=== PATIENT | female | born 1950 | race Caucasian/White ===

== ENCOUNTER 2024-10-07 08:25 | Inpatient (IN) | payer MEDICARE, SELFPAY ==
[2024-10-03 22:33] VITALS: BMI 35.3
[2024-10-03 22:52] VITALS: BP 146/82
[2024-10-03 23:11] LABS: % Basophils 0.4 % (0-2); % Eosinophils 0.9 % (0-6); % Immature Granulocytes 0.6 % (0-0.5); % Lymphocytes 12.3 % (20.5-51.1); % Monocytes 5.9 % (1.7-9.3); % Neutrophils 79.9 % (42.2-75.2); Absolute Eosinophils 0.1 10^3/uL (0-0.7); Absolute Immature Granulocytes 0.1 10^3/uL (0-0.05); Absolute Lymphocytes 1.4 10^3/uL (1.2-3.4); Absolute Monocytes 0.7 10^3/uL (0.1-0.6); Absolute Neutrophils 8.8 10^3/uL (1.4-6.5); Hematocrit 34.5 % (37.0-47.0); Hemoglobin 11.3 g/dL (12.0-16.0); Mean Corp Hgb Conc. 32.8 g/dL (33.0-37.0); Mean Corpuscular Hgb 28.5 pg (27.0-31.0); Mean Corpuscular Volume 87.1 fL (81.0-99.0); Mean Platelet Volume 8.7 fL (7.4-10.4); Nucleated Red Blood Cells % 0 %; Platelet Count 453 10^3/uL (130-400); Red Blood Cell Count 3.96 10^6/uL (4.20-5.40)
[2024-10-03 23:24] LABS: ALT (SGPT) 46 U/L (0-35); AST (SGOT) 56 U/L (14-36); Albumin 4.6 g/dl (3.5-5.0); Alkaline Phosphatase 32 U/L (38-126); Blood Urea Nitrogen 13 mg/dl (7-17); Calcium 9.5 mg/dl (8.4-10.2); Carbon Dioxide 24 mmol/L (22-30); Chloride 95 mmol/L (98-107); Erythrocyte Sed Rate 22 mm/hour (0-20); Glucose 134 mg/dl (70-99); Potassium 4.4 mmol/L (3.5-5.1); Sodium 128 mmol/L (135-145); Total Bilirubin 0.4 mg/dl (0.2-1.3); Total Protein 7.1 g/dl (6.3-8.2); eGFR > 60.00
[2024-10-04] VITALS (32 sets, daily range): BP systolic 102–165; BP diastolic 63–93
[2024-10-04] MEDS: ZOFRAN 4 MG IV ×3 (05:48→20:36)
--- NOTE | 2024-10-04 06:16 | ED.GENMED ---
History of Present Illness
General
Chief Complaint: Blood Pressure Problem
Source: patient and spouse
Time Seen by Provider: 10/04/24 06:05
History of Present Illness
History of Present Illness:
74-year-old female presents to the emergency room complaining of pain in her low back on the left radiating around to the front. Pain is so severe it makes her vomit. She denies any fever or chills. She has had nausea vomiting and diarrhea.
Movement makes the pain worse. Patient does have a history of back pain for which she had surgery.
Phy Exam
Physical Exam
Physical Exam:
General: Awake, Alert, Oriented X3. No acute distress but appears to have some pain at times
Vitals: unremarkable
Head: Atraumatic
Eyes: Pupils equal, EOMI
Throat: Airway intact, no exudates
Neck: Trachea midline
Lungs: Clear and equal b/l
Heart: Regular rate, no murmurs
Abd: Soft, Nontender, No pulsatile mass
Back: Tenderness to palpation over the left paraspinal musculature and SI joint
Neuro: No focal weakness
Skin: Warm, dry, no rash
Extremities: pulses equal b/l, no edema
Course
Orders/Labs/Results
Orders:
Orders
10/03/24 23:05
CRP [C-Reactive Protein] Urgent
Complete Blood Count/With Diff Urgent
Comprehensive Metabolic Panel Urgent
Erythrocyte Sed Rate Urgent
10/04/24 05:44
Ondansetron Injectable [Zofran] 4 mg .ROUTE .STK-MED ONE
10/04/24 05:47
Ondansetron Injectable [Zofran] 4 mg IV NOW STA
10/04/24 06:14
Diphenhydramine [Benadryl] 50 mg IV NOW STA
Fentanyl Citrate/Pf [Sublimaze] 75 mcg IV NOW STA
Hydrocortisone Sod Succinate [Solu-Cortef] 200 mg IV NOW STA
10/04/24 06:16
0.9% Sodium Chloride 500 ml [Nss] 500 ml IV BOLUS
10/04/24 07:27
CT Abd/pelvis W Iv Cont Urgent
Comment:
Reason For Exam: left lower abd pain/back pain
10/04/24 11:05
Ketorolac [Toradol] 15 mg IV NOW STA
10/04/24 13:28
Admit/Transfer Patient As Directed
Co-Sign Provider:
Level of Care: Observation services
Assign to:: Medical/Surgical
Physician / Group: fanny
Diagnosis: acute lower back pain
10/04/24 13:29
Code Status As Directed
Resuscitation Status: Full Code
PRN Pain Medication Management As Directed
May give lesser potent ordered pain med per pt: Yes
preference::
Protocol:: Medication orders for pain may be administered in a
manner that supports deferring to patient preference
when the pt is:
- Requesting an ordered lesser potent pain medication.
Least to most potent pain medications are defined
as: acetaminophen < NSAID < tramadol < opioids
(morphine, oxycodone, hydromorphone).
- Requesting a lesser dose of the same medication IF
ORDERED.
- Requesting a less intrusive route of administration
if both routes are prescribed by the provider (PO <
IV).
10/04/24 13:45
Lidocaine [Lidocaine 4% Patch] 1 patch TOPICAL DAILY
Apply Lidocaine patch(s) to:: left lower back
10/04/24 14:10
Acetaminophen [Tylenol] 650 mg PO Q4HPRN PRN
Ondansetron Injectable [Zofran] 4 mg IV Q6HPRN PRN
10/04/24 14:27
COVID-19 Antigen Urgent
Source: Nasal Swab
Influenza A+B Rapid Molecular Urgent
JENNA Source: Nasal Swab
Specimen Description:
10/04/24 Dinner
Regular
10/04/24 20:00
Remove Patch [Remove Lidocaine Patch] See Dose Instructions REMOVE DAILY@1999
Abnormal Lab Results
10/03/24
23:05
WBC 11.0 H 10^3/uL
(4.8-10.8)
RBC 3.96 L 10^6/uL
(4.20-5.40)
Hgb 11.3 L g/dL
(12.0-16.0)
Hct 34.5 L %
(37.0-47.0)
MCHC 32.8 L g/dL
(33.0-37.0)
Plt Count 453 H 10^3/uL
(130-400)
Abs Immat Gran (auto) 0.1 H 10^3/uL
(0-0.05)
Absolute Neuts (auto) 8.8 H 10^3/uL
(1.4-6.5)
Absolute Monos (auto) 0.7 H 10^3/uL
(0.1-0.6)
Immature Gran % 0.6 H %
(0-0.5)
Neutrophils % 79.9 H %
(42.2-75.2)
Lymphocytes % 12.3 L %
(20.5-51.1)
ESR 22 H mm/hour
(0-20)
Sodium 128 L mmol/L
(135-145)
Chloride 95 L mmol/L
(98-107)
Creatinine 0.4 L mg/dL
(0.6-1.0)
Glucose 134 H mg/dl
(70-99)
AST 56 H U/L
(14-36)
ALT 46 H U/L
(0-35)
Alkaline Phosphatase 32 L U/L
(38-126)
C-Reactive Protein 11.00 H mg/L
(0.0-10.00)
10/03/24 23:05
10/03/24 23:05
Vital Signs
Initial and Last Documented VS:
Initial Vital Signs
Temp Pulse Resp BP Pulse Ox
98.8 F 88 18 146/82 94
10/03/24 22:52 10/03/24 22:52 10/03/24 22:52 10/03/24 22:52 10/03/24 22:52
Last Documented Vital Signs
Temp Pulse Resp BP Pulse Ox
100.0 F 86 21 145/79 95
10/04/24 14:15 10/04/24 13:45 10/04/24 13:45 10/04/24 13:45 10/04/24 13:45
MDM/Problems Addressed
Differential Diagnosis Includes:
Degenerative joint disease, sacroiliitis, infectious process, fracture
MDM/Problems Addressed:
Patient presents with pain in her left low back and SI region. Also pain radiates to the front. Labs show minimally elevated white blood cell count. She does have mild hyponatremia at 128 and very mildly elevated LFTs. In triage a C-reactive
protein was sent and it is 11 but are upper limit of normal is 10 is not particularly impressive. Sed rate is similarly just a touch above normal at 22 which is likely consistent with her age. I will obtain a CT of the abdomen and pelvis with IV
contrast. We discussed her allergies which are mostly nausea vomiting and 'hives'. We will pretreat for IV contrast with steroids and Benadryl. I would very much doubt the patient has a true allergic reaction to diphenhydramine.
Patient treated with a dose of IV fentanyl as she says this is the only pain medications he is able to take. Fentanyl made her sedated but did not improve her pain very much. She evidently was hyperventilating some and was started on nasal cannula
oxygen by nursing. Patient is arousable however. She continues to cannot complain of severe low back and sacroiliac pain. She states she can even get out of bed. CT does not show any acute abnormalities. Given patient's inability to get out of
bed and need for supplemental oxygen we will hospitalize the patient for further treatment and evaluation.
*Radiology
Radiology exam reviewed: radiology read reviewed
*Pulse Oximetry
Patient hypoxic: yes
*Critical Care Note
Total Time (30-74mins, 75-104mins- exclusive of procedures): Not Applicable
Patient Management
Social determinants of health affecting care: Living situation and Strong social support
ED Attending Note
-
Portions of this chart may have been created with voice recognition software.� Occasional wrong word or��sound alike� substitutions may have occurred due to the inherent limitations of voice recognition software.
Discharge Plan
Departure
Patient Disposition: Admit
Date of Disposition: 10/04/24
Time of Disposition: 13:01
Presentation/result/management discussed w/ accepting MD/DO: Hospitalist
Patient with high blood pressure during this ER visit?: Yes
Condition: Good
Discharge Problem:
Sacro-iliac pain
Interventions
Interventions:
*Risk Screen - Suicide Last Done: 10/04/24 04:37
*General Assessment Last Done: 10/04/24 04:37
*Neglect/Abuse Screening Last Done: 10/04/24 04:37
ED- Fall Risk Assessment Last Done: 10/04/24 12:38
*ED COVID-19 Vaccine History Last Done: 10/04/24 04:37
*Nursing Disposition Last Done: 10/04/24 12:38
ED- Cardiac Assessment Last Done: 10/04/24 04:41
ED- Neurological Assessment Last Done: 10/04/24 04:41
ED- Pulmonary Assessment Last Done: 10/04/24 04:41
[2024-10-04] MEDS: NSS 500 IV (07:06)
[2024-10-04] MEDS: SUBLIMAZE 75 MCG IV (07:07)
[2024-10-04] MEDS: SOLU-CORTEF 200 MG IV (07:07)
[2024-10-04] MEDS: BENADRYL 50 MG IV (07:07)
[2024-10-04] MEDS: TORADOL 15 MG IV (11:30)
--- NOTE | 2024-10-04 12:42 | EDRN ---
this RN entered the pts room to discharge the pt and per the pt and the pts daughter the pt is still in 'severe pain' and per the pts daughter she does not like that the pts Sp02 on RA is 91-94%, the pt has no c/o SOB however the pts daughter
believes that the pt cannot take deep breaths due to the pain that the pt is experiencing, this RN notified Dr. Power
--- NOTE | 2024-10-04 13:31 | EDRN ---
the pt and the pts daughter refused discharge, the pt was discharged from the work list in error, admissions notified and chart is being corrected
--- NOTE | 2024-10-04 13:36 | HPS.HSE ---
Family Physician
-
Family Physician: Marky Barger
Chief Complaint
-
acute lower back pain
History of Present Illness
74-year-old female past medical history of hypertension, diabetes, asthma, fibromyalgia, IBS, M�ni�re's disease, spinal stenosis status post L4-L5 laminectomy 2 years ago presenting for acute onset of left lower back pain radiating to the gluteal
region and front of the abdomen. She denies any injuries or fall or heavy lifting. She has a history of chronic right lower back pain for which she underwent laminectomy 2 years ago but the pain that she is having currently is acute. Pain does
not radiate to the leg. She denies any saddle anesthesia numbness or tingling in the legs. Denies any urinary symptoms.
She has been using Tylenol at home. She tried lidocaine patch but had an episode of vomiting after use.
She is having chills. She has chronic cough but is slightly more productive. Denies sore throat. She denies chest pain. She has been having episodes of vomiting secondary to pain. She denies diarrhea.
She had sinus infection 2 weeks ago.
Patient has IBS and occasionally has loose stools. No diarrhea.
Denies smoking or alcohol use.
Medical History
Past Medical History
Past Medical History: Reports Other (hypertension, diabetes, asthma, fibromyalgia, IBS, M�ni�re's disease, spinal stenosis status post L4-L5 laminectomy 2 years ago)
Past Surgical History: Reports None
Social History
Tobacco: Non-smoker
Alcohol: None
Drug: None
Family History
Family History: Not pertinent
Allergies / Home Medications
Allergies reflects when Allergies were last updated in [facility].
Home Medications with original date entered in [facility]
Allergy/Medication List:
Allergies
Allergy/AdvReac Type Severity Reaction Status Date / Time
betamethasone Allergy Unknown Verified 10/04/24 10:58
clindamycin Allergy Unknown Verified 10/04/24 10:58
codeine Allergy Unknown Verified 10/04/24 10:58
diazepam Allergy Unknown Verified 10/04/24 10:58
diphenhydramine Allergy Unknown Verified 10/04/24 10:58
erythromycin base Allergy Unknown Verified 10/04/24 10:58
Iodinated Contrast Media Allergy Unknown Verified 10/04/24 10:58
Latex, Natural Rubber Allergy Unknown Verified 10/04/24 10:58
methylprednisolone Allergy Unknown Verified 10/04/24 10:58
nickel Allergy Unknown Verified 10/04/24 10:58
Penicillins Allergy Unknown Verified 10/04/24 10:58
prednisolone Allergy Unknown Verified 10/04/24 10:58
prednisone Allergy Unknown Verified 10/04/24 10:58
sulfamethoxazole Allergy Unknown Verified 10/04/24 10:58
[From
Sulfamethoxazole-Trimethoprim]
tetramethylthiuram Allergy Unknown Verified 10/04/24 10:58
monosulfide
triamcinolone Allergy Unknown Verified 10/04/24 10:58
trimethoprim Allergy Unknown Verified 10/04/24 10:58
[From
Sulfamethoxazole-Trimethoprim]
morphine AdvReac Severe Nausea / Verified 10/04/24 10:58
Vomiting
Home Medications
ketorolac 10 mg tablet 10 mg PO Q8H PRN Pain #30 tabs 10/04/24
metaxalone 800 mg tablet 800 mg PO TID PRN muscle pain #20 tabs 10/04/24
Review of Systems
-
History Source: Patient
A 12 point ROS was completed and negative except as noted: Yes
Constitutional: Reports No Symptoms
EENT: Reports No Symptoms
Respiratory: Reports No Symptoms
Cardiac: Reports No Symptoms
Abdomen/GI: Reports No Symptoms
: Reports No Symptoms
Musculoskeletal: Reports No Symptoms
Skin: Reports No Symptoms
Neurological: Reports No Symptoms
Endocrine: Reports No Symptoms
Hematologic/Lymphatic: Reports No Symptoms
Psych: Reports No Symptoms
Physical Exam
Vital Signs
Vital Signs
Temp Pulse Resp BP Pulse Ox
98.5 F 91 22 146/77 95
10/04/24 12:37 10/04/24 12:37 10/04/24 12:37 10/04/24 12:37 10/04/24 12:37
Physical Exam
General: Well Developed, Well Nourished and No Apparent Distress
HEENT: NormoCephalic, Moist mucous membranes and Atraumatic
Respiratory: Clear
Cardiac: S1/S2 and Regular Rhythm; No Murmur or Rub
GI: Soft, Non Tender, Non Distended and Normal Bowel Sounds; No Organomegaly
Rectal: Deferred by Provider
Musculoskeletal: No Clubbing, No Cyanosis and No Edema
Skin: No Rash
Neuro: Nonfocal/grossly intact
Laboratory Results
-
10/03/24 23:05
10/03/24 23:05
Laboratory Results
Total Bilirubin 0.4 mg/dl (0.2-1.3) 10/03/24 23:05
AST 56 U/L (14-36) H 10/03/24 23:05
ALT 46 U/L (0-35) H 10/03/24 23:05
Alkaline Phosphatase 32 U/L (38-126) L 10/03/24 23:05
Data Reviewed
-
Lab Data: Labs Reviewed by me
Old Records: Reviewed
Impression/Plan
-
IMPRESSION:
PLAN:
# Severe acute lower back pain likely secondary to spinal stenosis
# History of spinal stenosis status post L4-L5 laminectomy 2 years ago
-CT abdomen pelvis shows no acute pathology explain back pain
-Patient has multiple allergies and cannot tolerate opiates, steroids
-Continue Tylenol, Toradol
-Attempt lidocaine patch again
-PT/OT
-No neurological symptoms or weakness, can pursue MRI as outpatient
-Continue duloxetine
# Hypoxemia secondary to pneumonia versus shallow breathing secondary to pain
-CT abdomen pelvis shows bilateral lower lobe pneumonia/atelectasis
-Given hypoxemia, leukocytosis inclined to treat as pneumonia
-Check COVID and influenza
-Slightly elevated inflammatory markers could be secondary to infection
-Ceftriaxone/doxycycline
# Vomiting secondary to pain/pneumonia
-As needed Zofran
# Mild hyponatremia secondary to pain
-Continue to monitor
# Mild transaminitis could be secondary to viral infection
-Continue to monitor
Chronic anemia
-Unclear baseline
Type 2 diabetes
-Continue metformin
Essential hypertension
-Continue amlodipine
-Continue guanfacine
-Continue valsartan,
Asthma
-Continue albuterol
Fibromyalgia
IBS
-Continue MiraLAX
M�ni�re's disease
GERD
-Esomeprazole
Hyperlipidemia
-Continue statin
Hypothyroidism
-Continue levothyroxine
Full code
DVT prophylaxis�heparin
Regular diet
[2024-10-04] MEDS: LIDOCAINE 4% PATCH 1 PATCH TOPICAL (13:53)
[2024-10-04] MEDS: TYLENOL 650 MG PO ×2 (14:22→18:22)
[2024-10-04 14:58] LABS: COVID-19 Antigen Negative (Negative)
[2024-10-04 16:46] LABS: Urine Albumin Negative (Neg - Trace); Urine Bilirubin Negative (Negative); Urine Character Clear (Clear); Urine Color Yellow; Urine Glucose Negative (Negative); Urine Ketone 1+ (Negative); Urine Leukocyte Negative (Negative); Urine Nitrite Negative (Negative); Urine Occult Blood Negative (Negative); Urine Urobilinogen Negative (Neg - 1+)
[2024-10-04] MEDS: GLUCOPHAGE 500 MG PO (17:16)
[2024-10-04] MEDS: TORADOL 30 MG IV ×2 (17:17→23:17)
[2024-10-04] MEDS: STERILE WATER FOR INJECTION 10 ML IV (17:18)
[2024-10-04] MEDS: ROCEPHIN 1000 MG IV (17:18)
[2024-10-04] MEDS: VIBRAMYCIN 260 MG IV (17:41)
[2024-10-04] MEDS: MIRALAX PO (20:33)
[2024-10-04] MEDS: HEPARIN 5000 UNITS SC (20:46)
[2024-10-04] MEDS: PROTONIX 40 MG PO (20:50)
[2024-10-04] MEDS: NORVASC 2.5 MG PO (21:35)
--- NOTE | 2024-10-04 23:00 | PTCARENOTE ---
Attempted walking to pt to bathroom on RA, checked o2 88% RA, placed 3 L NC came up to 96-97%.
[2024-10-05] MEDS: TYLENOL 650 MG PO ×4 (00:28→16:19)
[2024-10-05] MEDS: SYNTHROID 50 MCG PO (05:10)
[2024-10-05] MEDS: TORADOL 30 MG IV ×3 (05:53→20:56)
[2024-10-05] MEDS: VIBRAMYCIN 260 MG IV ×2 (06:00→17:43)
[2024-10-05 06:44] LABS: % Basophils 0.2 % (0-2); % Eosinophils 0.4 % (0-6); % Immature Granulocytes 0.8 % (0-0.5); % Lymphocytes 25.9 % (20.5-51.1); % Monocytes 10.7 % (1.7-9.3); Absolute Immature Granulocytes 0.1 10^3/uL (0-0.05); Absolute Lymphocytes 2.4 10^3/uL (1.2-3.4); Absolute Neutrophils 5.7 10^3/uL (1.4-6.5); Hematocrit 34.4 % (37.0-47.0); Hemoglobin 11.1 g/dL (12.0-16.0); Mean Corp Hgb Conc. 32.3 g/dL (33.0-37.0); Mean Corpuscular Hgb 28.1 pg (27.0-31.0); Mean Corpuscular Volume 87.1 fL (81.0-99.0); Mean Platelet Volume 8.5 fL (7.4-10.4); Nucleated Red Blood Cells % 0 %; Platelet Count 482 10^3/uL (130-400); Red Blood Cell Count 3.95 10^6/uL (4.20-5.40); Red Cell Dist. Width 13.1 % (11.5-14.5); White Blood Cell Count 9.2 10^3/uL (4.8-10.8)
[2024-10-05 07:08] LABS: ALT (SGPT) 40 U/L (0-35); AST (SGOT) 43 U/L (14-36); Albumin 4.1 g/dl (3.5-5.0); Alkaline Phosphatase 34 U/L (38-126); Blood Urea Nitrogen 7 mg/dl (7-17); Carbon Dioxide 23 mmol/L (22-30); Chloride 99 mmol/L (98-107); Estimated Creatinine Clearance 72 ml/min; Glucose 115 mg/dl (70-99); Potassium 3.7 mmol/L (3.5-5.1); Sodium 133 mmol/L (135-145); Total Bilirubin 0.3 mg/dl (0.2-1.3); Total Protein 6.4 g/dl (6.3-8.2); eGFR > 60.00
[2024-10-05 08:47] VITALS: BP 149/85
[2024-10-05] MEDS: NORVASC 5 MG PO (09:00)
[2024-10-05] MEDS: OSCAL CAL 500 500 MG PO (09:00)
[2024-10-05] MEDS: VITAMIN D3 (cholecalciferol) 5 MCG PO (09:00)
[2024-10-05] MEDS: GLUCOPHAGE 500 MG PO ×2 (09:00→16:22)
[2024-10-05] MEDS: DIOVAN 320 MG PO (09:00)
[2024-10-05] MEDS: CYMBALTA DELAYED RELEASE 60 MG PO (09:00)
[2024-10-05] MEDS: LIDOCAINE 4% PATCH TOPICAL (09:01)
[2024-10-05] MEDS: HEPARIN 5000 UNITS SC ×2 (09:01→21:13)
[2024-10-05] MEDS: PROTONIX PO (09:01)
--- NOTE | 2024-10-05 09:49 | CM ---
CM following re: discharge planning.
Reviewed pt's chart, met with pt.
Pt is a 74 year old female, admitted with OBS status and primary dx of Severe acute lower back pain likely secondary to spinal stenosis. OBS status explained to the pt, pt expressed her understanding, declined to sign, QUIÑONEZ letter placed on chart,
pt has a copy.
Pt reports she lives with in a condo, no steps, has 2 supportive daughters and 2 stepdaughters. 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 No DME, VN or SNF history.
PCP: Marky Barger
Pharmacy: [facility]
D/C plan: home with anticipated no needs. family to transport at discharge.
CM will follow with discharge plan updates as hospitalization progresses.
--- NOTE | 2024-10-05 10:46 | W.PN.HOSP.TC ---
Today's Communication/Plan
-
see bold
Assessment / Plan
Assessment / Plan
Gen: NAD, AAOx3.
Eyes: EOMI, PERRLA, no scleral icterus.
Neck: supple.
CV: RRR, +S1/S2, no m/r/g.
Resp: CTAB, no rales, wheezes, or rhonchi.
Abd: +BS, soft, NT, ND
Skin: No rashes.
Neuro: CN 2-12 intact, non-focal.
Psych: Normal mood and affect.
CT A/P:
1. No significant acute abnormality identified in the abdomen or pelvis, as described above.
2. Bilateral lower lobe atelectasis and/or pneumonia.
Severe acute lower back pain:
-likely secondary to spinal stenosis
-h/o spinal stenosis status post L4-L5 laminectomy 2 years ago
-CT A/P shows no acute pathology explain back pain
-Patient has multiple allergies and cannot tolerate opiates, steroids
-Continue Tylenol, Toradol
-Attempt lidocaine patch again
-PT/OT
-No neurological symptoms or weakness, can pursue MRI as outpatient
-Continue duloxetine
Acute hypoxemic respiratory insufficiency due to pneumonia versus splinting secondary to pain:
-CT abdomen pelvis shows bilateral lower lobe pneumonia/atelectasis
-Given hypoxemia and leukocytosis on admission treatment for PNA was initiated
-COVID/Flu NEG
-Slightly elevated ESR/CRP are nonspecific
-cont Ceftriaxone/doxycycline for now, check procal
-Vomiting secondary to pain/pneumonia, PRN Zofran
-Mild transaminitis could be secondary to infection
Other problems:
Chronic anemia: Baseline Hb unknown, Hb stable
DM2: cont metformin/SSI/accuchecks
Essential hypertension: cont amlodipine/guanfacine/valsartan
Mild hyponatremia: likely secondary to pain, Na now 133
Asthma: cont albuterol
Fibromyalgia
IBS: Continue MiraLAX
M�ni�re's disease
GERD: Cont PPI
Hyperlipidemia: cont statin
Hypothyroidism: cont levothyroxine
FULL/heparin
Total time spent on today's encounter was 50 minutes which included time spent in counseling the patient/family regarding diagnosis and treatment plan as listed above, goals of care, and symptom management. Case was discussed with nursing staff,
specialists, and care coordinators/case management. All labs and imaging personally reviewed by me. Remainder the time spent in detailed review of previous records, lab data, imaging, and other medical provider documentation.
Anticipated Discharge: Within 24 hours
Subjective/Interval History
-
Date of Service: October 05, 2024
Objective Data
-
Labs:
Laboratory Results
10/05/24
06:02
WBC 9.2
Hgb 11.1 L
Hct 34.4 L
Plt Count 482 H
Sodium 133 L
Potassium 3.7
Chloride 99
Carbon Dioxide 23
BUN 7
Creatinine 0.4 L
Glucose 115 H
Calcium 9.0
Total Bilirubin 0.3
AST 43 H
ALT 40 H
Alkaline Phosphatase 34 L
Vital Signs:
Vital Signs
Temp Pulse Resp BP Pulse Ox
99.6 F 95 20 149/85 95
10/05/24 08:47 10/05/24 08:47 10/05/24 08:47 10/05/24 08:47 10/05/24 08:47
I&O
10/04/24 10/05/24 10/06/24
06:59 06:59 06:59
Intake Total 620 / 620
Balance 620 / 620
[2024-10-05 11:08] VITALS: BP 131/81; PULSE 89; O2SAT 98
[2024-10-05 12:02] LABS: Glucose - Point of Care 179 mg/dl (70-99)
[2024-10-05] MEDS: NOVOLOG FLEXPEN-LOW RESISTANCE 1 UNITS SC (12:02)
[2024-10-05 12:35] LABS: Procalcitonin < 0.05 ng/ml (0.0-0.25)
[2024-10-05] MEDS: ZOFRAN 4 MG IV (15:27)
[2024-10-05 16:21] VITALS: BP 147/88
[2024-10-05] MEDS: NON-FORMULARY ITEM 1 UNIT PO (16:21)
[2024-10-05] MEDS: ROCEPHIN 1000 MG IV (16:23)
[2024-10-05] MEDS: STERILE WATER FOR INJECTION 10 ML IV (16:23)
[2024-10-05 16:33] LABS: Glucose - Point of Care 108 mg/dl (70-99)
[2024-10-05] MEDS: NOVOLOG FLEXPEN-LOW RESISTANCE SC (16:34)
[2024-10-05] MEDS: MIRALAX 17 GRAMS PO (21:09)
[2024-10-05] MEDS: NORVASC 2.5 MG PO (21:10)
[2024-10-05 21:29] LABS: Glucose - Point of Care 106 mg/dl (70-99)
[2024-10-05 23:00] VITALS: BP 163/84
[2024-10-06] MEDS: TYLENOL 650 MG PO ×4 (00:24→20:18)
[2024-10-06 00:25] VITALS: BP 159/85
[2024-10-06] MEDS: TORADOL 30 MG IV ×3 (04:22→23:25)
[2024-10-06] MEDS: SYNTHROID 50 MCG PO (05:24)
[2024-10-06] MEDS: VIBRAMYCIN 260 MG IV ×2 (05:26→17:19)
[2024-10-06] MEDS: ZOFRAN 4 MG IV (07:41)
[2024-10-06 08:01] LABS: Glucose - Point of Care 117 mg/dl (70-99)
[2024-10-06 08:19] VITALS: BP 125/90
[2024-10-06] MEDS: NOVOLOG FLEXPEN-LOW RESISTANCE SC ×3 (08:59→17:14)
[2024-10-06] MEDS: CYMBALTA DELAYED RELEASE 60 MG PO (09:02)
[2024-10-06] MEDS: LIDOCAINE 4% PATCH TOPICAL (09:03)
[2024-10-06] MEDS: DIOVAN 320 MG PO (09:03)
[2024-10-06] MEDS: GLUCOPHAGE 500 MG PO ×2 (09:03→17:01)
[2024-10-06] MEDS: NORVASC 5 MG PO (09:03)
[2024-10-06] MEDS: OSCAL CAL 500 500 MG PO (09:04)
[2024-10-06] MEDS: VITAMIN D3 (cholecalciferol) 5 MCG PO (09:04)
[2024-10-06] MEDS: NON-FORMULARY ITEM 1 UNIT PO ×2 (09:05→17:01)
[2024-10-06] MEDS: HEPARIN 5000 UNITS SC ×2 (09:05→20:18)
--- NOTE | 2024-10-06 09:08 | W.PN.HOSP.TC ---
Today's Communication/Plan
-
Pain control. MRI of the lumbar spine. CTA of the chest. Antibiotics. Oxygen
Assessment / Plan
Assessment / Plan
Gen: NAD, AAOx3.
Eyes: EOMI, PERRLA, no scleral icterus.
Neck: supple.
CV: RRR, +S1/S2, no m/r/g.
Resp: CTAB, no rales, wheezes, or rhonchi.
Abd: +BS, soft, NT, ND
Skin: No rashes.
Musculoskeletal: Localized pain in left lumbar area and sacral lumbar area close to midline. Decreased range of motion in the back.
Neuro: CN 2-12 intact, non-focal.
Psych: Normal mood and affect.
CT A/P:
1. No significant acute abnormality identified in the abdomen or pelvis, as described above.
2. Bilateral lower lobe atelectasis and/or pneumonia.
A/P:
Severe acute lower back pain:
-likely secondary to spinal stenosis
-h/o spinal stenosis status post L4-L5 laminectomy 2 years ago
-CT A/P shows no acute pathology explain back pain
-Patient has multiple allergies and cannot tolerate opiates, steroids
-Continue Tylenol, Toradol--> discussed about using stronger medications such as narcotics that she tells me that she is very sensitive to these medications and does not want to try at this point. Plan for MRI of the lumbar spine today.
-Attempt lidocaine patch again
-PT/OT
-No neurological symptoms or weakness, can pursue MRI as outpatient
-Continue duloxetine
-Discussed with daughter at bedside today on 10/06
Acute hypoxemic respiratory insufficiency due to pneumonia versus splinting secondary to pain:
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 I doubt pneumonia pain afebrile and without leukocytosis.
-Premedicate with IV steroids and Benadryl prior to CTA today.
-Continue antibiotics until CT completed.
-Will also obtain a regular chest x-ray PA and lateral for further evaluation
-CT abdomen pelvis shows bilateral lower lobe pneumonia/atelectasis
-Given hypoxemia and leukocytosis on admission treatment for PNA was initiated
-COVID/Flu NEG
-Slightly elevated ESR/CRP are nonspecific
-cont Ceftriaxone/doxycycline for now, check procal and negative x 2. Plan for CTA of the chest.
-Vomiting secondary to pain/pneumonia, PRN Zofran
-Mild transaminitis could be secondary to infection
Other problems:
Chronic anemia: Baseline Hb unknown, Hb stable
DM2: cont metformin/SSI/accuchecks
Essential hypertension: cont amlodipine/guanfacine/valsartan
Mild hyponatremia: likely secondary to pain, Na now 133
Asthma: cont albuterol
Fibromyalgia
IBS: Continue MiraLAX
M�ni�re's disease
GERD: Cont PPI
Hyperlipidemia: cont statin
Hypothyroidism: cont levothyroxine
FULL/heparin
Total time spent on today's encounter was 50 minutes which included time spent in counseling the patient/family regarding diagnosis and treatment plan as listed above, goals of care, and symptom management. Case was discussed with nursing staff,
specialists, and care coordinators/case management. All labs and imaging personally reviewed by me. Remainder the time spent in detailed review of previous records, lab data, imaging, and other medical provider documentation.
Anticipated Discharge: > 48 hours
Subjective/Interval History
-
Date of Service: October 06, 2024
Patient complains of back pain now radiating to her legs. She also has some shortness of breath and some pleuritic chest discomfort. On supplemental oxygen. Afebrile
Objective Data
-
Vital Signs:
Vital Signs
Temp Pulse Resp BP Pulse Ox
99.4 F 83 20 125/90 96
10/06/24 08:19 10/06/24 08:19 10/06/24 08:19 10/06/24 08:19 10/06/24 08:58
I&O
10/05/24 10/06/24 10/07/24
06:59 06:59 06:59
Intake Total 620 / 620
Balance 620 / 620
[2024-10-06 10:01] LABS: % Basophils 0.5 % (0-2); % Eosinophils 2.5 % (0-6); % Immature Granulocytes 1.7 % (0-0.5); % Lymphocytes 23.4 % (20.5-51.1); % Monocytes 10.4 % (1.7-9.3); % Neutrophils 61.5 % (42.2-75.2); Absolute Basophils 0.1 10^3/uL (0-0.2); Absolute Eosinophils 0.2 10^3/uL (0-0.7); Absolute Immature Granulocytes 0.2 10^3/uL (0-0.05); Absolute Lymphocytes 2.2 10^3/uL (1.2-3.4); Absolute Neutrophils 5.9 10^3/uL (1.4-6.5); Hematocrit 36.8 % (37.0-47.0); Hemoglobin 11.9 g/dL (12.0-16.0); Mean Corp Hgb Conc. 32.3 g/dL (33.0-37.0); Mean Corpuscular Volume 86.6 fL (81.0-99.0); Mean Platelet Volume 8.7 fL (7.4-10.4); Nucleated Red Blood Cells % 0 %; Platelet Count 496 10^3/uL (130-400); Red Blood Cell Count 4.25 10^6/uL (4.20-5.40); Red Cell Dist. Width 12.9 % (11.5-14.5); White Blood Cell Count 9.6 10^3/uL (4.8-10.8)
[2024-10-06 10:23] LABS: Procalcitonin < 0.05 ng/ml (0.0-0.25)
[2024-10-06 10:27] LABS: ALT (SGPT) 39 U/L (0-35); AST (SGOT) 39 U/L (14-36); Albumin 4.5 g/dl (3.5-5.0); Alkaline Phosphatase 39 U/L (38-126); Blood Urea Nitrogen 7 mg/dl (7-17); Calcium 9.2 mg/dl (8.4-10.2); Carbon Dioxide 24 mmol/L (22-30); Chloride 94 mmol/L (98-107); Direct Bilirubin 0.2 mg/dl (0.0-0.4); Estimated Creatinine Clearance 72 ml/min; Glucose 140 mg/dl (70-99); Potassium 3.8 mmol/L (3.5-5.1); Sodium 130 mmol/L (135-145); Total Bilirubin 0.3 mg/dl (0.2-1.3); Total Protein 6.9 g/dl (6.3-8.2); eGFR > 60.00
[2024-10-06 12:08] LABS: Glucose - Point of Care 101 mg/dl (70-99)
[2024-10-06] MEDS: BENADRYL 50 MG IV (12:19)
[2024-10-06] MEDS: SOLU-CORTEF 200 MG IV (12:19)
[2024-10-06 12:29] LABS: Glycohemoglobin (HgbA1c) 5.8 % (4.0-5.6)
[2024-10-06 16:12] VITALS: BP 147/98
--- NOTE | 2024-10-06 16:19 | PTCARENOTE ---
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 VSS. On nc 2 lpm- pulse ox 97%, pt with (+) slight ORTEGA; occ dry cough; pt occ c/o CP/rib pain with coughing. Abd soft, rounded, pamela PO, appetite fair. Voids in BR without
difficulty. Resting in bed at present, no c/o; family members at bedside. Will continue to monitor.
[2024-10-06] MEDS: FLUSH (NSS) 1 FLUSH IV ×2 (17:02→17:19)
[2024-10-06] MEDS: ROCEPHIN 1000 MG IV (17:02)
[2024-10-06] MEDS: STERILE WATER FOR INJECTION 10 ML IV (17:02)
[2024-10-06 17:12] LABS: Glucose - Point of Care 149 mg/dl (70-99)
[2024-10-06] MEDS: MIRALAX 17 GRAMS PO (19:59)
[2024-10-06] MEDS: NORVASC 2.5 MG PO (20:00)
[2024-10-06 20:58] LABS: Glucose - Point of Care 132 mg/dl (70-99)
[2024-10-07 00:38] VITALS: BP 151/86
[2024-10-07] MEDS: TYLENOL 650 MG PO ×2 (04:59→11:12)
[2024-10-07] MEDS: VIBRAMYCIN 260 MG IV ×2 (05:00→18:32)
[2024-10-07] MEDS: SYNTHROID 50 MCG PO (05:01)
[2024-10-07] MEDS: TORADOL 30 MG IV ×2 (06:03→12:37)
[2024-10-07] MEDS: ZOFRAN 4 MG IV (06:29)
[2024-10-07 08:06] LABS: Glucose - Point of Care 119 mg/dl (70-99)
[2024-10-07 08:21] VITALS: BP 149/90
[2024-10-07] MEDS: VITAMIN D3 (cholecalciferol) 5 MCG PO (08:27)
[2024-10-07] MEDS: CYMBALTA DELAYED RELEASE 60 MG PO (08:29)
[2024-10-07] MEDS: DIOVAN 320 MG PO (08:29)
[2024-10-07] MEDS: NORVASC 5 MG PO (08:29)
[2024-10-07] MEDS: OSCAL CAL 500 500 MG PO (08:29)
[2024-10-07] MEDS: HEPARIN 5000 UNITS SC ×2 (08:30→17:00)
[2024-10-07] MEDS: NOVOLOG FLEXPEN-LOW RESISTANCE SC ×3 (08:30→16:55)
[2024-10-07] MEDS: GLUCOPHAGE 500 MG PO ×2 (08:30→16:54)
[2024-10-07] MEDS: NON-FORMULARY ITEM 1 UNIT PO (08:34)
[2024-10-07] MEDS: LIDOCAINE 4% PATCH TOPICAL (08:39)
--- NOTE | 2024-10-07 09:01 | CON.PUL ---
Consultation
Consultation Request
Date/Time Consultation Requested: 10/07/2024803
Date/Time Consultation Performed: 10/07/2024837
Requesting Provider: Dr. Romero
Performing Provider: Dr. Renee
Reason for Consultation: Cough/Pneumonia
Medical History
-
Chief Complaint: Left-sided back pain
History of Present Illness:
74-year-old female with a past medical history of asthma, fibromyalgia, DM type II, hypertension and spinal stenosis s/p L4-5 laminectomy about 2 years ago who presents with left lower back pain rating to the gluteal region in front of her abdomen.
She denies any recent injury or trauma. She has a history of chronic right-sided lower back pain for which she underwent laminectomy 2 years ago but she says that this pain is different. She uses Tylenol at home for pain and has tried lidocaine
patches in the past but had an episode of vomiting after use. She apparently has lots of adverse effects from multiple medications. She has a chronic cough but it is more dry recently. She does follow with rheumatology for fibromyalgia. She says
she was recently on doxycycline at the end of August for 10 days due to a sinus infection with congestion. She also recently stopped her statin as it was thought that this was causing some of her muscle/joint pain. In the ER she was afebrile to
98.8 �F, pulse rate 88, breathing at 18 breaths/minute, BP 146/82 and saturating 94% on room air. Initial labs showed mild leukocytosis to 11, Hb 11.3, platelet count 453, ESR 22, serum sodium 128, CRP 11, urinalysis negative for UTI and COVID-19
antigen negative. CXR showed patchy parenchymal opacities in the lower lungs. Subsequent CTA chest showed moderate bibasilar airspace disease consistent with pneumonia, and no PE was discovered. In the ER she was started on ceftriaxone,
hydrocortisone, given 500 cc bolus of NS 0.9% and doxycycline. She was admitted to med-surg for further care. Pulmonary service now consulted for additional management/recommendations.
When I saw the patient today, patient's daughter, Vidhya, at bedside. All questions were answered. Patient currently has pain on the right side under her breast as well as her lower back. Pain in her right side of her ribs/back is worse when she
takes deep breath. She still has a cough when she takes a deep breath and it is more dry now. She is currently on room air breathing comfortably. She denies shortness of breath. She also denies fevers, chills, AVENDAÑO, nausea, diarrhea.
PMHx: Hypertension, DM type II, asthma, fibromyalgia, IBS, history of M�ni�re's disease, spinal stenosis s/p L4-5 laminectomy
PSHx: Noncontributory
Past Medical History
Past Medical History: Other (Above as per HPI)
Past Surgical History: Other (Above as per HPI)
Social History
Tobacco: Non-smoker
Alcohol: None
Drug: None
Family History
Family History: Reviewed & Not Pertinent
Allergies / Home Medications
Allergies
Allergy/AdvReac Type Severity Reaction Status Date / Time
betamethasone Allergy Unknown Verified 10/04/24 10:58
clindamycin Allergy Unknown Verified 10/04/24 10:58
codeine Allergy Unknown Verified 10/04/24 10:58
diazepam Allergy Unknown Verified 10/04/24 10:58
diphenhydramine Allergy Unknown Verified 10/04/24 10:58
erythromycin base Allergy Unknown Verified 10/04/24 10:58
Iodinated Contrast Media Allergy Unknown Verified 10/04/24 10:58
Latex, Natural Rubber Allergy Unknown Verified 10/04/24 10:58
methylprednisolone Allergy Unknown Verified 10/04/24 10:58
nickel Allergy Unknown Verified 10/04/24 10:58
Penicillins Allergy Unknown Verified 10/04/24 10:58
prednisolone Allergy Unknown Verified 10/04/24 10:58
prednisone Allergy Unknown Verified 10/04/24 10:58
sulfamethoxazole Allergy Unknown Verified 10/04/24 10:58
[From
Sulfamethoxazole-Trimethoprim]
tetramethylthiuram Allergy Unknown Verified 10/04/24 10:58
monosulfide
triamcinolone Allergy Unknown Verified 10/04/24 10:58
trimethoprim Allergy Unknown Verified 10/04/24 10:58
[From
Sulfamethoxazole-Trimethoprim]
morphine AdvReac Severe Nausea / Verified 10/04/24 10:58
Vomiting
Home Medications
�Medication �Instructions �Recorded �Confirmed �Last Taken �Type
acetaminophen 650 mg 1,300 mg PO DAILYPRN PRN mild pain 10/04/24 10/04/24 10/03/24 History
tablet,extended release
acetaminophen 650 mg 650 mg PO Q12H Pain 10/04/24 10/04/24 10/03/24 History
tablet,extended release
albuterol sulfate 90 mcg/actuation 1 inh inhalation R Q6HPRN PRN sob 10/04/24 10/04/24 Unknown History
aerosol inhaler
amlodipine 2.5 mg tablet 2.5 mg PO HS Blood Pressure 10/04/24 10/04/24 10/03/24 History
amlodipine 2.5 mg tablet 5 mg PO DAILY Blood Pressure 10/04/24 10/04/24 10/03/24 History
calcium 250 mg (as 1 tab PO DAILY Supplement 10/04/24 10/04/24 10/03/24 History
citrate)-vitamin D3 5 mcg (200
unit) tablet
duloxetine 60 mg capsule,delayed 60 mg PO DAILY Mental 10/04/24 10/04/24 10/03/24 History
release Health/Anxiety
esomeprazole magnesium 40 mg 40 mg PO BID GERD 10/04/24 10/04/24 10/03/24 History
capsule,delayed release (Nexium)
guanfacine 1 mg tablet 2 mg PO BID Blood Pressure 10/04/24 10/04/24 10/03/24 History
hydrocortisone-pramoxine 2.5 %-1 % 1 applic [place] DAILYPRN PRN 10/04/24 10/04/24 10/03/24 History
rectal cream hemorrhoids
levothyroxine 50 mcg tablet 50 mcg PO MOTUWETHFRSA Thyroid 10/04/24 10/04/24 10/03/24 History
metformin 500 mg tablet 500 mg PO BID Diabetes 10/04/24 10/04/24 10/03/24 History
polyethylene glycol 3350 17 gram 17 g PO HS Gastrointestinal Issue 10/04/24 10/04/24 10/03/24 History
oral powder packet (Miralax)
valsartan 320 mg tablet 320 mg PO DAILY Blood Pressure 10/04/24 10/04/24 10/03/24 History
Review of Systems
-
History Source: Patient
All other systems: Negative unless noted
Vitals / Labs / Diagnostic Testing
Vital Signs
Temp Pulse Resp BP Pulse Ox
99.0 F 88 20 149/90 97
10/07/24 08:21 10/07/24 08:29 10/07/24 08:21 10/07/24 08:29 10/07/24 08:21
Lab Data
10/07/24 08:44
Microbiology
10/04/24 14:27 Nasal Swab Influenza Types A & B (ADELSO) - Final
Negative for Influenza A & B, NAAT
Negative results must be combined with clinical observations
and patient history.
Nucleic Acid Amplification test (NAAT)performed on the
[employer] platform.
Diagnostic Testing:
Physical Exam
-
HEENT: Normocephalic and Anicteric
Cardiovascular: S1/S2 and Peripheral Edema (negative)
Respiratory: Wheeze (negative), Rales (Bibasilar), Rhonchi (negative) and Non-Labored Respirations
GI: Soft, Non Distended, Non Tender and Normal Bowel Sounds
Neurology: AO x 3 and Tremors (negative)
Skin: Warm and Dry
General: Respiratory Distress (negative), Comfortable, Fever (negative) and Chills (negative)
Assessment
-
Assessment: 74-year-old female with a past medical history of asthma, fibromyalgia, DM type II, hypertension and spinal stenosis s/p L4-5 laminectomy about 2 years ago who presents with left lower back pain rating to the gluteal region in front of
her abdomen. She denies any recent injury or trauma. She has a history of chronic right-sided lower back pain for which she underwent laminectomy 2 years ago but she says that this pain is different. She uses Tylenol at home for pain and has
tried lidocaine patches in the past but had an episode of vomiting after use. She apparently has lots of adverse effects from multiple medications. She has a chronic cough but it is more dry recently. She does follow with rheumatology for
fibromyalgia. She says she was recently on doxycycline at the end of August for 10 days due to a sinus infection with congestion. She also recently stopped her statin as it was thought that this was causing some of her muscle/joint pain. In the
ER she was afebrile to 98.8 �F, pulse rate 88, breathing at 18 breaths/minute, BP 146/82 and saturating 94% on room air. Initial labs showed mild leukocytosis to 11, Hb 11.3, platelet count 453, ESR 22, serum sodium 128, CRP 11, urinalysis negative
for UTI and COVID-19 antigen negative. CXR showed patchy parenchymal opacities in the lower lungs. Subsequent CTA chest showed moderate bibasilar airspace disease consistent with pneumonia, and no PE was discovered. In the ER she was started on
ceftriaxone, hydrocortisone, given 500 cc bolus of NS 0.9% and doxycycline. She was admitted to med-surg for further care. Pulmonary service now consulted for additional management/recommendations.
Chronic conditions [employer]: Hypertension, DM type II, asthma, fibromyalgia, IBS, history of M�ni�re's disease, spinal stenosis s/p L4-5 laminectomy
Impression:
#Community-acquired pneumonia involving bases
#Leukocytosis likely due to above
#Mild as moderate right hemidiaphragm elevation
#Anemia (mild)
#History of fibromyalgia
#Arthralgia with joint edema suspicious for polyarthritis (?RA)
#Thrombocytosis � likely reactive due to pneumonia
#Hypochloremic, hyponatremia likely due to reduced PO intake
Plan:
- It appears the patient has a bilateral lower lobe community-acquired pneumonia
- Continue with antibiotics, currently on ceftriaxone/doxycycline to with plan for at least 7-day course of antibiotics assuming she continues to clinically improve and remains afebrile for 48 hours prior to stopping
- Mucolytics
- Check sputum culture if patient can produce a decent; check urine antigens for Legionella + strep pneumonia
- Maintain SpO2 >90-94% with supplemental O2 as needed
- Incentive spirometer encouraged q1hr while awake
- Given her complaint of swollen fingers including MCP/DIP/PIP joints, with redness, and swelling, this is concerning for rheumatoid arthritis with polyarthritis. Check RF, CCP, JASPAL, CRP, CK, ESR
- She says she already follows with rheumatology for fibromyalgia; recommend her to continue following up with rheumatology
- PT/OT
- Trend sNa with goal 135-145
- Pain control
- Replete electrolytes with K>4, Mg>2
- Maintain euglycemia with goal BG >100 and <180
- Trend Hb and transfuse as needed to keep Hb >7
- prn nebulized bronchodilators -not currently bronchospastic
- Recommend repeat testing as an outpatient with CT chest in 4 to 6 weeks to follow-up for pneumonia resolution
- Recommend outpatient PFTs and if there is evidence of restriction and right hemidiaphragm persists then would recommend sniff test at that time
- DVT ppx: HSQ
Pulmonary service will continue to follow along. Outpatient follow-up to be arranged for full PFTs, and repeat imaging to assure her pneumonia resolves.
Data:
CTA chest 10/06/2024:
Moderate bibasilar airspace disease consistent with pneumonia.
No evidence of pulmonary embolus.
CXR 10/06/2024:
Patchy parenchymal opacity within both lower lungs, greatest within the lower lobes.
No evidence for pleural effusion.
Mild to moderate elevation of the right hemidiaphragm, stable from recent CT exam.
Total time spent today was 58 minutes for this encounter. Time includes reviewing laboratory test/imaging results, reviewing pertinent medical records, obtaining and reviewing medical history, performing an appropriate exam, ordering medications,
tests and procedures. Time also includes documentation of this encounter, coordinating patient care and communicating with other healthcare professionals. Total time does not include separately billed tests performed on this date of service.
--- NOTE | 2024-10-07 09:08 | W.PN.HOSP.TC ---
Today's Communication/Plan
-
Antibiotics. Pain control. Bowel regimen
Assessment / Plan
Assessment / Plan
Gen: NAD, AAOx3.
Eyes: EOMI, PERRLA, no scleral icterus.
Neck: supple.
CV: RRR, +S1/S2, no m/r/g.
Resp: CTAB, no rales, wheezes, or rhonchi.
Abd: +BS, soft, mild tenderness, ND
Skin: No rashes.
Musculoskeletal: Localized pain in left lumbar area and sacral lumbar area close to midline. Decreased range of motion in the back.
Neuro: CN 2-12 intact, non-focal.
Psych: Normal mood and affect.
A/P:
Acute on chronic lower back pain due to spinal and neuroforaminal stenosis at L4-L5:
Continue Tylenol, Toradol and anything she can tolerate--> discussed about using stronger medications such as narcotics that she tells me that she is very sensitive to these medications and does not want to try at this point.
On Cymbalta
PT OT eval
Acute hypoxic respiratory insufficiency due to splinting from pain and pneumonia:
Continue IV Rocephin and doxycycline
CTA negative for PE
Pulmonary consult at the request of family-discussed with pulmonary today
Incentive spirometry
Constipation and abdominal discomfort with nausea:
More aggressive bowel regimen today
Hyponatremia:
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
Start fluid restriction
Check urine sodium urine osmolarity and serum osmolarity
Other problems:
Chronic anemia: Baseline Hb unknown, Hb stable at 11.9
DM2: cont metformin/SSI/accuchecks
Essential hypertension: cont amlodipine/guanfacine/valsartan. Family to bring guanfacine and in the meantime we will add IV hydralazine as needed.
Asthma: cont albuterol
Fibromyalgia
IBS: Continue MiraLAX
M�ni�re's disease
GERD: Cont PPI
Hyperlipidemia: cont statin
Hypothyroidism: cont levothyroxine
FULL/heparin
Total time spent on today's encounter was 50 minutes which included time spent in counseling the patient/family regarding diagnosis and treatment plan as listed above, goals of care, and symptom management. Case was discussed with nursing staff,
specialists, and care coordinators/case management. All labs and imaging personally reviewed by me. Remainder the time spent in detailed review of previous records, lab data, imaging, and other medical provider documentation.
Anticipated Discharge: 24 - 48 hours
Subjective/Interval History
-
Date of Service: October 07, 2024
Patient complains of abdominal discomfort. No bowel movement for a few days. Still coughing shortness of breath and on supplemental oxygen. Complains of back pain. Afebrile
Objective Data
-
Labs:
Laboratory Results
10/07/24
08:44
WBC Pending
Hgb Pending
Hct Pending
Plt Count Pending
Sodium Pending
Potassium Pending
Chloride Pending
Carbon Dioxide Pending
BUN Pending
Creatinine Pending
Glucose Pending
Calcium Pending
Vital Signs:
Vital Signs
Temp Pulse Resp BP Pulse Ox
99.0 F 88 20 149/90 97
10/07/24 08:21 10/07/24 08:29 10/07/24 08:21 10/07/24 08:29 10/07/24 08:21
I&O
10/06/24 10/07/24 10/08/24
06:59 06:59 06:59
Intake Total 1700 / 1700
Balance 1700 / 1700
[2024-10-07 09:34] LABS: % Basophils 0.3 % (0-2); % Eosinophils 1.5 % (0-6); % Immature Granulocytes 0.7 % (0-0.5); % Lymphocytes 23.7 % (20.5-51.1); % Monocytes 9.8 % (1.7-9.3); Absolute Eosinophils 0.2 10^3/uL (0-0.7); Absolute Immature Granulocytes 0.1 10^3/uL (0-0.05); Absolute Lymphocytes 2.8 10^3/uL (1.2-3.4); Absolute Monocytes 1.2 10^3/uL (0.1-0.6); Absolute Neutrophils 7.6 10^3/uL (1.4-6.5); Hematocrit 35.9 % (37.0-47.0); Hemoglobin 11.9 g/dL (12.0-16.0); Mean Corp Hgb Conc. 33.1 g/dL (33.0-37.0); Mean Corpuscular Hgb 28.4 pg (27.0-31.0); Mean Corpuscular Volume 85.7 fL (81.0-99.0); Nucleated Red Blood Cells % 0 %; Platelet Count 518 10^3/uL (130-400); Red Blood Cell Count 4.19 10^6/uL (4.20-5.40); Red Cell Dist. Width 12.7 % (11.5-14.5); White Blood Cell Count 11.9 10^3/uL (4.8-10.8)
[2024-10-07 09:42] VITALS: PULSE 84; O2SAT 100
[2024-10-07 10:18] LABS: Blood Urea Nitrogen 9 mg/dl (7-17); Calcium 9.4 mg/dl (8.4-10.2); Carbon Dioxide 24 mmol/L (22-30); Chloride 92 mmol/L (98-107); Estimated Creatinine Clearance 72 ml/min; Glucose 150 mg/dl (70-99); Potassium 3.8 mmol/L (3.5-5.1); Sodium 127 mmol/L (135-145); eGFR > 60.00
--- NOTE | 2024-10-07 11:41 | CM ---
CM spoke with Edda Escalona and her daughters regarding discharge plans. They would [facility]. CM called Mirian Rockwell, [facility], who will review the pt's clinical information
and get back to me about possible transfer.
TT to Dr. Romero to make him aware of pt/family wishes.
CM will continue to follow; await Lorenzo review for transfer determination.
[2024-10-07 11:43] VITALS: BP 163/88; PULSE 74
[2024-10-07 12:12] LABS: Glucose - Point of Care 104 mg/dl (70-99)
[2024-10-07] MEDS: DUPHALAC/CHRONULAC 20 GRAMS PO (12:37)
[2024-10-07] MEDS: SENOKOT PO ×2 (12:46→22:14)
[2024-10-07 15:35] VITALS: BP 134/82
[2024-10-07 16:56] LABS: Glucose - Point of Care 139 mg/dl (70-99)
[2024-10-07] MEDS: NON-FORMULARY ITEM 2 MG PO ×2 (16:56→22:17)
[2024-10-07] MEDS: ROCEPHIN 1000 MG IV (17:02)
[2024-10-07] MEDS: STERILE WATER FOR INJECTION 10 ML IV (17:02)
[2024-10-07] MEDS: NON-FORMULARY ITEM 2 UNIT PO (17:04)
--- NOTE | 2024-10-07 17:12 | CM ---
CM spoke with Mirian Rockwell of [facility] who advised pt will be [facility] , 10/09/20[facility].
CM will continue to follow.
[2024-10-07 17:38] LABS: Osmolality Urine 429 mOsm/kg (300-900)
[2024-10-07 17:50] LABS: Urine Sodium 88 mmol/L (30-90)
[2024-10-07] MEDS: TUMS CHEWABLE TABLET 200 MG PO (18:32)
[2024-10-07 20:56] LABS: Glucose - Point of Care 94 mg/dl (70-99)
[2024-10-07] MEDS: MELATONIN 5 MG PO (22:15)
[2024-10-07] MEDS: MIRALAX 17 GRAMS PO (22:16)
[2024-10-07] MEDS: NORVASC 2.5 MG PO (22:16)
[2024-10-07 23:18] VITALS: BP 143/80
[2024-10-08] MEDS: TORADOL 30 MG IV ×3 (00:31→23:00)
[2024-10-08] MEDS: HEPARIN 5000 UNITS SC ×2 (00:31→10:27)
[2024-10-08] MEDS: TUMS CHEWABLE TABLET 200 MG PO ×2 (00:33→17:27)
[2024-10-08] MEDS: SYNTHROID 50 MCG PO (05:52)
[2024-10-08] MEDS: VIBRAMYCIN 260 MG IV (05:52)
[2024-10-08 07:01] LABS: % Basophils 0.5 % (0-2); % Lymphocytes 25.2 % (20.5-51.1); % Monocytes 7.4 % (1.7-9.3); % Neutrophils 61.9 % (42.2-75.2); Absolute Basophils 0.1 10^3/uL (0-0.2); Absolute Eosinophils 0.5 10^3/uL (0-0.7); Absolute Immature Granulocytes 0.1 10^3/uL (0-0.05); Absolute Lymphocytes 3.2 10^3/uL (1.2-3.4); Absolute Neutrophils 7.9 10^3/uL (1.4-6.5); Hematocrit 34.4 % (37.0-47.0); Hemoglobin 11.4 g/dL (12.0-16.0); Mean Corp Hgb Conc. 33.1 g/dL (33.0-37.0); Mean Corpuscular Hgb 28.4 pg (27.0-31.0); Mean Corpuscular Volume 85.8 fL (81.0-99.0); Mean Platelet Volume 8.7 fL (7.4-10.4); Nucleated Red Blood Cells % 0 %; Platelet Count 498 10^3/uL (130-400); Red Blood Cell Count 4.01 10^6/uL (4.20-5.40); Red Cell Dist. Width 12.8 % (11.5-14.5); White Blood Cell Count 12.8 10^3/uL (4.8-10.8)
[2024-10-08 07:25] LABS: C-Reactive Protein < 5.00 mg/L (0.0-10.00)
[2024-10-08 07:31] LABS: Blood Urea Nitrogen 12 mg/dl (7-17); Calcium 9.5 mg/dl (8.4-10.2); Carbon Dioxide 24 mmol/L (22-30); Chloride 95 mmol/L (98-107); Creatine Phosphokinase 231 U/L (30-135); Estimated Creatinine Clearance 72 ml/min; Glucose 100 mg/dl (70-99); Potassium 3.9 mmol/L (3.5-5.1); Sodium 128 mmol/L (135-145); eGFR > 60.00
[2024-10-08 07:35] VITALS: BP 128/76
[2024-10-08 08:02] LABS: Erythrocyte Sed Rate 12 mm/hour (0-20)
[2024-10-08 09:02] LABS: Glucose - Point of Care 103 mg/dl (70-99)
--- NOTE | 2024-10-08 09:57 | W.PN.HOSP.TC ---
Addendum entered and electronically signed by Pedro Romero MD 10/08/24 14:32:
Discussed with daughter over the phone today
Original Note:
Today's Communication/Plan
-
Antibiotics. Bowel regimen.
Assessment / Plan
Assessment / Plan
Gen: NAD, AAOx3.
Eyes: EOMI, PERRLA, no scleral icterus.
Neck: supple.
CV: RRR, +S1/S2, no m/r/g.
Resp: CTAB, no rales, wheezes, or rhonchi.
Abd: +BS, soft, mild tenderness, ND
Skin: No rashes.
Musculoskeletal: Localized pain in left lumbar area and sacral lumbar area close to midline. Decreased range of motion in the back.
Neuro: CN 2-12 intact, non-focal.
Psych: Normal mood and affect.
A/P:
Acute on chronic lower back pain due to spinal and neuroforaminal stenosis at L4-L5:
Continue Tylenol, Toradol and anything she can tolerate--> discussed about using stronger medications such as narcotics that she tells me that she is very sensitive to these medications and does not want to try at this point.
On Cymbalta
PT OT eval
Acute hypoxic respiratory insufficiency due to splinting from pain and pneumonia:
Continue IV Rocephin and doxycycline
CTA negative for PE
Pulmonary consult at the request of family-discussed with pulmonary today
Incentive spirometry
Leukocytosis:
White count 12.8 today from 11.9 yesterday--> monitor trend
No evidence for concerns
Constipation and abdominal discomfort with nausea:
More aggressive bowel regimen today
Hyponatremia:
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
Start fluid restriction
Check urine sodium urine osmolarity and serum osmolarity
Other problems:
Chronic anemia: Baseline Hb unknown, Hb stable at 11.4
DM2: cont metformin/SSI/accuchecks
Essential hypertension: cont amlodipine/guanfacine/valsartan. Family to bring guanfacine and in the meantime we will add IV hydralazine as needed.
Asthma: cont albuterol
Fibromyalgia
IBS: Continue MiraLAX
M�ni�re's disease
GERD: Cont PPI
Hyperlipidemia: cont statin
Hypothyroidism: cont levothyroxine
FULL/heparin
Total time spent on today's encounter was 50 minutes which included time spent in counseling the patient/family regarding diagnosis and treatment plan as listed above, goals of care, and symptom management. Case was discussed with nursing staff,
specialists, and care coordinators/case management. All labs and imaging personally reviewed by me. Remainder the time spent in detailed review of previous records, lab data, imaging, and other medical provider documentation.
Anticipated Discharge: 24 - 48 hours
Subjective/Interval History
-
Date of Service: October 08, 2024
Patient has not had a bowel movement yet. Afebrile. On room air
Objective Data
-
Labs:
Laboratory Results
10/08/24
06:12
WBC 12.8 H
Hgb 11.4 L
Hct 34.4 L
Plt Count 498 H
Sodium 128 L
Potassium 3.9
Chloride 95 L
Carbon Dioxide 24
BUN 12
Creatinine 0.5 L
Glucose 100 H
Calcium 9.5
Vital Signs:
Vital Signs
Temp Pulse Resp BP Pulse Ox
98.9 F 89 18 143/80 96
10/07/24 23:18 10/07/24 23:18 10/07/24 23:18 10/07/24 23:18 10/07/24 23:18
I&O
10/07/24 10/08/24 10/09/24
06:59 06:59 06:59
Intake Total 1700 / 1700 1580 / 1580
Output Total 350 / 350
Balance 1700 / 1700 1230 / 1230
[2024-10-08] MEDS: NOVOLOG FLEXPEN-LOW RESISTANCE SC ×3 (10:16→16:53)
[2024-10-08] MEDS: DIOVAN 320 MG PO (10:19)
[2024-10-08] MEDS: VITAMIN D3 (cholecalciferol) 5 MCG PO (10:20)
[2024-10-08] MEDS: OSCAL CAL 500 500 MG PO (10:22)
[2024-10-08] MEDS: DUPHALAC/CHRONULAC 20 GRAMS PO (10:22)
[2024-10-08] MEDS: NORVASC 5 MG PO (10:22)
[2024-10-08] MEDS: SENOKOT 8.6 MG PO ×2 (10:24→22:50)
[2024-10-08] MEDS: NON-FORMULARY ITEM 2 UNIT PO ×2 (10:24→17:01)
[2024-10-08] MEDS: NON-FORMULARY ITEM 2 MG PO ×2 (10:25→22:49)
[2024-10-08] MEDS: GLUCOPHAGE 500 MG PO ×2 (10:25→16:53)
[2024-10-08] MEDS: CYMBALTA DELAYED RELEASE 60 MG PO (10:28)
[2024-10-08] MEDS: SODIUM CHLORIDE 1 GRAM PO ×2 (10:28→22:46)
[2024-10-08 10:37] LABS: Osmolality Serum 273 mOsm/kg (275-300)
[2024-10-08] MEDS: LIDOCAINE 4% PATCH 1 PATCH TOPICAL (10:39)
[2024-10-08 12:16] LABS: Glucose - Point of Care 99 mg/dl (70-99)
[2024-10-08] MEDS: MILK OF MAGNESIA 30 ML PO (14:07)
[2024-10-08 15:07] LABS: Glucose - Point of Care 97 mg/dl (70-99)
--- NOTE | 2024-10-08 15:13 | W.PN.PUL3 ---
Today's Communication / Plan
-
Continue antibiotic
Follow-up final cultures
Symptomatic management
Eventual radiographic follow-up
Oxygen supplementation has been weaned off
Will follow briefly
Assessment
-
Assessment: 74-year-old female with a past medical history of asthma, fibromyalgia, DM type II, hypertension and spinal stenosis s/p L4-5 laminectomy about 2 years ago who presents with left lower back pain rating to the gluteal region in front of
her abdomen. She denies any recent injury or trauma. She has a history of chronic right-sided lower back pain for which she underwent laminectomy 2 years ago but she says that this pain is different. She uses Tylenol at home for pain and has
tried lidocaine patches in the past but had an episode of vomiting after use. She apparently has lots of adverse effects from multiple medications. She has a chronic cough but it is more dry recently. She does follow with rheumatology for
fibromyalgia. She says she was recently on doxycycline at the end of August for 10 days due to a sinus infection with congestion. She also recently stopped her statin as it was thought that this was causing some of her muscle/joint pain. In the
ER she was afebrile to 98.8 �F, pulse rate 88, breathing at 18 breaths/minute, BP 146/82 and saturating 94% on room air. Initial labs showed mild leukocytosis to 11, Hb 11.3, platelet count 453, ESR 22, serum sodium 128, CRP 11, urinalysis negative
for UTI and COVID-19 antigen negative. CXR showed patchy parenchymal opacities in the lower lungs. Subsequent CTA chest showed moderate bibasilar airspace disease consistent with pneumonia, and no PE was discovered. In the ER she was started on
ceftriaxone, hydrocortisone, given 500 cc bolus of NS 0.9% and doxycycline. She was admitted to med-surg for further care. Pulmonary service now consulted for additional management/recommendations.
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
Impression:
#Community-acquired pneumonia involving bases
#Leukocytosis likely due to above
#Mild as moderate right hemidiaphragm elevation
#Anemia (mild)
#History of fibromyalgia
#Arthralgia with joint edema suspicious for polyarthritis (?RA)
#Thrombocytosis � likely reactive due to pneumonia
#Hypochloremic, hyponatremia likely due to reduced PO intake
Plan:
- It appears the patient has a bilateral lower lobe community-acquired pneumonia
- Continue with antibiotics, currently on ceftriaxone/doxycycline to with plan for at least 7-day course of antibiotics assuming she continues to clinically improve and remains afebrile for 48 hours prior to stopping
- Mucolytics
- sputum culture pending
Negative-pneumococcal and Legionella antibodies.
-Not requiring supplemental oxygen, does not appear toxic.
- Incentive spirometer encouraged q1hr while awake
- Given her complaint of swollen fingers including MCP/DIP/PIP joints, with redness, and swelling, this is concerning for rheumatoid arthritis with polyarthritis. Check RF, CCP, JASPAL, CRP, CK, pending.
Sed rate is normal/CRP normal
- She says she already follows with rheumatology for fibromyalgia; recommend her to continue following up with rheumatology
- PT/OT
-Follow sodium. Defer management to primary team.
- Pain control
- Replete electrolytes with K>4, Mg>2
- Maintain euglycemia with goal BG >100 and <180
- Trend Hb and transfuse as needed to keep Hb >7
- prn nebulized bronchodilators -not currently bronchospastic
- Recommend repeat testing as an outpatient with CT chest in 4 to 6 weeks to follow-up for pneumonia resolution
- Recommend outpatient PFTs and if there is evidence of restriction and right hemidiaphragm persists then would recommend sniff test at that time
- DVT ppx: HSQ
Pulmonary service will continue to follow along. Outpatient follow-up to be arranged for full PFTs, and repeat imaging to assure her pneumonia resolves.
Data:
CTA chest 10/06/2024:
Moderate bibasilar airspace disease consistent with pneumonia.
No evidence of pulmonary embolus.
CXR 10/06/2024:
Patchy parenchymal opacity within both lower lungs, greatest within the lower lobes.
No evidence for pleural effusion.
Mild to moderate elevation of the right hemidiaphragm, stable from recent CT exam.
Total time spent today was 36 minutes for this encounter. Time includes reviewing laboratory test/imaging results, reviewing pertinent medical records, obtaining and reviewing medical history, performing an appropriate exam, ordering medications,
tests and procedures. Time also includes documentation of this encounter, coordinating patient care and communicating with other healthcare professionals. Total time does not include separately billed tests performed on this date of service.
Subjective Data
-
Date of Service:
Date of Service: October 08, 2024
Chief Complaint: Pulmonary Follow Up (Pneumonia)
Subjective:
No overnight events
Afebrile overnight
Denies hemoptysis
Review of Systems
Cardiopulmonary: Dyspnea (none at rest)
GI: Abdominal Pain (n) and Nausea (n)
Neuro: Headache (n)
Objective Data
Data Reviewed
Vital Signs / I&O / Oxygen:
Vital Signs
Temp Pulse Resp BP Pulse Ox
98.7 F 108 20 128/76 93
10/08/24 07:35 10/08/24 10:22 10/08/24 07:35 10/08/24 10:22 10/08/24 07:35
Intake and Output
10/07/24 10/08/24 10/09/24
06:59 06:59 06:59
Intake Total 1700 / 1700 1580 / 1580
Output Total 350 / 350
Balance 1700 / 1700 1230 / 1230
SaO2 93
Nasal Cannula flow liters per 2
minute
Physical Exam
General: Comfortable
HEENT: Normocephalic
Cardiovascular: S1-S2
Respiratory: Crackles
Neurology: Alert and No Motor Deficits
Skin: Good Color
Labs/Micro/Reports
Lab Data
10/08/24 06:12
10/08/24 06:12
Microbiology
10/07/24 22:35 Urine Legionella Urinary Antigen - Final
Negative for Legionella pneumophila Serogroup 1 antigen.
A negative result does not rule out the possiblity of
Legionella infection due to other serogroups or species of
Legionella. Clinical correlation is recommended.
10/07/24 22:35 Urine Streptococcus pneumoniae Antigen (M - Final
Negative for Streptococcus pneumoniae antigen.
A negative result does not exclude infection with
Streptococcus pneumoniae. Clinical correlation is
recommended.
[2024-10-08 15:42] VITALS: BP 118/72
[2024-10-08] MEDS: LOVENOX 40 MG SC (16:53)
[2024-10-08] MEDS: STERILE WATER FOR INJECTION 10 ML IV (16:53)
[2024-10-08] MEDS: ROCEPHIN 1000 MG IV (16:53)
[2024-10-08 17:06] LABS: Glucose - Point of Care 117 mg/dl (70-99)
[2024-10-08] MEDS: VIBRAMYCIN 100 MG PO (18:12)
[2024-10-08 22:30] LABS: Glucose - Point of Care 95 mg/dl (70-99)
[2024-10-08] MEDS: MIRALAX 17 GRAMS PO (22:59)
[2024-10-08] MEDS: MELATONIN PO (23:09)
[2024-10-09] MEDS: MELATONIN 3 MG PO ×2 (00:19→22:15)
[2024-10-09] MEDS: NORVASC 2.5 MG PO ×2 (00:20→20:38)
[2024-10-09 00:39] VITALS: BP 135/70
[2024-10-09] MEDS: SYNTHROID 50 MCG PO (06:05)
[2024-10-09] MEDS: VIBRAMYCIN 100 MG PO ×2 (06:05→17:54)
[2024-10-09] MEDS: TYLENOL 650 MG PO ×4 (06:08→22:15)
[2024-10-09 07:40] VITALS: BP 100/64
[2024-10-09 07:43] LABS: Glucose - Point of Care 141 mg/dl (70-99)
--- NOTE | 2024-10-09 07:48 | W.PN.HOSP.TC ---
Today's Communication/Plan
-
Continue antibiotics
Assessment / Plan
Assessment / Plan
Gen: NAD, AAOx3.
Eyes: EOMI, PERRLA, no scleral icterus.
Neck: supple.
CV: RRR, +S1/S2, no m/r/g.
Resp: CTAB, no rales, wheezes, or rhonchi.
Abd: +BS, soft, mild tenderness, ND
Skin: No rashes.
Musculoskeletal: Localized pain in left lumbar area and sacral lumbar area close to midline. Decreased range of motion in the back.
Neuro: CN 2-12 intact, non-focal.
Psych: Normal mood and affect.
A/P:
Acute on chronic lower back pain due to spinal and neuroforaminal stenosis at L4-L5:
Continue Tylenol, Toradol and anything she can tolerate--> discussed about using stronger medications such as narcotics that she tells me that she is very sensitive to these medications and does not want to try at this point.
On Cymbalta
PT OT eval
Acute hypoxic respiratory insufficiency due to splinting from pain and pneumonia:
Continue IV Rocephin and doxycycline and hopefully switch to oral tomorrow
CTA negative for PE
Pulmonary consult at the request of family-discussed with pulmonary today again on 10/09
Incentive spirometry
Leukocytosis:
Resolved
White count 8.2 today from 12.8 yesterday
No evidence for concerns
Constipation and abdominal discomfort with nausea:
Continue bowel regimen
Hyponatremia:
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
Continue fluid restriction
Checked urine sodium urine osmolarity and serum osmolarity
Other problems:
Chronic anemia: Baseline Hb unknown, Hb stable at 11.6
DM2: cont metformin/SSI/accuchecks
Essential hypertension: cont amlodipine/guanfacine/valsartan. Family brought guanfacine and cont IV hydralazine as needed.
Asthma: cont albuterol
Fibromyalgia
IBS: Continue MiraLAX
M�ni�re's disease
GERD: Cont PPI
Hyperlipidemia: cont statin
Hypothyroidism: cont levothyroxine
FULL/Lovenox
Anticipated Discharge: Within 24 hours
Subjective/Interval History
-
Date of Service: October 09, 2024
Patient feels better today although not completely back to normal. Afebrile. On room air
Objective Data
-
Labs:
Laboratory Results
10/09/24
06:00
WBC Pending
Hgb Pending
Hct Pending
Plt Count Pending
Sodium Pending
Potassium Pending
Chloride Pending
Carbon Dioxide Pending
BUN Pending
Creatinine Pending
Glucose Pending
Calcium Pending
Vital Signs:
Vital Signs
Temp Pulse Resp BP Pulse Ox
97.9 F 102 16 135/70 93
10/09/24 00:39 10/09/24 00:39 10/09/24 00:39 10/09/24 00:39 10/09/24 00:39
I&O
10/08/24 10/09/24 10/10/24
06:59 06:59 06:59
Intake Total 1580 / 1580 1020 / 1020
Output Total 350 / 350
Balance 1230 / 1230 1020 / 1020
--- NOTE | 2024-10-09 08:48 | W.PN.PUL3 ---
Today's Communication / Plan
-
Continue antibiotic, and diet advised to take PO Doxy with food to avoid nausea/vomiting
Check sputum culture if she can produce a decent sample
Symptomatic management
Eventual radiographic follow-up
Oxygen supplementation has been weaned off and she is breathing comfortably on room air
Outpatient PFTs
Will follow briefly
Assessment
-
Assessment: 74-year-old female with a past medical history of asthma, fibromyalgia, DM type II, hypertension and spinal stenosis s/p L4-5 laminectomy about 2 years ago who presents with left lower back pain rating to the gluteal region in front of
her abdomen. She denies any recent injury or trauma. She has a history of chronic right-sided lower back pain for which she underwent laminectomy 2 years ago but she says that this pain is different. She uses Tylenol at home for pain and has
tried lidocaine patches in the past but had an episode of vomiting after use. She apparently has lots of adverse effects from multiple medications. She has a chronic cough but it is more dry recently. She does follow with rheumatology for
fibromyalgia. She says she was recently on doxycycline at the end of August for 10 days due to a sinus infection with congestion. She also recently stopped her statin as it was thought that this was causing some of her muscle/joint pain. In the
ER she was afebrile to 98.8 �F, pulse rate 88, breathing at 18 breaths/minute, BP 146/82 and saturating 94% on room air. Initial labs showed mild leukocytosis to 11, Hb 11.3, platelet count 453, ESR 22, serum sodium 128, CRP 11, urinalysis negative
for UTI and COVID-19 antigen negative. CXR showed patchy parenchymal opacities in the lower lungs. Subsequent CTA chest showed moderate bibasilar airspace disease consistent with pneumonia, and no PE was discovered. In the ER she was started on
ceftriaxone, hydrocortisone, given 500 cc bolus of NS 0.9% and doxycycline. She was admitted to med-surg for further care. Pulmonary service now consulted for additional management/recommendations.
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
Impression:
#Community-acquired pneumonia involving bases
#Leukocytosis likely due to above - white blood cell count now normalized
#Mild as moderate right hemidiaphragm elevation
#Anemia (mild)
#History of fibromyalgia
#Arthralgia with joint edema suspicious for polyarthritis (?RA)
#Thrombocytosis � likely reactive due to pneumonia
#Hypochloremic, hyponatremia likely due to reduced PO intake in setting of pneumonia with possible SIADH
Plan:
- It appears the patient has a bilateral lower lobe community-acquired pneumonia
- Continue with antibiotics, currently on ceftriaxone/doxycycline to with plan for at least 7-day course of antibiotics assuming she continues to clinically improve and remains afebrile for 48 hours prior to stopping
- Advised to her to take her doxycycline with food otherwise it can cause nausea/vomit
- Mucolytics
- Obtain sputum culture if she can produce a decent
- Negative-pneumococcal and Legionella antibodies.
-Not requiring supplemental oxygen, does not appear toxic.
- Incentive spirometer encouraged q1hr while awake
- Given her complaint of swollen fingers including MCP/DIP/PIP joints, with redness, and swelling, this is concerning for rheumatoid arthritis with polyarthritis. RF negative --> follow up CCP + JASPAL; ESR and CRP both WNL; CK mildly elevated at 231
- She says she already follows with rheumatology for fibromyalgia; recommend her to continue following up with rheumatology
- PT/OT
- Follow sodium (it is now back to admission levels at 128). Defer management to primary team.
- Pain control
- Replete electrolytes with K>4, Mg>2
- Maintain euglycemia with goal BG >100 and <180
- Trend Hb and transfuse as needed to keep Hb >7
- prn nebulized bronchodilators -not currently bronchospastic
- Recommend repeat testing as an outpatient with CT chest in 4 to 6 weeks to follow-up for pneumonia resolution
- Recommend outpatient PFTs and if there is evidence of restriction and right hemidiaphragm persists then would recommend sniff test at that time
- DVT ppx: HSQ
Pulmonary service will continue to follow along. Outpatient follow-up to be arranged for full PFTs, and repeat imaging to assure her pneumonia resolves.
Data:
CTA chest 10/06/2024:
Moderate bibasilar airspace disease consistent with pneumonia.
No evidence of pulmonary embolus.
CXR 10/06/2024:
Patchy parenchymal opacity within both lower lungs, greatest within the lower lobes.
No evidence for pleural effusion.
Mild to moderate elevation of the right hemidiaphragm, stable from recent CT exam.
Total time spent today was 35 minutes for this encounter. Time includes reviewing laboratory test/imaging results, reviewing pertinent medical records, obtaining and reviewing medical history, performing an appropriate exam, ordering medications,
tests and procedures. Time also includes documentation of this encounter, coordinating patient care and communicating with other healthcare professionals. Total time does not include separately billed tests performed on this date of service.
Subjective Data
-
Date of Service:
Date of Service: October 09, 2024
Chief Complaint: Pulmonary Follow Up (Pneumonia)
Subjective:
Patient seen and evaluated today at bedside. Currently on room air and says that her shortness of breath is much better. Also the pain under her right breast and her back pain is also markedly improved. No acute overnight events, although she is
still having poor appetite. Daughter at bedside and all questions were answered. Patient denies AVENDAÑO, abdominal pain, nausea, vomiting, fevers or chills.
Review of Systems
General: Other (Negative unless mentioned above)
Objective Data
Data Reviewed
Vital Signs / I&O / Oxygen:
Vital Signs
Temp Pulse Resp BP Pulse Ox
97.9 F 102 16 135/70 93
10/09/24 00:39 10/09/24 00:39 10/09/24 00:39 10/09/24 00:39 10/09/24 00:39
Intake and Output
10/08/24 10/09/24 10/10/24
06:59 06:59 06:59
Intake Total 1580 / 1580 1020 / 1020
Output Total 350 / 350
Balance 1230 / 1230 1020 / 1020
SaO2 93
Nasal Cannula flow liters per 2
minute
Physical Exam
General: Respiratory Distress (negative), Comfortable and Poor Appetite
HEENT: Normocephalic and Anicteric
Cardiovascular: S1-S2 and Peripheral Edema (negative)
Respiratory: Wheeze (negative), Crackles (Bibasilar), Rhonchi (negative) and Non-Labored Respirations
GI: Soft, Non Distended, Non Tender and Normal Bowel Sounds
Neurology: AO x 3 and Tremors (negative)
Skin: Warm, Dry, Cyanosis (negative) and Jaundice (negative)
Labs/Micro/Reports
Microbiology
10/07/24 22:35 Urine Legionella Urinary Antigen - Final
Negative for Legionella pneumophila Serogroup 1 antigen.
A negative result does not rule out the possiblity of
Legionella infection due to other serogroups or species of
Legionella. Clinical correlation is recommended.
10/07/24 22:35 Urine Streptococcus pneumoniae Antigen (M - Final
Negative for Streptococcus pneumoniae antigen.
A negative result does not exclude infection with
Streptococcus pneumoniae. Clinical correlation is
recommended.
[2024-10-09] MEDS: DIOVAN 320 MG PO (08:50)
[2024-10-09] MEDS: NOVOLOG FLEXPEN-LOW RESISTANCE SC ×3 (08:50→16:36)
[2024-10-09] MEDS: SODIUM CHLORIDE 1 GRAM PO ×2 (08:51→20:38)
[2024-10-09] MEDS: VITAMIN D3 (cholecalciferol) 5 MCG PO (08:51)
[2024-10-09] MEDS: CYMBALTA DELAYED RELEASE 60 MG PO (08:51)
[2024-10-09] MEDS: NORVASC 5 MG PO (08:51)
[2024-10-09] MEDS: SENOKOT 8.6 MG PO (08:52)
[2024-10-09] MEDS: GLUCOPHAGE 500 MG PO ×2 (08:52→16:37)
[2024-10-09] MEDS: NON-FORMULARY ITEM 1 UNIT PO ×2 (08:53→16:36)
[2024-10-09] MEDS: OSCAL CAL 500 500 MG PO (08:53)
[2024-10-09] MEDS: LIDOCAINE 4% PATCH TOPICAL (08:55)
[2024-10-09] MEDS: NON-FORMULARY ITEM 2 MG PO ×2 (08:56→20:39)
[2024-10-09 09:46] LABS: % Basophils 0.6 % (0-2); % Eosinophils 5.5 % (0-6); % Immature Granulocytes 1.1 % (0-0.5); % Lymphocytes 21.2 % (20.5-51.1); % Monocytes 8.5 % (1.7-9.3); % Neutrophils 63.1 % (42.2-75.2); Absolute Basophils 0.1 10^3/uL (0-0.2); Absolute Eosinophils 0.5 10^3/uL (0-0.7); Absolute Immature Granulocytes 0.1 10^3/uL (0-0.05); Absolute Lymphocytes 1.7 10^3/uL (1.2-3.4); Absolute Monocytes 0.7 10^3/uL (0.1-0.6); Absolute Neutrophils 5.2 10^3/uL (1.4-6.5); Hematocrit 35.1 % (37.0-47.0); Hemoglobin 11.6 g/dL (12.0-16.0); Mean Corpuscular Hgb 28.4 pg (27.0-31.0); Mean Platelet Volume 9.5 fL (7.4-10.4); Nucleated Red Blood Cells % 0 %; Platelet Count 414 10^3/uL (130-400); Red Blood Cell Count 4.08 10^6/uL (4.20-5.40); Red Cell Dist. Width 13.1 % (11.5-14.5); White Blood Cell Count 8.2 10^3/uL (4.8-10.8)
[2024-10-09 10:12] LABS: Rheumatoid Agglutinin Less Than 10 IU (<10 IU)
[2024-10-09 10:35] LABS: Blood Urea Nitrogen 23 mg/dl (7-17); Calcium 9.4 mg/dl (8.4-10.2); Carbon Dioxide 21 mmol/L (22-30); Chloride 95 mmol/L (98-107); Estimated Creatinine Clearance 72 ml/min; Glucose 116 mg/dl (70-99); Potassium 4.4 mmol/L (3.5-5.1); Sodium 128 mmol/L (135-145); eGFR > 60.00
[2024-10-09] MEDS: TORADOL 30 MG IV (10:53)
--- NOTE | 2024-10-09 11:30 | VATNOTE ---
Vat rounds: left arm 2X2 palpable cord from old iv site. Warm compress applied with comfort. Will monitor closely.
[2024-10-09 12:07] LABS: Glucose - Point of Care 98 mg/dl (70-99)
--- NOTE | 2024-10-09 13:14 | CM ---
CM reviewed chart, met with patient and family bedside. Patient plan for discharge tomorrow to [facility] location. CM reviewed with liaison, Myles, able to accept patient tomorrow. IMM verbally reviewed with patient, provided with copy,
placed in chart. CM will continue to follow for all discharge planning needs.
Plan; [facility] location, tomorrow 10/10/24.
[2024-10-09 15:15] VITALS: BP 106/63
[2024-10-09 16:36] LABS: Glucose - Point of Care 114 mg/dl (70-99)
[2024-10-09] MEDS: STERILE WATER FOR INJECTION 10 ML IV (17:14)
[2024-10-09] MEDS: ROCEPHIN 1000 MG IV (17:14)
[2024-10-09] MEDS: LOVENOX 40 MG SC (17:14)
[2024-10-09] MEDS: TUMS CHEWABLE TABLET 200 MG PO (17:58)
[2024-10-09] MEDS: MIRALAX PO (20:32)
[2024-10-09] MEDS: SENOKOT PO (20:32)
[2024-10-09] MEDS: ZOFRAN 4 MG IV (20:45)
[2024-10-09 21:53] LABS: Glucose - Point of Care 89 mg/dl (70-99)
[2024-10-09 23:11] VITALS: BP 97/60
[2024-10-10 01:02] LABS: ANA, IgG Reflex to HEp-2 None Detected (None Detected)
[2024-10-10] MEDS: MOTRIN 600 MG PO ×2 (02:23→09:56)
[2024-10-10] MEDS: SYNTHROID 50 MCG PO (05:47)
[2024-10-10] MEDS: VIBRAMYCIN 100 MG PO (05:47)
[2024-10-10 07:31] LABS: Glucose - Point of Care 109 mg/dl (70-99)
[2024-10-10 07:40] VITALS: BP 110/73
[2024-10-10] MEDS: NOVOLOG FLEXPEN-LOW RESISTANCE SC ×2 (07:47→12:13)
[2024-10-10] MEDS: NON-FORMULARY ITEM 1 UNIT PO (07:48)
[2024-10-10] MEDS: NON-FORMULARY ITEM 2 MG PO (07:49)
[2024-10-10] MEDS: DIOVAN 320 MG PO (07:50)
[2024-10-10] MEDS: NORVASC 5 MG PO (07:50)
[2024-10-10] MEDS: CYMBALTA DELAYED RELEASE 60 MG PO (07:50)
[2024-10-10] MEDS: VITAMIN D3 (cholecalciferol) 5 MCG PO (07:50)
[2024-10-10] MEDS: SODIUM CHLORIDE 1 GRAM PO (07:50)
[2024-10-10] MEDS: SENOKOT 8.6 MG PO (07:50)
[2024-10-10] MEDS: OSCAL CAL 500 500 MG PO (07:51)
[2024-10-10] MEDS: GLUCOPHAGE 500 MG PO (07:51)
[2024-10-10] MEDS: LIDOCAINE 4% PATCH TOPICAL (07:51)
[2024-10-10 07:54] LABS: CCP Antibody IgG/IgA 2 Units (0-19)
[2024-10-10] MEDS: TYLENOL 650 MG PO (08:20)
--- NOTE | 2024-10-10 09:01 | W.PN.PUL3 ---
Today's Communication / Plan
-
Continue antibiotic, and diet advised to take PO Doxy with food to avoid nausea/vomiting
Check sputum culture if she can produce a decent sample
Symptomatic management
Eventual radiographic follow-up
Oxygen supplementation has been weaned off and she is breathing comfortably on room air
Outpatient PFTs
Patient being prepared for discharge home today. No additional recommendations at this time. Pulmonary service will now sign off. Please reconsult if there are any additional questions/concerns, or if patient's respiratory status deteriorates.
Outpatient follow-up to be arranged for full PFTs, and repeat imaging to assure her pneumonia resolves.
Assessment
-
Assessment: 74-year-old female with a past medical history of asthma, fibromyalgia, DM type II, hypertension and spinal stenosis s/p L4-5 laminectomy about 2 years ago who presents with left lower back pain rating to the gluteal region in front of
her abdomen. She denies any recent injury or trauma. She has a history of chronic right-sided lower back pain for which she underwent laminectomy 2 years ago but she says that this pain is different. She uses Tylenol at home for pain and has
tried lidocaine patches in the past but had an episode of vomiting after use. She apparently has lots of adverse effects from multiple medications. She has a chronic cough but it is more dry recently. She does follow with rheumatology for
fibromyalgia. She says she was recently on doxycycline at the end of August for 10 days due to a sinus infection with congestion. She also recently stopped her statin as it was thought that this was causing some of her muscle/joint pain. In the
ER she was afebrile to 98.8 �F, pulse rate 88, breathing at 18 breaths/minute, BP 146/82 and saturating 94% on room air. Initial labs showed mild leukocytosis to 11, Hb 11.3, platelet count 453, ESR 22, serum sodium 128, CRP 11, urinalysis negative
for UTI and COVID-19 antigen negative. CXR showed patchy parenchymal opacities in the lower lungs. Subsequent CTA chest showed moderate bibasilar airspace disease consistent with pneumonia, and no PE was discovered. In the ER she was started on
ceftriaxone, hydrocortisone, given 500 cc bolus of NS 0.9% and doxycycline. She was admitted to med-surg for further care. Pulmonary service now consulted for additional management/recommendations.
Chronic conditions [employer]: Hypertension, DM type II, asthma, fibromyalgia, IBS, history of M�ni�re's disease, spinal stenosis s/p L4-5 laminectomy
Impression:
#Community-acquired pneumonia involving bases
#Leukocytosis likely due to above - white blood cell count now normalized since 10/09/2024
#Mild as moderate right hemidiaphragm elevation
#Anemia (mild)
#History of fibromyalgia
#Arthralgia with joint edema suspicious for polyarthritis (?RA)
#Thrombocytosis � likely reactive due to pneumonia
#Hypochloremic, hyponatremia likely due to reduced PO intake in setting of pneumonia with possible SIADH
Plan:
- It appears the patient has a bilateral lower lobe community-acquired pneumonia
- Continue with antibiotics, currently on ceftriaxone/doxycycline --> switch to cefdnir and doxy, and plan for at least 7-day course of antibiotics assuming she continues to clinically improve and remains afebrile for 48 hours prior to stopping
- Advised to her to take her doxycycline with food otherwise it can cause nausea/vomit
- Mucolytics
- Obtain sputum culture if she can produce a decent
- Negative-pneumococcal and Legionella antibodies.
-Not requiring supplemental oxygen, does not appear toxic.
- Incentive spirometer encouraged q1hr while awake
- Given her complaint of swollen fingers including MCP/DIP/PIP joints, with redness, and swelling, this is concerning for rheumatoid arthritis with polyarthritis. RF negative; CCP negative and also JASPAL is also negative. ESR and CRP both WNL; CK
mildly elevated at 231
- She says she already follows with rheumatology for fibromyalgia; recommend her to continue following up with rheumatology
- PT/OT
- Follow sodium (it is now back to admission levels at 128 as of 10/09/2024). Defer management to primary team.
- Pain control
- Replete electrolytes with K>4, Mg>2
- Maintain euglycemia with goal BG >100 and <180
- Trend Hb and transfuse as needed to keep Hb >7
- prn nebulized bronchodilators -not currently bronchospastic
- Recommend repeat testing as an outpatient with CT chest in 4 to 6 weeks to follow-up for pneumonia resolution
- Recommend outpatient PFTs and if there is evidence of restriction and right hemidiaphragm persists then would recommend sniff test at that time
- DVT ppx: HSQ
Patient being prepared for discharge home today. No additional recommendations at this time. Pulmonary service will now sign off. Thank you for allowing us to be involved in the care of this patient. Please reconsult if there are any additional
questions/concerns, or if patient's respiratory status deteriorates. Outpatient follow-up to be arranged for full PFTs, and repeat imaging to assure her pneumonia resolves.
Data:
CTA chest 10/06/2024:
Moderate bibasilar airspace disease consistent with pneumonia.
No evidence of pulmonary embolus.
CXR 10/06/2024:
Patchy parenchymal opacity within both lower lungs, greatest within the lower lobes.
No evidence for pleural effusion.
Mild to moderate elevation of the right hemidiaphragm, stable from recent CT exam.
Total time spent today was 26 minutes for this encounter. Time includes reviewing laboratory test/imaging results, reviewing pertinent medical records, obtaining and reviewing medical history, performing an appropriate exam, ordering medications,
tests and procedures. Time also includes documentation of this encounter, coordinating patient care and communicating with other healthcare professionals. Total time does not include separately billed tests performed on this date of service.
Subjective Data
-
Date of Service:
Date of Service: October 10, 2024
Chief Complaint: Pulmonary Follow Up (Pneumonia)
Subjective:
Patient seen and evaluated today at bedside. No acute events reported from overnight. Denies chest pain, AVENDAÑO, abdominal pain, nausea, vomiting, fevers or chills.
Review of Systems
General: Other (Negative unless mentioned above)
Objective Data
Data Reviewed
Vital Signs / I&O / Oxygen:
Vital Signs
Temp Pulse Resp BP Pulse Ox
98.5 F 89 16 110/73 96
10/10/24 07:40 10/10/24 07:40 10/10/24 07:40 10/10/24 07:40 10/10/24 07:40
Intake and Output
10/09/24 10/10/24 10/11/24
06:59 06:59 06:59
Intake Total 1020 / 1020 1200 / 1200 180 / 180
Balance 1020 / 1020 1200 / 1200 180 / 180
SaO2 96
Nasal Cannula flow liters per 2
minute
Physical Exam
General: Respiratory Distress (negative), Comfortable and Poor Appetite
HEENT: Normocephalic and Anicteric
Cardiovascular: S1-S2 and Peripheral Edema (negative)
Respiratory: Wheeze (negative), Crackles (Bibasilar (faint)), Rhonchi (negative) and Non-Labored Respirations
GI: Soft, Non Distended, Non Tender and Normal Bowel Sounds
Neurology: AO x 3 and Tremors (negative)
Skin: Warm, Dry, Cyanosis (negative) and Jaundice (negative)
Labs/Micro/Reports
Lab Data
10/09/24 07:49
10/09/24 07:50
Microbiology
10/07/24 22:35 Urine Legionella Urinary Antigen - Final
Negative for Legionella pneumophila Serogroup 1 antigen.
A negative result does not rule out the possiblity of
Legionella infection due to other serogroups or species of
Legionella. Clinical correlation is recommended.
10/07/24 22:35 Urine Streptococcus pneumoniae Antigen (M - Final
Negative for Streptococcus pneumoniae antigen.
A negative result does not exclude infection with
Streptococcus pneumoniae. Clinical correlation is
recommended.
--- NOTE | 2024-10-10 10:18 | W.PN.HOSP.TC ---
Today's Communication/Plan
-
discharge planning
Assessment / Plan
Assessment / Plan
Gen: NAD, AAOx3.
Eyes: EOMI, PERRLA, no scleral icterus.
Neck: supple.
CV: RRR, +S1/S2, no m/r/g.
Resp: CTAB, no rales, wheezes, or rhonchi.
Abd: +BS, soft, no tenderness, ND
Skin: No rashes.
Musculoskeletal: Localized pain in left lumbar area and sacral lumbar area close to midline. Decreased range of motion in the back.
Neuro: CN 2-12 intact, non-focal.
Psych: Normal mood and affect.
A/P:
Acute on chronic lower back pain due to spinal and neuroforaminal stenosis at L4-L5:
Continue Tylenol, Toradol and anything she can tolerate--> discussed about using stronger medications such as narcotics that she tells me that she is very sensitive to these medications and does not want to try at this point.
On Cymbalta
PT OT eval
Plan to go to acute rehab today
Acute hypoxic respiratory insufficiency due to splinting from pain and pneumonia:
Continue IV Rocephin and doxycycline--> switch to doxy today (patient does not want Rocephin to be switched to Omnicef but fortunately she completed 5 days of that)
CTA negative for PE
Pulmonary consult at the request of family-discussed with pulmonary
Incentive spirometry
Leukocytosis:
Resolved
White count 8.2 today from 12.8 yesterday
No evidence for concerns
Constipation and abdominal discomfort with nausea:
Continue bowel regimen
Hyponatremia:
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
Continue fluid restriction
Checked urine sodium urine osmolarity and serum osmolarity
Other problems:
Chronic anemia: Baseline Hb unknown, Hb stable at 11.6
DM2: cont metformin/SSI/accuchecks
Essential hypertension: cont amlodipine/guanfacine/valsartan. Family brought guanfacine and cont IV hydralazine as needed.
Asthma: cont albuterol
Fibromyalgia
IBS: Continue MiraLAX
M�ni�re's disease
GERD: Cont PPI
Hyperlipidemia: cont statin
Hypothyroidism: cont levothyroxine
FULL/Lovenox
Anticipated Discharge: Today
Subjective/Interval History
-
Date of Service: October 10, 2024
no new complaints
Objective Data
-
Vital Signs:
Vital Signs
Temp Pulse Resp BP Pulse Ox
98.5 F 89 16 110/73 96
10/10/24 07:40 10/10/24 07:40 10/10/24 07:40 10/10/24 07:40 10/10/24 07:40
I&O
10/09/24 10/10/24 10/11/24
06:59 06:59 06:59
Intake Total 1020 / 1020 1200 / 1200 180 / 180
Balance 1020 / 1020 1200 / 1200 180 / 180
[2024-10-10 11:41] LABS: Glucose - Point of Care 81 mg/dl (70-99)
[2024-10-10 11:44] VITALS: BP 115/75; PULSE 85; O2SAT 93
--- NOTE | 2024-10-10 12:04 | CM ---
Chart reviewed for d/c planning.
Pt to admit to [facility] today. Confirmed w/ Myles/Ata that pt can admit today after 12:30
Hospitalist agreeable to d/c today
OT completed updated eval per Ata request
IMM on chart
[facility] [place]
Report: [phone]

Plan: [facility]
--- NOTE | 2024-10-10 12:30 | VATNOTE ---
Vat rounds: left arm cord resolving. offered warm compress for comfort
--- NOTE | 2024-10-10 12:49 | W.DCSUMMARY ---
Discharge Summary
Discharge Data
Date of Admission: 10/07/24
Date of Discharge: 10/10/24
-
Pending Results: No
Hospital Course
Patient is 74 years old female with history of asthma, fibromyalgia, diabetes, hypertension, spinal stenosis with laminectomy in the past came into the hospital with acute on chronic back pain and also shortness of breath and hypoxia. Patient had
MRI of the lumbar spine that showed degenerative changes of the lumbar spine worse at the level of L4-L5 where disc and facet disease contributes to moderate spinal canal and neural foraminal stenosis at that level. Patient was treated with
multimodal analgesia and physical therapy occupational therapy evaluated the patient and recommended rehab. Patient is very sensitive to medications so he was challenged to treat in terms of medications. She was instructed to acute rehab and will
continue with management of her pain and acute rehabilitation. Patient also was found to have hyponatremia and based on workup it was consistent with SIADH most likely exacerbated by pain. Her sodium stabilized. She was placed on oral fluid
restriction and she will need close follow-up of sodium as outpatient. She also was found to have pneumonia for which pulmonary was consulted by family request. She had a CTA that was negative for PE. She was treated with antibiotics and she
responded well. Pulmonary cleared her for discharge. She has been on room air off oxygen and she has been afebrile. Her back pain although still ongoing but with improvement. She will be discharged in stable condition to continue with her
rehabilitation journey in acute rehab at [place]. No other events were noticed.
Discharge duration: 35 minutes
Discharge Plan
-
Patient Disposition: Acute Rehab Facility
Discharge Diagnosis/Procedures: Pneumonia. Acute on chronic back pain with L4-L5 neuroforaminal stenosis. Acute hypoxic respiratory insufficiency. Hyponatremia. Constipation. Hypertension.
Condition: Good
Diet: Low Cholesterol and Restrict fluids to 64 oz
Activity: As tolerated
Blood Work: Please PCP to order CBC, BMP within 1 week
Referrals:
Navin Renee MD [Active] - in three to four weeks (full PFTs on day of office visit)
Marky Barger DO [Family Provider] - in less than 1 week
Prescriptions:
New
lidocaine 4 % Adhesive Patch,Medicated
1 patch topical DAILY Qty: 5 0RF
melatonin 3 mg Tablet
3 mg PO HS Qty: 10 0RF
sodium chloride 1,000 mg Tablet,Soluble
1,000 mg PO BID Qty: 20 0RF
calcium carbonate [Calcium Antacid] 200 mg calcium (500 mg) Tablet,Chewable
200 mg PO Q6HPRN PRN (Reason: indigestion) Qty: 10 0RF
acetaminophen 325 mg Tablet
650 mg PO Q4HPRN PRN (Reason: mild pain/AVENDAÑO/temp> 100.4F) Qty: 14 0RF
sennosides [Senna Laxative] 8.6 mg Tablet
8.6 mg PO BID Qty: 20 0RF
doxycycline hyclate 100 mg Capsule
100 mg PO Q12H 2 Days Qty: 4 0RF
ibuprofen 600 mg tablet
600 mg PO Q8H PRN (Reason: moderate pain) Qty: 14 0RF
Continued
metformin 500 mg Tablet
500 mg PO BID
hydrocortisone-pramoxine 2.5-1 % cream
1 applic LA DAILYPRN PRN (Reason: hemorrhoids)
polyethylene glycol 3350 [Miralax] 17 gram Powder In Packet
17 g PO HS
amlodipine 2.5 mg Tablet
5 mg PO DAILY
amlodipine 2.5 mg Tablet
2.5 mg PO HS
levothyroxine 50 mcg Tablet
50 mcg PO MOTUWETHFRSA
esomeprazole magnesium [Nexium] 40 mg Capsule,Delayed Release(Dr/Ec)
40 mg PO BID
valsartan 320 mg Tablet
320 mg PO DAILY
guanfacine 1 mg Tablet
2 mg PO BID
albuterol sulfate 90 mcg/actuation Hfa Aerosol Inhaler
1 inh INHALATION R Q6HPRN PRN (Reason: sob)
duloxetine 60 mg Capsule,Delayed Release(Dr/Ec)
60 mg PO DAILY
calcium citrate-vitamin D3 250 mg-5 mcg (200 unit) Tablet
1 tab PO DAILY
Discontinued
acetaminophen 650 mg Tablet Extended Release
650 mg PO Q12H
acetaminophen 650 mg Tablet Extended Release
1,300 mg PO DAILYPRN PRN (Reason: mild pain)
Discharge Orders:
Discharge Patient (As Directed); Ordered 10/10/24
Ordered By: Pedro Romero
Discharge Date and Time
Discharge Date/Time: 10/10/24 15:37
Print Language: [place]
[2024-10-10 13:51] VITALS: BP 102/63
[2024-10-10] MEDS: OMNICEF 300 MG PO (13:57)
== END 2024-10-10 15:37 | DRG 551 ==
LOC: 4 EAST ACU 08:25
PROVIDERS: Internal Medicine; Student in an Organized Health Care Education/Training Program; ADMITTING PHYSICIAN Hospitalist; ATTENDING PHYSICIAN Hospitalist; CONSULT PHYSICIAN Internal Medicine Critical Care Medicine; EMERGENCY PHYSICIAN Emergency Medicine; FAMILY PHYSICIAN Family Medicine
DX: M47.816 Spondylosis without myelopathy or radiculopathy, lumbar region (principal); J18.9 Pneumonia, unspecified organism; E22.2 Syndrome of inappropriate secretion of antidiuretic hormone; J98.11 Atelectasis; R09.02 Hypoxemia; K58.9 Irritable bowel syndrome, unspecified; I10 Essential (primary) hypertension; E11.9 Type 2 diabetes mellitus without complications; J45.909 Unspecified asthma, uncomplicated; M79.7 Fibromyalgia; M48.00 Spinal stenosis, site unspecified; Z88.1 Allergy status to other antibiotic agents; Z88.5 Allergy status to narcotic agent; Z88.8 Allergy status to other drugs, medicaments and biological substances; Z88.0 Allergy status to penicillin; Z88.2 Allergy status to sulfonamides; Z79.84 Long term (current) use of oral hypoglycemic drugs; Z79.899 Other long term (current) drug therapy; Z79.890 Hormone replacement therapy; Z91.128 Patient's intentional underdosing of medication regimen for other reason; T46.6X6A Underdosing of antihyperlipidemic and antiarteriosclerotic drugs, initial encounter; Z11.52 Encounter for screening for COVID-19; D64.9 Anemia, unspecified; K21.9 Gastro-esophageal reflux disease without esophagitis; E78.5 Hyperlipidemia, unspecified; E03.9 Hypothyroidism, unspecified; E87.8 Other disorders of electrolyte and fluid balance, not elsewhere classified; K64.9 Unspecified hemorrhoids
CPT/HCPCS: 71046; 71275; 72148; 74177; 80048; 80053; 80076; 81003; 82550; 82962; 83036; 83930; 83935; 84145; 84300; 85025; 85652; 86038; 86140; 86200; 86430; 87449; 87502; 87811; 87899; 96361; 96374; 96375; 97116; 97163; 97166; 97530; 97535; 99285; Q9967

== ENCOUNTER 2024-10-21 22:19 | Inpatient (IN) | payer MEDICARE, SELFPAY ==
[2024-10-21 16:40] VITALS: BP 135/81
--- NOTE | 2024-10-21 17:02 | ED.GENMED ---
History of Present Illness
<Angela Wilson PA-C - Last Filed: 10/21/24 21:29>
General
Chief Complaint: Breathing Problem
Source: patient
Exam Limitations: none
Time Seen by Provider: 10/21/24 16:54
Nursing documentation reviewed up to this point in time: agreed with
History of Present Illness
History of Present Illness:
This is a 74-year-old female with a past medical history of hypertension, hyperlipidemia, fibromyalgia presents emergency department today with concerns of shortness of breath and coughing since last night. Of note, patient reports that she was
discharged from the hospital and subsequent rehab on October 17 for pneumonia. She received antibiotics in the hospital and then took Levaquin tablets at discharge and just stopped these antibiotics on Sunday. Patient reports that they noticed
that in rehab, her pulse ox would be lower and she was placed on 2 L of oxygen during physical activity at rehab. She reports that last night, she had trouble sleeping because she had a lot of shortness of breath and her coughing fits return. She
denies any hemoptysis. She also notes a return of right lower rib pain. She also felt subjective fevers and chills. She also notes intermittent abdominal pain and chest pressure but denies any nausea or vomiting
Review of Systems
<Angela Wilson PA-C - Last Filed: 10/21/24 21:29>
Review of Systems
All Other Systems: ROS reviewed and negative except as documented in HPI and ROS
Phy Exam
<Angela Wilson PA-C - Last Filed: 10/21/24 21:29>
Physical Exam
Physical Exam:
General: Patient is well appearing and in no acute distress; non-toxic
Skin: Warm and dry, no rashes or lesions
Head: Normocephalic, atraumatic
Eyes: Sclera non-icteric. EOMs intact.
Cardiac: Tachycardia noted but no murmur, JVD noted
Peripheral Vascular: Bilateral lower extremity pedal edema
Pulm: Conversational dyspnea noted, tachypnea, rales noted bilaterally
Abdomen: No abdominal tenderness to palpation
Neuro: CN II-XII intact, no focal neurologic deficits.
Psychiatric: Appropriate mood and affect.
Scores
<Angela Wilson PA-C - Last Filed: 10/21/24 21:29>
Heart Failure Risk
Heart Failure Risk Score: Yes
History of Stroke or TIA: No
History of intubation for respiratory distress: No
Heart rate on ED arrival >/= 110: Yes
SaO2 <90% on arrival on room air: Yes
HR >/=110 during 3min walk test (or too ill to perform test): No
ECG has acute ischemic changes: No
Urea >/=12mmol/L (BUN 33.6mg/dL): No
Serum CO2>/=35mmol/L: No
Troponin I or T elevated to [place] Level (0.4mg/dL): No
NT-proBNP >/=5,000ng/L (5,000pg/ml): No
HF Risk Score: 1
Admission Status: MEDIUM RISK 5.1% Consider observation or discharge to home with homecare & f/u visit to PCP/Chef Assistant, or SNF for treatment
<Frandy Cuba MD - Last Filed: 10/21/24 23:19>
Heart Failure Risk
HF Risk Score: 1
Admission Status: MEDIUM RISK 5.1% Consider observation or discharge to home with homecare & f/u visit to PCP/Chef Assistant, or SNF for treatment
Course
<Angela Wilson PA-C - Last Filed: 10/21/24 21:29>
Orders/Labs/Results
Orders:
Orders
10/21/24 17:24
Electrocardiogram (*1) Urgent
Reason for Study: Shortness of Breath
EKG- Treatment ONCE
10/21/24 17:40
COVID-19 Antigen Urgent
Source: Nasal Swab
Complete Blood Count/With Diff Urgent
Comprehensive Metabolic Panel Urgent
NT-proBNP Urgent
Troponin I Urgent
Influenza A+B Rapid Molecular Urgent
JENNA Source: Nasal Swab
Specimen Description:
10/21/24 17:54
Cefepime HCl [Maxipime] 1,000 mg IV NOW STA
10/21/24 18:18
Vancomycin [Vancocin] 1,500 mg 0.9% Sodium Chloride 500 ml [Nss] 500 ml IV NOW
10/21/24 18:32
Sterile Water [Sterile Water For Injection] 10 ml .ROUTE .[facility]
10/21/24 18:43
CT Chest PE Study Urgent
Comment:
Reason For Exam: shortness of breath, chest pain
10/21/24 18:44
Peripheral Venous Lwr Ext Bilat US [US Periph Venous LOWER Ext Emmanuel] Urgent
Comment:
Reason For Exam: bilateral lower extremity swelling
10/21/24 18:49
Furosemide [Lasix] 20 mg IV ONCE ONE
10/21/24 18:52
Lactate Level [Lactic Acid] Urgent
Blood Culture Q30M
JENNA Source: Blood/Venous
Specimen Description:
Blood Culture Q30M
JENNA Source: Blood/Venous
Specimen Description:
10/21/24 19:04
Diphenhydramine [Benadryl] 50 mg IV NOW STA
Hydrocortisone Sod Succinate [Solu-Cortef] 200 mg IV NOW STA
10/21/24 21:47
Furosemide [Lasix] 20 mg IV NOW STA
10/21/24 21:55
Admit/Transfer Patient As Directed
Co-Sign Provider:
Level of Care: Inpatient admission
Assign to:: Telemetry
Physician / Group: [email or web address]
Diagnosis: acute hypoxic respiratory failure
Reason for Telemetry: Acute Heart Failure
Date to Stop Telemetry: 10/24/24
Time to Stop Telemetry: 11:00
Reason for Hospitalization: CHF
pneumonia
Expected length of stay greater than two midnights?: Yes
ELOS- Estimated Length of Stay in days: 3
I certify the patient meets the requirements for IP care: Yes
10/21/24 21:56
PRN Pain Medication Management As Directed
May give lesser potent ordered pain med per pt: Yes
preference::
Protocol:: Medication orders for pain may be administered in a
manner that supports deferring to patient preference
when the pt is:
- Requesting an ordered lesser potent pain medication.
Least to most potent pain medications are defined
as: acetaminophen < NSAID < tramadol < opioids
(morphine, oxycodone, hydromorphone).
- Requesting a lesser dose of the same medication IF
ORDERED.
- Requesting a less intrusive route of administration
if both routes are prescribed by the provider (PO <
IV).
10/21/24 21:57
Code Status As Directed
Resuscitation Status: Full Code
10/24/24 11:00
DC Protocol for Telemetry ONCE
Abnormal Lab Results
10/21/24
17:40
WBC 12.5 H 10^3/uL
(4.8-10.8)
RBC 3.47 L 10^6/uL
(4.20-5.40)
Hgb 9.8 L g/dL
(12.0-16.0)
Hct 30.0 L %
(37.0-47.0)
MCHC 32.7 L g/dL
(33.0-37.0)
Plt Count 478 H 10^3/uL
(130-400)
Abs Immat Gran (auto) 0.1 H 10^3/uL
(0-0.05)
Absolute Neuts (auto) 9.2 H 10^3/uL
(1.4-6.5)
Absolute Monos (auto) 1.0 H 10^3/uL
(0.1-0.6)
Immature Gran % 1.0 H %
(0-0.5)
Lymphocytes % 14.5 L %
(20.5-51.1)
Sodium 130 L mmol/L
(135-145)
Creatinine 0.4 L mg/dL
(0.6-1.0)
Glucose 117 H mg/dl
(70-99)
AST 48 H U/L
(14-36)
ALT 50 H U/L
(0-35)
Troponin I 0.253 H* ng/ml
10/21/24 17:40
10/21/24 17:40
Vital Signs
Initial and Last Documented VS:
Initial Vital Signs
Temp Pulse Resp BP Pulse Ox
37.2 C 108 22 135/81 80
10/21/24 16:40 10/21/24 16:40 10/21/24 16:40 10/21/24 16:40 10/21/24 16:40
Last Documented Vital Signs
Temp Pulse Resp BP Pulse Ox
37.2 C 75 28 95/71 92
10/21/24 16:40 10/21/24 23:00 10/21/24 23:00 10/21/24 23:00 10/21/24 23:00
<Frandy Cuba MD - Last Filed: 10/21/24 23:19>
Orders/Labs/Results
Orders:
Orders
10/21/24 17:24
Electrocardiogram (*1) Urgent
Reason for Study: Shortness of Breath
EKG- Treatment ONCE
10/21/24 17:40
COVID-19 Antigen Urgent
Source: Nasal Swab
Complete Blood Count/With Diff Urgent
Comprehensive Metabolic Panel Urgent
NT-proBNP Urgent
Troponin I Urgent
Influenza A+B Rapid Molecular Urgent
JENNA Source: Nasal Swab
Specimen Description:
10/21/24 17:54
Cefepime HCl [Maxipime] 1,000 mg IV NOW STA
10/21/24 18:18
Vancomycin [Vancocin] 1,500 mg 0.9% Sodium Chloride 500 ml [Nss] 500 ml IV NOW
10/21/24 18:32
Sterile Water [Sterile Water For Injection] 10 ml .ROUTE .[facility]
10/21/24 18:43
CT Chest PE Study Urgent
Comment:
Reason For Exam: shortness of breath, chest pain
10/21/24 18:44
Peripheral Venous Lwr Ext Bilat US [US Periph Venous LOWER Ext Emmanuel] Urgent
Comment:
Reason For Exam: bilateral lower extremity swelling
10/21/24 18:49
Furosemide [Lasix] 20 mg IV ONCE ONE
10/21/24 18:52
Lactate Level [Lactic Acid] Urgent
Blood Culture Q30M
JENNA Source: Blood/Venous
Specimen Description:
Blood Culture Q30M
JENNA Source: Blood/Venous
Specimen Description:
10/21/24 19:04
Diphenhydramine [Benadryl] 50 mg IV NOW STA
Hydrocortisone Sod Succinate [Solu-Cortef] 200 mg IV NOW STA
10/21/24 21:47
Furosemide [Lasix] 20 mg IV NOW STA
10/21/24 21:55
Admit/Transfer Patient As Directed
Co-Sign Provider:
Level of Care: Inpatient admission
Assign to:: Telemetry
Physician / Group: fanny
Diagnosis: acute hypoxic respiratory failure
Reason for Telemetry: Acute Heart Failure
Date to Stop Telemetry: 10/24/24
Time to Stop Telemetry: 11:00
Reason for Hospitalization: CHF
pneumonia
Expected length of stay greater than two midnights?: Yes
ELOS- Estimated Length of Stay in days: 3
I certify the patient meets the requirements for IP care: Yes
10/21/24 21:56
PRN Pain Medication Management As Directed
May give lesser potent ordered pain med per pt: Yes
preference::
Protocol:: Medication orders for pain may be administered in a
manner that supports deferring to patient preference
when the pt is:
- Requesting an ordered lesser potent pain medication.
Least to most potent pain medications are defined
as: acetaminophen < NSAID < tramadol < opioids
(morphine, oxycodone, hydromorphone).
- Requesting a lesser dose of the same medication IF
ORDERED.
- Requesting a less intrusive route of administration
if both routes are prescribed by the provider (PO <
IV).
10/21/24 21:57
Code Status As Directed
Resuscitation Status: Full Code
10/24/24 11:00
DC Protocol for Telemetry ONCE
Abnormal Lab Results
10/21/24
17:40
WBC 12.5 H 10^3/uL
(4.8-10.8)
RBC 3.47 L 10^6/uL
(4.20-5.40)
Hgb 9.8 L g/dL
(12.0-16.0)
Hct 30.0 L %
(37.0-47.0)
MCHC 32.7 L g/dL
(33.0-37.0)
Plt Count 478 H 10^3/uL
(130-400)
Abs Immat Gran (auto) 0.1 H 10^3/uL
(0-0.05)
Absolute Neuts (auto) 9.2 H 10^3/uL
(1.4-6.5)
Absolute Monos (auto) 1.0 H 10^3/uL
(0.1-0.6)
Immature Gran % 1.0 H %
(0-0.5)
Lymphocytes % 14.5 L %
(20.5-51.1)
Sodium 130 L mmol/L
(135-145)
Creatinine 0.4 L mg/dL
(0.6-1.0)
Glucose 117 H mg/dl
(70-99)
AST 48 H U/L
(14-36)
ALT 50 H U/L
(0-35)
Troponin I 0.253 H* ng/ml
10/21/24 17:40
10/21/24 17:40
Vital Signs
Initial and Last Documented VS:
Initial Vital Signs
Temp Pulse Resp BP Pulse Ox
37.2 C 108 22 135/81 80
10/21/24 16:40 10/21/24 16:40 10/21/24 16:40 10/21/24 16:40 10/21/24 16:40
Last Documented Vital Signs
Temp Pulse Resp BP Pulse Ox
37.2 C 75 28 95/71 92
10/21/24 16:40 10/21/24 23:00 10/21/24 23:00 10/21/24 23:00 10/21/24 23:00
Joylt;Angela Wilson PA-C - Last Filed: 10/21/24 21:29>
MDM/Problems Addressed
Differential Diagnosis Includes:
See below
MDM/Problems Addressed:
NUMBER AND COMPLEXITY OF PROBLEMS ADDRESSED AT THE ENCOUNTER
� Chronic conditions affecting care: Hypertension, hyperlipidemia, asthma, fibromyalgia
� Acute Exacerbation and/or Progression of Chronic Illness:
� Differential Diagnosis includes: Worsening pneumonia, heart failure, ACS, pulmonary embolism
AMOUNT AND/OR COMPLEXITY OF DATA TO BE REVIEWED AND ANALYZED
� I performed an independent evaluation of and my interpretation is:
EKG: Normal sinus rhythm with no ischemic changes, rate 92
CT:
X-rays: Today's x-ray demonstrates bilateral perihilar opacities may represent pneumonia or edema
Laboratory Studies: Troponin noted at 0.253 elevated pro-bnp
Other:
� Review of other/old records: Reviewed discharge summary from 10/17/2022 where patient was discharged from rehab, reviewed discharge summary from 12/30 patient was seen for sacroiliac pain
� Clinical information was obtained by an independent historian: present who helped provide history
� Prescriptions/Medications Considered but not given: none
� Further testing considered but not performed: n/a
RISK OF COMPLICATIONS AND/OR MORBIDITY OR MORTALITY OF PATIENT MANAGEMENT
� Social determinants of health affecting care: none
� Discussion with other providers: ER attending
� Escalation of care including admission/observation vs risk of discharge considered:
74-year-old female with past medical history of hypertension, hyperlipidemia, diabetes presents emergency department today with concerns shortness of breath, coughing, and chest pressure intermittently as high last night. She also notes trouble
sleeping due to her shortness of breath and notes that the shortness of breath is worse with laying down. Her primary care provider examine her today and thought they heard crackles within the lungs. They got a repeat chest x-ray which showed
findings concerning for worsening pneumonia. On physical exam, she does have lower extremity swelling, conversational dyspnea, and crackles and rales heard on exam consistent with potential heart failure. Will give Lasix. Troponin and BNP noted
to be elevated, may be due to demand ischemia related to heart failure however will send for CT to rule out pulmonary embolism. Anticipate admission, will discuss case with hospitalist.
<Angela Wilson PA-C - Last Filed: 10/21/24 21:29>
*Critical Care Note
Total Time (30-74mins, 75-104mins- exclusive of procedures): Not Applicable
ED Attending Note
<Angela Wilson PA-C - Last Filed: 10/21/24 21:29>
-
Portions of this chart may have been created with voice recognition software.� Occasional wrong word or��sound alike� substitutions may have occurred due to the inherent limitations of voice recognition software.
<Frandy Cuba MD - Last Filed: 10/21/24 23:19>
ED Attending Note
Patient seen and examined by attending physician: Yes
ED Attending Note:
I have seen and evaluated the patient with a [id number] encounter. I have spoken to the advance practicer provider and involved in the medical history, the physical exam, medical decision making.
Evaluation and management service: agree unless noted differently below.
Results interpretation: agree unless noted differently below.
Focused HPI: 74-year-old female with history as documented who was just admitted to the hospital for respiratory failure thought to be secondary to pneumonia returns to the emergency room with continued shortness of breath and cough despite
continued antibiotic treatment. Despite continued antibiotic treatment. She was initially treated with IV antibiotics was transitioned to Levaquin and completed a 7-day course yesterday. Despite that she is having worsening shortness of breath
and cough and saw her PCP who sent for repeat x-ray. X-ray was concerning for worsening pneumonia and she was referred to the ER. She has noted some increase swelling in her legs. She denies any chest pain. She denies any GI issues.
Physical exam: Awake and alert. Hypoxic requiring nasal cannula. She is mildly tachypneic. She has rales at the lung bases bilaterally. No cardiac rubs gallops or murmurs appreciated. She does have bilateral edema in the legs. She has some JVD.
Medical Decision Makin-year-old female presents with persistent cough and shortness of breath in the setting of recent pneumonia. Imaging has been concerning for persistent/worsening pneumonia despite outpatient treatment. She arrives to us
tachycardic and tachypneic, hypoxic. She had labs sent off including a CBC which showed a leukocytosis and stable anemia. CMP shows mild hyponatremia. Her troponin and BNP were elevated. We sent for a CTA chest which was negative for PE but
concerning for worsening pneumonia. We sent for a bilateral lower extremity ultrasound which were negative for DVT. This could be worsening pneumonia despite treatment and so we can broaden her antibiotic coverage but this could also be congestive
heart failure rather than acute infection given findings today. Will provide dose of IV Lasix. Will admit for continued management.
Discharge Plan
Departure
Patient Disposition: Admit
Date of Disposition: 10/21/24
Time of Disposition: 21:26
Admit to: Telemetry
Presentation/result/management discussed w/ accepting MD/DO: Hospitalist
Patient with high blood pressure during this ER visit?: Yes
Condition: Fair
Discharge Problem:
Acute respiratory failure
Interventions
Interventions:
*Risk Screen - Suicide Last Done: 10/21/24 16:40
*General Assessment Last Done: 10/21/24 16:40
*Neglect/Abuse Screening Last Done: 10/21/24 16:40
ED- Fall Risk Assessment Last Done: 10/21/24 20:20
*ED COVID-19 Vaccine History Last Done: 10/21/24 17:43
*Nursing Disposition Last Done: 10/21/24 23:08
ED- Cardiac Assessment Last Done: 10/21/24 18:25
ED- Pulmonary Assessment Last Done: 10/21/24 18:25
[2024-10-21 17:43] VITALS: BMI 35.7
[2024-10-21 17:48] LABS: % Basophils 0.2 % (0-2); % Eosinophils 2.6 % (0-6); % Lymphocytes 14.5 % (20.5-51.1); % Monocytes 8.3 % (1.7-9.3); % Neutrophils 73.4 % (42.2-75.2); Absolute Eosinophils 0.3 10^3/uL (0-0.7); Absolute Immature Granulocytes 0.1 10^3/uL (0-0.05); Absolute Lymphocytes 1.8 10^3/uL (1.2-3.4); Absolute Neutrophils 9.2 10^3/uL (1.4-6.5); Hemoglobin 9.8 g/dL (12.0-16.0); Mean Corp Hgb Conc. 32.7 g/dL (33.0-37.0); Mean Corpuscular Hgb 28.2 pg (27.0-31.0); Mean Corpuscular Volume 86.5 fL (81.0-99.0); Mean Platelet Volume 8.4 fL (7.4-10.4); Nucleated Red Blood Cells % 0 %; Platelet Count 478 10^3/uL (130-400); Red Blood Cell Count 3.47 10^6/uL (4.20-5.40); Red Cell Dist. Width 13.5 % (11.5-14.5); White Blood Cell Count 12.5 10^3/uL (4.8-10.8)
[2024-10-21 18:03] LABS: ALT (SGPT) 50 U/L (0-35); AST (SGOT) 48 U/L (14-36); Albumin 3.9 g/dl (3.5-5.0); Alkaline Phosphatase 54 U/L (38-126); Blood Urea Nitrogen 11 mg/dl (7-17); Calcium 9.3 mg/dl (8.4-10.2); Carbon Dioxide 22 mmol/L (22-30); Chloride 99 mmol/L (98-107); Estimated Creatinine Clearance 72 ml/min; Glucose 117 mg/dl (70-99); Potassium 3.7 mmol/L (3.5-5.1); Sodium 130 mmol/L (135-145); Total Bilirubin 0.2 mg/dl (0.2-1.3); Total Protein 6.4 g/dl (6.3-8.2); eGFR > 60.00
[2024-10-21 18:16] LABS: COVID-19 Antigen Negative (Negative)
[2024-10-21 18:32] LABS: NT-proBNP 3870 pg/ml; Troponin I 0.253 ng/ml
[2024-10-21] MEDS: MAXIPIME 1000 MG IV (18:59)
[2024-10-21 19:00] VITALS: BP 134/78
[2024-10-21] MEDS: VANCOCIN 530 MG IV (19:00)
[2024-10-21] MEDS: LASIX 20 MG IV ×2 (19:00→22:25)
[2024-10-21] MEDS: SOLU-CORTEF 200 MG IV (19:16)
[2024-10-21] MEDS: BENADRYL 50 MG IV (19:16)
[2024-10-21 20:00] VITALS: BP 128/85
--- NOTE | 2024-10-21 21:29 | HPS.HSE ---
Family Physician
-
Family Physician: Marky Barger
Chief Complaint
-
Short of breath
Cough
History of Present Illness
74-year-old female with a past medical history of hypertension, hyperlipidemia, fibromyalgia presents emergency department today with concerns of shortness of breath and coughing since last night. Patient stated the cough is dry. Short of breath
which is worse with mild activity. She was discharged home on as needed oxygen. Since yesterday she is requiring oxygen all the time . patient also complained of orthopnea. patient complained fo LE minerva and weight gain. Denied fever chills. She
complained of midsternal chest pain with the cough. Patient also complaining of left-sided lower abdominal to back pain. Denies any headache, dizzy or syncope. Patient denies any abdominal pain, nausea, vomiting or diarrhea. Patient denies
dysuria, hematuria.
of note, patient reports that she was discharged from the hospital and subsequent rehab on October 17 for pneumonia. She received antibiotics in the hospital and then took Levaquin tablets at discharge and just stopped these antibiotics on Sunday.
Patient received IV cefepime and Vanco. Patient received IV Lasix.
Admitted for further management
Medical History
Past Medical History
Past Medical History: Reports Other
Additional Past Medical History:
Hypertension
Hyperlipidemia
Type 2 diabetes
Hypothyroidism
GERD
IBS
GI bleed
Fibromyalgia
Osteoporosis
M�ni�re's disease
Past Surgical History: Reports Other
Additional Past Surgical History:
Back surgery
Social History
Tobacco: Non-smoker
Alcohol: Occasional
Drug: None
Living: With Family
Family History
Family History: Not pertinent
Allergies / Home Medications
Allergies reflects when Allergies were last updated in [employer].
Home Medications with original date entered in [employer]
Allergy/Medication List:
Allergies
Allergy/AdvReac Type Severity Reaction Status Date / Time
betamethasone Allergy Unknown Verified 10/21/24 16:46
clindamycin Allergy Unknown Verified 10/21/24 16:46
codeine Allergy Unknown Verified 10/21/24 16:46
diazepam Allergy Unknown Verified 10/21/24 16:46
diphenhydramine Allergy Unknown Verified 10/21/24 16:46
erythromycin base Allergy Unknown Verified 10/21/24 16:46
Iodinated Contrast Media Allergy Unknown Verified 10/21/24 16:46
Latex, Natural Rubber Allergy Unknown Verified 10/21/24 16:46
methylprednisolone Allergy Unknown Verified 10/21/24 16:46
morphine Allergy Nausea / Verified 10/21/24 16:46
Vomiting/hallucinations
nickel Allergy Unknown Verified 10/21/24 16:46
Penicillins Allergy Unknown Verified 10/21/24 16:46
prednisolone Allergy Unknown Verified 10/21/24 16:46
prednisone Allergy Unknown Verified 10/21/24 16:46
sulfamethoxazole Allergy Unknown Verified 10/21/24 16:46
[From
Sulfamethoxazole-Trimethoprim]
tetramethylthiuram Allergy Unknown Verified 10/21/24 16:46
monosulfide
triamcinolone Allergy Unknown Verified 10/21/24 16:46
trimethoprim Allergy Unknown Verified 10/21/24 16:46
[From
Sulfamethoxazole-Trimethoprim]
Home Medications
duloxetine 60 mg capsule,delayed release 60 mg PO DAILY Mental Health/Anxiety 10/04/24
esomeprazole magnesium 40 mg capsule,delayed release (Nexium) 40 mg PO BID GERD 10/04/24
guanfacine 1 mg tablet 2 mg PO BID Blood Pressure 10/04/24
levothyroxine 50 mcg tablet 50 mcg PO MOTUWETHFRSA Thyroid 10/04/24
polyethylene glycol 3350 17 gram oral powder packet (Miralax) 17 g PO HS Gastrointestinal Issue 10/04/24
valsartan 320 mg tablet 320 mg PO QPM Blood Pressure 10/04/24
cholecalciferol (vitamin D3) 50 mcg (2,000 unit) tablet 50 mcg PO DAILY supplement 30 days #30 tabs 10/16/24
melatonin 3 mg tablet 1.5 mg (1/2 x 3 mg) PO HS insomina 30 days #15 tabs 10/16/24
metformin 500 mg tablet 500 mg PO DAILY Diabetes #0 tabs 10/16/24
albuterol sulfate 90 mcg/actuation aerosol inhaler 2 puff inhalation R Q6HPRN PRN sob 30 days #0 containers 10/17/24
sodium chloride 1,000 mg soluble tablet 1,000 mg PO BID hyponatremia 30 days #0 tabs 10/17/24
acetaminophen 500 mg tablet (Tylenol Extra Strength) 500 mg PO Q6HPRN PRN mild pain/headache 10/21/24
amlodipine 2.5 mg tablet 2.5 mg PO BID Blood Pressure 10/21/24
fexofenadine-pseudoephedrine ER 180 mg-240 mg tablet,ext.release 24 hr (Patricia-D 24 Hour) 1 tab PO DAILY 10/21/24
guaifenesin 100 mg/5 mL oral liquid 100 mg PO Q6HPRN PRN cough 10/21/24
ibuprofen 600 mg tablet 600 mg PO Q8HPRN PRN moderate pain 10/21/24
lidocaine 4 % topical patch 2 patch topical DAILYPRN PRN mild pain 10/21/24
methylcellulose (laxative) 500 mg tablet (Citrucel) 1,000 mg PO DAILY 10/21/24
ondansetron HCl 4 mg tablet 4 mg PO Q8HPRN PRN nausea 10/21/24
sennosides 8.6 mg tablet (Senna Laxative) 8.6 mg PO QPM 10/21/24
Review of Systems
-
Constitutional: Reports Weight Gain, Fatigue and Chills
EENT: Reports No Symptoms
Respiratory: Reports Cough and Trouble Breathing
Cardiac: Reports Chest Pain
Abdomen/GI: Reports Abdominal Pain
: Reports No Symptoms
Musculoskeletal: Reports Other (Back pain)
Skin: Reports No Symptoms
Neurological: Reports Weakness
Endocrine: Reports No Symptoms
Hematologic/Lymphatic: Reports No Symptoms
Psych: Reports No Symptoms
Physical Exam
Vital Signs
Vital Signs
Temp Pulse Resp BP Pulse Ox
99 F 107 26 128/85 94
10/21/24 16:40 10/21/24 21:00 10/21/24 21:00 10/21/24 20:00 10/21/24 21:06
Physical Exam
General: Well Developed, Well Nourished and No Apparent Distress
HEENT: NormoCephalic, Moist mucous membranes and Atraumatic
Respiratory: Crackles
Cardiac: S1/S2 and Regular Rhythm; No Murmur or Rub
GI: Soft, Non Tender, Non Distended and Normal Bowel Sounds; No Organomegaly
Rectal: Deferred by Provider
Musculoskeletal: No Clubbing, No Cyanosis and Other (Bilateral lower extremities with)
Skin: No Rash
Neuro: AO x 3 and Nonfocal/grossly intact
Psych: Calm
Laboratory Results
-
10/21/24 17:40
10/21/24 17:40
Laboratory Results
Lactic Acid 1.0 mmol/L (0.7-2.0) 10/21/24 18:52
Total Bilirubin 0.2 mg/dl (0.2-1.3) 10/21/24 17:40
AST 48 U/L (14-36) H 10/21/24 17:40
ALT 50 U/L (0-35) H 10/21/24 17:40
Alkaline Phosphatase 54 U/L (38-126) 10/21/24 17:40
Troponin I 0.253 ng/ml H* 10/21/24 17:40
Data Reviewed
-
Diagnostic Radiology: Report Reviewed by me
CT Scan: Report Reviewed by me
Lab Data: Labs Reviewed by me
Impression/Plan
-
#sob/orthopnea/acute hypoxic respiratory failure multifactorial
-covid negative
-negative Influenza
-chest CT with the impression of No evidence of central pulmonary embolism.Bibasilar opacification suspicious for pneumonia with slight progression, particularly on the left.
-Patient requiring 5 L of oxygen
-Continue supplemental oxygen to keep sat greater than 95
-Wean as tolerated
-Nebs as needed for short of breath and wheezing
#pneumonia
-iv cefepime and Zosyn continued
-wbc 12.5
-blood culture sent from ER
-Tylenol as needed for fever
-obtain MRSA, sputum culture, urine legionella and strep pneumoniae
# New onset congestive heart failure
-BNP 3870
-IV Lasix continued strict LARON
-Daily weight
Fluid restriction
-Obtain echo
-Cardiology consult
# Anemia of chronic disease
-Hemoglobin stable at 9.8
-No active bleeding
-Continue to monitor
# Chronic hyponatremia
-Sodium 130
-Continue to follow
-Sodium chloride continue
#hepatic congestion
-AST 48,ALT 50
-Continue to trend
#elevated trop likely NSTEMI
-trop 0.253
-denied chest pain
-trend trop
#DM2
-cont SSI/accuchecks
-Hold metformin
#Essential hypertension: cont amlodipine/guanfacine/valsartan.
#Asthma: cont albuterol
#Fibromyalgia
-Duloxetine continued
#IBS: Continue MiraLAX
#M�ni�re's disease
#GERD: Cont PPI
#Hyperlipidemia: cont statin
#Hypothyroidism: cont levothyroxine
FULL/Lovenox
--- NOTE | 2024-10-21 21:58 | W.PN.UPDATE ---
Update Note
Progress Note Update
This is an addendum to the H&P written by Emma Dias on 10/21/2024. Patient seen and examined independently with [employer].
74-year-old female past medical history of asthma, fibromyalgia, diabetes, hypertension, spinal stenosis status post laminectomy, hyponatremia, SIADH, chronic anemia, IBS, M�ni�re's disease, GERD, hyperlipidemia, hypothyroidism, presents with
shortness of breath and coughing since last night. Recently admitted from 10/07 to 10/10 for pneumonia and then discharged to rehab.
While in rehab her pulse ox was low and she was placed on 2 L oxygen. She had return of coughing and has right lower rib pain. She has subjective fevers and chills.
Labs show stable hyponatremia with sodium 130, stable mild transaminitis. Troponin of 0.253. Cardiac BNP of 3800 with significant increase from 165 a week ago.
EKG shows normal sinus rhythm. No ST-T wave changes.
Chest x-ray shows progression of bibasilar opacities suggesting worsening pneumonia. CT chest shows bibasilar opacification suspicious for pneumonia with slight progression particularly in the left. Venous ultrasound shows no evidence of DVT
bilaterally.
COVID and influenza negative.
Patient clinically septic with leukocytosis, tachypnea tachycardia and and hypoxemic requiring 4 L oxygen secondary to worsening pneumonia. There is also evidence of acute CHF exacerbation. There is nonischemic myocardial injury secondary to
hypoxemia/CHF exacerbation.
Check blood cultures. Check sputum culture, strep antigen, Legionella, MRSA. Start vancomycin/Zosyn. Pulmonary consulted. 40 IV Lasix daily. Check echocardiogram. Cardiology consulted.
[2024-10-21 22:00] VITALS: BP 129/71
[2024-10-21 23:00] VITALS: BP 95/71
[2024-10-21 23:36] VITALS: BP 135/81; BMI 33.5
[2024-10-22] VITALS (7 sets, daily range): BP systolic 117–136; BP diastolic 67–86; PULSE 95; O2SAT 95; BMI 32.9
[2024-10-22] MEDS: ZOSYN 100 IV ×4 (00:21→18:25)
[2024-10-22] MEDS: MUCINEX 600 MG PO ×3 (00:21→19:59)
[2024-10-22] MEDS: MELATONIN 1.5 MG PO ×2 (00:22→22:40)
[2024-10-22] MEDS: MIRALAX PO ×2 (00:23→22:34)
[2024-10-22 00:59] LABS: Troponin I 0.191 ng/ml
[2024-10-22] MEDS: TESSALON PERLES 100 MG PO ×4 (06:14→22:36)
[2024-10-22] MEDS: TYLENOL 650 MG PO (06:14)
[2024-10-22] MEDS: SYNTHROID 50 MCG PO (06:14)
[2024-10-22 07:38] LABS: % Basophils 0.3 % (0-2); % Eosinophils 0.3 % (0-6); % Immature Granulocytes 0.7 % (0-0.5); % Monocytes 9.4 % (1.7-9.3); % Neutrophils 74.3 % (42.2-75.2); Absolute Immature Granulocytes 0.1 10^3/uL (0-0.05); Absolute Lymphocytes 1.7 10^3/uL (1.2-3.4); Absolute Neutrophils 8.2 10^3/uL (1.4-6.5); Hematocrit 29.4 % (37.0-47.0); Hemoglobin 9.4 g/dL (12.0-16.0); Mean Corpuscular Hgb 27.6 pg (27.0-31.0); Mean Corpuscular Volume 86.2 fL (81.0-99.0); Mean Platelet Volume 8.7 fL (7.4-10.4); Nucleated Red Blood Cells % 0 %; Platelet Count 498 10^3/uL (130-400); Red Blood Cell Count 3.41 10^6/uL (4.20-5.40); Red Cell Dist. Width 13.6 % (11.5-14.5)
[2024-10-22 07:57] LABS: Troponin I 0.204 ng/ml
[2024-10-22 08:18] LABS: ALT (SGPT) 43 U/L (0-35); AST (SGOT) 38 U/L (14-36); Albumin 3.7 g/dl (3.5-5.0); Alkaline Phosphatase 51 U/L (38-126); Blood Urea Nitrogen 10 mg/dl (7-17); Calcium 8.7 mg/dl (8.4-10.2); Carbon Dioxide 25 mmol/L (22-30); Chloride 98 mmol/L (98-107); Estimated Creatinine Clearance 69 ml/min; Glucose 91 mg/dl (70-99); HDL Cholesterol 42 mg/dl; LDL Cholesterol, Calculated 137 mg/dl; Magnesium 1.7 mg/dl (1.6-2.3); Potassium 3.6 mmol/L (3.5-5.1); Sodium 134 mmol/L (135-145); Total Bilirubin 0.4 mg/dl (0.2-1.3); Total Cholesterol 205 mg/dl (50-199); Triglyceride 133 mg/dl (10-149); Very Low Density Lipoprotein 26 mg/dl (0-30); eGFR > 60.00
[2024-10-22] MEDS: NOVOLOG FLEXPEN-LOW RESISTANCE SC ×3 (08:25→17:54)
[2024-10-22 08:26] LABS: Glucose - Point of Care 81 mg/dl (70-99)
[2024-10-22] MEDS: PROTONIX 40 MG PO (08:26)
[2024-10-22] MEDS: NORVASC 2.5 MG PO ×2 (08:26→20:00)
[2024-10-22] MEDS: SODIUM CHLORIDE 1 GRAM PO (08:26)
[2024-10-22] MEDS: CYMBALTA DELAYED RELEASE 60 MG PO (08:26)
[2024-10-22] MEDS: LASIX 40 MG IV ×2 (08:27→15:14)
[2024-10-22 08:35] LABS: TSH Reflex To Free T4 0.94 uIU/ml (0.47-4.68)
--- NOTE | 2024-10-22 08:58 | PHA.VAN.IN ---
Assessment
- Assessment
Renal Function: Appears similar to baseline
Concomitant Antimicrobials: piperacillin/tazobactam
AUC Dosing Plan
- Dosing Variables
Dosing Weight (kg): 71.35
Dosing CrCl (ml/min): 73
Vd coefficient (L/kg): 0.7
- Empiric Dosing
Initial / Loading Dose: 1500mg- 10/21 19:00
Maintenance Regimen: Vanc 750mg Q12H - first dose now then 1800
Estimated AUC (mcg*h/mL): 479
Estimated Peak (mcg*h/mL): 27.9
Estimated Trough (mcg/ml): 13.6
Estimated Half Life (H): 10.7
- Monitoring
No levels ordered at this time: consider levels in next few days
MRSA Screen: Ordered per protocol
Pharmacokinetics Vancomycin I
- -
Patient Age: 74
Patient Sex: Female
Vancomycin Day #: 1
Indication: Pulmonary/Respiratory
Requesting Provider: Benny Dias
Pertinent Antimicrobial Allergies:
clindamycin - unknown
erythromycin - unknown
penicillins - unknown
smx/tmp - unknown
Height / Weight:
Height 4 ft 10 in
Actual Weight 71.35 kg
Pertinent Past Medical History: BMI ~33, DM 2
- Vital Signs / Lab Results
Temp Pulse Resp BP Pulse Ox
98.9 F 90 18 124/72 94
10/22/24 07:00 10/22/24 08:26 10/22/24 07:00 10/22/24 08:26 10/22/24 07:00
Lab Results - Hematology
10/21/24 10/22/24
17:40 06:54
WBC 12.5 H 11.0 H
Lab Results - Chemistry
10/21/24 10/22/24
17:40 06:54
BUN 11 10
Creatinine 0.4 L 0.4 L
Estimated Creat Clear 72 69
Albumin 3.9 3.7
10/21/24
18:52
Lactic Acid 1.0
Microbiology Results
10/21/24 17:40 Influenza Types A & B (ADELSO) - Final
Nasal Swab Negative for Influenza A & B, NAAT
Negative results must be combined with clinical observations
and patient history.
Nucleic Acid Amplification test (NAAT)performed on the
[employer] platform.
[2024-10-22] MEDS: FIBERCON 1250 MG PO (09:16)
[2024-10-22] MEDS: VANCOCIN 150 IV (09:17)
--- NOTE | 2024-10-22 09:39 | W.PN.HOSP.TC ---
Today's Communication/Plan
-
IV diuresis. IV antibiotics.
Assessment / Plan
Assessment / Plan
Physical exam:
General: Acutely ill
HEENT: Normocephalic, Atraumatic and Moist Mucous Membranes
Respiratory: Bilateral rhonchi and coarse crackles in the bases; Negative Wheezes
Cardiac: Regular Rhythm and S1/S2
GI: Soft, Nontender and Nondistended
Musculoskeletal: No Clubbing, No Cyanosis. Bilateral lower extremity edema 1+ present.
Neuro: Awake, Alert and Oriented, no gross neurological deficits
Psych: Anxious, normal judgment and insight.
A/P:
Acute hypoxic respiratory failure:
Appears to be multifactorial, pneumonia and heart failure main contributors
Continue antibiotics
Continue diuretics
Continue oxygen supplementation
PT OT eval
Discussed with family, daughter and at bedside
Bilateral pneumonia:
Legionella negative
Streptococcus antigen negative
MRSA screen negative
Negative COVID-19 and influenza
Blood cultures no growth but continue to monitor
Sputum culture contaminated
On IV Zosyn and vancomycin
Can discontinue vancomycin
Pulmonary consult pending-discussed with pulmonary over the phone today.
WBC 12.5--> 11
Speech therapy for swallow eval today and plan for VSE
Acute CHF, unknown type:
Continue IV Lasix 40 mg daily increased to twice a day by cardiology
Monitor ins and outs and daily weights
Echocardiogram pending
Cardiology consult appreciated
Elevated troponin:
Suspect nonischemic myocardial injury due to hypoxia and infection
Trend until it peaks
Cardiac monitoring
Echocardiogram
Chronic hyponatremia:
SIADH related recently
Sodium up to 134 today from 130 yesterday
On salt tablets-hold while being diuresed
Continue to monitor
Elevated LFTs:
Probably passive venous congestion versus infection
Monitor trend
Asthma:
Continue bronchodilators
Chronic anemia:
Hemoglobin 9.4 today from 9.8 yesterday
No signs of active bleeding
Continue to monitor
Chronic back pain:
Recent spinal and neuroforaminal stenosis at L4-L5 and acute rehabilitation stay recently.
Prior history of L4-L5 laminectomy in the past.
Continue Lidoderm patch
Add Toradol as needed
Continue PT
Hypertension:
On amlodipine 2.5 mg twice a day, home med with guanfacine 2 mg p.o. twice a day, and valsartan 320 mg nightly.
Would hold amlodipine to allow diuresis and avoid hypotension but will reevaluate.
Monitor blood pressure adjust medications accordingly
Diabetes mellitus type 2:
Continue insulin sliding scale
Holding metformin in the setting of heart failure and infection.
Monitor blood sugar and adjust medications accordingly
Fibromyalgia:
Continue Cymbalta 60 mg p.o. daily
GERD:
Continue Protonix 40 mg p.o. twice a day
Hypothyroidism:
Continue levothyroxine 50 mcg p.o., Mondays to Sunday
Constipation:
Continue current bowel regimen
Insomnia:
Continue melatonin
DVT prophylaxis:
Lovenox SQ
CODE STATUS:
Full code
Total time spent on today's encounter was 52 minutes which included time spent in counseling the patient/family regarding diagnosis and treatment plan as listed above, goals of care, and symptom management. Case was discussed with nursing staff,
specialists, and care coordinators/case management. All labs and imaging personally reviewed by me. Remainder the time spent in detailed review of previous records, lab data, imaging, and other medical provider documentation.
Anticipated Discharge: > 48 hours
Subjective/Interval History
-
Date of Service: October 22, 2024
Patient feels better, still on supplemental oxygen, still having some cough. Afebrile
Objective Data
-
Labs:
Laboratory Results
10/22/24
06:54
WBC 11.0 H
Hgb 9.4 L
Hct 29.4 L
Plt Count 498 H
Sodium 134 L
Potassium 3.6
Chloride 98
Carbon Dioxide 25
BUN 10
Creatinine 0.4 L
Glucose 91
Calcium 8.7
Total Bilirubin 0.4
AST 38 H
ALT 43 H
Alkaline Phosphatase 51
Vital Signs:
Vital Signs
Temp Pulse Resp BP Pulse Ox
98.9 F 90 18 124/72 94
10/22/24 07:00 10/22/24 08:26 10/22/24 07:00 10/22/24 08:26 10/22/24 07:00
I&O
10/21/24 10/22/24 10/23/24
06:59 06:59 06:59
Intake Total 480 / 480
Output Total 700 / 700
Balance -220 / -220
[2024-10-22] MEDS: TORADOL 15 MG IV ×2 (10:29→22:40)
--- NOTE | 2024-10-22 11:01 | CON.PUL ---
Consultation
Consultation Request
Date/Time Consultation Requested: 10/22/2024 - 940
Date/Time Consultation Performed: 10/22/2024 - 0
Requesting Provider: Dr. Romero
Performing Provider: Dr. Renee
Reason for Consultation: Recurrent pneumonia/SOB
Medical History
-
Chief Complaint: SOB/cough
History of Present Illness:
74-year-old female with a past medical history of hypertension, asthma, DM type II, fibromyalgia and spinal stenosis who presents with shortness of breath and cough starting 1 day prior to arrival. She says her cough initially was dry and then her
SOB worsened even with mild activity. She was recently discharged home on 10/17/2024 with as needed oxygen. She is now using her O2 all the time and has shortness of breath even while laying flat. Also has lower extremity edema and weight gain.
Endorses midsternal chest pain with a cough and left lower abdominal to back pain. Initially in the ER she was afebrile to 99 �F, pulse rate 108, breathing at 22 breaths/min, BP 135/81 and saturating 80% on room air, which improved to 96% on 4
L/min. Initial labs showed mild leukocytosis to 12.5, Hb 9.8, platelet count 478, serum sodium 130, troponin slightly elevated at 0.253, proBNP 3870, and COVID-19 antigen negative. Blood cultures were collected, and flu swab was negative for flu
A/B. CXR showed progression of bibasilar opacities suggesting worsening pneumonia. CTA chest from 10/21/2024 showed bilateral consolidative/nodular opacities, mainly in the lower lobes with no evidence of acute PE. She was started on cefepime,
given 20 mg Lasix, hydrocortisone 200 mg, IV vancomycin and Benadryl, and admitted to telemetry for further treatment. Pulmonary service now consulted for additional management/recommendations.
When I saw the pt she was in bed in NAD, daughter Octavia at bedside. All questions were answered. The pt felt well 1 day after recent discharge, but then started to feel increasingly more SOB as the days ensued. She had no aspiration event and
no sick contacts. Coughing at night has been very bothersome to her. She denies worsening SOB when lying flat, although she does sleep in a reclined position. She currently denies chest pain, AVENDAÑO, abd pain, N/V/f/c.
PMHx: Hypertension, DM type II, asthma, fibromyalgia, IBS, history of M�ni�re's disease, spinal stenosis s/p L4-5 laminectomy
PSHx: Noncontributory
Past Medical History
Past Medical History: Other (Above as per HPI)
Past Surgical History: Other (Above as per HPI)
Social History
Tobacco: Non-smoker
Alcohol: None
Drug: None
Family History
Family History: Reviewed & Not Pertinent
Allergies / Home Medications
Allergies
Allergy/AdvReac Type Severity Reaction Status Date / Time
betamethasone Allergy Unknown Verified 10/21/24 16:46
clindamycin Allergy Unknown Verified 10/21/24 16:46
codeine Allergy Unknown Verified 10/21/24 16:46
diazepam Allergy Unknown Verified 10/21/24 16:46
diphenhydramine Allergy Unknown Verified 10/21/24 16:46
erythromycin base Allergy Unknown Verified 10/21/24 16:46
Iodinated Contrast Media Allergy Unknown Verified 10/21/24 16:46
Latex, Natural Rubber Allergy Unknown Verified 10/21/24 16:46
methylprednisolone Allergy Unknown Verified 10/21/24 16:46
morphine Allergy Nausea / Verified 10/21/24 16:46
Vomiting/hallucinations
nickel Allergy Unknown Verified 10/21/24 16:46
Penicillins Allergy Unknown Verified 10/21/24 16:46
prednisolone Allergy Unknown Verified 10/21/24 16:46
prednisone Allergy Unknown Verified 10/21/24 16:46
sulfamethoxazole Allergy Unknown Verified 10/21/24 16:46
[From
Sulfamethoxazole-Trimethoprim]
tetramethylthiuram Allergy Unknown Verified 10/21/24 16:46
monosulfide
triamcinolone Allergy Unknown Verified 10/21/24 16:46
trimethoprim Allergy Unknown Verified 10/21/24 16:46
[From
Sulfamethoxazole-Trimethoprim]
Home Medications
�Medication �Instructions �Recorded �Confirmed �Last Taken �Type
duloxetine 60 mg capsule,delayed 60 mg PO DAILY Mental 10/04/24 10/21/24 10/03/24 History
release Health/Anxiety
esomeprazole magnesium 40 mg 40 mg PO BID GERD 10/04/24 10/21/24 10/03/24 History
capsule,delayed release (Nexium)
guanfacine 1 mg tablet 2 mg PO BID Blood Pressure 10/04/24 10/21/24 10/03/24 History
levothyroxine 50 mcg tablet 50 mcg PO MOTUWETHFRSA Thyroid 10/04/24 10/21/24 10/03/24 History
polyethylene glycol 3350 17 gram 17 g PO HS Gastrointestinal Issue 10/04/24 10/21/24 10/03/24 History
oral powder packet (Miralax)
valsartan 320 mg tablet 320 mg PO QPM Blood Pressure 10/04/24 10/21/24 10/03/24 History
cholecalciferol (vitamin D3) 50 50 mcg PO DAILY supplement 30 days 10/16/24 10/21/24 Unknown Rx
mcg (2,000 unit) tablet #30 tabs
melatonin 3 mg tablet 1.5 mg (1/2 x 3 mg) PO HS insomina 10/16/24 10/21/24 Unknown Rx
30 days #15 tabs
metformin 500 mg tablet 500 mg PO DAILY Diabetes #0 tabs 10/16/24 10/21/24 10/03/24 Rx
albuterol sulfate 90 mcg/actuation 2 puff inhalation R Q6HPRN PRN sob 10/17/24 10/21/24 Unknown Rx
aerosol inhaler 30 days #0 containers
sodium chloride 1,000 mg soluble 1,000 mg PO BID hyponatremia 30 10/17/24 10/21/24 Unknown Rx
tablet days #0 tabs
acetaminophen 500 mg tablet 500 mg PO Q6HPRN PRN mild 10/21/24 10/21/24 Unknown History
(Tylenol Extra Strength) pain/headache
amlodipine 2.5 mg tablet 2.5 mg PO BID Blood Pressure 10/21/24 10/21/24 Unknown History
fexofenadine-pseudoephedrine ER 1 tab PO DAILY 10/21/24 10/21/24 Unknown History
180 mg-240 mg tablet,ext.release
24 hr (Patricia-D 24 Hour)
guaifenesin 100 mg/5 mL oral liquid 100 mg PO Q6HPRN PRN cough 10/21/24 10/21/24 Unknown History
ibuprofen 600 mg tablet 600 mg PO Q8HPRN PRN moderate pain 10/21/24 10/21/24 Unknown History
lidocaine 4 % topical patch 2 patch topical DAILYPRN PRN mild 10/21/24 10/21/24 Unknown History
pain
methylcellulose (laxative) 500 mg 1,000 mg PO DAILY 10/21/24 10/21/24 Unknown History
tablet (Citrucel)
ondansetron HCl 4 mg tablet 4 mg PO Q8HPRN PRN nausea 10/21/24 10/21/24 Unknown History
sennosides 8.6 mg tablet (Senna 8.6 mg PO QPM 10/21/24 10/21/24 Unknown History
Laxative)
Review of Systems
-
History Source: Patient
All other systems: Negative unless noted
Vitals / Labs / Diagnostic Testing
Vital Signs
Temp Pulse Resp BP Pulse Ox
98.9 F 90 18 124/72 94
10/22/24 07:00 10/22/24 08:26 10/22/24 07:00 10/22/24 08:26 10/22/24 07:00
Lab Data
10/22/24 06:54
10/22/24 06:54
Microbiology
10/22/24 01:26 Nose Nasal Screen MRSA (PCR) - Final
MRSA not detected - performed by PCR methodology.
10/21/24 23:59 Urine Streptococcus pneumoniae Antigen (M - Final
Negative for Streptococcus pneumoniae antigen.
A negative result does not exclude infection with
Streptococcus pneumoniae. Clinical correlation is
recommended.
10/22/24 01:26 Urine Legionella Urinary Antigen - Final
Negative for Legionella pneumophila Serogroup 1 antigen.
A negative result does not rule out the possiblity of
Legionella infection due to other serogroups or species of
Legionella. Clinical correlation is recommended.
10/21/24 17:40 Nasal Swab Influenza Types A & B (ADELSO) - Final
Negative for Influenza A & B, NAAT
Negative results must be combined with clinical observations
and patient history.
Nucleic Acid Amplification test (NAAT)performed on the
[employer] platform.
Diagnostic Testing:
Physical Exam
-
HEENT: Normocephalic and Anicteric
Cardiovascular: S1/S2, Rub (negative) and Peripheral Edema (trace lower extremity edema b/l)
Respiratory: Wheeze (negative), Rales (bibasilar), Rhonchi (negative) and Non-Labored Respirations
GI: Soft, Non Distended, Non Tender and Normal Bowel Sounds
Neurology: AO x 3 and Tremors (negative)
Skin: Warm and Dry
General: Respiratory Distress (negative), Comfortable, Fever (negative) and Chills (negative)
Assessment
-
Assessment: 74-year-old female with a past medical history of hypertension, asthma, DM type II, fibromyalgia and spinal stenosis who presents with shortness of breath and cough starting 1 day prior to arrival. She says her cough initially was dry
and then her SOB worsened even with mild activity. She was recently discharged home on 10/17/2024 with as needed oxygen. She is now using her O2 all the time and has shortness of breath even while laying flat. Also has lower extremity edema and
weight gain. Endorses midsternal chest pain with a cough and left lower abdominal to back pain. Initially in the ER she was afebrile to 99 �F, pulse rate 108, breathing at 22 breaths/min, BP 135/81 and saturating 80% on room air, which improved to
96% on 4 L/min. Initial labs showed mild leukocytosis to 12.5, Hb 9.8, platelet count 478, serum sodium 130, troponin slightly elevated at 0.253, proBNP 3870, and COVID-19 antigen negative. Blood cultures were collected, and flu swab was negative
for flu A/B. CXR showed progression of bibasilar opacities suggesting worsening pneumonia. CTA chest from 10/21/2024 showed bilateral consolidative/nodular opacities, mainly in the lower lobes with no evidence of acute PE. She was started on
cefepime, given 20 mg Lasix, hydrocortisone 200 mg, IV vancomycin and Benadryl, and admitted to telemetry for further treatment. Pulmonary service now consulted for additional management/recommendations.
Chronic conditions [employer]: Hypertension, DM type II, asthma, fibromyalgia, IBS, history of M�ni�re's disease, spinal stenosis s/p L4-5 laminectomy
Impression:
#Acute on chronic hypoxic respiratory failure with hypoxia due to pneumonia in the setting of acute decompensated heart failure
#Leukocytosis
#Anemia
#Thrombocytosis likely reactive
#Hyponatremia
#Elevated troponin (0.253 on 10/21/2024)
#Elevated proBNP
#History of fibromyalgia
Plan:
- Patient has worsening multifocal patchy/consolidative opacities predominantly in the lower lobes suspicious for pneumonia. This has worsened compared to recent CT chest on 10/06/2024
- There is also diffuse intra-lobular septal thickening with perivascular ground glass opacities, hence this is also suspicious for acute pulmonary edema
- Continue with broad-spectrum antibiotics � currently on vancomycin/Zosyn
- Follow-up cultures including sputum culture (collected 10/22/2024), and blood cultures (collected 10/21/2024); her urine antigens for Legionella + strep pneumonia are both negative
- Mucolytics with mucinex and acapella
- Given that she was recently diagnosed with community-acquired pneumonia on 10/07/2024, now with worsening radiographic evidence of pneumonia, need to cover her for Pseudomonas and MRSA. If she continues to deteriorate then would need deep lung
sample, possibly with bronchoscopy. This will be an ongoing discussion.
- Check procal
- She also reports edema in her hand joints with redness and swelling with concerns for rheumatoid arthritis with polyarthritis. Prior rheumatological testing with rheumatoid factor, CCP and JASPAL were all negative. Also prior ESR and CRP were also
negative. She does follow with rheumatology. If she continues to be on diuretics and antibiotics but still fails to improve, then would start systemic steroids at that time given the possibility of interstitial pneumonitis
- For now, re-check CRP and ESR and hold off on systemic steroids at this time (although she did get hydrocortisone 200 mg IV while in the ER on 10/21/2024)
- Maintain SpO2 >90-94% with supplemental O2 and wean down as tolerated
- Cardiology consulted and recs appreciated; continue IV lasix and monitor sCr, UOP and strict I/O
- While on diuretics, replete electrolytes with K>4, Mg>2
- Trend BNP
- Trend troponin until begins to downtrend
- Echo done today (10/22/2024) shows hyperdynamic LVEF at 70-75% with normal regional motion, mild-moderate TR and moderately elevated PASP at 57mmHg
- Trend serum Na with goal 135-145
- Trend Hb and transfuse if needed to keep Hb>7g/dL
- Incentive spirometer q1hr while awake
- Maintain euglycemia with goal BG >100 and <180
- prn nebulized bronchodilators - not currently bronchospastic
- DVT ppx: LMWH
Pulmonary service will continue to follow along.
Data:
CTA Chest 10/21/2024: No evidence of central pulmonary embolism; Bibasilar opacification suspicious for pneumonia with slight progression, particularly on the left.
Transthoracic Echocardiogram 10/22/2024:
Normal left ventricular size with hyperdynamic systolic function and normal
regional wall motion. LVEF 70-75%.
Normal right ventricular size and function.
Mild to moderate tricuspid regurgitation. Moderately elevated pulmonary artery
pressure (PASP 57 mmHg).
No prior study available for comparison.
Total time spent today was 56 minutes for this encounter. Time includes reviewing laboratory test/imaging results, reviewing pertinent medical records, obtaining and reviewing medical history, performing an appropriate exam, ordering medications,
tests and procedures. Time also includes documentation of this encounter, coordinating patient care and communicating with other healthcare professionals. Total time does not include separately billed tests performed on this date of service.
--- NOTE | 2024-10-22 11:33 | CON.CAR ---
Addendum entered and electronically signed by Fernando Cantor MD 10/22/24 14:14:
I saw and examined the patient.
The AIR BRAKE TESTER's note was reviewed and I agree with the note.
Comment:
74 y/o female with hypertension, dyslipidemia, fibromyalgia, and diabetes who presents with shortness of breath. She is a patient of Dr. Traylor ([facility]). She was hospitalized for community-acquired pneumonia a few weeks ago. She was discharged to
rehab and got home on 10/17/2024. She felt better after discharge though never got back to her baseline. Since Sunday when she got home, she has noted worsening shortness of breath with some mild lower extremity edema. She presented to the ER
where she was found to have BNP of 3000, troponin 0.253 -> 0.191 -> 0.204. ECG reveals normal sinus rhythm with nonspecific ST�T wave changes. CXR and chest CT are consistent with pneumonia. She has received 2 doses of IV Lasix 40 mg and notes
that her lower extremity edema and breathing have improved. She remains on nasal cannula. Echocardiogram is pending. Physical exam is notable for minimal lower extremity edema and crackles at the bilateral lung bases, heart is regular rate and
rhythm with no murmurs/rubs/gallops. It seems that she is now has a mild HF exacerbation in addition to community-acquired pneumonia. We will obtain an echocardiogram. In the meantime continue diuresis with IV Lasix 40 mg twice daily. Depending
on her IVC and PASP on echocardiogram, we can decide about further diuresis. I suspect her troponin elevation is due to nonischemic myocardial injury in the setting of heart failure exacerbation. She denies chest pain and ECG is nonischemic. For
hypertension she should be continued on home amlodipine and valsartan.
Original Note:
Consultation
Consultation Request
Date/Time Consultation Requested: 10/21/24 0022
Date/Time Consultation Performed: 10/22/24 1130
Requesting Provider: Emma Dias
Performing Provider: Bell ALEMAN for Dr. Cantor
Reason for Consultation: CHF
Medical History
-
Chief Complaint: SOB
History of Present Illness:
74 y/o female with hypertension, dyslipidemia, fibromyalgia, diabetes (type II), spinal stenosis with hx surgery, asthma, hx GIB 2008 (following colonoscopy- was told to avoid NSAIDs), hypothyroidism, hyponatremia who in August had a sinus
infection treated as an OP. However, this progressed to coughing and SOB. She developed back pain and she was hospitalized 10/04/24-10/10/24 for management of this and was also seen to have PNA and was treated with IV ABX. She was discharged to rehab,
then went home 10/17/24. She never felt better, but then had an OP CXR and was told to come back to the ER, as PNA still noted and patient remained SOB. She has pain under her ribs- worse with coughing. No anginal quality pain. We are consulted to
evaluate for acute heart failure. She has b/l rales to assessment. BNP 3870, was 165 a week ago. Weight is not significantly changed. She reports edema and SOB has improved with IV lasix. Troponin is around 0.2. EKG is stable. She is in no distress
at the time of my assessment. She has seen Dr. Traylor at [facility] for cardiac pre-op risk assessment prior to her laminectomy, but denies any known cardiac issues. Her and daughter are at the bedside.
Past Medical History
Past Medical History: HTN, Hypercholesterolemia and NIDDM
Social History
Tobacco: Non-Smoker
Alcohol: Occasional
Personal:
Family History
Family History: Reviewed & Not Pertinent
Allergies / Home Medications
Allergy/AdvReac Type Severity Reaction Status Date / Time
betamethasone Allergy Unknown Verified 10/21/24 16:46
clindamycin Allergy Unknown Verified 10/21/24 16:46
codeine Allergy Unknown Verified 10/21/24 16:46
diazepam Allergy Unknown Verified 10/21/24 16:46
diphenhydramine Allergy Unknown Verified 10/21/24 16:46
erythromycin base Allergy Unknown Verified 10/21/24 16:46
Iodinated Contrast Media Allergy Unknown Verified 10/21/24 16:46
Latex, Natural Rubber Allergy Unknown Verified 10/21/24 16:46
methylprednisolone Allergy Unknown Verified 10/21/24 16:46
morphine Allergy Nausea / Verified 10/21/24 16:46
Vomiting/hallucinations
nickel Allergy Unknown Verified 10/21/24 16:46
Penicillins Allergy Unknown Verified 10/21/24 16:46
prednisolone Allergy Unknown Verified 10/21/24 16:46
prednisone Allergy Unknown Verified 10/21/24 16:46
sulfamethoxazole Allergy Unknown Verified 10/21/24 16:46
[From
Sulfamethoxazole-Trimethoprim]
tetramethylthiuram Allergy Unknown Verified 10/21/24 16:46
monosulfide
triamcinolone Allergy Unknown Verified 10/21/24 16:46
trimethoprim Allergy Unknown Verified 10/21/24 16:46
[From
Sulfamethoxazole-Trimethoprim]
�Medication �Instructions �Recorded �Confirmed �Type
duloxetine 60 mg capsule,delayed 60 mg PO DAILY Mental 10/04/24 10/21/24 History
release Health/Anxiety
esomeprazole magnesium 40 mg 40 mg PO BID GERD 10/04/24 10/21/24 History
capsule,delayed release (Nexium)
guanfacine 1 mg tablet 2 mg PO BID Blood Pressure 10/04/24 10/21/24 History
levothyroxine 50 mcg tablet 50 mcg PO MOTUWETHFRSA Thyroid 10/04/24 10/21/24 History
polyethylene glycol 3350 17 gram 17 g PO HS Gastrointestinal Issue 10/04/24 10/21/24 History
oral powder packet (Miralax)
valsartan 320 mg tablet 320 mg PO QPM Blood Pressure 10/04/24 10/21/24 History
cholecalciferol (vitamin D3) 50 50 mcg PO DAILY supplement 30 days 10/16/24 10/21/24 Rx
mcg (2,000 unit) tablet #30 tabs
melatonin 3 mg tablet 1.5 mg (1/2 x 3 mg) PO HS insomina 10/16/24 10/21/24 Rx
30 days #15 tabs
metformin 500 mg tablet 500 mg PO DAILY Diabetes #0 tabs 10/16/24 10/21/24 Rx
albuterol sulfate 90 mcg/actuation 2 puff inhalation R Q6HPRN PRN sob 10/17/24 10/21/24 Rx
aerosol inhaler 30 days #0 containers
sodium chloride 1,000 mg soluble 1,000 mg PO BID hyponatremia 30 10/17/24 10/21/24 Rx
tablet days #0 tabs
acetaminophen 500 mg tablet 500 mg PO Q6HPRN PRN mild 10/21/24 10/21/24 History
(Tylenol Extra Strength) pain/headache
amlodipine 2.5 mg tablet 2.5 mg PO BID Blood Pressure 10/21/24 10/21/24 History
fexofenadine-pseudoephedrine ER 1 tab PO DAILY 10/21/24 10/21/24 History
180 mg-240 mg tablet,ext.release
24 hr (Patricia-D 24 Hour)
guaifenesin 100 mg/5 mL oral liquid 100 mg PO Q6HPRN PRN cough 10/21/24 10/21/24 History
ibuprofen 600 mg tablet 600 mg PO Q8HPRN PRN moderate pain 10/21/24 10/21/24 History
lidocaine 4 % topical patch 2 patch topical DAILYPRN PRN mild 10/21/24 10/21/24 History
pain
methylcellulose (laxative) 500 mg 1,000 mg PO DAILY 10/21/24 10/21/24 History
tablet (Citrucel)
ondansetron HCl 4 mg tablet 4 mg PO Q8HPRN PRN nausea 10/21/24 10/21/24 History
sennosides 8.6 mg tablet (Senna 8.6 mg PO QPM 10/21/24 10/21/24 History
Laxative)
Review of Systems
-
History Source: Patient
All other systems: Negative unless noted
Respiratory: Cough and Trouble Breathing
Musculoskeletal: Other (pain as noted in detail)
Physical Exam
Vital Signs
Temp Pulse Resp BP Pulse Ox
98.9 F 90 18 124/72 94
10/22/24 07:00 10/22/24 08:26 10/22/24 07:00 10/22/24 08:26 10/22/24 07:00
Lab Results
10/22/24 06:54
10/22/24 06:54
Troponin I 0.204 ng/ml H* 10/22/24 06:54
Lsr-T-Usrmsjxnopo Pept 3870 pg/ml 10/21/24 17:40
Physical Exam
General: Well Developed, Well Nourished and No Apparent Distress
HEENT: Normocephalic and Anicteric
Respiratory: Crackles (b/l bases)
Cardiac: Regular Rhythm
Musculoskeletal: Edema (trace BLE edema)
Skin: Warm and Dry
Neuro: AO x 3
Psych: Calm
Impression / Plan
-
PNA:
-on abx
-management per primary team
CHF: acute, type unknown
-improving with IV lasix, will adjust to BID- this medication requires intensive monitoring
-check echo
Acute non-ischemic myocardial injury:
-no anginal CP and EKG fine
-in setting of acute illness with PNA, CHF
-checking echo
HTN:
-monitor with diuresis
Data Reviewed
-
EKG: Tracing Personally Visualized and interpreted (NSR)
Radiology: Report Reviewed by me (CXR: Progression of bibasilar opacities suggesting worsening pneumonia.)
CT Scan: Report Reviewed by me (ST: No evidence of central pulmonary embolism. Bibasilar opacification suspicious for pneumonia with slight progression, particularly on the left.)
Medical Tests (Nuc Med, Echo etc): Other (ordered and pending)
Labs: Labs Reviewed by me
--- NOTE | 2024-10-22 11:52 | CM ---
Pt seen bedside.
IA completed.
Patient lives with in a condo, no steps.
Has 2 daughters.
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
No DME, VN or SNF history.
Patient recently in [facility] s/p acute hospitalization. D/C 10/17/24 to home and per new[place]go no asissitve devices and indpendent with ambilation. Since d/c patient has been experiencing progressive shortness of breath.
Not on home oxygen, currently on 4 liters.
PT/OT evals pending.
PCP: Dr Barger
Pharmacy: [facility]
D/C plan: TBD, rehab vs home with therapy and possible oxygen needs.
[2024-10-22 12:43] LABS: Glucose - Point of Care 83 mg/dl (70-99)
[2024-10-22 13:08] LABS: Troponin I 0.275 ng/ml
--- NOTE | 2024-10-22 13:25 | PTOTSP ---
SPEECH THERAPY SWALLOW EVALUATION:
Patient exhibits clinical signs of pharyngeal dysphagia, with mild to grossly functional oral phase of swallowing. Suspected pharyngeal dysphagia of unknown etiology, though patient with dysphagia risk factors including GERD and asthma. Currently
with sepsis 2/2 bibasilar pneumonia, suspicious for aspiration related infection. Patient c/o dysphagia symptoms including frequent coughing with solids/liquids, globus sensation with solids. Patient reported possible history of FEES, though
unclear. No prior VSE per patient report. Recommend further assessment of swallow physiology at this time with Videofluoroscopic Swallowing Study. Given intact cognition and ability to implement safe swallow strategies and aspiration precautions,
recommend patient to continue Regular texture diet/thin liquids until VSE. Medications as best tolerated. Aspiration and Reflux precautions: Upright positioning; Small single sips/bites; Slow rate of intake; Use of liquid wash after solids; Chew
thoroughly; Avoid dry/dense textures; Extra sauces/gravies as needed; Extra dry swallows as needed; Limit distractions while eating/drinking; Remain upright 30 minutes after eating/drinking; Monitor for signs of aspiration and d/c if any decline in
mental/respiratory status; Do not eat when SOB. ST to follow with additional recommendations following VSE.
RECOMMEND:
1) Videofluoroscopic Swallowing Study
2) Regular texture diet/thin liquids until VSE
3) Medications as best tolerated
4) Aspiration and Reflux precautions: Upright positioning; Small single sips/bites; Slow rate of intake; Use of liquid wash after solids; Chew thoroughly; Avoid dry/dense textures; Extra sauces/gravies as needed; Extra dry swallows as needed; Limit
distractions while eating/drinking; Remain upright 30 minutes after eating/drinking; Monitor for signs of aspiration and d/c if any decline in mental/respiratory status; Do not eat when SOB
5) Oral care 3x/day
6) ST to follow
[2024-10-22] MEDS: NON-FORMULARY ITEM 2 MG PO ×2 (15:09→19:58)
[2024-10-22] MEDS: SENOKOT PO (17:55)
[2024-10-22 18:02] LABS: Glucose - Point of Care 126 mg/dl (70-99)
[2024-10-22] MEDS: LOVENOX 40 MG SC (18:22)
[2024-10-22] MEDS: DIOVAN 320 MG PO (18:25)
[2024-10-22 19:12] LABS: Troponin I 0.289 ng/ml
[2024-10-22] MEDS: NON-FORMULARY ITEM 2 UNIT PO (19:59)
[2024-10-22 22:02] LABS: Glucose - Point of Care 130 mg/dl (70-99)
[2024-10-23] VITALS (8 sets, daily range): BP systolic 106–131; BP diastolic 64–76; PULSE 88; O2SAT 94; BMI 32.5
[2024-10-23] MEDS: ZOSYN 100 IV ×5 (00:11→23:08)
[2024-10-23] MEDS: SYNTHROID 50 MCG PO (05:59)
[2024-10-23] MEDS: NON-FORMULARY ITEM 2 UNIT PO ×2 (06:00→16:11)
[2024-10-23 06:42] LABS: % Basophils 0.5 % (0-2); % Eosinophils 2.9 % (0-6); % Immature Granulocytes 0.9 % (0-0.5); % Lymphocytes 19.5 % (20.5-51.1); % Monocytes 8.7 % (1.7-9.3); % Neutrophils 67.5 % (42.2-75.2); Absolute Basophils 0.1 10^3/uL (0-0.2); Absolute Eosinophils 0.3 10^3/uL (0-0.7); Absolute Immature Granulocytes 0.1 10^3/uL (0-0.05); Absolute Lymphocytes 2.1 10^3/uL (1.2-3.4); Absolute Neutrophils 7.4 10^3/uL (1.4-6.5); Hematocrit 30.8 % (37.0-47.0); Mean Corp Hgb Conc. 32.5 g/dL (33.0-37.0); Mean Corpuscular Volume 86.3 fL (81.0-99.0); Mean Platelet Volume 8.6 fL (7.4-10.4); Nucleated Red Blood Cells % 0 %; Platelet Count 505 10^3/uL (130-400); Red Blood Cell Count 3.57 10^6/uL (4.20-5.40); Red Cell Dist. Width 13.5 % (11.5-14.5)
[2024-10-23 07:10] LABS: NT-proBNP 1300 pg/ml; Troponin I 0.285 ng/ml
[2024-10-23 07:26] LABS: Procalcitonin < 0.05 ng/ml (0.0-0.25)
[2024-10-23 07:52] LABS: ALT (SGPT) 42 U/L (0-35); AST (SGOT) 36 U/L (14-36); Albumin 3.7 g/dl (3.5-5.0); Alkaline Phosphatase 53 U/L (38-126); Blood Urea Nitrogen 13 mg/dl (7-17); Calcium 8.9 mg/dl (8.4-10.2); Carbon Dioxide 27 mmol/L (22-30); Chloride 95 mmol/L (98-107); Direct Bilirubin 0.3 mg/dl (0.0-0.4); Estimated Creatinine Clearance 69 ml/min; Glucose 110 mg/dl (70-99); Potassium 3.4 mmol/L (3.5-5.1); Sodium 133 mmol/L (135-145); Total Bilirubin 0.4 mg/dl (0.2-1.3); Total Protein 6.2 g/dl (6.3-8.2); eGFR > 60.00
[2024-10-23 08:24] LABS: Erythrocyte Sed Rate 39 mm/hour (0-20)
[2024-10-23] MEDS: FIBERCON 1250 MG PO (08:38)
[2024-10-23] MEDS: NORVASC 2.5 MG PO ×2 (08:38→20:12)
[2024-10-23] MEDS: LASIX 40 MG IV ×2 (08:39→16:10)
[2024-10-23] MEDS: NON-FORMULARY ITEM 2 MG PO ×2 (08:39→20:11)
[2024-10-23] MEDS: MUCINEX 600 MG PO ×2 (08:39→20:11)
[2024-10-23] MEDS: CYMBALTA DELAYED RELEASE 60 MG PO (08:39)
--- NOTE | 2024-10-23 08:41 | W.PN.HOSP.TC ---
Today's Communication/Plan
-
IV Lasix. IV antibiotics. PT OT
Assessment / Plan
Assessment / Plan
Physical exam:
General: Acutely ill
HEENT: Normocephalic, Atraumatic and Moist Mucous Membranes
Respiratory: Bilateral rhonchi and coarse crackles in the bases; Negative Wheezes
Cardiac: Regular Rhythm and S1/S2
GI: Soft, Nontender and Nondistended
Musculoskeletal: No Clubbing, No Cyanosis. Bilateral lower extremity edema 1+ present.
Neuro: Awake, Alert and Oriented, no gross neurological deficits
Psych: Anxious, normal judgment and insight.
Echo:
Normal left ventricular size with hyperdynamic systolic function and normal
regional wall motion. LVEF 70-75%.
Normal right ventricular size and function.
Mild to moderate tricuspid regurgitation. Moderately elevated pulmonary artery
pressure (PASP 57 mmHg).
A/P:
Acute hypoxic respiratory failure:
Appears to be multifactorial, pneumonia and heart failure main contributors
Continue antibiotics
Continue diuretics
Continue oxygen supplementation
Discussed yesterday with family, daughter and at bedside
PT OT eval
Bilateral pneumonia:
Legionella negative
Streptococcus antigen negative
MRSA screen negative
Negative COVID-19 and influenza
Blood cultures no growth but continue to monitor
Sputum culture contaminated
On IV Zosyn and vancomycin
Can discontinue vancomycin
Pulmonary consult pending-discussed with pulmonary over the phone today.
WBC 12.5--> 11
Speech therapy for swallow eval and status post VSE--> okay for regular diet.
Acute diastolic CHF:
Continue IV Lasix 40 mg twice a day
Monitor ins and outs and daily weights
Echocardiogram results reviewed
Cardiology consult appreciated
Elevated troponin:
Suspect nonischemic myocardial injury due to hypoxia and infection
Cardiac monitoring
Chronic hyponatremia:
SIADH related recently
Sodium 133 today
On salt tablets-hold while being diuresed
Continue fluid restriction
Continue to monitor
Hypokalemia:
Replete and trend
Elevated LFTs:
Probably passive venous congestion versus infection
Improving
Asthma:
Continue bronchodilators
Chronic anemia:
Hemoglobin 10 today from 9.4 yesterday
No signs of active bleeding
Continue to monitor
Chronic back pain:
Recent spinal and neuroforaminal stenosis at L4-L5 and acute rehabilitation stay recently.
Prior history of L4-L5 laminectomy in the past.
Continue Lidoderm patch
Add Toradol as needed
Continue PT
Hypertension:
On amlodipine 2.5 mg twice a day, home med with guanfacine 2 mg p.o. twice a day, and valsartan 320 mg nightly.
Since tolerating okay we will continue amlodipine
Monitor blood pressure adjust medications accordingly
Diabetes mellitus type 2:
Continue insulin sliding scale
Holding metformin in the setting of heart failure and infection.
Monitor blood sugar and adjust medications accordingly
Fibromyalgia:
Continue Cymbalta 60 mg p.o. daily
GERD:
Continue Protonix 40 mg p.o. twice a day
Hypothyroidism:
Continue levothyroxine 50 mcg p.o., Mondays to Sunday
Constipation:
Continue current bowel regimen
Insomnia:
Continue melatonin
DVT prophylaxis:
Lovenox SQ
CODE STATUS:
Full code
Total time spent on today's encounter was 52 minutes which included time spent in counseling the patient/family regarding diagnosis and treatment plan as listed above, goals of care, and symptom management. Case was discussed with nursing staff,
specialists, and care coordinators/case management. All labs and imaging personally reviewed by me. Remainder the time spent in detailed review of previous records, lab data, imaging, and other medical provider documentation.
Anticipated Discharge: > 48 hours
Subjective/Interval History
-
Date of Service: October 23, 2024
Patient feels better today. Still requires oxygen. Does drop her pulse ox on exertion but recovers back up after rest. Afebrile
Objective Data
-
Labs:
Laboratory Results
10/23/24
06:19
WBC 11.0 H
Hgb 10.0 L
Hct 30.8 L
Plt Count 505 H
Sodium 133 L
Potassium 3.4 L
Chloride 95 L
Carbon Dioxide 27
BUN 13
Creatinine 0.5 L
Glucose 110 H
Calcium 8.9
Total Bilirubin 0.4
AST 36
ALT 42 H
Alkaline Phosphatase 53
Vital Signs:
Vital Signs
Temp Pulse Resp BP Pulse Ox
98.0 F 79 14 117/76 93
10/23/24 07:42 10/23/24 07:42 10/23/24 07:42 10/23/24 07:42 10/23/24 07:42
I&O
10/22/24 10/23/24 10/24/24
06:59 06:59 06:59
Intake Total 920 / 920 960 / 960
Output Total 700 / 700
Balance 220 / 220 960 / 960
[2024-10-23] MEDS: NOVOLOG FLEXPEN-LOW RESISTANCE SC ×3 (08:44→17:57)
[2024-10-23] MEDS: TORADOL 15 MG IV ×2 (08:45→23:14)
[2024-10-23 08:48] LABS: Glucose - Point of Care 103 mg/dl (70-99)
--- NOTE | 2024-10-23 09:03 | W.PN.PUL3 ---
Today's Communication / Plan
-
Diuresis
Empiric antibiotics although have less concern for bacterial pneumonia and more concern for pulmonary edema +/- inflammatory pneumonitis
If she continues to deteriorate despite diuresis and antibiotics, then would start systemic steroids, possibly after bronchoscopy
At this point there is no need for bronchoscopy
Mucolytics
Up OOB as tolerated
Replete K >4, Mg >2
PT/OT - daughter is interested in patient going to [place] re[facility] after discharge
Check walking pulse oximetry prior to discharge
Assessment
-
Assessment: 74-year-old female with a past medical history of hypertension, asthma, DM type II, fibromyalgia and spinal stenosis who presents with shortness of breath and cough starting 1 day prior to arrival. She says her cough initially was dry
and then her SOB worsened even with mild activity. She was recently discharged home on 10/17/2024 with as needed oxygen. She is now using her O2 all the time and has shortness of breath even while laying flat. Also has lower extremity edema and
weight gain. Endorses midsternal chest pain with a cough and left lower abdominal to back pain. Initially in the ER she was afebrile to 99 �F, pulse rate 108, breathing at 22 breaths/min, BP 135/81 and saturating 80% on room air, which improved to
96% on 4 L/min. Initial labs showed mild leukocytosis to 12.5, Hb 9.8, platelet count 478, serum sodium 130, troponin slightly elevated at 0.253, proBNP 3870, and COVID-19 antigen negative. Blood cultures were collected, and flu swab was negative
for flu A/B. CXR showed progression of bibasilar opacities suggesting worsening pneumonia. CTA chest from 10/21/2024 showed bilateral consolidative/nodular opacities, mainly in the lower lobes with no evidence of acute PE. She was started on
cefepime, given 20 mg Lasix, hydrocortisone 200 mg, IV vancomycin and Benadryl, and admitted to telemetry for further treatment. Pulmonary service now consulted for additional management/recommendations.
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
Impression:
#Acute on chronic hypoxic respiratory failure with hypoxia due to acute decompensated heart failure with possible pneumonia vs inflammatory pneumonitis (has Sx concerning for RA with polyarthritis)
#Leukocytosis
#Anemia
#Thrombocytosis likely reactive
#Hyponatremia
#Elevated troponin (0.253 on 10/21/2024)
#Elevated proBNP
#History of fibromyalgia
Plan:
- Patient has worsening multifocal patchy/consolidative opacities predominantly in the lower lobes suspicious that radiology is reading as pneumonia - these changes have worsened compared to recent CT chest on 10/06/2024
- There is also diffuse intra-lobular septal thickening with perivascular ground glass opacities, hence this is more suspicious for acute pulmonary edema
- Continue with empiric broad-spectrum antibiotics � currently on Zosyn s/p vanco (MRSA swab negative)
- Follow-up cultures including sputum culture (collected 10/22/2024), and blood cultures (collected 10/21/2024); her urine antigens for Legionella + strep pneumonia are both negative
- Mucolytics with mucinex and acapella
- Given that she was recently diagnosed with community-acquired pneumonia on 10/07/2024, now with worsening radiographic evidence of pneumonia, need to cover her for Pseudomonas. If she continues to deteriorate then would need deep lung sample,
possibly with bronchoscopy. This will be an ongoing discussion.
- Procal is negative, further supporting that this is pulmonary edema +/- inflammatory pneumonitis
- She also reports edema in her hand joints with redness and swelling with concerns for rheumatoid arthritis with polyarthritis. Prior rheumatological testing with rheumatoid factor, CCP and JASPAL were all negative. Also prior ESR and CRP were also
negative. She does follow with rheumatology. If she continues to be on diuretics and antibiotics but still fails to improve, then would start systemic steroids at that time given the possibility of interstitial pneumonitis - may want to bronch her
first
- CRP checked 10/23/2024 is elevated at 56.2, and ESR also checked 10/23/2024 is 39; hold off on systemic steroids at this time (although she did get hydrocortisone 200 mg IV while in the ER on 10/21/2024)
- Maintain SpO2 >90-94% with supplemental O2 and wean down as tolerated
- Cardiology consulted and recs appreciated; continue IV lasix 40mg BID and monitor sCr, UOP and strict I/O
- While on diuretics, replete electrolytes with K>4, Mg>2
- Trend BNP
- Troponin has begun to downtrend and peaked at 0.289 on 10/22/2024 � no longer need to continue trending at this time
- Echo done on 10/22/2024 shows hyperdynamic LVEF at 70-75% with normal regional motion, mild-moderate TR and moderately elevated PASP at 57mmHg
- Trend serum Na with goal 135-145
- Trend Hb and transfuse if needed to keep Hb>7g/dL
- Incentive spirometer q1hr while awake
- Maintain euglycemia with goal BG >100 and <180
- prn nebulized bronchodilators - not currently bronchospastic
- DVT ppx: LMWH
Pulmonary service will continue to follow along.
Data:
CTA Chest 10/21/2024: No evidence of central pulmonary embolism; Bibasilar opacification suspicious for pneumonia with slight progression, particularly on the left.
Transthoracic Echocardiogram 10/22/2024:
Normal left ventricular size with hyperdynamic systolic function and normal
regional wall motion. LVEF 70-75%.
Normal right ventricular size and function.
Mild to moderate tricuspid regurgitation. Moderately elevated pulmonary artery
pressure (PASP 57 mmHg).
No prior study available for comparison.
Total time spent today was 38 minutes for this encounter. Time includes reviewing laboratory test/imaging results, reviewing pertinent medical records, obtaining and reviewing medical history, performing an appropriate exam, ordering medications,
tests and procedures. Time also includes documentation of this encounter, coordinating patient care and communicating with other healthcare professionals. Total time does not include separately billed tests performed on this date of service.
Subjective Data
-
Date of Service:
Date of Service: October 23, 2024
Chief Complaint: Pulmonary Follow Up
Subjective:
Patient seen and evaluated today at bedside. Still having coughing fits with shortness of breath but overall she is improving. Currently on 3 L/min. Also now having watery diarrhea. Her proBNP has improved today on labs. She denies chest pain,
AVENDAÑO, nausea, vomiting, fevers or chills.
Review of Systems
General: Other (Negative unless mentioned above)
Objective Data
Data Reviewed
Vital Signs / I&O / Oxygen:
Vital Signs
Temp Pulse Resp BP Pulse Ox
98.0 F 79 14 117/76 93
10/23/24 07:42 10/23/24 07:42 10/23/24 07:42 10/23/24 08:38 10/23/24 07:42
Intake and Output
10/22/24 10/23/24 10/24/24
06:59 06:59 06:59
Intake Total 920 / 920 960 / 960
Output Total 700 / 700
Balance 220 / 220 960 / 960
SaO2 93
Nasal Cannula flow liters per 4
minute
Physical Exam
General: Respiratory Distress (negative), Comfortable, Chills (negative) and Sweats (negative)
HEENT: Normocephalic and Anicteric
Cardiovascular: S1-S2, Rub (negative) and Peripheral Edema (Trace lower extremity edema bilaterally)
Respiratory: Wheeze (negative), Crackles (Bilaterally predominantly in the bases), Rhonchi (negative) and Non-Labored Respirations
GI: Soft, Non Distended, Non Tender and Normal Bowel Sounds
Neurology: AO x 3 and Tremors (negative)
Skin: Warm, Dry, Cyanosis (negative) and Jaundice (negative)
Labs/Micro/Reports
Lab Data
10/23/24 06:19
10/23/24 06:19
Microbiology
10/21/24 18:52 Blood/Venous Blood Culture - Preliminary
No Growth in 24 hours- Final report to follow
10/21/24 18:52 Blood/Venous Blood Culture - Preliminary
No Growth in 24 hours- Final report to follow
10/22/24 03:39 Sputum Gram Stain - Preliminary
10/22/24 01:26 Nose Nasal Screen MRSA (PCR) - Final
MRSA not detected - performed by PCR methodology.
10/21/24 23:59 Urine Streptococcus pneumoniae Antigen (M - Final
Negative for Streptococcus pneumoniae antigen.
A negative result does not exclude infection with
Streptococcus pneumoniae. Clinical correlation is
recommended.
10/22/24 01:26 Urine Legionella Urinary Antigen - Final
Negative for Legionella pneumophila Serogroup 1 antigen.
A negative result does not rule out the possiblity of
Legionella infection due to other serogroups or species of
Legionella. Clinical correlation is recommended.
10/21/24 17:40 Nasal Swab Influenza Types A & B (ADELSO) - Final
Negative for Influenza A & B, NAAT
Negative results must be combined with clinical observations
and patient history.
Nucleic Acid Amplification test (NAAT)performed on the
[employer] platform.
--- NOTE | 2024-10-23 10:12 | PTOTSP ---
Video Swallow Examination
Oral/pharyngeal swallow judged within functional limits without evidence of laryngeal penetration, aspiration or pharyngeal stasis. Lateral view of esophagus revealed retained contrast suggesting contents slow to empty. Liquid wash improved
clearance.
Recommend
1. Continue regular solids and thin liquids.
2. Avoid overly dry/dense solids
3. Upright during and for at least 30 minutes after meals.
4. Alternate liquids throughout meal to assist with esophageal clearance as able given fluid restriction.
5. Rest breaks during meals as needed.
No further skilled ST indicated at this time.
[2024-10-23] MEDS: KCL 40 MEQ PO (11:29)
[2024-10-23 12:55] LABS: Glucose - Point of Care 137 mg/dl (70-99)
--- NOTE | 2024-10-23 15:33 | CM ---
Patient seen bedside with spouse and daughter.
Discussed d/c plan and PT recommendations.
Family would prefer return to [facility] once medically stable.
Will request PMR consultation.
Plan: TBD, possible rehab when medically stable
[2024-10-23] MEDS: TESSALON PERLES 100 MG PO (17:26)
[2024-10-23] MEDS: LOVENOX 40 MG SC (17:26)
[2024-10-23] MEDS: DIOVAN PO (17:50)
[2024-10-23] MEDS: SENOKOT PO (17:50)
[2024-10-23 17:56] LABS: Glucose - Point of Care 105 mg/dl (70-99)
--- NOTE | 2024-10-23 18:44 | W.PN.CD ---
Today's Communication / Plan
-
continue IV lasix
Impression / Plan
-
PNA:
-on abx
-management per primary team
Acute HFPEF
-echo 10/22: EF 70-75%, mild/mod TR, PASP 57
-continue IV lasix with close monitoring of labs, tele, weight
Acute non-ischemic myocardial injury:
-no anginal CP and EKG without concerning changes
-in setting of acute illness with PNA, CHF
HTN:
-monitor with diuresis
Physical Exam
Vital Signs/Labs
Vital Signs
Temp Pulse Resp BP Pulse Ox
98.4 F 92 18 109/72 95
10/23/24 15:30 10/23/24 15:30 10/23/24 15:30 10/23/24 17:50 10/23/24 15:30
10/22/24 10/23/24 10/24/24
06:59 06:59 06:59
Actual Weight 71.35 kg 70.534 kg
10/23/24 06:19
10/23/24 06:19
Magnesium 1.7 mg/dl (1.6-2.3) 10/22/24 06:54
Triglycerides 133 mg/dl (10-149) 10/22/24 06:54
LDL Cholesterol, Calc 137 mg/dl 10/22/24 06:54
VLDL Cholesterol, Calc 26 mg/dl (0-30) 10/22/24 06:54
HDL Cholesterol 42 mg/dl 10/22/24 06:54
10/21/24 10/23/24
17:40 06:19
Fus-P-Lxvzktebsam Pept 3870 1300
LAB Results
10/21/24 10/22/24 10/22/24
17:40 00:17 06:54
Troponin I 0.253 H* 0.191 H* 0.204 H*
10/22/24 10/22/24 10/23/24
12:37 18:36 06:19
Troponin I 0.275 H* D 0.289 H* 0.285 H*
Physical Exam
Constitutional: No acute distress
EENT: Moist mucous membranes
Cardiovascular: Rhythm & rate is regular, Pedal edema is absent, JVD present and Systolic murmur present
Respiratory: Labored respirations and Rhonchi Present
Neuro/Psych: AO x 3
Data Reviewed
-
Date of Service: October 23, 2024
EKG: Other (Tele: SR, brief SVT)
Labs: Labs Reviewed by me
[2024-10-23] MEDS: DUONEB 3 ML INH (21:39)
[2024-10-23 21:44] LABS: Glucose - Point of Care 109 mg/dl (70-99)
[2024-10-23] MEDS: MIRALAX PO (23:06)
[2024-10-23] MEDS: MELATONIN 1.5 MG PO (23:07)
[2024-10-24] VITALS (7 sets, daily range): BP systolic 107–125; BP diastolic 58–73; PULSE 100–106; O2SAT 94; BMI 32.1
[2024-10-24] MEDS: SYNTHROID 50 MCG PO (06:07)
[2024-10-24] MEDS: NON-FORMULARY ITEM 2 UNIT PO ×2 (06:07→15:42)
[2024-10-24] MEDS: ZOSYN 100 IV ×4 (06:08→23:28)
[2024-10-24 06:16] LABS: Glucose - Point of Care 104 mg/dl (70-99)
[2024-10-24 08:08] LABS: % Basophils 0.5 % (0-2); % Eosinophils 4.3 % (0-6); % Immature Granulocytes 1.1 % (0-0.5); % Lymphocytes 16.9 % (20.5-51.1); % Monocytes 11.4 % (1.7-9.3); % Neutrophils 65.8 % (42.2-75.2); Absolute Eosinophils 0.4 10^3/uL (0-0.7); Absolute Immature Granulocytes 0.1 10^3/uL (0-0.05); Absolute Lymphocytes 1.5 10^3/uL (1.2-3.4); Absolute Neutrophils 5.6 10^3/uL (1.4-6.5); Hematocrit 28.5 % (37.0-47.0); Hemoglobin 9.2 g/dL (12.0-16.0); Mean Corp Hgb Conc. 32.3 g/dL (33.0-37.0); Mean Corpuscular Hgb 27.6 pg (27.0-31.0); Mean Corpuscular Volume 85.6 fL (81.0-99.0); Mean Platelet Volume 8.8 fL (7.4-10.4); Nucleated Red Blood Cells % 0 %; Platelet Count 493 10^3/uL (130-400); Red Blood Cell Count 3.33 10^6/uL (4.20-5.40); Red Cell Dist. Width 13.5 % (11.5-14.5); White Blood Cell Count 8.6 10^3/uL (4.8-10.8)
[2024-10-24 08:32] LABS: Procalcitonin < 0.05 ng/ml (0.0-0.25)
[2024-10-24 08:38] LABS: Blood Urea Nitrogen 15 mg/dl (7-17); Calcium 8.5 mg/dl (8.4-10.2); Carbon Dioxide 28 mmol/L (22-30); Chloride 94 mmol/L (98-107); Estimated Creatinine Clearance 68 ml/min; Glucose 108 mg/dl (70-99); Potassium 3.2 mmol/L (3.5-5.1); Sodium 133 mmol/L (135-145); eGFR > 60.00
[2024-10-24 08:43] LABS: Glucose - Point of Care 126 mg/dl (70-99)
[2024-10-24] MEDS: NOVOLOG FLEXPEN-LOW RESISTANCE SC ×3 (08:50→17:57)
--- NOTE | 2024-10-24 08:50 | W.PN.CD ---
Addendum entered and electronically signed by Ozzy Campbell MD 10/24/24 10:51:
I saw and examined the patient.
The [employer] STENOGRAPHER's note was reviewed and I agree with the note.
Comment: GDMT for HFPEF will be added as able
start [id number] today and check chan with cm
eventual MRA if able
Original Note:
Today's Communication / Plan
-
Continue diuresis.
Consider additional etiologies to her shortness of breath and cough
Impression / Plan
-
Hypoxic respiratory failure:
-being treated for pna and CHF
-Volume status improved, proBNP and half, blood pressure softening, yet lung findings persist as well as oxygen requirement.
-Suspect this is more pulmonary interstitial process than heart failure.
-Pulmonary also finding, I did reach out to them to discuss.
Acute HFPEF
-Improving, yet oxygen and lung findings persist
-echo 10/22: EF 70-75%, mild/mod TR, PASP 57
-continue IV lasix with close monitoring of labs, tele, weight
-We will continue until creatinine bumps or blood pressure drops.
-If would be helpful to the pulmonary team could consider right heart catheterization.
Acute non-ischemic myocardial injury:
-no anginal CP and EKG without concerning changes
-in setting of acute illness with PNA, CHF
HTN:
-monitor with diuresis
Subjective:
She still having coughing fits when these occur she must sit up.
Data;
CT Chest 10/21/24:
FINDINGS: The central pulmonary arteries are well-opacified and demonstrate no filling defects to suggest pulmonary embolism. The thoracic aorta is normal in caliber with calcific atherosclerotic changes.
The trachea and central airways are patent. There is bilateral lower lobe opacification, right slightly greater than left suggesting slight progression of pneumonia, particularly on the left. There is no pneumothorax, pleural effusion or pericardial
effusion. There are 2 subcentimeter right hilar lymph nodes. There is no significant mediastinal or axillary lymphadenopathy. There is no pneumothorax or mediastinal shift. There is mild elevation of the right hemidiaphragm.
There are degenerative changes within the thoracic spine.
No significant gross focal abnormality is seen within the included small portion of the upper abdomen.
IMPRESSION:
No evidence of central pulmonary embolism.
Bibasilar opacification suspicious for pneumonia with slight progression, particularly on the left.
TTE 10/22/24:(71.35 kg)
Normal left ventricular size with hyperdynamic systolic function and normal
regional wall motion. LVEF 70-75%.
Normal right ventricular size and function.
Mild to moderate tricuspid regurgitation. Moderately elevated pulmonary artery
pressure (PASP 57 mmHg).
IVC normal
No prior study available for comparison.
Physical Exam
Vital Signs/Labs
Vital Signs
Temp Pulse Resp BP Pulse Ox
98.1 F 76 14 110/61 98
10/24/24 07:33 10/24/24 07:33 10/24/24 07:33 10/24/24 07:33 10/24/24 07:33
10/23/24 10/24/24 10/25/24
06:59 06:59 06:59
Actual Weight 70.534 kg 69.57 kg
10/24/24 07:34
10/24/24 07:34
Magnesium 1.7 mg/dl (1.6-2.3) 10/22/24 06:54
Triglycerides 133 mg/dl (10-149) 10/22/24 06:54
LDL Cholesterol, Calc 137 mg/dl 10/22/24 06:54
VLDL Cholesterol, Calc 26 mg/dl (0-30) 10/22/24 06:54
HDL Cholesterol 42 mg/dl 10/22/24 06:54
10/21/24 10/23/24
17:40 06:19
Dhp-J-Pngfavqgiuv Pept 3870 1300
LAB Results
10/21/24 10/22/24 10/22/24
17:40 00:17 06:54
Troponin I 0.253 H* 0.191 H* 0.204 H*
10/22/24 10/22/24 10/23/24
12:37 18:36 06:19
Troponin I 0.275 H* D 0.289 H* 0.285 H*
Physical Exam
Constitutional: No acute distress
Cardiovascular: Rhythm & rate is regular, Pedal edema is absent, JVD pressure is normal, Systolic murmur absent and Diastolic murmur absent
Respiratory: Respiratory effort normal and Crackles Present (fine rales diffusely )
Neuro/Psych: AO x 3
Data Reviewed
-
Date of Service: October 24, 2024
Medical Decision Making: Review of Case with other Provider (Dr Renee and Dr Romero: volume status improved cough and rales persist)
EKG: Other (sinus)
[2024-10-24] MEDS: FIBERCON 1250 MG PO (08:52)
[2024-10-24] MEDS: CYMBALTA DELAYED RELEASE 60 MG PO (08:52)
[2024-10-24] MEDS: MUCINEX 600 MG PO ×2 (08:52→19:55)
[2024-10-24] MEDS: NORVASC PO ×2 (08:53→19:58)
[2024-10-24] MEDS: LASIX 40 MG IV ×2 (08:53→15:42)
[2024-10-24] MEDS: NON-FORMULARY ITEM PO ×2 (08:55→19:58)
--- NOTE | 2024-10-24 09:01 | W.PN.HOSP.TC ---
Today's Communication/Plan
-
IV antibiotics. IV diuretics. PT OT
Assessment / Plan
Assessment / Plan
Physical exam:
General: Acutely ill
HEENT: Normocephalic, Atraumatic and Moist Mucous Membranes
Respiratory: Bilateral rhonchi and coarse crackles in the bases; Negative Wheezes
Cardiac: Regular Rhythm and S1/S2
GI: Soft, Nontender and Nondistended
Musculoskeletal: No Clubbing, No Cyanosis. Bilateral lower extremity edema 1+ present.
Neuro: Awake, Alert and Oriented, no gross neurological deficits
Psych: Anxious, normal judgment and insight.
Echo:
Normal left ventricular size with hyperdynamic systolic function and normal
regional wall motion. LVEF 70-75%.
Normal right ventricular size and function.
Mild to moderate tricuspid regurgitation. Moderately elevated pulmonary artery
pressure (PASP 57 mmHg).
A/P:
Acute hypoxic respiratory failure:
Appears to be multifactorial, pneumonia and heart failure main contributors
Continue antibiotics
Continue diuretics
Continue oxygen supplementation, currently on 3 L of oxygen
Discussed prior with family, daughter and at bedside. Will discuss with family after discussion with pulmonary and cardiology.
PT OT eval
Bilateral pneumonia, likely interstitial pneumonitis:
Legionella negative
Streptococcus antigen negative
MRSA screen negative
Negative COVID-19 and influenza
Blood cultures no growth but continue to monitor
Sputum culture contaminated
On IV Zosyn and vancomycin
Can discontinue vancomycin
Pulmonary consult pending-discussed with pulmonary over the phone today.
WBC 12.5--> 8.6
Speech therapy for swallow eval and status post VSE--> okay for regular diet.
Acute diastolic CHF:
Continue IV Lasix 40 mg twice a day
Monitor ins and outs and daily weights
Echocardiogram results reviewed
Cardiology consult appreciated
Elevated troponin:
Suspect nonischemic myocardial injury due to hypoxia and infection
Cardiac monitoring
Chronic hyponatremia:
SIADH related recently
Sodium 133 today
On salt tablets-will restart
Continue fluid restriction
Continue to monitor
Hypokalemia:
Replete and trend
Elevated LFTs:
Probably passive venous congestion versus infection
Improving
Asthma:
Continue bronchodilators
Chronic anemia:
Hemoglobin 9.2 today
No signs of active bleeding
Continue to monitor
Chronic back pain:
Recent spinal and neuroforaminal stenosis at L4-L5 and acute rehabilitation stay recently.
Prior history of L4-L5 laminectomy in the past.
Continue Lidoderm patch
Add Toradol as needed
Continue PT
Hypertension:
On amlodipine 2.5 mg twice a day, home med with guanfacine 2 mg p.o. twice a day, and valsartan 320 mg nightly.
Since tolerating okay we will continue amlodipine
Monitor blood pressure adjust medications accordingly
Diabetes mellitus type 2:
Continue insulin sliding scale
Holding metformin in the setting of heart failure and infection.
Monitor blood sugar and adjust medications accordingly
Fibromyalgia:
Continue Cymbalta 60 mg p.o. daily
GERD:
Continue Protonix 40 mg p.o. twice a day
Hypothyroidism:
Continue levothyroxine 50 mcg p.o., Mondays to Sunday
Constipation:
Continue current bowel regimen
Insomnia:
Continue melatonin
DVT prophylaxis:
Lovenox SQ
CODE STATUS:
Full code
Total time spent on today's encounter was 52 minutes which included time spent in counseling the patient/family regarding diagnosis and treatment plan as listed above, goals of care, and symptom management. Case was discussed with nursing staff,
specialists, and care coordinators/case management. All labs and imaging personally reviewed by me. Remainder the time spent in detailed review of previous records, lab data, imaging, and other medical provider documentation.
Anticipated Discharge: > 48 hours
Subjective/Interval History
-
Date of Service: October 24, 2024
Patient feels better overall. She is upset about what she heard from cardiology and from pulmonary a bit different and she wants to discuss further.
Objective Data
-
Labs:
Laboratory Results
10/24/24
07:34
WBC 8.6
Hgb 9.2 L
Hct 28.5 L
Plt Count 493 H
Sodium 133 L
Potassium 3.2 L
Chloride 94 L
Carbon Dioxide 28
BUN 15
Creatinine 0.4 L
Glucose 108 H
Calcium 8.5
Vital Signs:
Vital Signs
Temp Pulse Resp BP Pulse Ox
98.1 F 77 14 106/68 98
10/24/24 07:33 10/24/24 08:53 10/24/24 07:33 10/24/24 08:53 10/24/24 07:33
I&O
10/23/24 10/24/24 10/25/24
06:59 06:59 06:59
Intake Total 960 / 960 960 / 960
Balance 960 / 960 960 / 960
[2024-10-24] MEDS: TESSALON PERLES 100 MG PO (09:03)
[2024-10-24] MEDS: KCL 40 MEQ PO (09:03)
--- NOTE | 2024-10-24 09:32 | W.PN.PUL3 ---
Today's Communication / Plan
-
Diuresis
Empiric antibiotics although have less concern for bacterial pneumonia and more concern for pulmonary edema +/- inflammatory pneumonitis
Start systemic steroids with Solu-Medrol given concern for inflammatory pneumonitis
Start xopenex and atrovent
No need for bronchoscopy
If patient still has no improvement despite antibiotics, diuretics and steroids then would favor her getting right and left heart cath
Mucolytics + antitussants
Up OOB as tolerated
Replete K >4, Mg >2
PT/OT - daughter is interested in patient going to [facility] after discharge
Check walking pulse oximetry prior to discharge
Assessment
-
Assessment: 74-year-old female with a past medical history of hypertension, asthma, DM type II, fibromyalgia and spinal stenosis who presents with shortness of breath and cough starting 1 day prior to arrival. She says her cough initially was dry
and then her SOB worsened even with mild activity. She was recently discharged home on 10/17/2024 with as needed oxygen. She is now using her O2 all the time and has shortness of breath even while laying flat. Also has lower extremity edema and
weight gain. Endorses midsternal chest pain with a cough and left lower abdominal to back pain. Initially in the ER she was afebrile to 99 �F, pulse rate 108, breathing at 22 breaths/min, BP 135/81 and saturating 80% on room air, which improved to
96% on 4 L/min. Initial labs showed mild leukocytosis to 12.5, Hb 9.8, platelet count 478, serum sodium 130, troponin slightly elevated at 0.253, proBNP 3870, and COVID-19 antigen negative. Blood cultures were collected, and flu swab was negative
for flu A/B. CXR showed progression of bibasilar opacities suggesting worsening pneumonia. CTA chest from 10/21/2024 showed bilateral consolidative/nodular opacities, mainly in the lower lobes with no evidence of acute PE. She was started on
cefepime, given 20 mg Lasix, hydrocortisone 200 mg, IV vancomycin and Benadryl, and admitted to telemetry for further treatment. Pulmonary service now consulted for additional management/recommendations.
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
Impression:
#Acute on chronic hypoxic respiratory failure with hypoxia due to acute decompensated heart failure with possible pneumonia vs inflammatory pneumonitis (has Sx concerning for RA with polyarthritis)
#Leukocytosis � now resolved
#Anemia
#Thrombocytosis likely reactive
#Hyponatremia
#Elevated troponin (0.253 on 10/21/2024)
#Elevated proBNP
#History of fibromyalgia
Plan:
- Patient has worsening multifocal patchy/consolidative opacities predominantly in the lower lobes that radiology is reading as pneumonia - these changes have worsened compared to recent CT chest on 10/06/2024
- There is also diffuse intra-lobular septal thickening with perivascular ground glass opacities, hence this is more suspicious for at least component of acute pulmonary edema
- Continue with empiric broad-spectrum antibiotics � currently on Zosyn s/p vanco (MRSA swab negative)
- Follow-up cultures including sputum culture (collected 10/22/2024), and blood cultures (collected 10/21/2024); her urine antigens for Legionella + strep pneumonia are both negative
- Mucolytics with mucinex and acapella
- Given that she was recently diagnosed with community-acquired pneumonia on 10/07/2024, now with worsening radiographic evidence of pneumonia, need to cover her for Pseudomonas. If she continues to deteriorate then would need deep lung sample,
possibly with bronchoscopy. This will be an ongoing discussion.
- Procal is negative, further supporting that this is pulmonary edema +/- inflammatory pneumonitis
- Given that she continues to have SOB despite being on antibiotics and being diuresed with IV Lasix - I will start her on systemic steroids with Solu-Medrol 40 mg IV q8hr; also starting Xopenex + Atrovent TID
- If patient's SOB does not improve despite being on antibiotics, being diuresed and now on systemic steroids, I feel that it would be important to check a left + right heart cath at that time
- She also reports edema in her hand joints with redness and swelling with concerns for rheumatoid arthritis with polyarthritis. Prior rheumatological testing with rheumatoid factor, CCP and JASPAL were all negative. Also prior ESR and CRP were also
negative. She does follow with rheumatology. Given that she continues to be on diuretics and antibiotics but still failing to improve, I will start systemic steroids (see above) given the possibility of interstitial pneumonitis - hold off on
bronch for now
- CRP checked 10/23/2024 is elevated at 56.2, and ESR also checked 10/23/2024 is 39 ( of note, she she did get hydrocortisone 200 mg IV while in the ER on 10/21/2024)
- Maintain SpO2 >90-94% with supplemental O2 and wean down as tolerated
- Cardiology consulted and recs appreciated; continue IV lasix 40mg BID and monitor sCr, UOP and strict I/O
- While on diuretics, replete electrolytes with K>4, Mg>2
- Trend BNP
- Troponin has begun to downtrend and peaked at 0.289 on 10/22/2024 � no longer need to continue trending at this time
- Echo done on 10/22/2024 shows hyperdynamic LVEF at 70-75% with normal regional motion, mild-moderate TR and moderately elevated PASP at 57mmHg
- Trend serum Na with goal 135-145
- Trend Hb and transfuse if needed to keep Hb>7g/dL
- Incentive spirometer q1hr while awake
- Maintain euglycemia with goal BG >100 and <180
- prn nebulized bronchodilators - not currently bronchospastic
- DVT ppx: LMWH
Pulmonary service will continue to follow along.
Data:
CTA Chest 10/21/2024: No evidence of central pulmonary embolism; Bibasilar opacification suspicious for pneumonia with slight progression, particularly on the left.
Transthoracic Echocardiogram 10/22/2024:
Normal left ventricular size with hyperdynamic systolic function and normal
regional wall motion. LVEF 70-75%.
Normal right ventricular size and function.
Mild to moderate tricuspid regurgitation. Moderately elevated pulmonary artery
pressure (PASP 57 mmHg).
No prior study available for comparison.
Total time spent today was 39 minutes for this encounter. Time includes reviewing laboratory test/imaging results, reviewing pertinent medical records, obtaining and reviewing medical history, performing an appropriate exam, ordering medications,
tests and procedures. Time also includes documentation of this encounter, coordinating patient care and communicating with other healthcare professionals. Total time does not include separately billed tests performed on this date of service.
Subjective Data
-
Date of Service:
Date of Service: October 24, 2024
Chief Complaint: Pulmonary Follow Up
Subjective:
Patient seen and evaluated today at bedside. This morning she felt well with her breathing but then as the morning progressed she became more short of breath mainly with activity. She is currently on 1 L/min nasal cannula. Multiple family was at
bedside and all questions were answered. She is having occasional coughing fits as well. She felt better with the DuoNebs but she had some shakiness. Currently denies chest pain, AVENDAÑO, nausea, fevers or chills.
Review of Systems
General: Other (Negative unless mentioned above)
Objective Data
Data Reviewed
Vital Signs / I&O / Oxygen:
Vital Signs
Temp Pulse Resp BP Pulse Ox
98.1 F 77 14 106/68 98
10/24/24 07:33 10/24/24 08:53 10/24/24 07:33 10/24/24 08:53 10/24/24 07:33
Intake and Output
10/23/24 10/24/24 10/25/24
06:59 06:59 06:59
Intake Total 960 / 960 960 / 960
Balance 960 / 960 960 / 960
SaO2 98
Nasal Cannula flow liters per 3
minute
Physical Exam
General: Respiratory Distress (negative), Comfortable, Chills (negative) and Sweats (negative)
HEENT: Normocephalic and Anicteric
Cardiovascular: S1-S2, Rub (negative) and Peripheral Edema (Trace lower extremity edema bilaterally)
Respiratory: Wheeze (negative), Crackles (Bilaterally predominantly in the bases), Rhonchi (negative) and Non-Labored Respirations
GI: Soft, Non Distended, Non Tender and Normal Bowel Sounds
Neurology: AO x 3 and Tremors (negative)
Skin: Warm, Dry, Cyanosis (negative) and Jaundice (negative)
Labs/Micro/Reports
Lab Data
10/24/24 07:34
10/24/24 07:34
Microbiology
10/22/24 03:39 Sputum Respiratory Culture - Final
Usual Respiratory Tahira
10/22/24 03:39 Sputum Gram Stain - Final
10/21/24 18:52 Blood/Venous Blood Culture - Preliminary
No Growth in 48 hours- Final report to follow
10/21/24 18:52 Blood/Venous Blood Culture - Preliminary
No Growth in 48 hours- Final report to follow
10/22/24 01:26 Nose Nasal Screen MRSA (PCR) - Final
MRSA not detected - performed by PCR methodology.
10/21/24 23:59 Urine Streptococcus pneumoniae Antigen (M - Final
Negative for Streptococcus pneumoniae antigen.
A negative result does not exclude infection with
Streptococcus pneumoniae. Clinical correlation is
recommended.
10/22/24 01:26 Urine Legionella Urinary Antigen - Final
Negative for Legionella pneumophila Serogroup 1 antigen.
A negative result does not rule out the possiblity of
Legionella infection due to other serogroups or species of
Legionella. Clinical correlation is recommended.
10/21/24 17:40 Nasal Swab Influenza Types A & B (ADELSO) - Final
Negative for Influenza A & B, NAAT
Negative results must be combined with clinical observations
and patient history.
Nucleic Acid Amplification test (NAAT)performed on the
[employer] platform.
--- NOTE | 2024-10-24 10:02 | CM ---
Addendum entered by Yadi Michel RN 10/24/24 11:13:
CM was consulted regarding pricing for Farxiga and Jardiance. Either medication, is $47. CM updated cardiology with cost.
Original Note:
CM reviewed medical records. CM requested PM and R consult.
[2024-10-24] MEDS: FARXIGA 10 MG PO (11:53)
[2024-10-24] MEDS: FLORASTOR 250 MG PO ×2 (12:38→19:55)
[2024-10-24 12:50] LABS: Glucose - Point of Care 94 mg/dl (70-99)
[2024-10-24] MEDS: DUONEB 3 ML INH (13:21)
[2024-10-24] MEDS: SOLU-MEDROL PF 40 MG IV (16:51)
[2024-10-24] MEDS: TYLENOL 650 MG PO (17:08)
[2024-10-24] MEDS: LOVENOX 40 MG SC (17:10)
[2024-10-24] MEDS: SENOKOT PO (17:10)
[2024-10-24] MEDS: DIOVAN PO (17:12)
[2024-10-24 17:43] LABS: Glucose - Point of Care 111 mg/dl (70-99)
[2024-10-24] MEDS: MIRALAX PO (19:59)
[2024-10-24 21:28] LABS: Glucose - Point of Care 171 mg/dl (70-99)
[2024-10-24] MEDS: MELATONIN 1.5 MG PO (21:42)
[2024-10-24] MEDS: TESSALON PERLES 200 MG PO (21:42)
[2024-10-24] MEDS: TORADOL 15 MG IV (21:44)
[2024-10-24] MEDS: XOPENEX 1.25 MG INHALANT SOLUTION INH (21:52)
[2024-10-24] MEDS: ATROVENT NEBULES 0.5 MG INH (21:52)
[2024-10-25] VITALS (8 sets, daily range): BP systolic 113–147; BP diastolic 65–83; BMI 31.8
[2024-10-25] MEDS: SOLU-MEDROL PF 40 MG IV ×3 (00:02→17:07)
[2024-10-25] MEDS: SYNTHROID 50 MCG PO (05:45)
[2024-10-25] MEDS: ZOSYN 100 IV ×3 (05:45→17:17)
[2024-10-25] MEDS: NON-FORMULARY ITEM 2 UNIT PO (05:46)
[2024-10-25] MEDS: ATROVENT NEBULES 0.5 MG INH ×2 (08:04→19:59)
[2024-10-25] MEDS: XOPENEX 1.25 MG INHALANT SOLUTION INH ×3 (08:04→19:59)
[2024-10-25 08:32] LABS: Glucose - Point of Care 135 mg/dl (70-99)
[2024-10-25] MEDS: NOVOLOG FLEXPEN-LOW RESISTANCE SC ×2 (08:48→16:32)
--- NOTE | 2024-10-25 09:07 | W.PN.HOSP.TC ---
Today's Communication/Plan
-
IV antibiotics. IV Lasix. IV steroids.
Assessment / Plan
Assessment / Plan
Physical exam:
General: Acutely ill
HEENT: Normocephalic, Atraumatic and Moist Mucous Membranes
Respiratory: Bilateral rhonchi and coarse crackles in the bases; Negative Wheezes
Cardiac: Regular Rhythm and S1/S2
GI: Soft, Nontender and Nondistended
Musculoskeletal: No Clubbing, No Cyanosis. Bilateral lower extremity edema 1+ present.
Neuro: Awake, Alert and Oriented, no gross neurological deficits
Psych: Anxious, normal judgment and insight.
Echo:
Normal left ventricular size with hyperdynamic systolic function and normal
regional wall motion. LVEF 70-75%.
Normal right ventricular size and function.
Mild to moderate tricuspid regurgitation. Moderately elevated pulmonary artery
pressure (PASP 57 mmHg).
A/P:
Acute hypoxic respiratory failure:
Appears to be multifactorial, pneumonia and heart failure main contributors
Continue antibiotics
Continue diuretics
Continue steroids
Continue oxygen supplementation, currently on 1-2 L of oxygen
Discussed with family at bedside and over the phone today on 10/25
Might need right heart cath +/- left and +/- bronchoscopy as discussed with cardiology and pulmonary yesterday on 10/24.
PT OT eval
Bilateral pneumonia, likely interstitial pneumonitis:
Legionella negative
Streptococcus antigen negative
MRSA screen negative
Negative COVID-19 and influenza
Blood cultures no growth but continue to monitor
Sputum culture contaminated
On IV Zosyn
Discontinued vancomycin
Started on IV steroids since 10/24
Pulmonary consult appreciated
WBC 12.5--> 8.6-->9.4
Pro-Hong normal
Speech therapy for swallow eval and status post VSE--> okay for regular diet.
Acute diastolic CHF:
Continue IV Lasix 40 mg twice a day
Monitor ins and outs and daily weights
Echocardiogram results reviewed
Cardiology consult appreciated
Diarrhea:
C. difficile negative
Elevated troponin:
Suspect nonischemic myocardial injury due to hypoxia and infection
Cardiac monitoring
Chronic hyponatremia:
SIADH related recently
Sodium 136 today
On salt tablets-will restart
Continue fluid restriction
Continue to monitor
Hypokalemia:
Replete and trend
Elevated LFTs:
Probably passive venous congestion versus infection
Improving
Asthma:
Continue bronchodilators
Chronic anemia:
Hemoglobin 10.2 today
No signs of active bleeding
Continue to monitor
Chronic back pain:
Recent spinal and neuroforaminal stenosis at L4-L5 and acute rehabilitation stay recently.
Prior history of L4-L5 laminectomy in the past.
Continue Lidoderm patch
Add Toradol as needed
Continue PT
Hypertension:
On amlodipine 2.5 mg twice a day, home med with guanfacine 2 mg p.o. twice a day, and valsartan 320 mg nightly.
Since tolerating okay we will continue amlodipine
Monitor blood pressure adjust medications accordingly
Diabetes mellitus type 2:
Continue insulin sliding scale
Holding metformin in the setting of heart failure and infection.
Monitor blood sugar and adjust medications accordingly
Fibromyalgia:
Continue Cymbalta 60 mg p.o. daily
GERD:
Continue Protonix 40 mg p.o. twice a day
Hypothyroidism:
Continue levothyroxine 50 mcg p.o., Mondays to Sunday
Constipation:
Continue current bowel regimen
Insomnia:
Continue melatonin
DVT prophylaxis:
Lovenox SQ
CODE STATUS:
Full code
Total time spent on today's encounter was 52 minutes which included time spent in counseling the patient/family regarding diagnosis and treatment plan as listed above, goals of care, and symptom management. Case was discussed with nursing staff,
specialists, and care coordinators/case management. All labs and imaging personally reviewed by me. Remainder the time spent in detailed review of previous records, lab data, imaging, and other medical provider documentation.
Anticipated Discharge: > 48 hours
Subjective/Interval History
-
Date of Service: October 25, 2024
Patient still having some coughing spells. On 2 L of oxygen. Afebrile
Objective Data
-
Labs:
Laboratory Results
10/25/24
06:00
WBC Pending
Hgb Pending
Hct Pending
Plt Count Pending
Sodium Pending
Potassium Pending
Chloride Pending
Carbon Dioxide Pending
BUN Pending
Creatinine Pending
Glucose Pending
Calcium Pending
Vital Signs:
Vital Signs
Temp Pulse Resp BP Pulse Ox
98.1 F 88 18 128/78 91
10/25/24 07:34 10/25/24 08:05 10/25/24 08:05 10/25/24 07:34 10/25/24 07:34
I&O
10/24/24 10/25/24 10/26/24
06:59 06:59 06:59
Intake Total 960 / 960 1100 / 1100
Balance 960 / 960 1100 / 1100
[2024-10-25] MEDS: CYMBALTA DELAYED RELEASE 60 MG PO (09:36)
[2024-10-25] MEDS: SODIUM CHLORIDE 1 GRAM PO ×2 (09:37→22:00)
[2024-10-25] MEDS: TESSALON PERLES 200 MG PO ×3 (09:37→22:03)
[2024-10-25] MEDS: FLORASTOR 250 MG PO ×2 (09:37→22:00)
[2024-10-25] MEDS: NORVASC 2.5 MG PO ×2 (09:37→22:03)
[2024-10-25] MEDS: FIBERCON 1250 MG PO (09:37)
[2024-10-25] MEDS: FARXIGA 10 MG PO (09:37)
[2024-10-25] MEDS: NON-FORMULARY ITEM 2 MG PO ×2 (09:38→22:09)
[2024-10-25] MEDS: LASIX 40 MG IV ×2 (09:38→17:08)
[2024-10-25] MEDS: MUCINEX 600 MG PO ×2 (09:38→22:03)
--- NOTE | 2024-10-25 09:45 | W.PN.PUL3 ---
Today's Communication / Plan
-
Diuresis
Empiric antibiotics although have less concern for bacterial pneumonia and more concern for pulmonary edema +/- inflammatory pneumonitis
Continue systemic steroids with Solu-Medrol given concern for inflammatory pneumonitis
Continue xopenex and atrovent
No need for bronchoscopy
If patient still has no improvement despite antibiotics, diuretics and steroids then would favor her getting right and left heart cath
Mucolytics + antitussants
Up OOB as tolerated
Replete K >4, Mg >2
PT/OT - daughter is interested in patient going to [facility] after discharge
Check walking pulse oximetry prior to discharge
Assessment
-
Assessment: 74-year-old female with a past medical history of hypertension, asthma, DM type II, fibromyalgia and spinal stenosis who presents with shortness of breath and cough starting 1 day prior to arrival. She says her cough initially was dry
and then her SOB worsened even with mild activity. She was recently discharged home on 10/17/2024 with as needed oxygen. She is now using her O2 all the time and has shortness of breath even while laying flat. Also has lower extremity edema and
weight gain. Endorses midsternal chest pain with a cough and left lower abdominal to back pain. Initially in the ER she was afebrile to 99 �F, pulse rate 108, breathing at 22 breaths/min, BP 135/81 and saturating 80% on room air, which improved to
96% on 4 L/min. Initial labs showed mild leukocytosis to 12.5, Hb 9.8, platelet count 478, serum sodium 130, troponin slightly elevated at 0.253, proBNP 3870, and COVID-19 antigen negative. Blood cultures were collected, and flu swab was negative
for flu A/B. CXR showed progression of bibasilar opacities suggesting worsening pneumonia. CTA chest from 10/21/2024 showed bilateral consolidative/nodular opacities, mainly in the lower lobes with no evidence of acute PE. She was started on
cefepime, given 20 mg Lasix, hydrocortisone 200 mg, IV vancomycin and Benadryl, and admitted to telemetry for further treatment. Pulmonary service now consulted for additional management/recommendations.
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
Impression:
#Acute on chronic hypoxic respiratory failure with hypoxia due to acute decompensated heart failure with possible pneumonia vs inflammatory pneumonitis (has Sx concerning for RA with polyarthritis)
#Leukocytosis � now resolved
#Anemia
#Thrombocytosis likely reactive
#Hyponatremia � now resolved
#Elevated troponin (0.253 on 10/21/2024)
#Elevated proBNP
#History of fibromyalgia
Plan:
- Patient has worsening multifocal patchy/consolidative opacities predominantly in the lower lobes that radiology is reading as pneumonia - these changes have worsened compared to recent CT chest on 10/06/2024
- There is also diffuse intra-lobular septal thickening with perivascular ground glass opacities, hence this is more suspicious for at least component of acute pulmonary edema
- Continue with empiric broad-spectrum antibiotics � currently on Zosyn s/p vanco (MRSA swab negative)
- Follow-up cultures including sputum culture (collected 10/22/2024), and blood cultures (collected 10/21/2024); her urine antigens for Legionella + strep pneumonia are both negative
- Mucolytics with mucinex and acapella
- Given that she was recently diagnosed with community-acquired pneumonia on 10/07/2024, now with worsening radiographic evidence of pneumonia, need to cover her for Pseudomonas. If she continues to deteriorate then would need deep lung sample,
possibly with bronchoscopy. This will be an ongoing discussion.
- Procal is negative, further supporting that this is pulmonary edema +/- inflammatory pneumonitis
- Given that she continued to have SOB despite being on antibiotics and being diuresed with IV Lasix - I started her on systemic steroids with Solu-Medrol 40 mg IV q8hr on 10/24/2024; also started Xopenex + Atrovent TID
- If patient's SOB does not improve despite being on antibiotics, being diuresed and now on systemic steroids, I feel that it would be important to check a left + right heart cath at that time
- She also reports edema in her hand joints with redness and swelling with concerns for rheumatoid arthritis with polyarthritis. Prior rheumatological testing with rheumatoid factor, CCP and JASPAL were all negative. Also prior ESR and CRP were also
negative. She does follow with rheumatology. Given that she continues to be on diuretics and antibiotics but still failing to improve, systemic steroids started (see above) given the possibility of interstitial pneumonitis - hold off on bronch for
now
- CRP checked 10/23/2024 is elevated at 56.2, and ESR also checked 10/23/2024 is 39 (of note, she she did get hydrocortisone 200 mg IV while in the ER on 10/21/2024)
- Maintain SpO2 >90-94% with supplemental O2 and wean down as tolerated
- Cardiology consulted and recs appreciated; continue IV lasix 40mg BID and monitor sCr, UOP and strict I/O
- While on diuretics, replete electrolytes with K>4, Mg>2
- Trend BNP
- Troponin has begun to downtrend and peaked at 0.289 on 10/22/2024 � no longer need to continue trending at this time
- Echo done on 10/22/2024 shows hyperdynamic LVEF at 70-75% with normal regional motion, mild-moderate TR and moderately elevated PASP at 57mmHg
- Trend serum Na with goal 135-145
- Trend Hb and transfuse if needed to keep Hb>7g/dL
- Incentive spirometer q1hr while awake
- Maintain euglycemia with goal BG >100 and <180
- prn nebulized bronchodilators - not currently bronchospastic
- DVT ppx: LMWH
Pulmonary service will continue to follow along.
Data:
CTA Chest 10/21/2024: No evidence of central pulmonary embolism; Bibasilar opacification suspicious for pneumonia with slight progression, particularly on the left.
Transthoracic Echocardiogram 10/22/2024:
Normal left ventricular size with hyperdynamic systolic function and normal
regional wall motion. LVEF 70-75%.
Normal right ventricular size and function.
Mild to moderate tricuspid regurgitation. Moderately elevated pulmonary artery
pressure (PASP 57 mmHg).
No prior study available for comparison.
Total time spent today was 36 minutes for this encounter. Time includes reviewing laboratory test/imaging results, reviewing pertinent medical records, obtaining and reviewing medical history, performing an appropriate exam, ordering medications,
tests and procedures. Time also includes documentation of this encounter, coordinating patient care and communicating with other healthcare professionals. Total time does not include separately billed tests performed on this date of service.
Subjective Data
-
Date of Service:
Date of Service: October 25, 2024
Chief Complaint: Pulmonary Follow Up
Subjective:
Patient seen earlier in the day; late note entry.
Patient seen and evaluated this morning. Currently on 2.5 L/min. She says that she does actually feel better, with improved shortness of breath during activity in particular. Still having coughing spells. Denies abdominal pain, nausea, diarrhea,
fevers or chills.
Review of Systems
General: Other (Negative unless mentioned above)
Objective Data
Data Reviewed
Vital Signs / I&O / Oxygen:
Vital Signs
Temp Pulse Resp BP Pulse Ox
98.1 F 88 18 128/78 91
10/25/24 07:34 10/25/24 09:38 10/25/24 08:05 10/25/24 09:38 10/25/24 07:34
Intake and Output
10/24/24 10/25/24 10/26/24
06:59 06:59 06:59
Intake Total 960 / 960 1100 / 1100
Balance 960 / 960 1100 / 1100
SaO2 91
Nasal Cannula flow liters per 2
minute
Physical Exam
General: Respiratory Distress (negative), Comfortable, Chills (negative) and Sweats (negative)
HEENT: Normocephalic and Anicteric
Cardiovascular: S1-S2, Rub (negative) and Peripheral Edema (Trace lower extremity edema bilaterally)
Respiratory: Wheeze (negative), Crackles (Bilaterally predominantly in the bases), Rhonchi (negative) and Non-Labored Respirations
GI: Soft, Non Distended, Non Tender and Normal Bowel Sounds
Neurology: AO x 3 and Tremors (negative)
Skin: Warm, Dry, Cyanosis (negative) and Jaundice (negative)
Labs/Micro/Reports
Microbiology
10/21/24 18:52 Blood/Venous Blood Culture - Preliminary
No Growth in 72 hours- Final report to follow
10/21/24 18:52 Blood/Venous Blood Culture - Preliminary
No Growth in 72 hours- Final report to follow
10/24/24 12:22 Feces/Stool C. difficile GDH Antigen & Toxins - Final
Negative for toxigenic C.difficile
10/22/24 03:39 Sputum Respiratory Culture - Final
Usual Respiratory Tahira
10/22/24 03:39 Sputum Gram Stain - Final
10/22/24 01:26 Nose Nasal Screen MRSA (PCR) - Final
MRSA not detected - performed by PCR methodology.
10/21/24 23:59 Urine Streptococcus pneumoniae Antigen (M - Final
Negative for Streptococcus pneumoniae antigen.
A negative result does not exclude infection with
Streptococcus pneumoniae. Clinical correlation is
recommended.
10/22/24 01:26 Urine Legionella Urinary Antigen - Final
Negative for Legionella pneumophila Serogroup 1 antigen.
A negative result does not rule out the possiblity of
Legionella infection due to other serogroups or species of
Legionella. Clinical correlation is recommended.
[2024-10-25] MEDS: TYLENOL 650 MG PO (10:04)
[2024-10-25 10:15] LABS: % Basophils 0.1 % (0-2); % Immature Granulocytes 1.1 % (0-0.5); % Lymphocytes 14.4 % (20.5-51.1); % Monocytes 6.5 % (1.7-9.3); % Neutrophils 77.9 % (42.2-75.2); Absolute Immature Granulocytes 0.1 10^3/uL (0-0.05); Absolute Lymphocytes 1.4 10^3/uL (1.2-3.4); Absolute Monocytes 0.6 10^3/uL (0.1-0.6); Absolute Neutrophils 7.4 10^3/uL (1.4-6.5); Hemoglobin 10.2 g/dL (12.0-16.0); Mean Corp Hgb Conc. 31.9 g/dL (33.0-37.0); Mean Corpuscular Hgb 27.5 pg (27.0-31.0); Mean Corpuscular Volume 86.3 fL (81.0-99.0); Mean Platelet Volume 8.5 fL (7.4-10.4); Nucleated Red Blood Cells % 0 %; Platelet Count 614 10^3/uL (130-400); Red Blood Cell Count 3.71 10^6/uL (4.20-5.40); Red Cell Dist. Width 13.5 % (11.5-14.5); White Blood Cell Count 9.4 10^3/uL (4.8-10.8)
[2024-10-25 10:26] LABS: Blood Urea Nitrogen 18 mg/dl (7-17); Calcium 9.5 mg/dl (8.4-10.2); Carbon Dioxide 29 mmol/L (22-30); Chloride 94 mmol/L (98-107); Estimated Creatinine Clearance 68 ml/min; Glucose 118 mg/dl (70-99); Potassium 3.7 mmol/L (3.5-5.1); Sodium 136 mmol/L (135-145); eGFR > 60.00
[2024-10-25 12:33] LABS: Glucose - Point of Care 164 mg/dl (70-99)
[2024-10-25] MEDS: NOVOLOG FLEXPEN-LOW RESISTANCE 1 UNITS SC (13:29)
--- NOTE | 2024-10-25 14:24 | W.PN.CD ---
Today's Communication / Plan
-
Continue current dosing of diuretics. Monitor weights and renal function.
Additional treatment of possible inflammatory pneumonitis and pneumonia including nebs, steroids and antibiotics as directed by pulmonary and hospitalist.
Impression / Plan
-
Hypoxic respiratory failure:
-being treated for pna and CHF pulmonary following asossibility of inflammatory pneumonitis
-Continue diuretics. Weights trending down. Monitor BP and renal function.
-Suspected this is more pulmonary interstitial process than heart failure.
-Pulmonary consult is also following.
Acute HFPEF
-Improving, yet oxygen and lung findings persist
-echo 10/22: EF 70-75%, mild/mod TR, PASP 57
-Continue current therapy as outlined above.
-If patient has limited improvement and there is a question regarding volume status and right heart cath could be considered.
Acute non-ischemic myocardial injury:
-no anginal CP and EKG without concerning changes
-in setting of acute illness with PNA, CHF
HTN:
-monitor with diuresis
Subjective:
She still having coughing spells during which she says she has desaturation. But currently comfortable on 2 L.
Data;
CT Chest 10/21/24:
FINDINGS: The central pulmonary arteries are well-opacified and demonstrate no filling defects to suggest pulmonary embolism. The thoracic aorta is normal in caliber with calcific atherosclerotic changes.
The trachea and central airways are patent. There is bilateral lower lobe opacification, right slightly greater than left suggesting slight progression of pneumonia, particularly on the left. There is no pneumothorax, pleural effusion or pericardial
effusion. There are 2 subcentimeter right hilar lymph nodes. There is no significant mediastinal or axillary lymphadenopathy. There is no pneumothorax or mediastinal shift. There is mild elevation of the right hemidiaphragm.
There are degenerative changes within the thoracic spine.
No significant gross focal abnormality is seen within the included small portion of the upper abdomen.
IMPRESSION:
No evidence of central pulmonary embolism.
Bibasilar opacification suspicious for pneumonia with slight progression, particularly on the left.
TTE 10/22/24:(71.35 kg)
Normal left ventricular size with hyperdynamic systolic function and normal
regional wall motion. LVEF 70-75%.
Normal right ventricular size and function.
Mild to moderate tricuspid regurgitation. Moderately elevated pulmonary artery
pressure (PASP 57 mmHg).
IVC normal
No prior study available for comparison.
Physical Exam
Vital Signs/Labs
Vital Signs
Temp Pulse Resp BP Pulse Ox
98.8 F 95 22 147/83 99
10/25/24 11:38 10/25/24 11:38 10/25/24 11:38 10/25/24 11:38 10/25/24 12:30
10/24/24 10/25/24 10/26/24
06:59 06:59 06:59
Actual Weight 69.57 kg 69.003 kg
10/25/24 09:14
10/25/24 09:14
Magnesium 1.7 mg/dl (1.6-2.3) 10/22/24 06:54
Triglycerides 133 mg/dl (10-149) 10/22/24 06:54
LDL Cholesterol, Calc 137 mg/dl 10/22/24 06:54
VLDL Cholesterol, Calc 26 mg/dl (0-30) 10/22/24 06:54
HDL Cholesterol 42 mg/dl 10/22/24 06:54
10/21/24 10/23/24
17:40 06:19
Nxu-R-Uucuixscboi Pept 3870 1300
LAB Results
10/22/24 10/23/24
18:36 06:19
Troponin I 0.289 H* 0.285 H*
Physical Exam
Constitutional: No acute distress
Cardiovascular: Rhythm & rate is regular
Respiratory: Other (Few fine crackles at bases bilaterally no wheezes. Patient appears to have cough with deep inspiration)
GI: Soft
Neuro/Psych: Alert
Data Reviewed
-
Date of Service: October 25, 2024
Medical Decision Making: Reviewed Test Results
Medical Tests (PFT, Pathology etc): Report Reviewed by me
Labs: Labs Reviewed by me
[2024-10-25] MEDS: ATROVENT NEBULES INH (15:21)
[2024-10-25 16:38] LABS: Glucose - Point of Care 125 mg/dl (70-99)
[2024-10-25] MEDS: DIOVAN 320 MG PO (17:07)
[2024-10-25] MEDS: NON-FORMULARY ITEM 40 UNIT PO (17:07)
[2024-10-25] MEDS: LOVENOX 40 MG SC (17:08)
[2024-10-25] MEDS: SENOKOT PO (17:10)
--- NOTE | 2024-10-25 21:25 | RESPNOTE ---
ABG attempted as per MD order. Unable to obtain. Explained to pt that we can have another therapist try. Pt declined second therapist trying due to pain w/ ABG attempt. Hospitalist notified.
[2024-10-25] MEDS: MIRALAX 17 GRAMS PO (21:59)
[2024-10-25] MEDS: MELATONIN 1.5 MG PO (22:03)
[2024-10-25 22:09] LABS: Glucose - Point of Care 230 mg/dl (70-99)
[2024-10-25] MEDS: TORADOL 15 MG IV (22:17)
[2024-10-26] MEDS: SOLU-MEDROL PF 40 MG IV ×3 (01:07→17:55)
[2024-10-26] MEDS: ZOSYN 100 IV ×4 (01:07→18:14)
[2024-10-26 03:23] VITALS: BP 129/79
[2024-10-26 04:52] VITALS: BMI 30.9
[2024-10-26 07:30] LABS: % Basophils 0.2 % (0-2); % Immature Granulocytes 1.2 % (0-0.5); % Lymphocytes 9.4 % (20.5-51.1); % Monocytes 5.2 % (1.7-9.3); Absolute Immature Granulocytes 0.2 10^3/uL (0-0.05); Absolute Lymphocytes 1.2 10^3/uL (1.2-3.4); Absolute Monocytes 0.7 10^3/uL (0.1-0.6); Absolute Neutrophils 10.9 10^3/uL (1.4-6.5); Hematocrit 31.2 % (37.0-47.0); Mean Corp Hgb Conc. 32.1 g/dL (33.0-37.0); Mean Corpuscular Hgb 27.4 pg (27.0-31.0); Mean Corpuscular Volume 85.5 fL (81.0-99.0); Mean Platelet Volume 8.4 fL (7.4-10.4); Nucleated Red Blood Cells % 0 %; Platelet Count 588 10^3/uL (130-400); Red Blood Cell Count 3.65 10^6/uL (4.20-5.40); Red Cell Dist. Width 13.4 % (11.5-14.5); White Blood Cell Count 12.9 10^3/uL (4.8-10.8)
[2024-10-26 07:51] LABS: NT-proBNP 482 pg/ml
[2024-10-26] MEDS: XOPENEX 1.25 MG INHALANT SOLUTION INH ×3 (07:51→18:16)
[2024-10-26] MEDS: ATROVENT NEBULES 0.5 MG INH ×3 (07:51→18:16)
[2024-10-26 07:55] VITALS: BP 124/76
[2024-10-26 08:00] LABS: Blood Urea Nitrogen 29 mg/dl (7-17); Calcium 9.5 mg/dl (8.4-10.2); Carbon Dioxide 29 mmol/L (22-30); Chloride 93 mmol/L (98-107); Estimated Creatinine Clearance 67 ml/min; Glucose 144 mg/dl (70-99); Potassium 3.4 mmol/L (3.5-5.1); Sodium 135 mmol/L (135-145); eGFR > 60.00
--- NOTE | 2024-10-26 08:31 | W.PN.HOSP.TC ---
Today's Communication/Plan
-
IV Lasix. IV steroids. IV antibiotics.
Assessment / Plan
Assessment / Plan
Physical exam:
General: Acutely ill
HEENT: Normocephalic, Atraumatic and Moist Mucous Membranes
Respiratory: Bilateral rhonchi and coarse crackles in the bases; Negative Wheezes
Cardiac: Regular Rhythm and S1/S2
GI: Soft, Nontender and Nondistended
Musculoskeletal: No Clubbing, No Cyanosis. Bilateral lower extremity edema +trace present.
Neuro: Awake, Alert and Oriented, no gross neurological deficits
Psych: Anxious, normal judgment and insight.
Echo:
Normal left ventricular size with hyperdynamic systolic function and normal
regional wall motion. LVEF 70-75%.
Normal right ventricular size and function.
Mild to moderate tricuspid regurgitation. Moderately elevated pulmonary artery
pressure (PASP 57 mmHg).
A/P:
Acute hypoxic respiratory failure:
Appears to be multifactorial, pneumonia and heart failure main contributors
Continue antibiotics
Continue diuretics
Continue steroids
Continue oxygen supplementation, currently on 1-2 L of oxygen
Discussed with family at bedside and over the phone today on 10/25
Might need right +/- left heart cath on Sunday; and ?+/- bronchoscopy as discussed with cardiology and pulmonary on 10/24.
PT OT eval
Discussed with and daughter at bedside today on 10/26
Would likely need acute rehab eval from [facility] once closer to discharge
Repeat chest x-ray in a.m.
Bilateral pneumonia, likely interstitial pneumonitis:
Legionella negative
Streptococcus antigen negative
MRSA screen negative
Negative COVID-19 and influenza
Blood cultures no growth but continue to monitor
Sputum culture contaminated
On IV Zosyn
Discontinued vancomycin
Started on IV steroids since 10/24
Pulmonary consult appreciated
WBC 12.5--> 8.6-->9.4-->12.9 (on steroids)
Pro-Hong normal
Speech therapy for swallow eval and status post VSE--> okay for regular diet.
Acute diastolic CHF:
Continue IV Lasix 40 mg twice a day
Monitor ins and outs and daily weights
Weight down to 66.9 kg today
BNP down to 482 today
Echocardiogram results reviewed
Cardiology consult appreciated
Episode of transient peripheral cyanosis:
Ordered ABG at the time but could not be done
Will wait for heart cath
Pulmonary aware
Diarrhea:
C. difficile negative
Elevated troponin:
Suspect nonischemic myocardial injury due to hypoxia and infection
Cardiac monitoring
Chronic hyponatremia:
SIADH related recently
Sodium 135 today
On salt tablets
Will discontinue fluid restriction today at patient request and sodium remains 135 today.
Continue to monitor
Hypokalemia:
Replete and trend
Elevated LFTs:
Probably passive venous congestion versus infection
Improving
Asthma:
Continue bronchodilators
Chronic anemia:
Hemoglobin 10 today
No signs of active bleeding
Continue to monitor
Chronic back pain:
Recent spinal and neuroforaminal stenosis at L4-L5 and acute rehabilitation stay recently.
Prior history of L4-L5 laminectomy in the past.
Continue Lidoderm patch
Added Toradol as needed
Continue PT
Hypertension:
On amlodipine 2.5 mg twice a day, home med with guanfacine 2 mg p.o. twice a day, and valsartan 320 mg nightly.
Since tolerating okay we will continue amlodipine
Monitor blood pressure adjust medications accordingly
Diabetes mellitus type 2:
Continue insulin sliding scale
Holding metformin in the setting of heart failure and infection.
Monitor blood sugar and adjust medications accordingly
Fibromyalgia:
Continue Cymbalta 60 mg p.o. daily
GERD:
Continue Protonix 40 mg p.o. twice a day
Hypothyroidism:
Continue levothyroxine 50 mcg p.o., Mondays to Sunday
Constipation:
Continue current bowel regimen
Insomnia:
Continue melatonin but increase dose
DVT prophylaxis:
Lovenox SQ
CODE STATUS:
Full code
Total time spent on today's encounter was 52 minutes which included time spent in counseling the patient/family regarding diagnosis and treatment plan as listed above, goals of care, and symptom management. Case was discussed with nursing staff,
specialists, and care coordinators/case management. All labs and imaging personally reviewed by me. Remainder the time spent in detailed review of previous records, lab data, imaging, and other medical provider documentation.
Anticipated Discharge: > 48 hours
Subjective/Interval History
-
Date of Service: October 26, 2024
Patient still having coughing spells. Although overall better she is still having some shortness of breath and remains on supplemental oxygen. Had an episode of transient cyanosis lasted for a few minutes last evening and resolved. Afebrile
Objective Data
-
Labs:
Laboratory Results
10/25/24 10/26/24
18:56 06:56
WBC 12.9 H
Hgb 10.0 L
Hct 31.2 L
Plt Count 588 H
HCO3 Cancelled
Sodium 135
Potassium 3.4 L
Chloride 93 L
Carbon Dioxide 29
BUN 29 H
Creatinine 0.5 L
Glucose 144 H
Calcium 9.5
Vital Signs:
Vital Signs
Temp Pulse Resp BP Pulse Ox
98.1 F 76 16 124/76 96
10/26/24 07:55 10/26/24 07:56 10/26/24 07:56 10/26/24 07:55 10/26/24 07:56
I&O
10/25/24 10/26/24 10/27/24
06:59 06:59 06:59
Intake Total 1100 / 1100 920 / 920
Balance 1100 / 1100 920 / 920
[2024-10-26 09:08] LABS: Glucose - Point of Care 132 mg/dl (70-99)
--- NOTE | 2024-10-26 09:16 | W.PN.PUL3 ---
Today's Communication / Plan
-
Diuresis -proBNP is 482 today, however her SOB is continuing
Empiric antibiotics although have less concern for bacterial pneumonia and more concern for pulmonary edema +/- inflammatory pneumonitis
Continue systemic steroids with Solu-Medrol given concern for inflammatory pneumonitis
Continue xopenex and atrovent
No need for bronchoscopy at this time
If patient still has no improvement despite antibiotics, diuretics and steroids then would favor her getting right and left heart cath --> scheduled for tomorrow pending [employer] availability
Mucolytics + antitussants
Up OOB as tolerated
Replete K >4, Mg >2
PT/OT - daughter is interested in patient going to [facility] after discharge
Check walking pulse oximetry prior to discharge
Assessment
-
Assessment: 74-year-old female with a past medical history of hypertension, asthma, DM type II, fibromyalgia and spinal stenosis who presents with shortness of breath and cough starting 1 day prior to arrival. She says her cough initially was dry
and then her SOB worsened even with mild activity. She was recently discharged home on 10/17/2024 with as needed oxygen. She is now using her O2 all the time and has shortness of breath even while laying flat. Also has lower extremity edema and
weight gain. Endorses midsternal chest pain with a cough and left lower abdominal to back pain. Initially in the ER she was afebrile to 99 �F, pulse rate 108, breathing at 22 breaths/min, BP 135/81 and saturating 80% on room air, which improved to
96% on 4 L/min. Initial labs showed mild leukocytosis to 12.5, Hb 9.8, platelet count 478, serum sodium 130, troponin slightly elevated at 0.253, proBNP 3870, and COVID-19 antigen negative. Blood cultures were collected, and flu swab was negative
for flu A/B. CXR showed progression of bibasilar opacities suggesting worsening pneumonia. CTA chest from 10/21/2024 showed bilateral consolidative/nodular opacities, mainly in the lower lobes with no evidence of acute PE. She was started on
cefepime, given 20 mg Lasix, hydrocortisone 200 mg, IV vancomycin and Benadryl, and admitted to telemetry for further treatment. Pulmonary service now consulted for additional management/recommendations.
Chronic conditions [employer]ENO[employer]: Hypertension, DM type II, asthma, fibromyalgia, IBS, history of M�ni�re's disease, spinal stenosis s/p L4-5 laminectomy
Impression:
#Acute on chronic hypoxic respiratory failure with hypoxia due to acute decompensated heart failure with possible pneumonia vs inflammatory pneumonitis (has Sx concerning for RA with polyarthritis)
#Leukocytosis
#Anemia
#Thrombocytosis likely reactive
#Hyponatremia � now resolved
#Elevated troponin (0.253 on 10/21/2024)
#Elevated proBNP
#History of fibromyalgia
Plan:
- Patient has worsening multifocal patchy/consolidative opacities predominantly in the lower lobes that radiology is reading as pneumonia - these changes have worsened compared to recent CT chest on 10/06/2024
- There is also diffuse intra-lobular septal thickening with perivascular ground glass opacities, hence this is more suspicious for at least component of acute pulmonary edema
- Continue with empiric broad-spectrum antibiotics � currently on Zosyn s/p vanco (MRSA swab negative)
- Follow-up cultures including sputum culture (collected 10/22/2024), and blood cultures (collected 10/21/2024); her urine antigens for Legionella + strep pneumonia are both negative
- Mucolytics with mucinex and acapella
- Given that she was recently diagnosed with community-acquired pneumonia on 10/07/2024, now with worsening radiographic evidence of pneumonia, need to cover her for Pseudomonas. If she continues to deteriorate then would need deep lung sample,
possibly with bronchoscopy. This will be an ongoing discussion.
- Procal is negative, further supporting that this is pulmonary edema +/- inflammatory pneumonitis
- Given that she continued to have SOB despite being on antibiotics and being diuresed with IV Lasix - I started her on systemic steroids with Solu-Medrol 40 mg IV q8hr on 10/24/2024; also started Xopenex + Atrovent TID
- If patient's SOB does not improve despite being on antibiotics, being diuresed and now on systemic steroids, I feel that it would be important to check a left + right heart cath at that time --> this is pending for tomorrow or next day depending
on [employer] availability
- She also reports edema in her hand joints with redness and swelling with concerns for rheumatoid arthritis with polyarthritis. Prior rheumatological testing with rheumatoid factor, CCP and JASPAL were all negative. Also prior ESR and CRP were also
negative. She does follow with rheumatology. Given that she continues to be on diuretics and antibiotics but still failing to improve, systemic steroids started (see above) given the possibility of interstitial pneumonitis - hold off on bronch for
now
- CRP checked 10/23/2024 is elevated at 56.2, and ESR also checked 10/23/2024 is 39 (of note, she she did get hydrocortisone 200 mg IV while in the ER on 10/21/2024)
- Maintain SpO2 >90-94% with supplemental O2 and wean down as tolerated
- Cardiology consulted and recs appreciated; continue IV lasix 40mg BID and monitor sCr, UOP and strict I/O
- While on diuretics, replete electrolytes with K>4, Mg>2
- Trend BNP
- Troponin has begun to downtrend and peaked at 0.289 on 10/22/2024 � no longer need to continue trending at this time
- Echo done on 10/22/2024 shows hyperdynamic LVEF at 70-75% with normal regional motion, mild-moderate TR and moderately elevated PASP at 57mmHg
- Trend serum Na with goal 135-145
- Trend Hb and transfuse if needed to keep Hb>7g/dL
- Incentive spirometer q1hr while awake
- Maintain euglycemia with goal BG >100 and <180
- prn nebulized bronchodilators - not currently bronchospastic
- DVT ppx: LMWH
Pulmonary service will continue to follow along.
Data:
CTA Chest 10/21/2024: No evidence of central pulmonary embolism; Bibasilar opacification suspicious for pneumonia with slight progression, particularly on the left.
Transthoracic Echocardiogram 10/22/2024:
Normal left ventricular size with hyperdynamic systolic function and normal
regional wall motion. LVEF 70-75%.
Normal right ventricular size and function.
Mild to moderate tricuspid regurgitation. Moderately elevated pulmonary artery
pressure (PASP 57 mmHg).
No prior study available for comparison.
Total time spent today was 39 minutes for this encounter. Time includes reviewing laboratory test/imaging results, reviewing pertinent medical records, obtaining and reviewing medical history, performing an appropriate exam, ordering medications,
tests and procedures. Time also includes documentation of this encounter, coordinating patient care and communicating with other healthcare professionals. Total time does not include separately billed tests performed on this date of service.
Subjective Data
-
Date of Service:
Date of Service: October 26, 2024
Chief Complaint: Pulmonary Follow Up
Subjective:
Patient seen and evaluated today at bedside. Still having shortness of breath, worse with activity. Currently on 2 L/min nasal cannula. Denies chest pain, AVENDAÑO, nausea, vomiting, fevers or chills.
Review of Systems
General: Other (Negative unless mentioned above)
Objective Data
Data Reviewed
Vital Signs / I&O / Oxygen:
Vital Signs
Temp Pulse Resp BP Pulse Ox
98.1 F 76 16 124/76 96
10/26/24 07:55 10/26/24 07:56 10/26/24 07:56 10/26/24 07:55 10/26/24 07:56
Intake and Output
10/25/24 10/26/24 10/27/24
06:59 06:59 06:59
Intake Total 1100 / 1100 920 / 920
Balance 1100 / 1100 920 / 920
SaO2 96
Nasal Cannula flow liters per 2
minute
Physical Exam
General: Respiratory Distress (negative), Comfortable, Chills (negative) and Sweats (negative)
HEENT: Normocephalic and Anicteric
Cardiovascular: S1-S2, Rub (negative) and Peripheral Edema (Trace lower extremity edema bilaterally)
Respiratory: Wheeze (negative), Crackles (Bilaterally predominantly in the bases), Rhonchi (negative) and Non-Labored Respirations
GI: Soft, Non Distended, Non Tender and Normal Bowel Sounds
Neurology: AO x 3 and Tremors (negative)
Skin: Warm, Dry, Cyanosis (negative) and Jaundice (negative)
Labs/Micro/Reports
Lab Data
10/26/24 06:56
10/26/24 06:56
Laboratory Results
10/25/24
18:56
pH Cancelled
pCO2 Cancelled
pO2 Cancelled
HCO3 Cancelled
O2 Delivery Level Cancelled
Microbiology
10/21/24 18:52 Blood/Venous Blood Culture - Preliminary
No Growth in 4 days- Final report to follow
10/21/24 18:52 Blood/Venous Blood Culture - Preliminary
No Growth in 4 days- Final report to follow
10/24/24 12:22 Feces/Stool C. difficile GDH Antigen & Toxins - Final
Negative for toxigenic C.difficile
10/22/24 03:39 Sputum Respiratory Culture - Final
Usual Respiratory Tahira
10/22/24 03:39 Sputum Gram Stain - Final
[2024-10-26] MEDS: FIBERCON 1250 MG PO (09:48)
[2024-10-26] MEDS: NOVOLOG FLEXPEN-LOW RESISTANCE SC ×3 (09:49→17:55)
[2024-10-26] MEDS: TESSALON PERLES 200 MG PO ×3 (09:49→22:16)
[2024-10-26] MEDS: FARXIGA 10 MG PO (09:49)
[2024-10-26] MEDS: CYMBALTA DELAYED RELEASE 60 MG PO (09:49)
[2024-10-26] MEDS: FLORASTOR 250 MG PO ×2 (09:49→20:33)
[2024-10-26] MEDS: NON-FORMULARY ITEM 40 UNIT PO ×2 (09:49→17:54)
[2024-10-26] MEDS: SODIUM CHLORIDE 1 GRAM PO ×2 (09:49→20:33)
[2024-10-26] MEDS: MUCINEX 600 MG PO ×2 (09:49→20:33)
[2024-10-26] MEDS: NON-FORMULARY ITEM 2 MG PO ×2 (09:50→20:34)
[2024-10-26] MEDS: LASIX 40 MG IV ×2 (09:50→17:54)
[2024-10-26] MEDS: NORVASC 2.5 MG PO ×2 (09:50→20:33)
[2024-10-26] MEDS: KCL 40 MEQ PO (09:52)
[2024-10-26 11:15] VITALS: BP 122/68
[2024-10-26 12:46] LABS: Glucose - Point of Care 133 mg/dl (70-99)
--- NOTE | 2024-10-26 14:26 | W.PN.CD ---
Today's Communication / Plan
-
Patient comfortable at rest on O2 but has exertional shortness of breath walking to the bathroom while wearing O2. Continues to have the symptoms despite diuresis. Suspected this is more pulmonary interstitial process than heart failure since
symptoms persist despite significant diuresis. proBNP is down to 480 from 1300 and patient's weights are down a significant amount. To clarify volume status and how much is related to heart failure right heart catheterization is being considered.
Patient also has had smoldering troponins with normal left ventricular function so may consider both right and left heart catheterization.
Continue current therapy. Monitor renal function with diuretic and will reassess in a.m.
Impression / Plan
-
Hypoxic respiratory failure:
-being treated for pna and CHF pulmonary following asossibility of inflammatory pneumonitis
-Continue diuretics. Weights trending down. Monitor BP and renal function.
suspected this is more pulmonary interstitial process than heart failure of exertional shortness of breath walking from the bathroom while wearing O2 despite significant diuresis. proBNP is down to 480 from 1300 and patient's weights are down a
significant amount. To clarify volume status and how much is related to heart failure right heart catheterization is being considered. Patient also has had smoldering troponins with normal left ventricular function so may consider both right and
left heart catheterization.
Acute HFPEF
-Improving, yet oxygen and lung findings persist
-echo 10/22: EF 70-75%, mild/mod TR, PASP 57
-Continue current therapy as outlined above.
-If patient has limited improvement and there is a question regarding volume status and right heart cath could be considered.
Acute non-ischemic myocardial injury:
-no anginal CP and EKG without concerning changes
-in setting of acute illness with PNA, CHF
HTN:
-monitor with diuresis
Subjective:
She still having coughing spells during which she says she has desaturation. But currently comfortable on 2 L.
Data;
CT Chest 10/21/24:
FINDINGS: The central pulmonary arteries are well-opacified and demonstrate no filling defects to suggest pulmonary embolism. The thoracic aorta is normal in caliber with calcific atherosclerotic changes.
The trachea and central airways are patent. There is bilateral lower lobe opacification, right slightly greater than left suggesting slight progression of pneumonia, particularly on the left. There is no pneumothorax, pleural effusion or pericardial
effusion. There are 2 subcentimeter right hilar lymph nodes. There is no significant mediastinal or axillary lymphadenopathy. There is no pneumothorax or mediastinal shift. There is mild elevation of the right hemidiaphragm.
There are degenerative changes within the thoracic spine.
No significant gross focal abnormality is seen within the included small portion of the upper abdomen.
IMPRESSION:
No evidence of central pulmonary embolism.
Bibasilar opacification suspicious for pneumonia with slight progression, particularly on the left.
TTE 10/22/24:(71.35 kg)
Normal left ventricular size with hyperdynamic systolic function and normal
regional wall motion. LVEF 70-75%.
Normal right ventricular size and function.
Mild to moderate tricuspid regurgitation. Moderately elevated pulmonary artery
pressure (PASP 57 mmHg).
IVC normal
No prior study available for comparison.
Physical Exam
Vital Signs/Labs
Vital Signs
Temp Pulse Resp BP Pulse Ox
98.4 F 104 20 122/68 93
10/26/24 11:15 10/26/24 14:03 10/26/24 14:03 10/26/24 11:15 10/26/24 14:03
10/25/24 10/26/24 10/27/24
06:59 06:59 06:59
Actual Weight 69.003 kg 66.996 kg
10/26/24 06:56
10/26/24 06:56
Magnesium 1.7 mg/dl (1.6-2.3) 10/22/24 06:54
Triglycerides 133 mg/dl (10-149) 10/22/24 06:54
LDL Cholesterol, Calc 137 mg/dl 10/22/24 06:54
VLDL Cholesterol, Calc 26 mg/dl (0-30) 10/22/24 06:54
HDL Cholesterol 42 mg/dl 10/22/24 06:54
10/21/24 10/23/24 10/26/24
17:40 06:19 06:56
Ewz-[id number]-Sxskpwqatzd Pept 3870 1300 482
Physical Exam
Constitutional: No acute distress
Cardiovascular: Rhythm & rate is regular
Respiratory: Wheeze Absent, Rhonchi Absent and Other (Cough induced with deep inspiration)
GI: Soft and Non tender
Neuro/Psych: Alert and Oriented
Data Reviewed
-
Date of Service: October 26, 2024
Echo: Report Reviewed by me
Medical Tests (PFT, Pathology etc): Report Reviewed by me
Labs: Labs Reviewed by me
[2024-10-26 15:31] VITALS: BP 117/65
[2024-10-26 16:59] LABS: Glucose - Point of Care 138 mg/dl (70-99)
[2024-10-26] MEDS: SENOKOT 8.6 MG PO (17:54)
[2024-10-26] MEDS: DIOVAN 320 MG PO (17:55)
[2024-10-26] MEDS: LOVENOX 40 MG SC (17:55)
[2024-10-26 19:45] VITALS: BP 110/76
[2024-10-26 22:03] LABS: Glucose - Point of Care 172 mg/dl (70-99)
[2024-10-26] MEDS: MELATONIN 3 MG PO (22:15)
[2024-10-26] MEDS: MIRALAX 17 GRAMS PO (22:17)
[2024-10-26 23:06] VITALS: BP 118/67
[2024-10-27] VITALS (16 sets, daily range): BP systolic 107–137; BP diastolic 59–77; PULSE 81; O2SAT 100; BMI 31.3
[2024-10-27] MEDS: ZOSYN 100 IV ×2 (00:05→05:51)
[2024-10-27] MEDS: SOLU-MEDROL PF 40 MG IV ×3 (00:06→17:52)
[2024-10-27] MEDS: SYNTHROID 50 MCG PO (05:50)
[2024-10-27] MEDS: NON-FORMULARY ITEM 2 UNIT PO ×2 (05:51→16:45)
[2024-10-27] MEDS: ATROVENT NEBULES 0.5 MG INH ×2 (07:13→20:03)
[2024-10-27] MEDS: XOPENEX 1.25 MG INHALANT SOLUTION INH ×3 (07:13→20:03)
--- NOTE | 2024-10-27 08:19 | W.PN.CD ---
Today's Communication / Plan
-
Continue diuresis
RHC/LHC today
Impression / Plan
-
74 y/o female with hypertension, dyslipidemia, fibromyalgia, and diabetes who presents with shortness of breath found to have community-acquired pneumonia, acute on chronic HFpEF with moderately elevated PASP, and concern for inflammatory
pneumonitis.
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 Traylor ([facility])
Hypoxic respiratory failure:
-being treated for pna, acute on chronic HFpEF, and inflammatory pneumonitis with antibiotics, steroids, and diuretics
-PASP 57 on echo this admission which may be from volume overload and pneumonia, however pulmonary hypertension is possible given her lack of improvement with above treatments, chronic lung disease (asthma) and Raynaud's
-RHC/LHC today for ongoing symptoms and hypoxia
Acute HFPEF
-Improving, yet oxygen and lung findings persist
-echo 10/22: EF 70-75%, mild/mod TR, PASP 57
-Continue Lasix 40 mg IV twice daily
-RHC/LHC as above
Acute non-ischemic myocardial injury:
-no anginal CP and EKG without concerning changes
-in setting of acute illness with PNA, CHF
-Given smoldering troponins and persistent symptoms, we will proceed with RHC/LHC.
HTN:
-monitor with diuresis
Subjective:
She still having coughing spells during which she says she has desaturation. But currently comfortable on 2 L.
Data;
CT Chest 10/21/24:
FINDINGS: The central pulmonary arteries are well-opacified and demonstrate no filling defects to suggest pulmonary embolism. The thoracic aorta is normal in caliber with calcific atherosclerotic changes.
The trachea and central airways are patent. There is bilateral lower lobe opacification, right slightly greater than left suggesting slight progression of pneumonia, particularly on the left. There is no pneumothorax, pleural effusion or pericardial
effusion. There are 2 subcentimeter right hilar lymph nodes. There is no significant mediastinal or axillary lymphadenopathy. There is no pneumothorax or mediastinal shift. There is mild elevation of the right hemidiaphragm.
There are degenerative changes within the thoracic spine.
No significant gross focal abnormality is seen within the included small portion of the upper abdomen.
IMPRESSION:
No evidence of central pulmonary embolism.
Bibasilar opacification suspicious for pneumonia with slight progression, particularly on the left.
TTE 10/22/24:(71.35 kg)
Normal left ventricular size with hyperdynamic systolic function and normal
regional wall motion. LVEF 70-75%.
Normal right ventricular size and function.
Mild to moderate tricuspid regurgitation. Moderately elevated pulmonary artery
pressure (PASP 57 mmHg).
IVC normal
No prior study available for comparison.
Subjective: Breathing feels a little bit better today. She thinks steroids are helping. She is on 2 L nasal cannula at the time of my assessment.
Physical Exam
Vital Signs/Labs
Vital Signs
Temp Pulse Resp BP Pulse Ox
98.0 F 78 18 137/75 96
10/27/24 03:27 10/27/24 07:17 10/27/24 07:17 10/27/24 03:27 10/27/24 07:17
10/26/24 10/27/24 10/28/24
06:59 06:59 06:59
Actual Weight 66.996 kg 67.948 kg
Magnesium 1.7 mg/dl (1.6-2.3) 10/22/24 06:54
Triglycerides 133 mg/dl (10-149) 10/22/24 06:54
LDL Cholesterol, Calc 137 mg/dl 10/22/24 06:54
VLDL Cholesterol, Calc 26 mg/dl (0-30) 10/22/24 06:54
HDL Cholesterol 42 mg/dl 10/22/24 06:54
10/21/24 10/23/24 10/26/24
17:40 06:19 06:56
[facility] Pept 3870 1300 482
LAB Results
10/26/24
14:58
Troponin I 0.170 H*
Physical Exam
Constitutional: No acute distress and Comfortable
Cardiovascular: Rhythm & rate is regular, Pedal edema is absent, S1S2 is normal and Murmur/rub/gallop absent
Respiratory: Respiratory effort normal and Crackles Present
Data Reviewed
-
Date of Service: October 27, 2024
Medical Decision Making: Reviewed Test Results, Independent Historian Assessment, Test Interpretation and Review of Case with other Provider
EKG: Tracing Personally Visualized and interpreted
Echo: Tracing Personally Visualized and interpreted
X-Ray/CT/US/MRI/NUC/PET: Image Personally Visualized and interpreted, Discussed with Physician and Discussed with Patient
Labs: Labs Reviewed by me
[2024-10-27] MEDS: SODIUM CHLORIDE 1 GRAM PO ×2 (08:28→19:49)
[2024-10-27] MEDS: LOW STRENGTH ASPIRIN 324 MG PO (08:28)
[2024-10-27] MEDS: FARXIGA 10 MG PO (08:28)
[2024-10-27] MEDS: FIBERCON 1250 MG PO (08:28)
[2024-10-27] MEDS: FLORASTOR 250 MG PO ×2 (08:29→19:49)
[2024-10-27] MEDS: CYMBALTA DELAYED RELEASE 60 MG PO (08:29)
[2024-10-27] MEDS: LASIX 40 MG IV ×2 (08:29→16:44)
[2024-10-27] MEDS: NORVASC 2.5 MG PO ×2 (08:29→19:49)
[2024-10-27] MEDS: MUCINEX 600 MG PO ×2 (08:29→19:48)
[2024-10-27] MEDS: TESSALON PERLES 200 MG PO ×3 (08:29→21:37)
[2024-10-27] MEDS: NON-FORMULARY ITEM 2 MG PO ×2 (08:30→19:50)
[2024-10-27 08:43] LABS: Glucose - Point of Care 111 mg/dl (70-99)
[2024-10-27] MEDS: NOVOLOG FLEXPEN-LOW RESISTANCE SC (08:44)
[2024-10-27 09:02] LABS: % Basophils 0.1 % (0-2); % Immature Granulocytes 0.8 % (0-0.5); % Lymphocytes 9.8 % (20.5-51.1); % Monocytes 10.3 % (1.7-9.3); Absolute Immature Granulocytes 0.1 10^3/uL (0-0.05); Absolute Lymphocytes 1.5 10^3/uL (1.2-3.4); Absolute Monocytes 1.6 10^3/uL (0.1-0.6); Absolute Neutrophils 11.9 10^3/uL (1.4-6.5); Hematocrit 31.9 % (37.0-47.0); Hemoglobin 10.2 g/dL (12.0-16.0); Mean Corpuscular Hgb 27.4 pg (27.0-31.0); Mean Corpuscular Volume 85.8 fL (81.0-99.0); Mean Platelet Volume 8.3 fL (7.4-10.4); Nucleated Red Blood Cells % 0 %; Platelet Count 623 10^3/uL (130-400); Red Blood Cell Count 3.72 10^6/uL (4.20-5.40); Red Cell Dist. Width 13.2 % (11.5-14.5); White Blood Cell Count 15.1 10^3/uL (4.8-10.8)
[2024-10-27 09:32] LABS: Blood Urea Nitrogen 28 mg/dl (7-17); Calcium 9.1 mg/dl (8.4-10.2); Carbon Dioxide 29 mmol/L (22-30); Chloride 92 mmol/L (98-107); Estimated Creatinine Clearance 67 ml/min; Glucose 128 mg/dl (70-99); Potassium 3.6 mmol/L (3.5-5.1); Sodium 132 mmol/L (135-145); eGFR > 60.00
--- NOTE | 2024-10-27 09:37 | W.PN.HOSP.TC ---
Today's Communication/Plan
-
Stop antibiotics
Acapella
Incentive spirometer
Right and left heart catheterization
Assessment / Plan
Assessment / Plan
Gen-AAOx3, NAD
HEENT-NC, AT, anicteric, clear oral mm
Neck-supple
CV-reg, no M, +S1/S2
Lungs-Rales at bases bilaterally
Abd-soft, NT, ND
Ext-no edema
Musculoskeletal-no cyanosis, clubbing
Skin-warm and dry
Neuro-grossly non-focal
Psych-calm, cooperative
Acute hypoxic respiratory failure -currently on 3 L nasal cannula oxygen, wean down as able. Pneumonia seems unlikely clinically given lack of improvement with multiple courses of antibiotics. COVID, influenza, blood cultures negative. Urinary
antigens negative. Afebrile. Steroid-induced leukocytosis noted. Discontinue further antibiotics.
Suspect cardiogenic pulmonary edema and/or pneumonitis as cause of respiratory failure. Awaiting right and left heart catheterization today.
Possible inflammatory pneumonitis -on systemic steroids per pulmonary.
Acute diastolic CHF: Await right and left heart catheterization today.
Continue IV Lasix 40 mg twice a day
Monitor ins and outs and daily weights
Weight down to 66.9 kg today
BNP down to 482 today
Echocardiogram results reviewed
Cardiology consult appreciated
Episode of transient peripheral cyanosis:
Ordered ABG at the time but could not be done
Will wait for heart cath
Pulmonary aware
Diarrhea:
C. difficile negative
Elevated troponin:
Suspect nonischemic myocardial injury due to hypoxia and infection
Cardiac monitoring
Chronic hyponatremia:
SIADH related recently
Sodium 132 today
On salt tablets
Taken off of fluid restriction 10/26 per patient request. Would resume fluid restriction once able to eat again.
Hypokalemia -improving.
Elevated LFTs:
Probably passive venous congestion versus infection
Improving
Asthma:
Continue bronchodilators
Chronic anemia: Hemoglobin stable.
No signs of active bleeding
Continue to monitor
Chronic back pain:
Recent spinal and neuroforaminal stenosis at L4-L5 and acute rehabilitation stay recently.
Prior history of L4-L5 laminectomy in the past.
Continue Lidoderm patch
Added Toradol as needed
Continue PT
Essential hypertension:
On amlodipine 2.5 mg twice a day, home med with guanfacine 2 mg p.o. twice a day, and valsartan 320 mg nightly.
Since tolerating okay we will continue amlodipine
Monitor blood pressure adjust medications accordingly
Diabetes mellitus type 2:
Continue insulin sliding scale
Holding metformin in the setting of heart failure and infection.
Monitor blood sugar and adjust medications accordingly
Fibromyalgia:
Continue Cymbalta 60 mg p.o. daily
GERD:
Continue Protonix 40 mg p.o. twice a day
Hypothyroidism:
Continue levothyroxine 50 mcg p.o., Mondays to Sunday
Constipation:
Continue current bowel regimen
Insomnia:
Continue melatonin but increase dose
DVT prophylaxis:
Lovenox SQ
CODE STATUS:
Full code
Anticipated Discharge: > 48 hours
Subjective/Interval History
-
Date of Service: October 27, 2024
Patient seen and examined. Complaining of cough.
Objective Data
-
Labs:
Laboratory Results
10/27/24
08:34
WBC 15.1 H
Hgb 10.2 L
Hct 31.9 L
Plt Count 623 H
Sodium 132 L
Potassium 3.6
Chloride 92 L
Carbon Dioxide 29
BUN 28 H
Creatinine 0.5 L
Glucose 128 H
Calcium 9.1
Vital Signs:
Vital Signs
Temp Pulse Resp BP Pulse Ox
97.8 F 82 20 131/66 98
10/27/24 07:40 10/27/24 08:29 10/27/24 07:40 10/27/24 08:29 10/27/24 07:40
I&O
10/26/24 10/27/24 10/28/24
06:59 06:59 06:59
Intake Total 920 / 920 1280 / 1280
Balance 920 / 920 1280 / 1280
Review of Systems
-
History Source: Patient
All other systems: Reviewed and negative
[2024-10-27] MEDS: SOLU-CORTEF 200 MG IV ×2 (09:39→13:00)
--- NOTE | 2024-10-27 10:00 | CM ---
CM reviewed chart- ADC >48 hours
Vn vs SNF recs by therapy
Per chart review, family wnats [facility] and referral was sent and pending
Outreach to [facility] via [facility] to inquire if PMR is required as pt with primary
Awaiting response
Discharge Disposition- TBD
[2024-10-27 12:26] LABS: Glucose - Point of Care 150 mg/dl (70-99)
--- NOTE | 2024-10-27 12:56 | W.PN.PUL3 ---
Today's Communication / Plan
-
remains on 3L NC, s/p cath with negative wedge
check ABG
she is placed on IV steroids
can stop abx if cultures are negative
encouraged IS, OOB, PT evals ongoing
wean O2 as tolerated
Assessment
-
74-year-old female with a past medical history of hypertension, asthma, DM type II, fibromyalgia and spinal stenosis who presents with shortness of breath and cough starting 1 day prior to arrival. She says her cough initially was dry and then her
SOB worsened even with mild activity. She was recently discharged home on 10/17/2024 with as needed oxygen. She is now using her O2 all the time and has shortness of breath even while laying flat. Also has lower extremity edema and weight gain.
Endorses midsternal chest pain with a cough and left lower abdominal to back pain. Initially in the ER she was afebrile to 99 �F, pulse rate 108, breathing at 22 breaths/min, BP 135/81 and saturating 80% on room air, which improved to 96% on 4
L/min. Initial labs showed mild leukocytosis to 12.5, Hb 9.8, platelet count 478, serum sodium 130, troponin slightly elevated at 0.253, proBNP 3870, and COVID-19 antigen negative. Blood cultures were collected, and flu swab was negative for flu
A/B. CXR showed progression of bibasilar opacities suggesting worsening pneumonia. CTA chest from 10/21/2024 showed bilateral consolidative/nodular opacities, mainly in the lower lobes with no evidence of acute PE. She was started on cefepime,
given 20 mg Lasix, hydrocortisone 200 mg, IV vancomycin and Benadryl, and admitted to telemetry for further treatment. Pulmonary service now consulted for additional management/recommendations.
Chronic conditions [employer]: Hypertension, DM type II, asthma, fibromyalgia, IBS, history of M�ni�re's disease, spinal stenosis s/p L4-5 laminectomy
Impression:
#Acute on chronic hypoxic respiratory failure with hypoxia due to acute decompensated heart failure with possible pneumonia vs inflammatory pneumonitis (has Sx concerning for RA with polyarthritis)
#Leukocytosis
#Anemia
#Thrombocytosis likely reactive
#Hyponatremia � now resolved
#Elevated troponin (0.253 on 10/21/2024)
#Elevated proBNP
#History of fibromyalgia
Plan:
Remains on 3L NC
CT showing diffuse intra-lobular septal thickening with perivascular ground glass opacities, suspicious for acute pulmonary edema
s/p LHC/RHC with normal wedge, not supportive of HF diagnosis
Placed on empiric broad-spectrum antibiotics � currently on Zosyn s/p vanco (MRSA swab negative)
Follow-up cultures including sputum culture (collected 10/22/2024), and blood cultures (collected 10/21/2024); her urine antigens for Legionella + strep pneumonia are both negative
Mucolytics with mucinex and acapella
Culture thus far has been negative, would stop abx and observe off
Procal is negative, further supporting that this is pulmonary edema +/- inflammatory pneumonitis
Placed on IV systemic steroids with Solu-Medrol 40 mg IV q8hr on 10/24/2024; also started Xopenex + Atrovent TID
Bibasilar atelectasis could be an issue given her lack of OOB/PT/IS
Check ABG
She also reports edema in her hand joints with redness and swelling with concerns for rheumatoid arthritis with polyarthritis. Prior rheumatological testing with rheumatoid factor, CCP and JASPAL were all negative. Also prior ESR and CRP were also
negative. She does follow with rheumatology. Given that she continues to be on diuretics and antibiotics but still failing to improve, systemic steroids started (see above) given the possibility of interstitial pneumonitis - hold off on bronch for
now
CRP checked 10/23/2024 is elevated at 56.2, and ESR also checked 10/23/2024 is 39 (of note, she she did get hydrocortisone 200 mg IV while in the ER on 10/21/2024)
Maintain SpO2 >90-94% with supplemental O2 and wean down as tolerated
Cardiology consulted and recs appreciated; continue IV lasix 40mg BID and monitor sCr, UOP and strict I/O
While on diuretics, replete electrolytes with K>4, Mg>2
Trend BNP
Troponin has begun to downtrend and peaked at 0.289 on 10/22/2024 � no longer need to continue trending at this time
Echo done on 10/22/2024 shows hyperdynamic LVEF at 70-75% with normal regional motion, mild-moderate TR and moderately elevated PASP at 57mmHg
Trend serum Na with goal 135-145
- Trend Hb and transfuse if needed to keep Hb>7g/dL
- Incentive spirometer q1hr while awake
- Maintain euglycemia with goal BG >100 and <180
- prn nebulized bronchodilators - not currently bronchospastic
- DVT ppx: LMWH
Pulmonary service will continue to follow along.
Data:
CTA Chest 10/21/2024: No evidence of central pulmonary embolism; Bibasilar opacification suspicious for pneumonia with slight progression, particularly on the left.
Transthoracic Echocardiogram 10/22/2024: Normal left ventricular size with hyperdynamic systolic function and normal regional wall motion. LVEF 70-75%. Normal right ventricular size and function.
Mild to moderate tricuspid regurgitation. Moderately elevated pulmonary artery pressure (PASP 57 mmHg). No prior study available for comparison.
LHC/RHC 10/27/24- CONCLUSIONS:
1. Right dominant circulation with a 50% lesion in the mid LAD, but no occlusive coronary artery disease.
2. Normal filling pressures (LVEDP = 15 mmHg, PCWP = 15 mmHg at 67.6 kg).
3. Mild, precapillary pulmonary hypertension (mean PA = 27 mmHg, PCWP = 15 mmHg, cardiac output = 3.85 L/min, PVR = 3.12 Fenton units).
4. No cardiac cause for persistent hypoxia.
5. Several radial/brachial artery loops making cardiac catheterization from the right radial artery difficult.
-----
Total time spent today was 51 minutes for this encounter. Time includes reviewing laboratory test/imaging results, reviewing pertinent medical records, obtaining and reviewing medical history, performing an appropriate exam, ordering medications,
tests and procedures. Time also includes documentation of this encounter, coordinating patient care and communicating with other healthcare professionals. Total time does not include separately billed tests performed on this date of service.
Subjective Data
-
Date of Service:
Date of Service: October 27, 2024
Chief Complaint: Pulmonary Follow Up
Subjective:
Remains on 3L NC, laying supine
C/o fatigue, b/l hand pain
Objective Data
Data Reviewed
Vital Signs / I&O / Oxygen:
Vital Signs
Temp Pulse Resp BP Pulse Ox
98.7 F 81 18 120/68 100
10/27/24 11:37 10/27/24 11:37 10/27/24 11:37 10/27/24 11:37 10/27/24 11:37
Intake and Output
10/26/24 10/27/24 10/28/24
06:59 06:59 06:59
Intake Total 920 / 920 1280 / 1280
Balance 920 / 920 1280 / 1280
SaO2 100
Nasal Cannula flow liters per 3
minute
Physical Exam
General: Respiratory Distress (negative), Comfortable, Chills (negative) and Sweats (negative)
HEENT: Normocephalic and Anicteric
Cardiovascular: S1-S2, Rub (negative) and Peripheral Edema (Trace lower extremity edema bilaterally)
Respiratory: Wheeze (negative), Crackles (Bilaterally predominantly in the bases), Rhonchi (negative) and Non-Labored Respirations
GI: Soft, Non Distended, Non Tender and Normal Bowel Sounds
Neurology: AO x 3 and Tremors (negative)
Skin: Warm, Dry, Cyanosis (negative) and Jaundice (negative)
Labs/Micro/Reports
Lab Data
10/27/24 08:34
10/27/24 08:34
Microbiology
10/21/24 18:52 Blood/Venous Blood Culture - Final
No Growth - Final Report
10/21/24 18:52 Blood/Venous Blood Culture - Final
No Growth - Final Report
10/24/24 12:22 Feces/Stool C. difficile GDH Antigen & Toxins - Final
Negative for toxigenic C.difficile
10/22/24 03:39 Sputum Respiratory Culture - Final
Usual Respiratory Tahira
10/22/24 03:39 Sputum Gram Stain - Final
[2024-10-27] MEDS: NSS (PRESERVATIVE FREE) 8 ML IV (13:01)
[2024-10-27] MEDS: PEPCID 20 MG IV (13:02)
[2024-10-27] MEDS: NOVOLOG FLEXPEN-LOW RESISTANCE 1 UNITS SC ×2 (13:04→18:10)
[2024-10-27] MEDS: ATROVENT NEBULES INH (13:27)
--- NOTE | 2024-10-27 15:15 | ITS.CL.CATH ---
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
Cardiac Catheterization
Procedure Report:
CARDIAC CATHETERIZATION REPORT
Date of Procedure: 10/27/2024
Referring: Mikhail Lopez M.D.
Indication: Shortness of breath, unexplained hypoxia.
PROCEDURE:
1. Right heart catheterization.
2. Coronary angiography.
3. Left heart catheterization.
A total of 47 minutes of procedural/moderate sedation was utilized. An independent emergency medical technician was present to assist with and help manage the patient's level of consciousness and physiologic status.
ACCESS:
1. 6 Austrian right radial artery using a modified Seldinger technique under ultrasound guidance. Ultrasound image obtained.
2. 5 Austrian right antecubital vein using a modified Seldinger technique under ultrasound guidance. Ultrasound image obtained.
CATHETERS:
1. 5 Austrian balloon wedge.
2. 5 Austrian JR4.
3. 5 Austrian JL 3.5.
HEMODYNAMIC DATA
Weight (kg): 67.6
AO (s/d/x mmHg): 139/74/101
LV (s/x mmHg): 141/15
PCWP (a/v/x mmHg): 16/16/15
PA (s/d/x mmHg): 41/28/27
RV (s/x mmHg): 41/10
RA (a/v/x mmHg): 14/11/9
SVC SvO2 (%): 66.6
IVC SvO2 (%): Not obtained.
RA SvO2 (%): Not obtained.
RV SvO2 (%): Not obtained.
PA SvO2 (%): 66.9
SaO2 (%): 95.9 (2 L nasal cannula)
Hbg (g/dL): 10.2
SARA
CO (L/min): 3.85
CI (L/min/m2): 2.40
Thermodilution
CO (L/min): Not obtained.
CI (L/min/m2): Not obtained.
TPG (mmHg): 12
PVR (Fenton Units): 3.12
SVR (dynes*seconds*cm^-5): 1912
AVO2 Diff (Volume %): 4.02
AV gradient (x, mmHg): None.
AV area (cm2): Normal
MV gradient (x, mmHg): Not obtained.
MV area (cm2): Not obtained.
LEFT VENTRICULOGRAPHY: Not performed.
AORTOGRAPHY: Not performed.
CORONARY ANGIOGRAPHY
Dominance: Right.
Left Main: Short, bifurcating vessel. There is no coronary artery disease.
LAD: Normal size vessel giving rise to 2 significant diagonals. There is a 50% lesion in the mid LAD, immediately after the origin of the second diagonal.
Ramus: Congenitally absent. Giving rise to 2
Circumflex: Large size, nondominant vessel 2 obtuse marginals. OM1 is a relatively small, vestigial vessel. OM 2 is a large vessel supplying the majority of the inferolateral wall. There is no coronary artery disease. There is at least
moderate tortuosity of the terminal OM 2.
RCA: Normal size, dominant vessel. There is no coronary artery disease.
INTERVENTIONS
None.
Closure Device: Vascular band for the right radial artery, manual pressure for the right antecubital vein.
Radiation dose (mGy): 190.14
DAP (cm2.Gy): 12.3086
Fluoroscopy time (minutes): 4.4
CONCLUSIONS:
1. Right dominant circulation with a 50% lesion in the mid LAD, but no occlusive coronary artery disease.
2. Normal filling pressures (LVEDP = 15 mmHg, PCWP = 15 mmHg at 67.6 kg).
3. Mild, precapillary pulmonary hypertension (mean PA = 27 mmHg, PCWP = 15 mmHg, cardiac output = 3.85 L/min, PVR = 3.12 Fenton units).
4. No cardiac cause for persistent hypoxia.
5. Several radial/brachial artery loops making cardiac catheterization from the right radial artery difficult.
RECOMMENDATIONS:
1. Expectant management after cardiac catheterization via right radial/antecubital approach.
2. Limited weight bearing on the right wrist for one week.
3. Continue pulmonary evaluation for persistent hypoxia.
4. Aggressive primary prevention with high-dose, high potency statin. Goal LDL <55.
Copy to: Mikhail Lopez M.D., Fernando Cantor M.D., Marky Barger, D.O.
Mario Del Cid DO, FACC, FACP
[2024-10-27] MEDS: DIOVAN 320 MG PO (17:53)
[2024-10-27] MEDS: SENOKOT PO (17:53)
[2024-10-27 18:09] LABS: B.E. 3.4 mmol/L; HCO3 26.5 mmol/L (21-28); O2 Saturation % 90.3 % (94-98); PCO2 34 mmHg (32-35)
[2024-10-27 18:13] LABS: PO2 56 mmHg (83-108)
[2024-10-27 18:16] LABS: Glucose - Point of Care 167 mg/dl (70-99)
[2024-10-27] MEDS: LOVENOX 40 MG SC (19:52)
[2024-10-27] MEDS: MIRALAX PO (21:37)
[2024-10-27] MEDS: MELATONIN 3 MG PO (21:37)
[2024-10-27 21:38] LABS: Glucose - Point of Care 159 mg/dl (70-99)
[2024-10-28] MEDS: SOLU-MEDROL PF 40 MG IV ×2 (00:50→10:03)
[2024-10-28 03:00] VITALS: BP 113/65
[2024-10-28] MEDS: SYNTHROID 50 MCG PO (05:39)
[2024-10-28] MEDS: NON-FORMULARY ITEM 20 UNIT PO (05:40)
[2024-10-28 05:48] VITALS: BMI 31.1
[2024-10-28 07:41] VITALS: BP 141/74
[2024-10-28 07:51] LABS: Blood Urea Nitrogen 30 mg/dl (7-17); Calcium 8.9 mg/dl (8.4-10.2); Carbon Dioxide 27 mmol/L (22-30); Chloride 94 mmol/L (98-107); Estimated Creatinine Clearance 67 ml/min; Glucose 129 mg/dl (70-99); Hematocrit 33.2 % (37.0-47.0); Hemoglobin 10.8 g/dL (12.0-16.0); Mean Corp Hgb Conc. 32.5 g/dL (33.0-37.0); Mean Corpuscular Hgb 27.4 pg (27.0-31.0); Mean Corpuscular Volume 84.3 fL (81.0-99.0); Mean Platelet Volume 8.7 fL (7.4-10.4); Platelet Count 695 10^3/uL (130-400); Potassium 3.2 mmol/L (3.5-5.1); Red Blood Cell Count 3.94 10^6/uL (4.20-5.40); Red Cell Dist. Width 13.3 % (11.5-14.5); Sodium 133 mmol/L (135-145); eGFR > 60.00
[2024-10-28] MEDS: XOPENEX 1.25 MG INHALANT SOLUTION INH ×3 (08:12→19:40)
[2024-10-28] MEDS: ATROVENT NEBULES 0.5 MG INH ×2 (08:12→14:19)
[2024-10-28 08:51] LABS: Glucose - Point of Care 89 mg/dl (70-99)
[2024-10-28] MEDS: NOVOLOG FLEXPEN-LOW RESISTANCE SC ×3 (09:07→17:46)
--- NOTE | 2024-10-28 09:16 | W.PN.CD ---
Today's Communication / Plan
-
RHC/C yesterday with no cause of hypoxic respiratory failure identified
Switch Lasix to p.o. 40 mg starting tomorrow
Start rosuvastatin for nonobstructive CAD
Cardiology will sign off. Please call with any additional questions or concerns.
Impression / Plan
-
74 y/o female with hypertension, dyslipidemia, fibromyalgia, and diabetes who presents with shortness of breath found to have community-acquired pneumonia, acute on chronic HFpEF, and concern for inflammatory pneumonitis.
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
Hypoxic respiratory failure:
-being treated for pna, acute on chronic HFpEF, and inflammatory pneumonitis with antibiotics, steroids, and diuretics
-[facility] 10/27/24: RA 9 PA 41/28 PCWP 15 CI 2.4 at 67.9 kg
-[facility] 10/27/2024: 50% mid LAD, no occlusive CAD
-Suspect her respiratory failure is secondary to lung etiology given extensive negative cardiac workup
-Pulmonary following
Acute HFPEF
-Improving, yet oxygen and lung findings persist
-echo 10/22: EF 70-75%, mild/mod TR, PASP 57
-[facility] 10/27/24: RA 9 PA 41/28 PCWP 15 CI 2.4 at 67.9 kg
-Switch Lasix to p.o. 40 mg daily given that she was euvolemic on [facility] yesterday at 67.9 kg
Acute non-ischemic myocardial injury:
-no anginal CP and EKG without concerning changes
-in setting of acute illness with PNA, CHF
-[facility] 10/27/2024: 50% mid LAD, no occlusive CAD
Nonobstructive coronary artery disease
-Was previously tolerating statin but was taken off due to myalgias
-Start rosuvastatin 5 mg daily and uptitrate as outpatient
-No role for ASA given age and nonobstructive disease
HTN:
-monitor with diuresis
Subjective:
She still having coughing spells during which she says she has desaturation. But currently comfortable on 2 L.
Data;
CT Chest 10/21/24:
FINDINGS: The central pulmonary arteries are well-opacified and demonstrate no filling defects to suggest pulmonary embolism. The thoracic aorta is normal in caliber with calcific atherosclerotic changes.
The trachea and central airways are patent. There is bilateral lower lobe opacification, right slightly greater than left suggesting slight progression of pneumonia, particularly on the left. There is no pneumothorax, pleural effusion or pericardial
effusion. There are 2 subcentimeter right hilar lymph nodes. There is no significant mediastinal or axillary lymphadenopathy. There is no pneumothorax or mediastinal shift. There is mild elevation of the right hemidiaphragm.
There are degenerative changes within the thoracic spine.
No significant gross focal abnormality is seen within the included small portion of the upper abdomen.
IMPRESSION:
No evidence of central pulmonary embolism.
Bibasilar opacification suspicious for pneumonia with slight progression, particularly on the left.
TTE 10/22/24:(71.35 kg)
Normal left ventricular size with hyperdynamic systolic function and normal
regional wall motion. LVEF 70-75%.
Normal right ventricular size and function.
Mild to moderate tricuspid regurgitation. Moderately elevated pulmonary artery
pressure (PASP 57 mmHg).
IVC normal
No prior study available for comparison.
Subjective: She was able to sleep without oxygen last night. Cath sites are a little sore but improving. She denies chest pain.
Physical Exam
Vital Signs/Labs
Vital Signs
Temp Pulse Resp BP Pulse Ox
98.2 F 86 18 141/74 92
10/28/24 07:41 10/28/24 08:16 10/28/24 08:16 10/28/24 07:41 10/28/24 08:16
10/27/24 10/28/24 10/29/24
06:59 06:59 06:59
Actual Weight 67.948 kg 67.387 kg
10/28/24 06:57
10/28/24 06:57
Magnesium 1.7 mg/dl (1.6-2.3) 10/22/24 06:54
Triglycerides 133 mg/dl (10-149) 10/22/24 06:54
LDL Cholesterol, Calc 137 mg/dl 10/22/24 06:54
VLDL Cholesterol, Calc 26 mg/dl (0-30) 10/22/24 06:54
HDL Cholesterol 42 mg/dl 10/22/24 06:54
10/21/24 10/23/24 10/26/24
17:40 06: 06:56
[facility] Pept 3870 1300 482
LAB Results
10/26/24
14:58
Troponin I 0.170 H*
Physical Exam
Constitutional: No acute distress and Comfortable
Cardiovascular: Rhythm & rate is regular, Pedal edema is absent, S1S2 is normal and Murmur/rub/gallop absent
Respiratory: Respiratory effort normal
Other: Cath Site (Clean, dry)
Data Reviewed
-
Date of Service: October 28, 2024
Medical Decision Making: Reviewed Test Results, Independent Historian Assessment, Test Interpretation and Review of Case with other Provider
EKG: Tracing Personally Visualized and interpreted
Echo: Report Reviewed by me
Medical Tests (PFT, Pathology etc): Report Reviewed by me, Discussed with Physician, Discussed with Patient and Discussed with Family
Labs: Labs Reviewed by me
--- NOTE | 2024-10-28 09:40 | W.PN.HOSP.TC ---
Today's Communication/Plan
-
Ambulatory pulse ox on room air
Discharge planning
Assessment / Plan
Assessment / Plan
Gen-AAOx3, NAD
HEENT-NC, AT, anicteric, clear oral mm
Neck-supple
CV-reg, no M, +S1/S2
Lungs-Rales at bases bilaterally
Abd-soft, NT, ND
Ext-no edema
Musculoskeletal-no cyanosis, clubbing
Skin-warm and dry
Neuro-grossly non-focal
Psych-calm, cooperative
Acute hypoxic respiratory failure -oxygenation improved, now on room air. Pneumonia seems unlikely clinically given lack of improvement with multiple courses of antibiotics. COVID, influenza, blood cultures negative. Urinary antigens negative.
Afebrile. Steroid-induced leukocytosis noted. Antibiotics discontinued.
Right heart catheterization completed. Findings not consistent with pulmonary edema. No significant CAD. Inflammatory pneumonitis versus atelectasis remains on the differential. Discussed with pulmonary (Dr Gagnon), no plans for bronchoscopy this
hospitalization. Plan for repeat CT chest as an outpatient with pulmonary follow-up.
Check ambulatory pulse ox on room air, use earlobe for pulse oximetry if possible. Apparently finger readings are not accurate according to family.
Possible inflammatory pneumonitis -on systemic steroids per pulmonary.
Acute diastolic CHF -resolved. Now on furosemide 40 mg p.o. daily as per cardiology. Right heart catheterization results noted.
Monitor ins and outs and daily weights
Weight down to 66.9 kg today
BNP down to 482 today
Echocardiogram results reviewed
Cardiology consult appreciated
Episode of transient peripheral cyanosis:
ABGs results noted, pO2 56, pCO2 34. pH 7.5.
Diarrhea:
C. difficile negative
Acute nonischemic myocardial injury
Chronic hyponatremia:
SIADH related recently
Sodium 133 today
On salt tablets
Taken off of fluid restriction 10/26 per patient request. Would resume fluid restriction once able to eat again.
Hypokalemia -3.2. Check magnesium. Replete.
Elevated LFTs:
Probably passive venous congestion versus infection
Improving
Asthma:
Continue bronchodilators
Chronic anemia: Hemoglobin stable.
No signs of active bleeding
Continue to monitor
Chronic back pain:
Recent spinal and neuroforaminal stenosis at L4-L5 and acute rehabilitation stay recently.
Prior history of L4-L5 laminectomy in the past.
Continue Lidoderm patch
Added Toradol as needed
Continue PT
Essential hypertension:
On amlodipine 2.5 mg twice a day, home med with guanfacine 2 mg p.o. twice a day, and valsartan 320 mg nightly.
Since tolerating okay we will continue amlodipine
Monitor blood pressure adjust medications accordingly
Diabetes mellitus type 2:
Continue insulin sliding scale
Holding metformin in the setting of heart failure and infection.
Monitor blood sugar and adjust medications accordingly
Fibromyalgia:
Continue Cymbalta 60 mg p.o. daily
GERD:
Continue Protonix 40 mg p.o. twice a day
Hypothyroidism:
Continue levothyroxine 50 mcg p.o., Mondays to Sunday
Constipation:
Continue current bowel regimen
Insomnia:
Continue melatonin but increase dose
DVT prophylaxis:
Lovenox SQ
CODE STATUS:
Full code
Dispo -PT recommending acute rehab. Physiatry consulted.
Anticipated Discharge: Within 24 hours
Subjective/Interval History
-
Date of Service: October 28, 2024
Patient seen and examined. Overall feeling better. No complaints.
Objective Data
-
Labs:
Laboratory Results
10/28/24
06:57
WBC 17.0 H
Hgb 10.8 L
Hct 33.2 L
Plt Count 695 H
Sodium 133 L
Potassium 3.2 L
Chloride 94 L
Carbon Dioxide 27
BUN 30 H
Creatinine 0.4 L
Glucose 129 H
Calcium 8.9
Vital Signs:
Vital Signs
Temp Pulse Resp BP Pulse Ox
98.2 F 86 18 141/74 92
10/28/24 07:41 10/28/24 08:16 10/28/24 08:16 10/28/24 07:41 10/28/24 08:16
I&O
10/27/24 10/28/24 10/29/24
06:59 06:59 06:59
Intake Total 1280 / 1280 480 / 480
Output Total 300 / 300
Balance 1280 / 1280 180 / 180
Review of Systems
-
History Source: Patient
All other systems: Reviewed and negative
[2024-10-28] MEDS: FIBERCON 1250 MG PO (09:59)
[2024-10-28] MEDS: NORVASC 2.5 MG PO ×2 (09:59→19:52)
[2024-10-28] MEDS: TESSALON PERLES 200 MG PO ×3 (09:59→22:17)
[2024-10-28] MEDS: KCL 40 MEQ PO (09:59)
[2024-10-28] MEDS: CYMBALTA DELAYED RELEASE 60 MG PO (10:00)
[2024-10-28] MEDS: MUCINEX 600 MG PO ×2 (10:00→19:52)
[2024-10-28] MEDS: FARXIGA 10 MG PO (10:00)
[2024-10-28] MEDS: SODIUM CHLORIDE 1 GRAM PO ×2 (10:00→19:52)
[2024-10-28] MEDS: FLORASTOR 250 MG PO ×2 (10:02→19:58)
[2024-10-28] MEDS: NON-FORMULARY ITEM 2 MG PO ×2 (10:02→19:51)
[2024-10-28 10:05] LABS: Magnesium 2.4 mg/dl (1.6-2.3)
[2024-10-28] MEDS: LASIX 40 MG IV (10:20)
--- NOTE | 2024-10-28 10:45 | CM ---
Addendum entered by Jennifer Madden 10/28/24 15:39:
IMM completed.
Addendum entered by Jennifer Madden 10/28/24 14:50:
Per [facility] Lia[facility], bed available tomorrow.
Original Note:
Spoke with [facility], no bed today.
[facility] will review case, possibly may need to consider alternate facility.
PMR consultations (P).
PT/OT recommending acute rehab.
[2024-10-28 11:54] VITALS: BP 95/64
[2024-10-28 12:46] LABS: Glucose - Point of Care 147 mg/dl (70-99)
--- NOTE | 2024-10-28 13:18 | W.PN.PUL3 ---
Today's Communication / Plan
-
Transition IV steroid to PO decadron to taper (she has prior reaction to prednisone in past)
Can taper by 2mg every 3-4 days to off
We discussed completing rehab and repeating her imaging as OP to follow abnormalities noted
Can stop lasix if not indicated per cards team
Encouraged continued OOB/PT--d/c planning pending rehab placement
Discussed with family at bedside, they are in agreement with this plan
Ok for discharge planning per team
Assessment
-
74-year-old female with a past medical history of hypertension, asthma, DM type II, fibromyalgia and spinal stenosis who presents with shortness of breath and cough starting 1 day prior to arrival. She says her cough initially was dry and then her
SOB worsened even with mild activity. She was recently discharged home on 10/17/2024 with as needed oxygen. She is now using her O2 all the time and has shortness of breath even while laying flat. Also has lower extremity edema and weight gain.
Endorses midsternal chest pain with a cough and left lower abdominal to back pain. Initially in the ER she was afebrile to 99 �F, pulse rate 108, breathing at 22 breaths/min, BP 135/81 and saturating 80% on room air, which improved to 96% on 4
L/min. Initial labs showed mild leukocytosis to 12.5, Hb 9.8, platelet count 478, serum sodium 130, troponin slightly elevated at 0.253, proBNP 3870, and COVID-19 antigen negative. Blood cultures were collected, and flu swab was negative for flu
A/B. CXR showed progression of bibasilar opacities suggesting worsening pneumonia. CTA chest from 10/21/2024 showed bilateral consolidative/nodular opacities, mainly in the lower lobes with no evidence of acute PE. She was started on cefepime,
given 20 mg Lasix, hydrocortisone 200 mg, IV vancomycin and Benadryl, and admitted to telemetry for further treatment. Pulmonary service now consulted for additional management/recommendations.
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
Impression:
#Acute on chronic hypoxic respiratory failure with hypoxia due to acute decompensated heart failure with possible pneumonia vs inflammatory pneumonitis (has Sx concerning for RA with polyarthritis)
#Leukocytosis
#Anemia
#Thrombocytosis likely reactive
#Hyponatremia � now resolved
#Elevated troponin (0.253 on 10/21/2024)
#Elevated proBNP
#History of fibromyalgia
Plan:
Weaned rapidly to RA
CT showing diffuse intra-lobular septal thickening with perivascular ground glass opacities, suspicious for acute pulmonary edema
s/p LHC/RHC with normal wedge, not supportive of HF diagnosis
Would stop lasix if not indicated, defer to cards
Placed on empiric broad-spectrum antibiotics � currently on Zosyn s/p vanco (MRSA swab negative)
Follow-up cultures including sputum culture (collected 10/22/2024), and blood cultures (collected 10/21/2024); her urine antigens for Legionella + strep pneumonia are both negative
Mucolytics with mucinex and acapella
Culture thus far has been negative, would stop abx and observe off
Procal is negative, further supporting that this is pulmonary edema +/- inflammatory pneumonitis
Placed on IV systemic steroids with Solu-Medrol 40 mg IV q8hr on 10/24/2024---will transition to PO decadron
She had reaction to PO prednisone
Can continue Xopenex + Atrovent TID
Bibasilar atelectasis could be an issue given her lack of OOB/PT/IS
Check ABG--paO2 56 (could be VBG)
She also reports edema in her hand joints with redness and swelling with concerns for rheumatoid arthritis with polyarthritis. Prior rheumatological testing with rheumatoid factor, CCP and JASPAL were all negative. Also prior ESR and CRP were also
negative. She does follow with rheumatology. Given that she continues to be on diuretics and antibiotics but still failing to improve, systemic steroids started (see above) given the possibility of interstitial pneumonitis - hold off on bronch for
now
CRP checked 10/23/2024 is elevated at 56.2, and ESR also checked 10/23/2024 is 39 (of note, she she did get hydrocortisone 200 mg IV while in the ER on 10/21/2024)
Maintain SpO2 >90-94% with supplemental O2 and wean down as tolerated
Cardiology consulted and recs appreciated; continue IV lasix 40mg BID and monitor sCr, UOP and strict I/O
While on diuretics, replete electrolytes with K>4, Mg>2
Trend BNP
Troponin has begun to downtrend and peaked at 0.289 on 10/22/2024 � no longer need to continue trending at this time
Echo done on 10/22/2024 shows hyperdynamic LVEF at 70-75% with normal regional motion, mild-moderate TR and moderately elevated PASP at 57mmHg
Outpatient pulm FU to be arranged in 3-4 weeks post rehab
Repeat imaging to be done as OP following rehab -- reviewed plan of care with family at bedside, they were in agreement.
Data:
CTA Chest 10/21/2024: No evidence of central pulmonary embolism; Bibasilar opacification suspicious for pneumonia with slight progression, particularly on the left.
Transthoracic Echocardiogram 10/22/2024: Normal left ventricular size with hyperdynamic systolic function and normal regional wall motion. LVEF 70-75%. Normal right ventricular size and function.
Mild to moderate tricuspid regurgitation. Moderately elevated pulmonary artery pressure (PASP 57 mmHg). No prior study available for comparison.
LHC/RHC 10/27/24- CONCLUSIONS:
1. Right dominant circulation with a 50% lesion in the mid LAD, but no occlusive coronary artery disease.
2. Normal filling pressures (LVEDP = 15 mmHg, PCWP = 15 mmHg at 67.6 kg).
3. Mild, precapillary pulmonary hypertension (mean PA = 27 mmHg, PCWP = 15 mmHg, cardiac output = 3.85 L/min, PVR = 3.12 Fenton units).
4. No cardiac cause for persistent hypoxia.
5. Several radial/brachial artery loops making cardiac catheterization from the right radial artery difficult.
-----
Total time spent today was 51 minutes for this encounter. Time includes reviewing laboratory test/imaging results, reviewing pertinent medical records, obtaining and reviewing medical history, performing an appropriate exam, ordering medications,
tests and procedures. Time also includes documentation of this encounter, coordinating patient care and communicating with other healthcare professionals. Total time does not include separately billed tests performed on this date of service.
Subjective Data
-
Date of Service:
Date of Service: October 28, 2024
Chief Complaint: Pulmonary Follow Up
Subjective:
Better today, off oxygen
Sitting in chair, significantly improved today
Objective Data
Data Reviewed
Vital Signs / I&O / Oxygen:
Vital Signs
Temp Pulse Resp BP Pulse Ox
97.7 F 86 18 95/64 93
10/28/24 11:54 10/28/24 11:54 10/28/24 11:54 10/28/24 11:54 10/28/24 11:54
Intake and Output
10/27/24 10/28/24 10/29/24
06:59 06:59 06:59
Intake Total 1280 / 1280 480 / 480
Output Total 300 / 300
Balance 1280 / 1280 180 / 180
SaO2 93
Nasal Cannula flow liters per 3
minute
Physical Exam
General: Respiratory Distress (negative), Comfortable, Chills (negative) and Sweats (negative)
HEENT: Normocephalic and Anicteric
Cardiovascular: S1-S2, Rub (negative) and Peripheral Edema (Trace lower extremity edema bilaterally)
Respiratory: Clear, Wheeze (negative), Rhonchi (negative) and Non-Labored Respirations
GI: Soft, Non Distended, Non Tender and Normal Bowel Sounds
Neurology: AO x 3 and Tremors (negative)
Skin: Warm, Dry, Cyanosis (negative) and Jaundice (negative)
Labs/Micro/Reports
Lab Data
10/28/24 06:57
10/28/24 06:57
Laboratory Results
10/27/24
18:01
pH 7.50 H
pCO2 34
pO2 56 L*
HCO3 26.5
O2 Delivery Level Not Reportable
Microbiology
10/21/24 18:52 Blood/Venous Blood Culture - Final
No Growth - Final Report
10/21/24 18:52 Blood/Venous Blood Culture - Final
No Growth - Final Report
[2024-10-28 15:15] VITALS: BP 125/70
[2024-10-28] MEDS: NON-FORMULARY ITEM 2 UNIT PO (16:26)
[2024-10-28 17:31] LABS: Glucose - Point of Care 87 mg/dl (70-99)
[2024-10-28] MEDS: CRESTOR 5 MG PO (18:35)
[2024-10-28] MEDS: LOVENOX 40 MG SC (18:35)
[2024-10-28] MEDS: DIOVAN 320 MG PO (18:35)
[2024-10-28] MEDS: SENOKOT PO (18:36)
--- NOTE | 2024-10-28 19:14 | PTCARENOTE ---
[facility]. pt is alert, oriented and verbally responsive. pt's daughter was with her. pt was cooperative and pleasant. can make her needs known. no complains of discomfort or pain. pt is aware that she is not able
to lift heavy objects or push off with her right upper extremity. patient received all her due medications as prescribed
[2024-10-28 19:36] VITALS: BP 136/78
[2024-10-28] MEDS: ATROVENT NEBULES INH (19:39)
[2024-10-28] MEDS: KCL 20 MEQ PO (19:52)
[2024-10-28 21:28] LABS: Glucose - Point of Care 166 mg/dl (70-99)
[2024-10-28] MEDS: MELATONIN 3 MG PO (22:17)
[2024-10-28] MEDS: MIRALAX PO (22:38)
[2024-10-28 23:26] VITALS: BP 110/64
--- NOTE | 2024-10-29 02:27 | DOWNTIME ---
There was a [facility] Client Family Worker Downtime on 10/29/2024 from 0100 to 10/29/2023 at 0205 . Downtime documentation of patient's care, including medication administrations, has been reconciled in the electronic record per guidelines. Refer to the
patient's paper chart under the miscellaneous tab to see printed paper medication records and downtime forms.
[2024-10-29 03:48] VITALS: BP 115/65
[2024-10-29 05:11] VITALS: BMI 31.7
[2024-10-29] MEDS: NON-FORMULARY ITEM 2 UNIT PO (06:03)
[2024-10-29] MEDS: SYNTHROID 50 MCG PO (06:03)
[2024-10-29 07:23] VITALS: BP 111/61
[2024-10-29] MEDS: TYLENOL 650 MG PO (08:00)
[2024-10-29] MEDS: FLORASTOR 250 MG PO (08:01)
[2024-10-29] MEDS: TESSALON PERLES 200 MG PO (08:01)
[2024-10-29] MEDS: SODIUM CHLORIDE 1 GRAM PO (08:02)
[2024-10-29] MEDS: FARXIGA 10 MG PO (08:02)
[2024-10-29] MEDS: LASIX 40 MG PO (08:02)
[2024-10-29] MEDS: KCL 20 MEQ PO ×2 (08:04→08:59)
[2024-10-29] MEDS: NORVASC 2.5 MG PO (08:04)
[2024-10-29] MEDS: MUCINEX 600 MG PO (08:04)
[2024-10-29] MEDS: FIBERCON 1250 MG PO (08:04)
[2024-10-29] MEDS: CYMBALTA DELAYED RELEASE 60 MG PO (08:04)
[2024-10-29] MEDS: NON-FORMULARY ITEM 2 MG PO (08:05)
[2024-10-29] MEDS: XOPENEX 1.25 MG INHALANT SOLUTION INH ×2 (08:11→12:06)
[2024-10-29] MEDS: ATROVENT NEBULES INH ×2 (08:11→12:06)
[2024-10-29 08:20] LABS: Blood Urea Nitrogen 27 mg/dl (7-17); Carbon Dioxide 28 mmol/L (22-30); Chloride 94 mmol/L (98-107); Estimated Creatinine Clearance 68 ml/min; Glucose 88 mg/dl (70-99); Potassium 3.3 mmol/L (3.5-5.1); Sodium 132 mmol/L (135-145); eGFR > 60.00
[2024-10-29 08:24] LABS: Glucose - Point of Care 74 mg/dl (70-99)
[2024-10-29] MEDS: DECADRON 8 MG PO (08:29)
[2024-10-29] MEDS: NOVOLOG FLEXPEN-LOW RESISTANCE SC ×2 (08:29→13:40)
--- NOTE | 2024-10-29 08:34 | W.PN.HOSP.TC ---
Today's Communication/Plan
-
Increase KCl dose
Discharge
Assessment / Plan
Assessment / Plan
Gen-AAOx3, NAD
HEENT-NC, AT, anicteric, clear oral mm
Neck-supple
CV-reg, no M, +S1/S2
Lungs-Rales at bases bilaterally
Abd-soft, NT, ND
Ext-no edema
Musculoskeletal-no cyanosis, clubbing
Skin-warm and dry
Neuro-grossly non-focal
Psych-calm, cooperative
Acute hypoxic respiratory failure -oxygenation improved, now on room air. Pneumonia seems unlikely clinically given lack of improvement with multiple courses of antibiotics. COVID, influenza, blood cultures negative. Urinary antigens negative.
Afebrile. Steroid-induced leukocytosis noted. Antibiotics discontinued.
Right heart catheterization completed. Findings not consistent with pulmonary edema. No significant CAD. Inflammatory pneumonitis versus atelectasis remains on the differential. Discussed with pulmonary (Dr Gagnon), no plans for bronchoscopy this
hospitalization. Plan for repeat CT chest as an outpatient with pulmonary follow-up.
Possible inflammatory pneumonitis -on systemic steroids per pulmonary. Oral Decadron and taper slowly.
Acute diastolic CHF -resolved. Now on furosemide 40 mg p.o. daily as per cardiology. Right heart catheterization results noted.
Monitor ins and outs and daily weights
Weight down to 66.9 kg today
BNP down to 482.
Echocardiogram results reviewed
Cardiology consult appreciated
Episode of transient peripheral cyanosis:
ABGs results noted, pO2 56, pCO2 34. pH 7.5.
Diarrhea:
C. difficile negative
Acute nonischemic myocardial injury
Chronic hyponatremia:
SIADH related recently
Sodium 133 today
On salt tablets
Taken off of fluid restriction 10/26 per patient request. Would resume fluid restriction once able to eat again.
Hypokalemia - magnesium was 2.4. Potassium 3.3 this morning, will increase dose of KCl to 40 mill equivalents twice daily. Monitor BMP while in rehab.
Elevated LFTs:
Probably passive venous congestion versus infection
Improving
Asthma:
Continue bronchodilators
Chronic anemia: Hemoglobin stable.
No signs of active bleeding
Continue to monitor
Chronic back pain:
Recent spinal and neuroforaminal stenosis at L4-L5 and acute rehabilitation stay recently.
Prior history of L4-L5 laminectomy in the past.
Continue Lidoderm patch
Added Toradol as needed
Continue PT
Essential hypertension:
On amlodipine 2.5 mg twice a day, home med with guanfacine 2 mg p.o. twice a day, and valsartan 320 mg nightly.
Since tolerating okay we will continue amlodipine
Monitor blood pressure adjust medications accordingly
Diabetes mellitus type 2:
Continue insulin sliding scale
Holding metformin in the setting of heart failure and infection.
Monitor blood sugar and adjust medications accordingly
Fibromyalgia:
Continue Cymbalta 60 mg p.o. daily
GERD:
Continue Protonix 40 mg p.o. twice a day
Hypothyroidism:
Continue levothyroxine 50 mcg p.o., Mondays to Sunday
Constipation:
Continue current bowel regimen
Insomnia:
Continue melatonin but increase dose
DVT prophylaxis:
Lovenox SQ
CODE STATUS:
Full code
Dispo -stable for discharge to [facility] today.
35 minutes spent in discharge process.
Anticipated Discharge: Today
Subjective/Interval History
-
Date of Service: October 29, 2024
Patient seen and examined. Complaining of feeling cold.
Objective Data
-
Labs:
Laboratory Results
10/29/24
06:51
Sodium 132 L
Potassium 3.3 L
Chloride 94 L
Carbon Dioxide 28
BUN 27 H
Creatinine 0.5 L
Glucose 88
Calcium 9.0
Vital Signs:
Vital Signs
Temp Pulse Resp BP Pulse Ox
98.7 F 71 20 111/61 96
10/29/24 07:23 10/29/24 08:04 10/29/24 07:23 10/29/24 08:04 10/29/24 07:23
I&O
10/28/24 10/29/24 10/30/24
06:59 06:59 06:59
Intake Total 480 / 480 960 / 960
Output Total 300 / 300
Balance 180 / 180 960 / 960
Review of Systems
-
History Source: Patient
All other systems: Reviewed and negative
--- NOTE | 2024-10-29 08:44 | W.DS.TRANS ---
DC Summary - Memory Care Program Director
-
Discharge Instructions:
Discharge Diagnosis/Procedures Inflammatory pneumonitis, cardiac
catheterization, hypokalemia
Diet Low Cholesterol,Low Fat
Activity As tolerated
Driving Restrictions As prior to admission
Bathing Restrictions None
Blood Work BMP in 48 hours
Instructions:
Stand-Alone Forms: DC Instructions- Cath/EP Lab
Changes to Home Medications: No
Discharge Medications:
DC Medications w/original date entered in [employer]
duloxetine 60 mg capsule,delayed release 60 mg PO DAILY Mental Health/Anxiety 10/04/24
esomeprazole magnesium 40 mg capsule,delayed release (Nexium) 40 mg PO BID GERD 10/04/24
guanfacine 1 mg tablet 2 mg PO BID Blood Pressure 10/04/24
levothyroxine 50 mcg tablet 50 mcg PO MOTUWETHFRSA Thyroid 10/04/24
polyethylene glycol 3350 17 gram oral powder packet (Miralax) 17 g PO HS Gastrointestinal Issue 10/04/24
valsartan 320 mg tablet 320 mg PO QPM Blood Pressure 10/04/24
cholecalciferol (vitamin D3) 50 mcg (2,000 unit) tablet 50 mcg PO DAILY supplement 30 days #30 tabs 10/16/24
melatonin 3 mg tablet 1.5 mg (1/2 x 3 mg) PO HS insomina 30 days #15 tabs 10/16/24
metformin 500 mg tablet 500 mg PO DAILY Diabetes #0 tabs 10/16/24
albuterol sulfate 90 mcg/actuation aerosol inhaler 2 puff inhalation R Q6HPRN PRN sob 30 days #0 containers 10/17/24
sodium chloride 1,000 mg soluble tablet 1,000 mg PO BID hyponatremia 30 days #0 tabs 10/17/24
amlodipine 2.5 mg tablet 2.5 mg PO BID Blood Pressure 10/21/24
fexofenadine-pseudoephedrine ER 180 mg-240 mg tablet,ext.release 24 hr (Patricia-D 24 Hour) 1 tab PO DAILY 10/21/24
lidocaine 4 % topical patch 2 patch topical DAILYPRN PRN mild pain 10/21/24
methylcellulose (laxative) 500 mg tablet (Citrucel) 1,000 mg PO DAILY 10/21/24
ondansetron HCl 4 mg tablet 4 mg PO Q8HPRN PRN nausea 10/21/24
sennosides 8.6 mg tablet (Senna Laxative) 8.6 mg PO QPM 10/21/24
Saccharomyces boulardii 250 mg capsule 250 mg PO BID #0 caps 10/29/24
benzonatate 100 mg capsule 200 mg (2 x 100 mg) PO TID #0 caps 10/29/24
dapagliflozin propanediol 10 mg tablet 10 mg PO DAILY #0 tabs 10/29/24
dexamethasone 4 mg tablet 8 mg (2 x 4 mg) PO DAILY #0 tabs 10/29/24
furosemide 40 mg tablet 40 mg PO DAILY #0 tabs 10/29/24
guaifenesin 600 mg tablet, extended release 12 hr 600 mg PO Q12 #0 tabs 10/29/24
ipratropium 0.5 mg-albuterol 3 mg (2.5 mg base)/3 mL nebulization soln 3 ml inhalation R Q4HPRN PRN sob/wheeze #0 mL 10/29/24
ipratropium bromide 0.02 % solution for inhalation 0.5 mg (2.5 mL) inhalation R TID #0 mL 10/29/24
levalbuterol HCl 1.25 mg/3 mL solution for nebulization 1.25 mg (3 mL) inhalation R TID #0 mL 10/29/24
potassium chloride 20 mEq tablet,extended release(part/cryst) 40 meq (2 x 20 mEq) PO BID #0 tabs 10/29/24
rosuvastatin 5 mg tablet 5 mg PO QPM #0 tabs 10/29/24
Home Medication Changes
Pending Results: No
--- NOTE | 2024-10-29 09:32 | CM ---
Chart reviewed and patient has a bed at [facility] today per admissions at [facility], they need updated PT/OT notes, correctional case manager reached out to PT/OT and they will see patient today, no Auth required.
Plan; Patient to transfer to [facility] today after updated PT/OT.
[facility]
Report [phone]
[2024-10-29 09:44] VITALS: BP 115/56; PULSE 82; O2SAT 97
[2024-10-29 11:34] VITALS: BP 115/70
[2024-10-29 12:37] LABS: Glucose - Point of Care 135 mg/dl (70-99)
[2024-10-29 14:59] VITALS: BP 106/58
== END 2024-10-29 16:48 | DRG 286 ==
LOC: 4 WEST ACU 22:19
PROVIDERS: Hospitalist; Internal Medicine; Internal Medicine Cardiovascular Disease; Nurse Practitioner; Physician Assistant; Registered Nurse; ADMITTING PHYSICIAN Hospitalist; ATTENDING PHYSICIAN Hospitalist; CONSULT PHYSICIAN Internal Medicine Critical Care Medicine; EMERGENCY PHYSICIAN Emergency Medicine; FAMILY PHYSICIAN Family Medicine; OTHER PHYSICIAN Student in an Organized Health Care Education/Training Program
PROC: B2161ZZ Fluoroscopy of Right and Left Heart using Low Osmolar Contrast (ICD-10-PCS; 2024-10-27)
PROC: B2111ZZ Fluoroscopy of Multiple Coronary Arteries using Low Osmolar Contrast (ICD-10-PCS; 2024-10-27)
PROC: 4A023N8 Measurement of Cardiac Sampling and Pressure, Bilateral, Percutaneous Approach (ICD-10-PCS; 2024-10-27)
DX: I11.0 Hypertensive heart disease with heart failure (principal); I50.31 Acute diastolic (congestive) heart failure; J18.9 Pneumonia, unspecified organism; J96.21 Acute and chronic respiratory failure with hypoxia; E87.1 Hypo-osmolality and hyponatremia; Z11.52 Encounter for screening for COVID-19; I5A Non-ischemic myocardial injury (non-traumatic); D63.8 Anemia in other chronic diseases classified elsewhere; E11.9 Type 2 diabetes mellitus without complications; J45.909 Unspecified asthma, uncomplicated; M79.7 Fibromyalgia; K58.9 Irritable bowel syndrome, unspecified; K21.9 Gastro-esophageal reflux disease without esophagitis; E03.9 Hypothyroidism, unspecified; J98.4 Other disorders of lung; E87.6 Hypokalemia; D75.839 Thrombocytosis, unspecified; I25.10 Atherosclerotic heart disease of native coronary artery without angina pectoris; I27.20 Pulmonary hypertension, unspecified; K76.1 Chronic passive congestion of liver
CPT/HCPCS: 36600; 71046; 71275; 74230; 76937; 80048; 80053; 80061; 82248; 82805; 82962; 83605; 83735; 83880; 84145; 84443; 84484; 85025; 85027; 85652; 86140; 87040; 87070; 87205; 87324; 87449; 87502; 87641; 87811; 87899; 92610; 92611; 93005; 93306; 93460; 93970; 94640; 97110; 97116; 97163; 97166; 97530; 97535; 99152; 99153; 99285; C1769; C1894; Q9967

== ENCOUNTER 2024-11-04 15:29 | Inpatient (IN) | payer MEDICARE, SELFPAY ==
[2024-11-04] VITALS (8 sets, daily range): BP systolic 108–150; BP diastolic 70–90; BMI 32.7; BMI 30.4
--- NOTE | 2024-11-04 09:43 | ED.GENMED ---
History of Present Illness
General
Chief Complaint: Breathing Problem
Source: patient
Exam Limitations: none
Time Seen by Provider: 11/04/24 09:29
History of Present Illness
History of Present Illness:
74-year-old female presents from [facility] with increased shortness of breath. Recent discharge here for hypoxic respiratory failure and heart failure with preserved ejection fraction. She had been weaned off oxygen during her stay and has been
without oxygen during her stay at [facility] however this morning she woke up short of breath while getting ready for physical therapy. They put her back on oxygen. She notes a nonproductive cough. She notes fatigue. She notes chills. She also
states that her white blood cell count has been elevating. No vomiting or nausea. She was initially thought during her original hospitalization that she may have had pneumonia but this was not the case.
Phy Exam
Physical Exam
Physical Exam:
General: Well-developed female increased work of breathing
HEENT: Normocephalic atraumatic
Heart: Regular rate and rhythm
Lungs: No obvious wheeze or rales
Abdomen is soft nontender nondistended
Extremities: No cyanosis, mild pitting edema bilateral lower extremities
Skin is warm
Scores
Heart Failure Risk
Heart Failure Risk Score: Not Applicable
Course
Orders/Labs/Results
Orders:
Orders
11/04/24 09:39
CT Chest PE Study Urgent
Comment:
Reason For Exam: sob, cough
11/04/24 09:46
Electrocardiogram (*1) Urgent
Reason for Study: Shortness of Breath
EKG- Treatment ONCE
11/04/24 10:23
COVID-19 Antigen Urgent
Source: Nasal Swab
NT-proBNP Urgent
Troponin I Urgent
Influenza A+B Rapid Molecular Urgent
JENNA Source: Nasal Swab
Specimen Description:
11/04/24 10:27
Diphenhydramine [Benadryl] 50 mg IV NOW STA
Hydrocortisone Sod Succinate [Solu-Cortef] 200 mg IV NOW STA
11/04/24 11:38
Comprehensive Metabolic Panel Urgent
Abnormal Lab Results
11/04/24
10:23
Troponin I 0.470 H* ng/ml
Vital Signs
Initial and Last Documented VS:
Initial Vital Signs
Pulse Ox
94
11/04/24 09:43
Last Documented Vital Signs
Temp Pulse Resp BP Pulse Ox
98.2 F 105 18 133/76 97
11/04/24 12:06 11/04/24 12:06 11/04/24 12:06 11/04/24 12:06 11/04/24 12:06
MDM/Problems Addressed
Differential Diagnosis Includes:
Patient with recurrent shortness of breath and cough. Recent chest x-ray performed yesterday showed by basilar atelectasis and pneumonia cannot be excluded in the left lower lobe. White blood cell count today is 33,000 from prior labs. Will
recheck BNP and troponin. Secondary to ongoing shortness of breath and recent x-ray will order PE study of chest. Patient currently on 2 L nasal oxygen.
*Critical Care Note
Total Time (30-74mins, 75-104mins- exclusive of procedures): Not Applicable
Update Note
Update Note:
Patient continues to require nasal oxygen. CT PE study negative for PE and resolving bilateral and lower lobe pneumonia. However, white blood cell count is elevated. These labs were drawn as an outpatient earlier today. Long discussion with
patient and family. Will readmit to hospital for hypoxia and oxygen demand.
ED Attending Note
-
Portions of this chart may have been created with voice recognition software.� Occasional wrong word or��sound alike� substitutions may have occurred due to the inherent limitations of voice recognition software.
Discharge Plan
Departure
Patient Disposition: Admit
Date of Disposition: 11/04/24
Time of Disposition: 14:21
Presentation/result/management discussed w/ accepting MD/DO: Hospitalist
Discharge Problem:
Acute respiratory failure
Prescriptions:
No Action
polyethylene glycol 3350 [Miralax] 17 gram Powder In Packet
17 g PO HS
levothyroxine 50 mcg Tablet
50 mcg PO MOTUWETHFRSA
esomeprazole magnesium [Nexium] 40 mg Capsule,Delayed Release(Dr/Ec)
40 mg PO BID
valsartan 320 mg Tablet
320 mg PO QPM
guanfacine 1 mg Tablet
2 mg PO BID
duloxetine 60 mg Capsule,Delayed Release(Dr/Ec)
60 mg PO DAILY
ondansetron HCl 4 mg Tablet
4 mg PO Q8HPRN PRN (Reason: nausea)
Citrucel 500 mg Tablet
1,000 mg PO DAILY
fexofenadine-pseudoephedrine [Patricia-D 24 Hour] 180-240 mg Tablet Extended Release 24 Hr
1 tab PO DAILY
sennosides [Senna Laxative] 8.6 mg tablet
8.6 mg PO QPM
lidocaine 4 % adhesive patch,medicated
2 patch topical DAILYPRN PRN (Reason: mild pain)
amlodipine 2.5 mg tablet
2.5 mg PO BID
dexamethasone 4 mg Tablet
8 mg PO DAILY Qty: 0 0RF
Rx Instructions:
Taper by 2 mg every 4 days until done.
ipratropium bromide 0.02 % Solution
0.5 mg inhalation R TID Qty: 0 0RF
rosuvastatin 5 mg Tablet
5 mg PO QPM Qty: 0 0RF
furosemide 40 mg Tablet
40 mg PO DAILY Qty: 0 0RF
ipratropium-albuterol 0.5 mg-3 mg(2.5 mg base)/3 mL Solution For Nebulization
3 ml inhalation R Q4HPRN PRN (Reason: sob/wheeze) Qty: 0 0RF
potassium chloride 20 mEq Tablet,Er Particles/Crystals
40 meq PO BID Qty: 0 0RF
benzonatate 100 mg Capsule
200 mg PO TID Qty: 0 0RF
levalbuterol HCl 1.25 mg/3 mL Solution For Nebulization
1.25 mg inhalation R TID Qty: 0 0RF
Saccharomyces boulardii 250 mg Capsule
250 mg PO BID Qty: 0 0RF
guaifenesin 600 mg Tablet Extended Release 12hr
600 mg PO Q12 Qty: 0 0RF
dapagliflozin propanediol 10 mg Tablet
10 mg PO DAILY Qty: 0 0RF
melatonin 3 mg Tablet
1.5 mg PO HS 30 Days Qty: 15 0RF
cholecalciferol (vitamin D3) 50 mcg (2,000 unit) Tablet
50 mcg PO DAILY 30 Days Qty: 30 0RF
metformin 500 mg Tablet
500 mg PO DAILY Qty: 0 0RF
albuterol sulfate 90 mcg/actuation Hfa Aerosol Inhaler
2 puff inhalation R Q6HPRN PRN (Reason: sob) 30 Days Qty: 0 0RF
sodium chloride 1,000 mg Tablet,Soluble
1,000 mg PO BID 30 Days Qty: 0 0RF
Referrals:
Marky Barger DO [Family Provider] -
Interventions
Interventions:
*Risk Screen - Suicide Last Done: 11/04/24 09:43
*General Assessment Last Done: 11/04/24 09:43
*Neglect/Abuse Screening Last Done: 11/04/24 09:43
ED- Fall Risk Assessment Last Done: 11/04/24 09:43
*ED COVID-19 Vaccine History Last Done: 11/04/24 09:43
ED- Cardiac Assessment Last Done: 11/04/24 09:43
ED- Pulmonary Assessment Last Done: 11/04/24 09:43
Discharge Date and Time
Print Language: NEPALI
[2024-11-04] MEDS: SOLU-CORTEF 200 MG IV (10:36)
[2024-11-04] MEDS: BENADRYL 50 MG IV (10:37)
[2024-11-04 10:57] LABS: COVID-19 Antigen Negative (Negative)
[2024-11-04 11:16] LABS: NT-proBNP 795 pg/ml
--- NOTE | 2024-11-04 15:03 | HPS.HSE ---
Family Physician
-
Family Physician: Marky Barger
Chief Complaint
-
shortness of breath
History of Present Illness
74-year-old female past medical history of hypertension, asthma, diabetes, fibromyalgia, spinal stenosis, hyperlipidemia, IBS, GERD, GI bleeding, anxiety disorder, hyponatremia, osteoporosis, vitamin D deficiency, M�ni�re's disease, chronic lower
back pain, hearing loss, obesity, fibromyalgia, chronic anemia, presenting with increased shortness of breath, dry cough since recent discharge. Denies fevers but has chills. Denies sore throat or runny nose. Denies lower extremity edema. Denies
weight gain. Does have some bilateral chest pain under her ribs associate with cough. Denies nausea vomiting or diarrhea.
Patient was recently admitted from 10/21 to 10/29 for acute hypoxemic respiratory failure thought to be secondary to inflammatory pneumonitis and CHF exacerbation. Patient was treated with antibiotics initially which was stopped. She was diuresed
and treated with steroids with improvement in symptoms. She was weaned off oxygen and discharged to [place] [facility].
This is her third admission for similar symptoms and patient is frustrated about lack of definitive diagnosis or treatment.
She denies smoking or alcohol use.
Medical History
Past Medical History
Past Medical History: Reports Other (hypertension, asthma, diabetes, fibromyalgia, spinal stenosis, hyperlipidemia, IBS, GERD, GI bleeding, anxiety disorder, hyponatremia, osteoporosis, vitamin D deficiency, M�ni�re's disease, chronic lower back
pain, hearing loss, obesity, fibromyalgia, chronic anemia,)
Past Surgical History: Reports Other ( Right/left heart cath (10/27/24) Partial Hysterectomy with preservation of one ovary/ Appendectomy/ Breast cyst surgery/ right ear surgery due to M�ni�re's disease/ Left knee surgery/ L-spine surgery )
Social History
Tobacco: Non-smoker
Alcohol: None
Drug: None
Family History
Family History: Not pertinent
Allergies / Home Medications
Allergies reflects when Allergies were last updated in [employer].
Home Medications with original date entered in [employer]
Allergy/Medication List:
Allergies
Allergy/AdvReac Type Severity Reaction Status Date / Time
betamethasone Allergy Unknown Verified 11/04/24 10:34
clindamycin Allergy Unknown Verified 11/04/24 10:34
codeine Allergy Unknown Verified 11/04/24 10:34
diazepam Allergy Unknown Verified 11/04/24 10:34
diphenhydramine Allergy Unknown Verified 11/04/24 10:34
erythromycin base Allergy Unknown Verified 11/04/24 10:34
Iodinated Contrast Media Allergy Unknown Verified 11/04/24 10:34
Latex, Natural Rubber Allergy Unknown Verified 11/04/24 10:34
methylprednisolone Allergy Unknown Verified 11/04/24 10:34
morphine Allergy Nausea / Verified 11/04/24 10:34
Vomiting/hallucinations
nickel Allergy Unknown Verified 11/04/24 10:34
Penicillins Allergy Unknown Verified 11/04/24 10:34
prednisolone Allergy Unknown Verified 11/04/24 10:34
prednisone Allergy Unknown Verified 11/04/24 10:34
sulfamethoxazole Allergy Unknown Verified 11/04/24 10:34
[From
Sulfamethoxazole-Trimethoprim]
tetramethylthiuram Allergy Unknown Verified 11/04/24 10:34
monosulfide
triamcinolone Allergy Unknown Verified 11/04/24 10:34
trimethoprim Allergy Unknown Verified 11/04/24 10:34
[From
Sulfamethoxazole-Trimethoprim]
Home Medications
duloxetine 60 mg capsule,delayed release 60 mg PO DAILY Mental Health/Anxiety 10/04/24
esomeprazole magnesium 40 mg capsule,delayed release (Nexium) 40 mg PO BID GERD 10/04/24
guanfacine 1 mg tablet 2 mg PO BID Blood Pressure 10/04/24
levothyroxine 50 mcg tablet 50 mcg PO MOTUWETHFRSA Thyroid 10/04/24
polyethylene glycol 3350 17 gram oral powder packet (Miralax) 17 g PO HS Gastrointestinal Issue 10/04/24
valsartan 320 mg tablet 320 mg PO QPM Blood Pressure 10/04/24
cholecalciferol (vitamin D3) 50 mcg (2,000 unit) tablet 50 mcg PO DAILY supplement 30 days #30 tabs 10/16/24
melatonin 3 mg tablet 1.5 mg (1/2 x 3 mg) PO HS insomina 30 days #15 tabs 10/16/24
metformin 500 mg tablet 500 mg PO DAILY Diabetes #0 tabs 10/16/24
albuterol sulfate 90 mcg/actuation aerosol inhaler 2 puff inhalation R Q6HPRN PRN sob 30 days #0 containers 10/17/24
sodium chloride 1,000 mg soluble tablet 1,000 mg PO BID hyponatremia 30 days #0 tabs 10/17/24
amlodipine 2.5 mg tablet 2.5 mg PO BID Blood Pressure 10/21/24
fexofenadine-pseudoephedrine ER 180 mg-240 mg tablet,ext.release 24 hr (Patricia-D 24 Hour) 1 tab PO DAILY 10/21/24
lidocaine 4 % topical patch 2 patch topical DAILYPRN PRN mild pain 10/21/24
methylcellulose (laxative) 500 mg tablet (Citrucel) 1,000 mg PO DAILY 10/21/24
ondansetron HCl 4 mg tablet 4 mg PO Q8HPRN PRN nausea 10/21/24
sennosides 8.6 mg tablet (Senna Laxative) 8.6 mg PO QPM 10/21/24
Saccharomyces boulardii 250 mg capsule 250 mg PO BID #0 caps 10/29/24
benzonatate 100 mg capsule 200 mg (2 x 100 mg) PO TID #0 caps 10/29/24
dapagliflozin propanediol 10 mg tablet 10 mg PO DAILY #0 tabs 10/29/24
dexamethasone 4 mg tablet 8 mg (2 x 4 mg) PO DAILY #0 tabs 10/29/24
furosemide 40 mg tablet 40 mg PO DAILY #0 tabs 10/29/24
guaifenesin 600 mg tablet, extended release 12 hr 600 mg PO Q12 #0 tabs 10/29/24
ipratropium 0.5 mg-albuterol 3 mg (2.5 mg base)/3 mL nebulization soln 3 ml inhalation R Q4HPRN PRN sob/wheeze #0 mL 10/29/24
ipratropium bromide 0.02 % solution for inhalation 0.5 mg (2.5 mL) inhalation R TID #0 mL 10/29/24
levalbuterol HCl 1.25 mg/3 mL solution for nebulization 1.25 mg (3 mL) inhalation R TID #0 mL 10/29/24
potassium chloride 20 mEq tablet,extended release(part/cryst) 40 meq (2 x 20 mEq) PO BID #0 tabs 10/29/24
rosuvastatin 5 mg tablet 5 mg PO QPM #0 tabs 10/29/24
Review of Systems
-
History Source: Patient
A 12 point ROS was completed and negative except as noted: Yes
Constitutional: Reports No Symptoms
EENT: Reports No Symptoms
Respiratory: Reports See HPI
Cardiac: Reports See HPI
Abdomen/GI: Reports No Symptoms
: Reports No Symptoms
Musculoskeletal: Reports No Symptoms
Skin: Reports No Symptoms
Neurological: Reports No Symptoms
Endocrine: Reports No Symptoms
Hematologic/Lymphatic: Reports No Symptoms
Psych: Reports No Symptoms
Physical Exam
Vital Signs
Vital Signs
Temp Pulse Resp BP Pulse Ox
98.2 F 105 18 133/76 97
11/04/24 12:06 11/04/24 12:06 11/04/24 12:06 11/04/24 12:06 11/04/24 12:06
Physical Exam
General: Well Developed, Well Nourished and No Apparent Distress
HEENT: NormoCephalic, Moist mucous membranes and Atraumatic
Respiratory: Rales
Cardiac: S1/S2 and Regular Rhythm; No Murmur or Rub
GI: Soft, Non Tender, Non Distended and Normal Bowel Sounds; No Organomegaly
Rectal: Deferred by Provider
Musculoskeletal: No Clubbing, No Cyanosis and No Edema
Skin: No Rash
Neuro: Nonfocal/grossly intact
Laboratory Results
-
Laboratory Results
Troponin I 0.470 ng/ml H* 11/04/24 10:23
Data Reviewed
-
Lab Data: Labs Reviewed by me
Old Records: Reviewed
Impression/Plan
-
IMPRESSION:
PLAN:
# Hypoxemia unclear etiology
# Recent hypoxemia secondary to pneumonitis status post steroids/CHF exacerbation
-Leukocytosis of 33 secondary to recent steroids, but higher than it was previously while on steroids possibly due to occult process
-Required up to 4 L today
-CT PE shows no evidence of pulmonary embolism, improving bilateral lower lobe pneumonia and right atelectasis, right greater than left
-Cardiac BNP of 800, 3000 previously
-Not in CHF exacerbation
-Pulmonary consulted
# Anion gap metabolic acidosis secondary to ongoing hypoxemia
-Bicarb push
Nonischemic myocardial injury secondary to hypoxemia
-EKG shows sinus tachycardia, no ischemic change
-Troponin 0.47, continue to trend but has been elevated previously
Chronic HFpEF
-Appears euvolemic
Essential hypertension
-Continue amlodipine, guanfacine, valsartan
Asthma
-Continue nebulizers
Type 2 diabetes
-Continue dapagliflozin
-Hold metformin
-Sliding scale
Hypothyroidism
-Continue levothyroxine
Fibromyalgia
-Continue duloxetine
Spinal stenosis/chronic back pain
Hyperlipidemia
-Continue statin
IBS
GERD
-Continue esomeprazole
History of GI bleeding
Anxiety disorder
Chronic hyponatremia secondary to SIADH
-Continue sodium tablet
Osteoporosis
Vitamin D deficiency
M�ni�re's disease status post ear surgery
Constipation
Insomnia
Full code
DVT prophylaxis�heparin
Diabetic diet/cardiac diet
[2024-11-04 15:06] LABS: ALT (SGPT) 74 U/L (0-35); AST (SGOT) 50 U/L (14-36); Albumin 4.4 g/dl (3.5-5.0); Alkaline Phosphatase 42 U/L (38-126); Blood Urea Nitrogen 18 mg/dl (7-17); Calcium 9.5 mg/dl (8.4-10.2); Carbon Dioxide 22 mmol/L (22-30); Chloride 95 mmol/L (98-107); Estimated Creatinine Clearance 69 ml/min; Glucose 171 mg/dl (70-99); Potassium 5.1 mmol/L (3.5-5.1); Sodium 129 mmol/L (135-145); Total Bilirubin 0.4 mg/dl (0.2-1.3); Total Protein 6.7 g/dl (6.3-8.2); eGFR > 60.00
[2024-11-04 18:32] LABS: Troponin I 0.333 ng/ml
[2024-11-04] MEDS: FLORASTOR 250 MG PO (21:03)
[2024-11-04] MEDS: SODIUM CHLORIDE 1 GRAM PO (21:03)
[2024-11-04] MEDS: HEPARIN 5000 UNITS SC (21:03)
[2024-11-04] MEDS: MIRALAX PO ×2 (21:05→21:12)
[2024-11-04] MEDS: XOPENEX 1.25 MG INHALANT SOLUTION INH (21:11)
[2024-11-04 21:42] LABS: Glucose - Point of Care 120 mg/dl (70-99)
[2024-11-04] MEDS: NON-FORMULARY ITEM PO (21:51)
[2024-11-04] MEDS: MELATONIN 3 MG PO (21:51)
--- NOTE | 2024-11-05 00:22 | PTCARENOTE ---
Pt's troponin elevated to 0.470 from previous 0.333. [facility] [employer] made aware.
[2024-11-05 03:56] VITALS: BP 119/63
[2024-11-05] MEDS: NON-FORMULARY ITEM 40 MG PO ×2 (05:37→16:25)
[2024-11-05] MEDS: SYNTHROID 50 MCG PO (05:37)
[2024-11-05 05:38] VITALS: BMI 30.4
[2024-11-05 07:16] LABS: Glucose - Point of Care 71 mg/dl (70-99)
[2024-11-05 07:33] VITALS: BP 113/86
[2024-11-05 07:44] LABS: Hematocrit 39.5 % (37.0-47.0); Hemoglobin 12.3 g/dL (12.0-16.0); Mean Corp Hgb Conc. 31.1 g/dL (33.0-37.0); Mean Corpuscular Hgb 26.6 pg (27.0-31.0); Mean Corpuscular Volume 85.5 fL (81.0-99.0); Mean Platelet Volume 8.3 fL (7.4-10.4); Platelet Count 782 10^3/uL (130-400); Red Blood Cell Count 4.62 10^6/uL (4.20-5.40); Red Cell Dist. Width 15.1 % (11.5-14.5); White Blood Cell Count 30.8 10^3/uL (4.8-10.8)
[2024-11-05 07:46] LABS: Troponin I 0.607 ng/ml
[2024-11-05] MEDS: ATROVENT NEBULES 0.5 MG INH ×3 (07:59→19:33)
[2024-11-05] MEDS: XOPENEX 1.25 MG INHALANT SOLUTION INH ×3 (07:59→19:33)
[2024-11-05 08:00] LABS: ALT (SGPT) 71 U/L (0-35); AST (SGOT) 49 U/L (14-36); Albumin 4.3 g/dl (3.5-5.0); Alkaline Phosphatase 40 U/L (38-126); Blood Urea Nitrogen 28 mg/dl (7-17); Calcium 10.2 mg/dl (8.4-10.2); Carbon Dioxide 24 mmol/L (22-30); Chloride 96 mmol/L (98-107); Estimated Creatinine Clearance 66 ml/min; Glucose 119 mg/dl (70-99); Sodium 130 mmol/L (135-145); Total Bilirubin 0.3 mg/dl (0.2-1.3); Total Protein 6.9 g/dl (6.3-8.2); eGFR > 60.00
[2024-11-05 08:05] LABS: Potassium 4.5 mmol/L (3.5-5.1)
[2024-11-05 08:11] LABS: % Basophils 0.2 % (0-2); % Eosinophils 1.1 % (0-6); % Immature Granulocytes 7.4 % (0-0.5); % Lymphocytes 17.2 % (20.5-51.1); % Monocytes 8.1 % (1.7-9.3); Absolute Basophils 0.1 10^3/uL (0-0.2); Absolute Eosinophils 0.3 10^3/uL (0-0.7); Absolute Immature Granulocytes 2.3 10^3/uL (0-0.05); Absolute Lymphocytes 5.3 10^3/uL (1.2-3.4); Absolute Monocytes 2.5 10^3/uL (0.1-0.6); Absolute Neutrophils 20.3 10^3/uL (1.4-6.5); Nucleated Red Blood Cells % 0 %
[2024-11-05] MEDS: NOVOLOG FLEXPEN-LOW RESISTANCE SC ×2 (08:32→16:21)
[2024-11-05] MEDS: HEPARIN 5000 UNITS SC (08:50)
[2024-11-05] MEDS: DECADRON 4 MG PO (08:51)
[2024-11-05] MEDS: FIBERCON 1250 MG PO (08:52)
[2024-11-05] MEDS: FARXIGA 10 MG PO (08:52)
[2024-11-05] MEDS: KCL 40 MEQ PO (08:52)
[2024-11-05] MEDS: LASIX 40 MG PO (08:53)
[2024-11-05] MEDS: SODIUM CHLORIDE 1 GRAM PO ×2 (08:53→19:23)
[2024-11-05] MEDS: VITAMIN D3 (cholecalciferol) 50 MCG PO (08:53)
[2024-11-05] MEDS: CYMBALTA DELAYED RELEASE 60 MG PO (08:54)
[2024-11-05] MEDS: FLORASTOR 250 MG PO ×2 (08:54→19:23)
[2024-11-05] MEDS: NON-FORMULARY ITEM 1 TABLET PO (08:55)
--- NOTE | 2024-11-05 09:16 | W.PN.HOSP.TC ---
Today's Communication/Plan
-
Steroids-increase doses.
Assessment / Plan
Assessment / Plan
Physical Exam
General: Well Developed, Well Nourished and No Apparent Distress
HEENT: NormoCephalic, Moist mucous membranes and Atraumatic
Respiratory: Rales
Cardiac: S1/S2 and Regular Rhythm; No Murmur or Rub
GI: Soft, Non Tender, Non Distended and Normal Bowel Sounds; No Organomegaly
Rectal: Deferred by Provider
Musculoskeletal: No Clubbing, No Cyanosis and No Edema
Skin: No Rash
Neuro: Nonfocal/grossly intact
A/P:
Acute hypoxic respiratory insufficiency:
Multifactorial etiology but mainly interstitial pneumonitis remains main culprit with worsening symptoms associated with rapid taper of steroids and deconditioning, decreased muscle mass, post-nasal drip and GERD.
Had some possible reaction to steroids (she is know to be sensitive to multiple meds)
Discussed with pulm at length today 11/05
Plan to increase steroids orally and prolong course along with multiple other measures.
CTA chest no PE and pulm parenchymal changes persisting while improving
Repeat inflammatory markers in am along with cpk
No need for antibiotics
Pulm does not believe bronchoscopy necessary at this juncture
Discussed with family at length at bedside today on 11/05
Leukocytosis:
Likely reactive and explained to family but they insist would like to see injection machine operator-consult placed and they will see in am.
Elevated trop:
Recent cardiac cath reviewed
Cardiology consult appreciated-discussed with cardio today on 11/05
Plan for cardiac MRI in am
Consider asa (non obstructive cad) but but Hx GI bleed+GERD
Cardiac monitoring
Chronic HFpEF:
Euvolemic
Diuresed last hospitalization
On Lasix 40 mg po daily
On K replacement
On SGLT-inh
Elevated BNP but decreased from prior
Chronic hyponatremia:
SIADH related recently
On salt tablets
Not on fluid restriction--> will consider depending on course
Continue to monitor
Asthma:
Continue bronchodilators
Chronic anemia:
No signs of active bleeding
Continue to monitor
Elevated LFT:
Trend LFT
If worsens needs to hold Tylenol and statins
Chronic back pain:
Recent spinal and neuroforaminal stenosis at L4-L5 and acute rehabilitation stay recently.
Prior history of L4-L5 laminectomy in the past.
On Tylenol prn
Consider Lidoderm patch + Toradol if needed
Hypertension:
On amlodipine 2.5 mg twice a day, home med with guanfacine 2 mg p.o. twice a day on hold, and valsartan 320 mg nightly consider hold if cough persists).
Monitor blood pressure adjust medications accordingly
Diabetes mellitus type 2:
Continue insulin sliding scale
Continue dapagliflozin
Hold metformin
Monitor blood sugar and adjust medications accordingly
Fibromyalgia:
Continue Cymbalta 60 mg p.o. daily
GERD:
Continue PPI p.o. twice a day
Hypothyroidism:
Continue levothyroxine 50 mcg p.o., Mondays to Sunday
Constipation:
Continue current bowel regimen
Insomnia:
Continue melatonin
DVT prophylaxis:
Heparin SQ change to Lovenox SQ
CODE STATUS:
Full code
Total time spent on today's encounter was 52 minutes which included time spent in counseling the patient/family regarding diagnosis and treatment plan as listed above, goals of care, and symptom management. Case was discussed with nursing staff,
specialists, and care coordinators/case management. All labs and imaging personally reviewed by me. Remainder the time spent in detailed review of previous records, lab data, imaging, and other medical provider documentation.
Anticipated Discharge: > 48 hours
Subjective/Interval History
-
Date of Service: November 05, 2024
Patient main concern is cough, sob, and tired. Has GERD and post nasal drip. She was on 2 Lt oxygen but she was able to come off oxygen on room air. Afebrile.
Objective Data
-
Labs:
Laboratory Results
11/05/24
07:10
WBC 30.8 H
Hgb 12.3
Hct 39.5
Plt Count 782 H
Sodium 130 L
Potassium 4.5
Chloride 96 L
Carbon Dioxide 24
BUN 28 H
Creatinine 0.5 L
Glucose 119 H
Calcium 10.2
Total Bilirubin 0.3
AST 49 H
ALT 71 H
Alkaline Phosphatase 40
Vital Signs:
Vital Signs
Temp Pulse Resp BP Pulse Ox
98.4 F 98 16 113/86 91
11/05/24 07:33 11/05/24 07:59 11/05/24 07:59 11/05/24 07:33 11/05/24 07:33
--- NOTE | 2024-11-05 10:39 | CON.CAR ---
Consultation
Consultation Request
Date/Time Consultation Requested: 11/05/2024 at 9: 48
Date/Time Consultation Performed: 11/05/24 at 10: 17
Requesting Provider: Pedro Romero MD
Performing Provider: Fernando Cantor MD
Reason for Consultation: SOB, troponin elevation
Medical History
-
Chief Complaint: SOB
History of Present Illness:
74 y/o female with hypertension, dyslipidemia, fibromyalgia, and diabetes who presents from [facility] for shortness of breath following recent hospitalization.
She was recently hospitalized at from 10/21 to 10/29 for shortness of breath. During that admission she was seen by cardiology and pulmonary and was treated for community-acquired pneumonia, acute on chronic HFpEF, and inflammatory pneumonitis.
She underwent RHC/LHC on 10/27/2024 which showed normal filling pressures, mildly elevated pulmonary artery pressures, and normal cardiac index (full report below). LHC revealed a 50% mid LAD lesion with no occlusive coronary artery disease. CT
chest on admission (10/21/2024) showed bibasilar opacification suspicious for pneumonia. Ultimately, it was felt to be more likely inflammatory pneumonitis given negative Pro-Hong and negative cultures. She was discharged on steroids for
inflammatory pneumonitis and p.o. Lasix 40 mg daily.
She was doing well at [facility] for a few days, but then continued to develop shortness of breath. She is short of breath at rest, especially with long sentences and it worsens with exertion. She also has a nonproductive cough. No lower
extremity edema. Chest CT in the ER on 11/04 showed no evidence of PE and improving bilateral lower lobe pneumonia and/or atelectasis. Her troponin continues to be elevated. During her last admission it hovered around 0.2-0.3 and down trended to
0.17 on 10/26 at which point we stopped trending it. This admission troponin is 0.47 -> 0.33 -> 0.47 -> 0.61 in the setting of normal renal function. ECG reveals normal sinus rhythm with no ischemic changes. Her weight is 65.9 kg which is down
from her discharge weight of 67.3 kg. She and her daughter are understandably frustrated by her lack of improvement and lack of a diagnosis.
Past Medical History
Past Medical History: CHF (HFpEF), HTN, Hypercholesterolemia and NIDDM
Social History
Tobacco: Non-Smoker
Alcohol: Occasional
Personal:
Family History
Family History: Reviewed & Not Pertinent
Allergies / Home Medications
Allergy/AdvReac Type Severity Reaction Status Date / Time
betamethasone Allergy Unknown Verified 11/04/24 10:34
clindamycin Allergy Unknown Verified 11/04/24 10:34
codeine Allergy Unknown Verified 11/04/24 10:34
diazepam Allergy Unknown Verified 11/04/24 10:34
diphenhydramine Allergy Unknown Verified 11/04/24 10:34
erythromycin base Allergy Unknown Verified 11/04/24 10:34
Iodinated Contrast Media Allergy Unknown Verified 11/04/24 10:34
Latex, Natural Rubber Allergy Unknown Verified 11/04/24 10:34
methylprednisolone Allergy Unknown Verified 11/04/24 10:34
morphine Allergy Nausea / Verified 11/04/24 10:34
Vomiting/hallucinations
nickel Allergy Unknown Verified 11/04/24 10:34
Penicillins Allergy Unknown Verified 11/04/24 10:34
prednisolone Allergy Unknown Verified 11/04/24 10:34
prednisone Allergy Unknown Verified 11/04/24 10:34
sulfamethoxazole Allergy Unknown Verified 11/04/24 10:34
[From
Sulfamethoxazole-Trimethoprim]
tetramethylthiuram Allergy Unknown Verified 11/04/24 10:34
monosulfide
triamcinolone Allergy Unknown Verified 11/04/24 10:34
trimethoprim Allergy Unknown Verified 11/04/24 10:34
[From
Sulfamethoxazole-Trimethoprim]
�Medication �Instructions �Recorded �Confirmed �Type
duloxetine 60 mg capsule,delayed 60 mg PO DAILY Mental 10/04/24 11/04/24 History
release Health/Anxiety
esomeprazole magnesium 40 mg 40 mg PO BID GERD 10/04/24 11/04/24 History
capsule,delayed release (Nexium)
guanfacine 1 mg tablet 2 mg PO BID Blood Pressure 10/04/24 11/04/24 History
levothyroxine 50 mcg tablet 50 mcg PO MOTUWETHFRSA Thyroid 10/04/24 11/04/24 History
polyethylene glycol 3350 17 gram 17 g PO HS Gastrointestinal Issue 10/04/24 11/04/24 History
oral powder packet (Miralax)
valsartan 320 mg tablet 320 mg PO QPM Blood Pressure 10/04/24 11/04/24 History
cholecalciferol (vitamin D3) 50 50 mcg PO DAILY supplement 30 days 10/16/24 11/04/24 Rx
mcg (2,000 unit) tablet #30 tabs
melatonin 3 mg tablet 1.5 mg (1/2 x 3 mg) PO HS insomina 10/16/24 11/04/24 Rx
30 days #15 tabs
metformin 500 mg tablet 500 mg PO DAILY Diabetes #0 tabs 10/16/24 11/04/24 Rx
sodium chloride 1,000 mg soluble 1,000 mg PO BID hyponatremia 30 10/17/24 11/04/24 Rx
tablet days #0 tabs
amlodipine 2.5 mg tablet 2.5 mg PO QPM Blood Pressure 10/21/24 11/04/24 History
fexofenadine-pseudoephedrine ER 1 tab PO DAILY Allergies 10/21/24 11/04/24 History
180 mg-240 mg tablet,ext.release
24 hr (Patricia-D 24 Hour)
lidocaine 4 % topical patch 2 patch topical DAILYPRN PRN mild 10/21/24 11/04/24 History
pain
ondansetron HCl 4 mg tablet 4 mg PO Q8HPRN PRN nausea 10/21/24 11/04/24 History
sennosides 8.6 mg tablet (Senna 8.6 mg PO QPM Constipation 10/21/24 11/04/24 History
Laxative)
Saccharomyces boulardii 250 mg 250 mg PO BID Gastrointestinal 11/04/24 11/04/24 History
capsule Issue
acetaminophen 325 mg tablet 650 mg PO Q4HPRN PRN mild pain 11/04/24 11/04/24 History
(Tylenol)
calcium carbonate (Tums) 200 mg PO Q6HPRN PRN gerd 11/04/24 11/04/24 History
calcium polycarbophil 625 mg 1,250 mg PO DAILY Gastrointestinal 11/04/24 11/04/24 History
tablet (FiberCon) Issue
dapagliflozin propanediol 10 mg 10 mg PO DAILY Diabetes 11/04/24 11/04/24 History
tablet
dexamethasone 4 mg tablet 4 mg PO DAILY Lung/Breathing Issues 11/04/24 11/04/24 History
enoxaparin 40 mg/0.4 mL 40 mg SC QPM Blood Clot 11/04/24 11/04/24 History
subcutaneous syringe (Lovenox) Prevention/Tx
furosemide 40 mg tablet 40 mg PO DAILY Fluid 11/04/24 11/04/24 History
Retention/Swelling
guaifenesin 100 mg/5 mL oral liquid 100 mg PO Q6HPRN PRN cough 11/04/24 11/04/24 History
hydroxyzine HCl 25 mg tablet 12.5 mg PO QIDPRN PRN itching 11/04/24 11/04/24 History
ipratropium bromide 0.02 % 0.5 mg inhalation R QIDPRN PRN sob 11/04/24 11/04/24 History
solution for inhalation
levalbuterol HCl 1.25 mg/3 mL 1.25 mg inhalation R TID 11/04/24 11/04/24 History
solution for nebulization Lung/Breathing Issues
potassium chloride 20 mEq 40 meq PO DAILY Electrolyte 11/04/24 11/04/24 History
tablet,extended release(part/cryst) Repletion
rosuvastatin 5 mg tablet 5 mg PO QPM High Cholesterol 11/04/24 11/04/24 History
Review of Systems
-
All other systems: Negative unless noted
Physical Exam
Vital Signs
Temp Pulse Resp BP Pulse Ox
98.4 F 98 16 113/86 91
11/05/24 07:33 11/05/24 07:59 11/05/24 07:59 11/05/24 07:33 11/05/24 07:33
Lab Results
11/05/24 07:10
11/05/24 07:10
Troponin I 0.607 ng/ml H* D 11/05/24 07:10
Uiz-A-Jfjfkqmtsvp Pept 795 pg/ml 11/04/24 10:23
Physical Exam
General: Well Developed and Well Nourished
Respiratory: Crackles and Non Labored Respirations
Cardiac: S1/S2 and Regular Rhythm; Negative Murmur, Rub or Peripheral Edema
Neuro: AO x 3
Impression / Plan
-
74 y/o female with hypertension, dyslipidemia, fibromyalgia, and diabetes who presents from [facility] for shortness of breath following recent hospitalization for HFpEF and inflammatory pneumonitis, found to have persistently elevated troponins.
Shortness of breath
-She has had extensive cardiac workup including RHC/LHC on 10/27/24 (RA 9 PA 41/28 PCWP 15 CI 2.4 at 67.9 kg; 50% mid LAD, no occlusive CAD) and echocardiogram (10/22/2024) with normal biventricular function and mild/mod TR, PASP 57 mmHg
-Workup thus far is notable for mild pulmonary hypertension (mPAP 32) likely due to HFpEF versus undiagnosed lung disease. I am not convinced that this is fully responsible for her dyspnea given it is fairly mild.
-She also has persistently elevated troponins with no obstructive epicardial coronary disease. Differential diagnosis includes myocarditis versus microvascular coronary dysfunction. I am not sure that either diagnosis would explain her dyspnea at
rest without chest pain, but we will plan for a cardiac MRI to rule out myocarditis.
-Pulmonary is also following, and I will speak to them about this confusing case
Troponin elevation due to nonischemic myocardial injury
-It is not clear why her troponins are persistently elevated. LHC on 10/27/2024 showed no obstructive coronary artery disease.
-Differential diagnosis includes myocarditis versus microvascular coronary dysfunction
-We will plan to get a cardiac MRI for further evaluation
Mild pulmonary hypertension
-Mean pulmonary artery pressure of 32 mmHg by RHC on 10/27/2024
-She may need further testing to figure out what is causing this PH if we do not find another cause of her shortness of breath
Leukocytosis
-Possibly due to steroid use. She and her family are worried about a hematologic malignancy.
-Check differential and smear.
Chronic HFpEF: Euvolemic, continue Lasix p.o. 40 mg daily and dapagliflozin 10 mg daily
Hypertension: BPs acceptable, continue amlodipine and valsartan
Nonobstructive coronary artery disease: rosuvastatin 5 mg daily
Data Reviewed
-
EKG: Tracing Personally Visualized and interpreted, Discussed with Patient and Discussed with Family
Radiology: Image Personally Visualized and interpreted, Report Reviewed by me, Discussed with Patient and Discussed with Family
CT Scan: Report Reviewed by me
Medical Tests (Nuc Med, Echo etc): Image Personally Visualized and interpreted, Discussed with Patient and Discussed with Family
Labs: Labs Reviewed by me, Discussed with Physician, Discussed with Patient and Discussed with Family
[2024-11-05 10:57] VITALS: BP 135/85
--- NOTE | 2024-11-05 11:18 | CM ---
Pt seen bedside w/ daughter. Initial assessment completed. Admitted for shortness of breath.
Pt had a recent admission (10/21-10/29). Pt d/c to [place] [facility], admitted from [place] yesterday.
Pt lives w/ spouse in a condo- no steps. Pt is independent w/ ambulating, no DME identified for daily functioning. Pt does not use O2 at home but is requiring 2L O2 at this time.
Address, points of contacts and insurance verified
PCP: Dr. Barger
Pharmacy: [facility]
Plan: CM will cont to follow hospital course
[2024-11-05 12:29] LABS: Glucose - Point of Care 152 mg/dl (70-99)
[2024-11-05] MEDS: NOVOLOG FLEXPEN-LOW RESISTANCE 1 UNITS SC (12:40)
--- NOTE | 2024-11-05 14:58 | CON.PUL ---
Consultation
Consultation Request
Date/Time Consultation Requested: 11/05/2024
Date/Time Consultation Performed: 11/05/2024
Requesting Provider: Dr. Romero
Performing Provider: Dr. Jm Meyers
Reason for Consultation: Hypoxemic respiratory failure-abnormal x-ray
Medical History
-
Chief Complaint: SOB/cough
History of Present Illness:
74-year-old female with a past medical history of hypertension, asthma, DM type II, fibromyalgia and spinal stenosis who presents with shortness of breath and worsening hypoxemia from [facility].
Patient was discharged to rehabilitation on 10/30/2024. And previous to that was discharged from 10/17/2024.
At some point treated with heart failure with increased proBNP of 3870.
Prior microbiology, cultures and viral testing negative.
CT chest 10/21/2024: Showed lower lobe predominant consolidative changes with no pulmonary embolism.
She was last seen by our team on 10/28/2024: At that time,CT showing diffuse intra-lobular septal thickening with perivascular ground glass opacities, suspicious for acute pulmonary edema
s/p LHC/RHC with normal wedge, not supportive of HF diagnosis. Patient completed a course of broad-spectrum antibiotics Zosyn and short course of vancomycin
Again, microbiology was all negative.
Started on high doses of steroids on 10/24/2024 and then transition to Decadron. Apparently has reaction to prednisone.
Prior rheumatological testing with rheumatoid factor, CCP and JASPAL were all negative. Also prior ESR and CRP were also negative.
CRP checked 10/23/2024 is elevated at 56.2, and ESR also checked 10/23/2024 is 39 (of note, she she did get hydrocortisone 200 mg IV while in the ER on 10/21/2024)
Echo done on 10/22/2024 shows hyperdynamic LVEF at 70-75% with normal regional motion, mild-moderate TR and moderately elevated PASP at 57mmHg
-
Since there was response to steroids with improvement [facility]. Concerns for possible rheumatoid arthritis.
-She was weaned down to 4 mg of Decadron recently.
Unfortunately patient continues to have some mild rash with dexamethasone. Her prednisone was decreased rapidly to 2 mg daily.
She denies any swallowing close
-
Continues to report coughing paroxysms.
No significant phlegm production
Reports ongoing postnasal drip
Reports intermittent acid reflux despite PPI.
PMHx: Hypertension, DM type II, asthma, fibromyalgia, IBS, history of M�ni�re's disease, spinal stenosis s/p L4-5 laminectomy
PSHx: Noncontributory
Past Medical History
Past Medical History: Other (Above as per HPI)
Past Surgical History: Other (Above as per HPI)
Social History
Tobacco: Non-smoker
Alcohol: None
Drug: None
Family History
Family History: Reviewed & Not Pertinent
Allergies / Home Medications
Allergies
Allergy/AdvReac Type Severity Reaction Status Date / Time
betamethasone Allergy Unknown Verified 11/04/24 10:34
clindamycin Allergy Unknown Verified 11/04/24 10:34
codeine Allergy Unknown Verified 11/04/24 10:34
diazepam Allergy Unknown Verified 11/04/24 10:34
diphenhydramine Allergy Unknown Verified 11/04/24 10:34
erythromycin base Allergy Unknown Verified 11/04/24 10:34
Iodinated Contrast Media Allergy Unknown Verified 11/04/24 10:34
Latex, Natural Rubber Allergy Unknown Verified 11/04/24 10:34
methylprednisolone Allergy Unknown Verified 11/04/24 10:34
morphine Allergy Nausea / Verified 11/04/24 10:34
Vomiting/hallucinations
nickel Allergy Unknown Verified 11/04/24 10:34
Penicillins Allergy Unknown Verified 11/04/24 10:34
prednisolone Allergy Unknown Verified 11/04/24 10:34
prednisone Allergy Unknown Verified 11/04/24 10:34
sulfamethoxazole Allergy Unknown Verified 11/04/24 10:34
[From
Sulfamethoxazole-Trimethoprim]
tetramethylthiuram Allergy Unknown Verified 11/04/24 10:34
monosulfide
triamcinolone Allergy Unknown Verified 11/04/24 10:34
trimethoprim Allergy Unknown Verified 11/04/24 10:34
[From
Sulfamethoxazole-Trimethoprim]
Home Medications
�Medication �Instructions �Recorded �Confirmed �Last Taken �Type
duloxetine 60 mg capsule,delayed 60 mg PO DAILY Mental 10/04/24 11/04/24 11/04/24 History
release Health/Anxiety
esomeprazole magnesium 40 mg 40 mg PO BID GERD 10/04/24 11/04/24 11/04/24 History
capsule,delayed release (Nexium)
guanfacine 1 mg tablet 2 mg PO BID Blood Pressure 10/04/24 11/04/24 10/03/24 History
levothyroxine 50 mcg tablet 50 mcg PO MOTUWETHFRSA Thyroid 10/04/24 11/04/24 11/04/24 History
polyethylene glycol 3350 17 gram 17 g PO HS Gastrointestinal Issue 10/04/24 11/04/24 11/03/24 History
oral powder packet (Miralax)
valsartan 320 mg tablet 320 mg PO QPM Blood Pressure 10/04/24 11/04/24 11/03/24 History
cholecalciferol (vitamin D3) 50 50 mcg PO DAILY supplement 30 days 10/16/24 11/04/24 11/04/24 Rx
mcg (2,000 unit) tablet #30 tabs
melatonin 3 mg tablet 1.5 mg (1/2 x 3 mg) PO HS insomina 10/16/24 11/04/24 11/03/24 Rx
30 days #15 tabs
metformin 500 mg tablet 500 mg PO DAILY Diabetes #0 tabs 10/16/24 11/04/24 11/04/24 Rx
sodium chloride 1,000 mg soluble 1,000 mg PO BID hyponatremia 30 10/17/24 11/04/24 11/04/24 Rx
tablet days #0 tabs
amlodipine 2.5 mg tablet 2.5 mg PO QPM Blood Pressure 10/21/24 11/04/24 11/03/24 History
fexofenadine-pseudoephedrine ER 1 tab PO DAILY Allergies 10/21/24 11/04/24 11/04/24 History
180 mg-240 mg tablet,ext.release
24 hr (Patricia-D 24 Hour)
lidocaine 4 % topical patch 2 patch topical DAILYPRN PRN mild 10/21/24 11/04/24 Unknown History
pain
ondansetron HCl 4 mg tablet 4 mg PO Q8HPRN PRN nausea 10/21/24 11/04/24 Unknown History
sennosides 8.6 mg tablet (Senna 8.6 mg PO QPM Constipation 10/21/24 11/04/24 Unknown History
Laxative)
Saccharomyces boulardii 250 mg 250 mg PO BID Gastrointestinal 11/04/24 11/04/24 11/04/24 History
capsule Issue
acetaminophen 325 mg tablet 650 mg PO Q4HPRN PRN mild pain 11/04/24 11/04/24 11/04/24 History
(Tylenol)
calcium carbonate (Tums) 200 mg PO Q6HPRN PRN gerd 11/04/24 11/04/24 11/03/24 History
calcium polycarbophil 625 mg 1,250 mg PO DAILY Gastrointestinal 11/04/24 11/04/24 11/04/24 History
tablet (FiberCon) Issue
dapagliflozin propanediol 10 mg 10 mg PO DAILY Diabetes 11/04/24 11/04/24 11/04/24 History
tablet
dexamethasone 4 mg tablet 4 mg PO DAILY Lung/Breathing Issues 11/04/24 11/04/24 11/04/24 History
enoxaparin 40 mg/0.4 mL 40 mg SC QPM Blood Clot 11/04/24 11/04/24 11/03/24 History
subcutaneous syringe (Lovenox) Prevention/Tx
furosemide 40 mg tablet 40 mg PO DAILY Fluid 11/04/24 11/04/24 11/04/24 History
Retention/Swelling
guaifenesin 100 mg/5 mL oral liquid 100 mg PO Q6HPRN PRN cough 11/04/24 11/04/24 Unknown History
hydroxyzine HCl 25 mg tablet 12.5 mg PO QIDPRN PRN itching 11/04/24 11/04/24 Unknown History
ipratropium bromide 0.02 % 0.5 mg inhalation R QIDPRN PRN sob 11/04/24 11/04/24 11/03/24 History
solution for inhalation
levalbuterol HCl 1.25 mg/3 mL 1.25 mg inhalation R TID 11/04/24 11/04/24 11/03/24 History
solution for nebulization Lung/Breathing Issues
potassium chloride 20 mEq 40 meq PO DAILY Electrolyte 11/04/24 11/04/24 11/04/24 History
tablet,extended release(part/cryst) Repletion
rosuvastatin 5 mg tablet 5 mg PO QPM High Cholesterol 11/04/24 11/04/24 11/03/24 History
Review of Systems
-
History Source: Patient
All other systems: Negative unless noted
Vitals / Labs / Diagnostic Testing
Vital Signs
Temp Pulse Resp BP Pulse Ox
98.6 F 94 16 135/85 92
11/05/24 10:57 11/05/24 14:10 11/05/24 14:10 11/05/24 10:57 11/05/24 10:57
Lab Data
11/05/24 07:10
11/05/24 07:10
Microbiology
11/04/24 10:23 Nasal Swab Influenza Types A & B (ADELSO) - Final
Negative for Influenza A & B, NAAT
Negative results must be combined with clinical observations
and patient history.
Nucleic Acid Amplification test (NAAT)performed on the
[employer] platform.
Diagnostic Testing:
Physical Exam
-
HEENT: Normocephalic
Cardiovascular: S1/S2
Respiratory: Rales
GI: Soft and Non Distended
Neurology: Awake, Alert and Oriented
Skin: Warm
General: Respiratory Distress (none at rest)
Assessment
-
74-year-old woman with past medical history noted, readmitted with shortness of breath and hypoxemia. Recently discharged to rehabilitation with a tentative diagnosis of inflammatory pneumonitis. Seem to have responded to steroids. Steroids were
being weaned down. Patient developed coughing and worsening shortness of breath, Transferred back to the acute care for reevaluation, consulted late on 11/04/2024.
Exertional dyspnea/coughing.
CT chest 11/04/2024: Reviewed, no evidence for pulmonary embolism. Improved bilateral lower lobe pneumonia and/atelectasis right greater than left.
Anti-CCP normal/JASPAL not detected/ANCA antibodies 0/rheumatoid factor less than 10
No peripheral eosinophilia
Elevated CRP and sedimentation rate
Urinalysis without proteinuria
Negative COVID
EK11/04/2024-sinus tachycardia. Otherwise normal, no evidence for RV dysfunction.
Leukocytosis likely from steroids/reactive thrombocytosis- new since early Oct
Mild to moderate pulmonary hypertension with normal RV on echocardiogram: Suspect either postcapillary or from hypoxemia/current underlying lung issues.
Doubt pulmonary arterial hypertension
Blood gas 10/27/2024: 7.03/06/1956
Hyponatremia
Increased troponin/proBNP 795.(Previously to 3000)
Unclear etiology-prior cardiac catheterization without significant obstructive coronary artery disease.
mild Increased LFTs
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

Assessment and plan:
Extensive review of prior workup and records.
Complaining of worsening shortness of breath and coughing.
Evaluating CT scan of the chest from 11/04/2024: Patient does have persistent lower lobe predominant increased interstitial markings. No evidence for pulmonary embolism. Overall improved from CT chest 10/21/2024.
As previously mentioned: Possible inflammatory pneumonitis either idiopathic or secondary to connective tissue disease. So far immunology workup negative. Moderately elevated inflammation markers in the past. This will need to be readdressed in
the outpatient setting.
Last C-reactive protein 11/03/2024 less than 5 but patient on steroids.
-
This is contributing to shortness of breath and will take some time to clear.
She has been weaned down to room air.
Cough should be treated symptomatically. May consider inhaler such as Symbicort for symptomatic relief.
I see no evidence for acute pulmonary issues at this point.
Given improvement on CAT scan no indication for further pulmonary evaluation such as bronchoscopy.
-
Suspect her shortness of breath is multifactorial.
Will continue with prednisone equivalent for 40 mg of prednisone or 6 mg of dexamethasone for the next 2 to 3 weeks or until seen in our office. This is to treat potential inflammatory pneumonitis, she seems to be responding to this.
-
Increased troponins of unclear etiology-recent cardiac catheterization noted without significant obstructive coronary artery disease. Myocarditis is within the differential diagnosis per cardiology
To get an cardiac MRI. Evaluate for myocarditis.
Cardiac catheterization during last hospital stay without evidence for decompensated heart failure
Currently appears euvolemic
Does have mild to moderate pulmonary hypertension with normal RV. For now no further evaluation onto pulmonary issues or improved.
-
Obstructive sleep apnea evaluation may be necessary, in the outpatient setting.
-
Other component for shortness of breath with deconditioning, she also has right hemidiaphragm elevation which is chronic. Also contributing to subsegmental atelectasis and hypoxemia at rest as well as shortness of breath.
Increase activity as able
Incentive spirometry encouraged.
Repeat total CK.
-
No evidence for infection at this point, leukocytosis present since early October. Patient had normal leukocytes in mid October.
There is no splenomegaly or hepatomegaly
Persistent leukocytosis possibly from marginalization from steroids. Trending lower at 30,000.
Follow-up fevers-currently no signs for infection.
Hold antibiotics, from the pulmonary perspective infiltrates appear improved. No evidence for pulmonary infection.
Recently completed full course of antibiotics.
Defer to primary team whether hematology should be consulted. Discussed with Dr. Romero.
-
Positive shortness of breath likely due to significant muscle mass loss, has been slow for a while. Discussed with family
-
Also complaining of coughing note: Suspect due to underlying parenchymal lung process which is improved, postnasal drip and acid reflux
Start antitussive-Tessalon Perles
Saline nasal spray
Unable to take intranasal steroids due to bleeding
Will add Pulmicort nebulized twice a day-patient states that she is sensitive to inhaled medications.
Continue Patricia
Hydroxyzine has been added as needed for itching due to reaction to steroids.
Valsartan induced cough also a possibility.
Continue PPI.
If MRI of the brain is normal I will contemplate starting low-dose azithromycin for anti-inflammatory properties as well.
-
DVT prophylaxis
-
Will follow.
Family updated in detail at the bedside 11/05/[address] Meyers.

Data reviewed:
CTA Chest 10/21/2024: No evidence of central pulmonary embolism; Bibasilar opacification suspicious for pneumonia with slight progression, particularly on the left.
Transthoracic Echocardiogram 10/22/2024: Normal left ventricular size with hyperdynamic systolic function and normal regional wall motion. LVEF 70-75%. Normal right ventricular size and function.
Mild to moderate tricuspid regurgitation. Moderately elevated pulmonary artery pressure (PASP 57 mmHg). No prior study available for comparison.
LHC/RHC 10/27/24- CONCLUSIONS:
1. Right dominant circulation with a 50% lesion in the mid LAD, but no occlusive coronary artery disease.
2. Normal filling pressures (LVEDP = 15 mmHg, PCWP = 15 mmHg at 67.6 kg).
3. Mild, precapillary pulmonary hypertension (mean PA = 27 mmHg, PCWP = 15 mmHg, cardiac output = 3.85 L/min, PVR = 3.12 Fenton units).
4. No cardiac cause for persistent hypoxia.
5. Several radial/brachial artery loops making cardiac catheterization from the right radial artery difficult.
[2024-11-05 15:07] VITALS: BP 134/70
[2024-11-05 16:17] LABS: Glucose - Point of Care 135 mg/dl (70-99)
[2024-11-05] MEDS: TESSALON PERLES 100 MG PO ×2 (16:55→21:21)
[2024-11-05] MEDS: NORVASC 2.5 MG PO (17:44)
[2024-11-05] MEDS: CRESTOR 5 MG PO (17:44)
[2024-11-05] MEDS: SENOKOT 8.6 MG PO (17:45)
[2024-11-05] MEDS: DIOVAN 320 MG PO (17:45)
[2024-11-05] MEDS: LOVENOX 40 MG SC (17:45)
[2024-11-05 19:00] VITALS: BP 111/74
[2024-11-05] MEDS: PULMICORT 0.5 MG INH (19:33)
[2024-11-05] MEDS: MELATONIN 3 MG PO (21:21)
[2024-11-05] MEDS: MIRALAX PO (21:22)
[2024-11-05 22:09] LABS: Glucose - Point of Care 119 mg/dl (70-99)
[2024-11-05 23:30] VITALS: BP 109/58
[2024-11-06] VITALS (7 sets, daily range): BP systolic 122–136; BP diastolic 65–81; PULSE 106; BMI 30.6
[2024-11-06] MEDS: NON-FORMULARY ITEM 40 MG PO ×2 (05:24→16:38)
[2024-11-06] MEDS: SYNTHROID 50 MCG PO (05:24)
[2024-11-06] MEDS: XOPENEX 1.25 MG INHALANT SOLUTION INH ×3 (07:37→19:12)
[2024-11-06] MEDS: PULMICORT 0.5 MG INH ×2 (07:37→19:12)
[2024-11-06] MEDS: ATROVENT NEBULES 0.5 MG INH ×3 (07:40→19:12)
--- NOTE | 2024-11-06 07:59 | W.PN.CD ---
Today's Communication / Plan
-
cardiac MRI
Impression / Plan
-
74 y/o female with hypertension, dyslipidemia, fibromyalgia, and diabetes who presents from [facility] [facility] for shortness of breath following recent hospitalization for HFpEF and inflammatory pneumonitis, found to have persistently elevated troponins.
Shortness of breath
-She has had extensive cardiac workup including RHC/LHC on 10/27/24 (RA 9 PA 41/28 PCWP 15 CI 2.4 at 67.9 kg; 50% mid LAD, no occlusive CAD) and echocardiogram (10/22/2024) with normal biventricular function and mild/mod TR, PASP 57 mmHg
-Workup thus far is notable for mild pulmonary hypertension (mPAP 32) likely due to HFpEF versus undiagnosed lung disease. I am not convinced that this is fully responsible for her dyspnea given it is fairly mild.
-She also has persistently elevated troponins with no obstructive epicardial coronary disease. Differential diagnosis includes myocarditis versus microvascular coronary dysfunction. I am not sure that either diagnosis would explain her dyspnea at
rest without chest pain, but we will plan for a cardiac MRI to rule out myocarditis.
Troponin elevation due to nonischemic myocardial injury
-It is not clear why her troponins are persistently elevated. LHC on 10/27/2024 showed no obstructive coronary artery disease.
-Differential diagnosis includes myocarditis versus microvascular coronary dysfunction
-We will plan to get a cardiac MRI for further evaluation
Mild pulmonary hypertension
-Mean pulmonary artery pressure of 32 mmHg by RHC on 10/27/2024
-She may need further testing to figure out what is causing this PH if we do not find another cause of her shortness of breath
Leukocytosis
-Possibly due to steroid use. She and her family are worried about a hematologic malignancy.
-Check differential and smear.
Chronic HFpEF: Euvolemic, continue Lasix p.o. 40 mg daily and dapagliflozin 10 mg daily
Hypertension: BPs acceptable, continue amlodipine and valsartan
Nonobstructive coronary artery disease: rosuvastatin 5 mg daily
Physical Exam
Vital Signs/Labs
Vital Signs
Temp Pulse Resp BP Pulse Ox
98.3 F 89 18 124/65 95
11/06/24 07:47 11/06/24 07:47 11/06/24 07:47 11/06/24 07:47 11/06/24 07:47
11/05/24 11/06/24 11/07/24
06:59 06:59 06:59
Actual Weight 65.998 kg 66.497 kg
11/04/24
10:23
Ews-G-Mxlvmwwfeee Pept 795
LAB Results
11/04/24 11/04/24 11/04/24
10:23 17:53 23:31
Troponin I 0.470 H* 0.333 H* D 0.470 H* D
11/05/24
07:10
Troponin I 0.607 H* D
Physical Exam
Constitutional: No acute distress
EENT: Moist mucous membranes
Cardiovascular: Rhythm & rate is regular, Pedal edema is absent, JVD pressure is normal and Systolic murmur absent
Respiratory: Labored respirations
Neuro/Psych: AO x 3
Data Reviewed
-
Date of Service: November 06, 2024
EKG: Other (Tele: SR/ST)
Labs: Labs Reviewed by me
[2024-11-06] MEDS: NOVOLOG FLEXPEN-LOW RESISTANCE SC ×2 (08:02→12:31)
[2024-11-06 08:09] LABS: Glucose - Point of Care 61 mg/dl (70-99)
[2024-11-06] MEDS: DECADRON 4 MG PO (08:13)
[2024-11-06] MEDS: LASIX 40 MG PO (08:14)
[2024-11-06] MEDS: FARXIGA 10 MG PO (08:14)
[2024-11-06] MEDS: VITAMIN D3 (cholecalciferol) 50 MCG PO (08:14)
[2024-11-06] MEDS: DECADRON 2 MG PO (08:14)
[2024-11-06] MEDS: KCL PO (08:15)
[2024-11-06] MEDS: FIBERCON 1250 MG PO (08:15)
[2024-11-06] MEDS: CYMBALTA DELAYED RELEASE 60 MG PO (08:15)
[2024-11-06] MEDS: FLORASTOR 250 MG PO ×2 (08:15→19:51)
[2024-11-06] MEDS: TESSALON PERLES 100 MG PO ×3 (08:15→21:41)
[2024-11-06] MEDS: SODIUM CHLORIDE 1 GRAM PO ×2 (08:15→19:51)
[2024-11-06] MEDS: NON-FORMULARY ITEM 1 TABLET PO ×2 (08:16→16:36)
[2024-11-06 08:31] LABS: Erythrocyte Sed Rate 15 mm/hour (0-20)
[2024-11-06 08:34] LABS: ALT (SGPT) 68 U/L (0-35); AST (SGOT) 49 U/L (14-36); Albumin 3.8 g/dl (3.5-5.0); Alkaline Phosphatase 45 U/L (38-126); Blood Urea Nitrogen 20 mg/dl (7-17); Calcium 9.1 mg/dl (8.4-10.2); Carbon Dioxide 22 mmol/L (22-30); Chloride 95 mmol/L (98-107); Creatine Phosphokinase 694 U/L (30-135); Direct Bilirubin 0.4 mg/dl (0.0-0.4); Estimated Creatinine Clearance 66 ml/min; Glucose 85 mg/dl (70-99); Magnesium 2.1 mg/dl (1.6-2.3); Phosphorus 3.9 mg/dl (2.5-4.5); Potassium 3.8 mmol/L (3.5-5.1); Sodium 128 mmol/L (135-145); Total Bilirubin 0.5 mg/dl (0.2-1.3); eGFR > 60.00
[2024-11-06 08:41] LABS: Hematocrit 34.6 % (37.0-47.0); Hemoglobin 11.2 g/dL (12.0-16.0); Mean Corp Hgb Conc. 32.4 g/dL (33.0-37.0); Mean Corpuscular Hgb 27.5 pg (27.0-31.0); Red Blood Cell Count 4.07 10^6/uL (4.20-5.40); Red Cell Dist. Width 14.7 % (11.5-14.5); White Blood Cell Count 26.9 10^3/uL (4.8-10.8)
[2024-11-06 09:02] LABS: Troponin I 0.644 ng/ml
--- NOTE | 2024-11-06 09:04 | W.PN.HOSP.TC ---
Today's Communication/Plan
-
Steroids. Cardiac MRI
Assessment / Plan
Assessment / Plan
Physical Exam
General: Well Developed, Well Nourished and No Apparent Distress
HEENT: NormoCephalic, Moist mucous membranes and Atraumatic
Respiratory: Rales
Cardiac: S1/S2 and Regular Rhythm; No Murmur or Rub
GI: Soft, Non Tender, Non Distended and Normal Bowel Sounds; No Organomegaly
Rectal: Deferred by Provider
Musculoskeletal: No Clubbing, No Cyanosis and No Edema
Skin: No Rash
Neuro: Nonfocal/grossly intact
A/P:
Acute hypoxic respiratory insufficiency:
Multifactorial etiology but mainly interstitial pneumonitis remains main culprit with worsening symptoms associated with rapid taper of steroids and deconditioning, decreased muscle mass, post-nasal drip and GERD.
Had some possible reaction to steroids (she is know to be sensitive to multiple meds)
Discussed with pulm at length today 11/05
Plan to increase steroids orally and prolong course along with multiple other measures.
CTA chest no PE and pulm parenchymal changes persisting while improving
Repeat inflammatory markers in am along with cpk
No need for antibiotics
Pulm does not believe bronchoscopy necessary at this juncture
Discussed with family at length at bedside on 11/05 and over the phone today on 11/06
Leukocytosis:
Likely reactive and explained to family but they insist would like to see clinical leader-consult placed and they will see her today
Elevated trop:
Recent cardiac cath reviewed
Cardiology consult appreciated-discussed with cardio on 11/05
Plan for cardiac MRI--> discussed with MRI staff and due to scheduling issues cannot be performed up until tomorrow
Consider asa (non obstructive cad) but but Hx GI bleed+GERD
Cardiac monitoring
Chronic HFpEF:
Euvolemic
Diuresed last hospitalization
On Lasix 40 mg po daily
On K replacement
On SGLT-inh
Elevated BNP but decreased from prior
Chronic hyponatremia:
SIADH related recently
On salt tablets
Not on fluid restriction--> will restart today
Continue to monitor
Asthma:
Continue bronchodilators
Chronic anemia:
No signs of active bleeding
Continue to monitor
Elevated LFT:
Trend LFT
If worsens needs to hold Tylenol and statins
Chronic back pain:
Recent spinal and neuroforaminal stenosis at L4-L5 and acute rehabilitation stay recently.
Prior history of L4-L5 laminectomy in the past.
On Tylenol prn
Consider Lidoderm patch + Toradol if needed
Hypertension:
On amlodipine 2.5 mg twice a day, home med with guanfacine 2 mg p.o. twice a day on hold, and valsartan 320 mg nightly consider hold if cough persists).
Monitor blood pressure adjust medications accordingly
Diabetes mellitus type 2:
Continue insulin sliding scale
Continue dapagliflozin
Hold metformin
Monitor blood sugar and adjust medications accordingly
Fibromyalgia:
Continue Cymbalta 60 mg p.o. daily
GERD:
Continue PPI p.o. twice a day
Hypothyroidism:
Continue levothyroxine 50 mcg p.o., Mondays to Sunday
Constipation:
Continue current bowel regimen
Insomnia:
Continue melatonin
DVT prophylaxis:
Heparin SQ change to Lovenox SQ
CODE STATUS:
Full code
Total time spent on today's encounter was 52 minutes which included time spent in counseling the patient/family regarding diagnosis and treatment plan as listed above, goals of care, and symptom management. Case was discussed with nursing staff,
specialists, and care coordinators/case management. All labs and imaging personally reviewed by me. Remainder the time spent in detailed review of previous records, lab data, imaging, and other medical provider documentation.
Anticipated Discharge: > 48 hours
Subjective/Interval History
-
Date of Service: November 06, 2024
Patient still having some cough. Overall tired. On supplemental oxygen. Afebrile
Objective Data
-
Labs:
Laboratory Results
11/06/24
06:48
WBC 26.9 H
Hgb 11.2 L
Hct 34.6 L
Plt Count Pending
Sodium 128 L
Potassium 3.8
Chloride 95 L
Carbon Dioxide 22
BUN 20 H
Creatinine 0.5 L
Glucose 85
Calcium 9.1
Total Bilirubin 0.5
AST 49 H
ALT 68 H
Alkaline Phosphatase 45
Vital Signs:
Vital Signs
Temp Pulse Resp BP Pulse Ox
98.3 F 89 18 124/65 95
11/06/24 07:47 11/06/24 07:47 11/06/24 07:47 11/06/24 08:14 11/06/24 07:47
I&O
11/05/24 11/06/24 11/07/24
06:59 06:59 06:59
Intake Total 840 / 840
Balance 840 / 840
--- NOTE | 2024-11-06 09:32 | CON.ONC ---
Documented by User: ASH Vicente 11/06/24 10:47
Impression
Impression
interstitial pneumonitis on steroids -pulmonary following
leukocytosis likely reactive to steroids
elevated troponin -cardiology planning cardiac MRI
Chronic CHF
chronic anemia
Thrombocytosis likely reactive
Plan
Plan
Leukocytosis noted 10/26 with WBC 12.9 and had trended up to 34.8 on 11/03. Her WBC has trended down to 26.9 today. Her differential reveals ANC 20.3, ALC 5.3, and AMC 2.5. She also has thrombocytosis with platelet count trending from <500,00 prior
to 10/25/2024 and now trending up to ~780,000. Leukocytosis, primarily neutrophils and thrombocytosis are likely reactive. I will check iron studies to see if RAMSES contributing factor to thrombocytosis. Out of an abundance of caution we will check
Jak2 and peripheral flow, however, underlying primary hematologic issue is less likely.
Patient History
History of Present Illness
74yo F presented with increased shortness of breath, dry cough since recent discharge. She was hospitalized 10/07-10/10 then was in [facility] 10/10-10/17 then readmitted 10/21-10/30 and again discharged to [facility] 10/29-11/04. She has been readmitted for
management of acute hypoxic respiratory failure. CTA chest showed no PE, however, did reveal improving pulmonary parenchymal changes.
Clinically, she denies any fever, chills, chest pain, palpitations, n/v/d/c, ab pain, h/a or dizziness. She has cough with occasional whitish expectoration and progressive fatigue and SOB with minimal activity.
Past-Medical/Surgical History
Past Medical History:hypertension, asthma, diabetes, fibromyalgia, spinal stenosis, hyperlipidemia, IBS, GERD, GI bleeding, anxiety disorder, hyponatremia, osteoporosis, vitamin D deficiency, M�ni�re's disease, chronic lower back pain, hearing loss,
obesity, fibromyalgia, chronic anemia, CHF
Past Surgical History: Right/left heart cath (10/27/24) Partial Hysterectomy with preservation of one ovary/ Appendectomy/ Breast cyst surgery/ right ear surgery due to M�ni�re's disease/ Left knee surgery/ L-spine surgery
Social History
Tobacco: Non-smoker
Alcohol: None
Drug: None
Family History
Family History: Not pertinent
Patient Medication
�Medication �Instructions �Recorded �Confirmed �Last Taken �Type
duloxetine 60 mg capsule,delayed 60 mg PO DAILY Mental 10/04/24 11/04/24 11/04/24 History
release Health/Anxiety
esomeprazole magnesium 40 mg 40 mg PO BID GERD 10/04/24 11/04/24 11/04/24 History
capsule,delayed release (Nexium)
guanfacine 1 mg tablet 2 mg PO BID Blood Pressure 10/04/24 11/04/24 10/03/24 History
levothyroxine 50 mcg tablet 50 mcg PO MOTUWETHFRSA Thyroid 10/04/24 11/04/24 11/04/24 History
polyethylene glycol 3350 17 gram 17 g PO HS Gastrointestinal Issue 10/04/24 11/04/24 11/03/24 History
oral powder packet (Miralax)
valsartan 320 mg tablet 320 mg PO QPM Blood Pressure 10/04/24 11/04/24 11/03/24 History
cholecalciferol (vitamin D3) 50 50 mcg PO DAILY supplement 30 days 10/16/24 11/04/24 11/04/24 Rx
mcg (2,000 unit) tablet #30 tabs
melatonin 3 mg tablet 1.5 mg (1/2 x 3 mg) PO HS insomina 10/16/24 11/04/24 11/03/24 Rx
30 days #15 tabs
metformin 500 mg tablet 500 mg PO DAILY Diabetes #0 tabs 10/16/24 11/04/24 11/04/24 Rx
sodium chloride 1,000 mg soluble 1,000 mg PO BID hyponatremia 30 10/17/24 11/04/24 11/04/24 Rx
tablet days #0 tabs
amlodipine 2.5 mg tablet 2.5 mg PO QPM Blood Pressure 10/21/24 11/04/24 11/03/24 History
fexofenadine-pseudoephedrine ER 1 tab PO DAILY Allergies 10/21/24 11/04/24 11/04/24 History
180 mg-240 mg tablet,ext.release
24 hr (Patricia-D 24 Hour)
lidocaine 4 % topical patch 2 patch topical DAILYPRN PRN mild 10/21/24 11/04/24 Unknown History
pain
ondansetron HCl 4 mg tablet 4 mg PO Q8HPRN PRN nausea 10/21/24 11/04/24 Unknown History
sennosides 8.6 mg tablet (Senna 8.6 mg PO QPM Constipation 10/21/24 11/04/24 Unknown History
Laxative)
Saccharomyces boulardii 250 mg 250 mg PO BID Gastrointestinal 11/04/24 11/04/24 11/04/24 History
capsule Issue
acetaminophen 325 mg tablet 650 mg PO Q4HPRN PRN mild pain 11/04/24 11/04/24 11/04/24 History
(Tylenol)
calcium carbonate (Tums) 200 mg PO Q6HPRN PRN gerd 11/04/24 11/04/24 11/03/24 History
calcium polycarbophil 625 mg 1,250 mg PO DAILY Gastrointestinal 11/04/24 11/04/24 11/04/24 History
tablet (FiberCon) Issue
dapagliflozin propanediol 10 mg 10 mg PO DAILY Diabetes 11/04/24 11/04/24 11/04/24 History
tablet
dexamethasone 4 mg tablet 4 mg PO DAILY Lung/Breathing Issues 11/04/24 11/04/24 11/04/24 History
enoxaparin 40 mg/0.4 mL 40 mg SC QPM Blood Clot 11/04/24 11/04/24 11/03/24 History
subcutaneous syringe (Lovenox) Prevention/Tx
furosemide 40 mg tablet 40 mg PO DAILY Fluid 11/04/24 11/04/24 11/04/24 History
Retention/Swelling
guaifenesin 100 mg/5 mL oral liquid 100 mg PO Q6HPRN PRN cough 11/04/24 11/04/24 Unknown History
hydroxyzine HCl 25 mg tablet 12.5 mg PO QIDPRN PRN itching 11/04/24 11/04/24 Unknown History
ipratropium bromide 0.02 % 0.5 mg inhalation R QIDPRN PRN sob 11/04/24 11/04/24 11/03/24 History
solution for inhalation
levalbuterol HCl 1.25 mg/3 mL 1.25 mg inhalation R TID 11/04/24 11/04/24 11/03/24 History
solution for nebulization Lung/Breathing Issues
potassium chloride 20 mEq 40 meq PO DAILY Electrolyte 11/04/24 11/04/24 11/04/24 History
tablet,extended release(part/cryst) Repletion
rosuvastatin 5 mg tablet 5 mg PO QPM High Cholesterol 11/04/24 11/04/24 11/03/24 History
Active Medications
Generic Name Dose Route Start Last Admin
Trade Name Freq PRN Reason Stop Dose Admin
Acetaminophen 650 mg 11/04/24 18:26
Acetaminophen 325 Mg Tablet PO 12/02/24 18:25
Q4HPRN PRN
mild pain
Amlodipine Besylate 2.5 mg 11/05/24 18:00 11/05/24 17:44
Amlodipine 2.5 Mg Tablet PO 12/03/24 17:59 2.5 mg
QPM NAYA Administration
Benzonatate 100 mg 11/05/24 17:00 11/06/24 08:15
Benzonatate 100 Mg Capsule PO 12/03/24 16:59 100 mg
TID NAYA Administration
Budesonide 0.5 mg 11/05/24 20:00 11/06/24 07:37
Budesonide (Pulmicort Respules) 0.5 Mg/2 Ml INH 0.5 mg
R BID NAYA Administration
Protocol
Calcium Carbonate 200 mg 11/04/24 18:26
Calcium Antacid 200 Mg (Calcium Carbonate 500 Mg) Chew Tablet PO 12/02/24 18:25
Q6HPRN PRN
gerd
Calcium Polycarbophil 1,250 mg 11/05/24 08:00 11/06/24 08:15
Calcium Polycarbophil 625 Mg Tablet PO 12/03/24 07:59 1,250 mg
DAILY NAYA Administration
Cholecalciferol 50 mcg 11/05/24 08:00 11/06/24 08:14
Cholecalciferol (Vitamin D3) 50 Mcg Tablet (2,000 Units) PO 12/03/24 07:59 50 mcg
DAILY NAYA Administration
Dapagliflozin 10 mg 11/05/24 08:00 11/06/24 08:14
Dapagliflozin (Farxiga) 10 Mg Tablet PO 12/03/24 07:59 10 mg
DAILY NAYA Administration
Dexamethasone 4 mg 11/06/24 08:00 11/06/24 08:13
Dexamethasone 4 Mg Tablet PO 12/04/24 07:59 4 mg
DAILY NAYA Administration
Dexamethasone 2 mg 11/06/24 08:00 11/06/24 08:14
Dexamethasone 2 Mg Tablet PO 12/04/24 07:59 2 mg
DAILY NAYA Administration
Dextrose 12.5 grams 11/04/24 18:29
Dextrose 50% (0.5 Grams/Ml) 50 Ml Syringe IV 12/02/24 18:28
[id number] PRN
hypoglycemia
Protocol
Duloxetine HCl 60 mg 11/05/24 08:00 11/06/24 08:15
Duloxetine Delayed Release 60 Mg Capsule PO 12/03/24 07:59 60 mg
DAILY NAYA Administration
Enoxaparin Sodium 40 mg 11/05/24 18:00 11/05/24 17:45
Enoxaparin Sodium 40 Mg/0.4 Ml Syringe SC 12/03/24 17:59 40 mg
QPM NAYA Administration
Furosemide 40 mg 11/05/24 08:00 11/06/24 08:14
Furosemide 40 Mg Tablet PO 12/03/24 07:59 40 mg
DAILY NAYA Administration
Glucagon 1 mg 11/04/24 18:29
Glucagon 1 Mg Vial IM 12/02/24 18:28
PRN PRN
hypoglycemia
Protocol
Guaifenesin 100 mg 11/04/24 18:26
Guaifenesin Oral Solution (200 Mg/10 Ml) Cup PO 12/02/24 18:25
Q6HPRN PRN
cough
Hydroxyzine HCl 12.5 mg 11/04/24 18:26
Hydroxyzine 25 Mg Tablet PO 12/02/24 18:25
QIDPRN PRN
itching
Insulin Aspart 0 units 11/05/24 07:30 11/06/24 08:02
Insulin Aspart Low Resistance 300 Units/3 Ml Pen.Injctr SC 12/03/24 07:29 Not Given
AC NAYA
Protocol
Ipratropium [place] 0.5 mg 11/04/24 18:26 11/06/24 07:40
Ipratropium Nebs 0.5 Mg/2.5 Ml Ampul INH 0.5 mg
R QIDPRN PRN Administration
sob
Protocol
Levalbuterol HCl 1.25 mg 11/04/24 20:00 11/06/24 07:37
Levalbuterol 1.25 Mg/3 Ml Ampul INH 1.25 mg
R TID NAYA Administration
Protocol
Levothyroxine Sodium 50 mcg 11/05/24 06:00 11/06/24 05:24
Levothyroxine 50 Mcg Tablet PO 12/03/24 05:59 50 mcg
MoTuWeThFrSa@0600 NAYA Administration
Melatonin 3 mg 11/04/24 22:00 11/05/24 21:21
Melatonin 3 Mg Tablet PO 12/02/24 21:59 3 mg
HS NAYA Administration
Esomeprazole 40 mg 11/04/24 20:00 11/06/24 05:24
Magnesium [Nexium] PO 12/02/24 19:59 40 mg
40 Mg [2 X 20mg] Po BID@0700,1630 NAYA Administration
Bid
Patricia 160mg Po 0 tablet 11/05/24 08:00 11/06/24 08:16
Daily PO 12/03/24 07:59 1 tablet
DAILY NAYA Administration
Guanfacine 2mg [2 X 0 mg 11/04/24 20:00
1mg] Po Bid PO 12/02/24 19:59
BID NAYA
Ondansetron HCl 4 mg 11/04/24 18:26
Ondansetron 4 Mg Tablet PO 12/02/24 18:25
Q8HPRN PRN
nausea
Polyethylene Glycol 17 grams 11/04/24 22:00 11/05/24 21:22
Polyethylene Glycol Powder 17 Grams Packet PO 12/02/24 21:59 Not Given
HS NAYA
Potassium Chloride 40 meq 11/05/24 08:00 11/06/24 08:15
Potassium Chloride 20 Meq Extended Release Tablet PO 12/03/24 07:59 Not Given
DAILY NAYA
Rosuvastatin Calcium 5 mg 11/05/24 18:00 11/05/24 17:44
Rosuvastatin (Crestor) 5 Mg Tablet PO 12/03/24 17:59 5 mg
QPM NAYA Administration
Saccharomyces Boulardii 250 mg 11/04/24 20:00 11/06/24 08:15
Saccharomyces Boulardi (Florastor) 250 Mg Capsule PO 12/02/24 19:59 250 mg
BID NAYA Administration
Sennosides 8.6 mg 11/05/24 18:00 11/05/24 17:45
Sennosides (Senokot) 8.6 Mg Tablet PO 12/03/24 17:59 8.6 mg
QPM NAYA Administration
Sodium Chloride 0 flush 11/04/24 19:00
Sodium Chloride 0.9% (Flush) Syringe IV 12/02/24 18:59
PER PROTOCOL NAYA
Sodium Chloride 1 gram 11/04/24 20:00 11/06/24 08:15
Sodium Chloride 1 Gram Tablet PO 12/02/24 19:59 1 gram
BID NAYA Administration
Sodium Chloride 2 sprays 11/05/24 16:10
Sodium Chloride 0.65% Nasal [place] 45 Ml Bottle NASAL 12/03/24 16:09
QIDPRN PRN
nasal congestion
Valsartan 320 mg 11/05/24 18:00 11/05/24 17:45
Valsartan 160 Mg Tablet PO 12/03/24 17:59 320 mg
QPM NAYA Administration
Review of Systems
-
ROS notable for HPI, otherwise negative
Physical Exam
-
General: Well Developed, Well Nourished and No Apparent Distress
HEENT: NormoCephalic, Moist mucous membranes and Atraumatic
Respiratory: Rales
Cardiac: S1/S2 and Regular Rhythm; No Murmur or Rub
GI: Soft, Non Tender, Non Distended; No Organomegaly
Musculoskeletal: No Edema
Skin: No Rash
Neuro: A&O3, speech clear
Labs
Lab Results
WBC 26.9 10^3/uL (4.8-10.8) H 11/06/24 06:48
RBC 4.07 10^6/uL (4.20-5.40) L 11/06/24 06:48
Hgb 11.2 g/dL (12.0-16.0) L 11/06/24 06:48
Hct 34.6 % (37.0-47.0) L 11/06/24 06:48
MCV 85.0 fL (81.0-99.0) 11/06/24 06:48
MCH 27.5 pg (27.0-31.0) 11/06/24 06:48
MCHC 32.4 g/dL (33.0-37.0) L 11/06/24 06:48
RDW 14.7 % (11.5-14.5) H 11/06/24 06:48
Plt Count 782 10^3/uL (130-400) H 11/05/24 07:10
MPV 8.3 fL (7.4-10.4) 11/05/24 07:10
Abs Immat Gran (auto) 2.3 10^3/uL (0-0.05) H 11/05/24 07:10
Absolute Neuts (auto) 20.3 10^3/uL (1.4-6.5) H 11/05/24 07:10
Absolute Lymphs (auto) 5.3 10^3/uL (1.2-3.4) H 11/05/24 07:10
Absolute Monos (auto) 2.5 10^3/uL (0.1-0.6) H 11/05/24 07:10
Absolute Eos (auto) 0.3 10^3/uL (0-0.7) 11/05/24 07:10
Absolute Basos (auto) 0.1 10^3/uL (0-0.2) 11/05/24 07:10
Immature Gran % 7.4 % (0-0.5) H 11/05/24 07:10
Neutrophils % 66.0 % (42.2-75.2) 11/05/24 07:10
Lymphocytes % 17.2 % (20.5-51.1) L 11/05/24 07:10
Monocytes % 8.1 % (1.7-9.3) 11/05/24 07:10
Eosinophils % 1.1 % (0-6) 11/05/24 07:10
Basophils % 0.2 % (0-2) 11/05/24 07:10
Creatinine 0.5 mg/dL (0.6-1.0) L 11/06/24 06:48
Vital Signs
Vital Signs
Temp Pulse Resp BP Pulse Ox
98.3 F 89 18 124/65 95
11/06/24 07:47 11/06/24 07:47 11/06/24 07:47 11/06/24 08:14 11/06/24 07:47

Documented by User: Amol Richard DO 11/06/24 11:19
Plan
Plan
Leukocytosis noted 10/26 with WBC 12.9 and had trended up to 34.8 on 11/03. Her WBC has trended down to 26.9 today. Her differential reveals ANC 20.3, ALC 5.3, and AMC 2.5.
Thrombocytosis with platelet count trending from <500,00 prior to 10/25/2024 and now trending up to ~780,000. Leukocytosis, primarily neutrophils and thrombocytosis are likely reactive.
Check iron studies to see if RAMSES contributing factor to thrombocytosis.
Out of an abundance of caution we will check BCR/ABL, Jak2 and peripheral flow, however, underlying primary hematologic issue is less likely.
[2024-11-06 11:36] LABS: % Basophils 0.5 % (0-2); % Eosinophils 2.4 % (0-6); % Immature Granulocytes 5.9 % (0-0.5); % Lymphocytes 21.8 % (20.5-51.1); % Monocytes 7.9 % (1.7-9.3); % Neutrophils 61.5 % (42.2-75.2); Absolute Basophils 0.1 10^3/uL (0-0.2); Absolute Eosinophils 0.6 10^3/uL (0-0.7); Absolute Immature Granulocytes 1.6 10^3/uL (0-0.05); Absolute Lymphocytes 5.9 10^3/uL (1.2-3.4); Absolute Monocytes 2.1 10^3/uL (0.1-0.6); Absolute Neutrophils 16.6 10^3/uL (1.4-6.5); Nucleated Red Blood Cells % 0 %
[2024-11-06 11:37] LABS: Mean Platelet Volume 9.3 fL (7.4-10.4); Platelet Count 574 10^3/uL (130-400)
--- NOTE | 2024-11-06 12:15 | CM ---
Chart reviewed and physical therapy are still recommending acute rehab, plan is for patient to return to [facility] when stable, daughter concerned regarding frequent re admissions.
Plan; [facility] when stable.
[2024-11-06 12:32] LABS: Glucose - Point of Care 143 mg/dl (70-99)
--- NOTE | 2024-11-06 14:24 | W.PN.PUL3 ---
Today's Communication / Plan
-
Continue nebulizer therapy for symptomatic relief of coughing
Antitussives
Nasal saline spray
Pred continue 6 mg of dexamethasone
Atarax as needed for possible rash
Cardiac MRI pending
Physical therapy will continue
Currently 2 L of supplemental oxygen continue with exertion
Assessment
-
74-year-old woman with past medical history noted, readmitted with shortness of breath and hypoxemia. Recently discharged to rehabilitation with a tentative diagnosis of inflammatory pneumonitis. Seem to have responded to steroids. Steroids were
being weaned down. Patient developed coughing and worsening shortness of breath, Transferred back to the acute care for reevaluation, consulted late on 11/04/2024.
Exertional dyspnea/coughing.
CT chest 11/04/2024: Reviewed, no evidence for pulmonary embolism. Improved bilateral lower lobe pneumonia and/atelectasis right greater than left.
Anti-CCP normal/JASPAL not detected/ANCA antibodies 0/rheumatoid factor less than 10
No peripheral eosinophilia
Elevated CRP and sedimentation rate
Urinalysis without proteinuria
Negative COVID
EK11/04/2024-sinus tachycardia. Otherwise normal, no evidence for RV dysfunction.
Leukocytosis likely from steroids/reactive thrombocytosis- new since early Oct
Mild to moderate pulmonary hypertension with normal RV on echocardiogram: Suspect either postcapillary or from hypoxemia/current underlying lung issues.
Doubt pulmonary arterial hypertension
Blood gas 10/27/2024: 7.03/06/1956
Hyponatremia
Increased troponin/proBNP 795.(Previously to 3000)
Unclear etiology-prior cardiac catheterization without significant obstructive coronary artery disease.
mild Increased LFTs
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

Assessment and plan:
Extensive review of prior workup and records.
Complaining of worsening shortness of breath and coughing-transfer back [facility].
-
CT scan of the chest from 11/04/2024: Patient does have persistent lower lobe predominant increased interstitial markings. No evidence for pulmonary embolism. Overall improved from CT chest 10/21/2024.
As previously mentioned: Possible inflammatory pneumonitis either idiopathic or secondary to connective tissue disease. So far immunology workup negative. Moderately elevated inflammation markers in the past. This will need to be readdressed in
the outpatient setting.
Last C-reactive protein 11/03/2024 less than 5 but patient on steroids.
-
This is contributing to shortness of breath and will take some time to clear.
She has been weaned down to room air at rest-2 L of supplemental oxygen with activity.(11/06/2024)
-
Cough should be treated symptomatically. May consider inhaler such as Symbicort for symptomatic relief.
I see no evidence for acute pulmonary issues at this point.
Given improvement on CAT scan no indication for further pulmonary evaluation such as bronchoscopy biopsies etc/.
-
Suspect her shortness of breath is multifactorial.
Will continue with prednisone equivalent for 40 mg of prednisone or 6 mg of dexamethasone for the next 2 to 3 weeks or until seen in our office. This is to treat potential inflammatory pneumonitis, she seems to be responding to this.
-
Increased troponins of unclear etiology-recent cardiac catheterization noted without significant obstructive coronary artery disease. Myocarditis is within the differential diagnosis per cardiology
To get an cardiac MRI. Evaluate for myocarditis.
Cardiac catheterization during last hospital stay without evidence for decompensated heart failure
Currently appears euvolemic
Does have mild to moderate pulmonary hypertension with normal RV. For now no further evaluation onto pulmonary issues or improved.
-
Obstructive sleep apnea evaluation may be necessary, in the outpatient setting.
-
Other component for shortness of breath with deconditioning, she also has right hemidiaphragm elevation which is chronic. Also contributing to subsegmental atelectasis and hypoxemia at rest as well as shortness of breath.
Increase activity as able
Incentive spirometry encouraged.
Slightly increased CK-no evident muscle weakness on exam
Check aldolase
-
No evidence for infection at this point, leukocytosis present since early October. Patient had normal leukocytes in mid October.
There is no splenomegaly or hepatomegaly
Persistent leukocytosis possibly from marginalization from steroids. Trending lower at 30,000 --> 26,000
Thrombocytosis likely reactive.
Follow-up fevers-currently no signs for infection.
Hold antibiotics, from the pulmonary perspective infiltrates appear improved. No evidence for pulmonary infection.
Recently completed full course of antibiotics.
Hematology consulted: Also suspect reactive leukocytosis/thrombocytosis. Follow CBC daily.
-
Part of the shortness of breath likely due to significant muscle mass loss, has been immobile for a while, significant weight loss over 20 pounds, part of it from diuresis. Discussed with family
-
Also complaining of coughing note : Suspect due to underlying parenchymal lung process which is improved, postnasal drip and acid reflux
continue antitussive-Tessalon Perles
Saline nasal spray
Unable to take intranasal steroids due to bleeding
Continue Pulmicort nebulized twice a day-patient states that she is sensitive to inhaled medications.
Continue Xopenex/Atrovent
Unfortunately allergic to codeine and many other cough suppressant such as gabapentin as well.
Continue Patricia
Hydroxyzine has been added as needed for itching due to reaction to steroids.
Valsartan induced cough also a possibility.
Continue PPI.
If MRI of the brain is normal I will contemplate starting low-dose azithromycin for anti-inflammatory properties as well.
-
DVT prophylaxis
-
Will follow.
Family updated in detail at the bedside 11/05/2024, 11/06/[address] Meyers.

Data reviewed:
CTA Chest 10/21/2024: No evidence of central pulmonary embolism; Bibasilar opacification suspicious for pneumonia with slight progression, particularly on the left.
Transthoracic Echocardiogram 10/22/2024: Normal left ventricular size with hyperdynamic systolic function and normal regional wall motion. LVEF 70-75%. Normal right ventricular size and function.
Mild to moderate tricuspid regurgitation. Moderately elevated pulmonary artery pressure (PASP 57 mmHg). No prior study available for comparison.
LHC/RHC 10/27/24- CONCLUSIONS:
1. Right dominant circulation with a 50% lesion in the mid LAD, but no occlusive coronary artery disease.
2. Normal filling pressures (LVEDP = 15 mmHg, PCWP = 15 mmHg at 67.6 kg).
3. Mild, precapillary pulmonary hypertension (mean PA = 27 mmHg, PCWP = 15 mmHg, cardiac output = 3.85 L/min, PVR = 3.12 Fenton units).
4. No cardiac cause for persistent hypoxia.
5. Several radial/brachial artery loops making cardiac catheterization from the right radial artery difficult.
Subjective Data
-
Date of Service:
Date of Service: November 06, 2024
Chief Complaint: Pulmonary Follow Up (Cough/shortness of breath/abnormal CT chest)
Subjective:
No new complaints
Continues to have coughing intermittently no significant phlegm production or hemoptysis
On 2 L of supplemental oxygen
Review of Systems
Cardiopulmonary: Dyspnea, Dyspnea on Exertion and Cough
Objective Data
Data Reviewed
Vital Signs / I&O / Oxygen:
Vital Signs
Temp Pulse Resp BP Pulse Ox
97.6 F 106 18 136/78 92
11/06/24 11:22 11/06/24 11:22 11/06/24 13:32 11/06/24 11:22 11/06/24 13:32
Intake and Output
11/05/24 11/06/24 11/07/24
06:59 06:59 06:59
Intake Total 840 / 840
Balance 840 / 840
SaO2 92
Nasal Cannula flow liters per 2
minute
Physical Exam
General: Comfortable (At rest)
HEENT: Normocephalic
Cardiovascular: S1-S2
Respiratory: Crackles and Non-Labored Respirations
GI: Soft and Non Distended
Neurology: Awake, Alert, AO x 3 and No Motor Deficits
Skin: Good Color
Labs/Micro/Reports
Lab Data
11/06/24 06:48
11/06/24 06:48
Microbiology
11/04/24 10:23 Nasal Swab Influenza Types A & B (ADELSO) - Final
Negative for Influenza A & B, NAAT
Negative results must be combined with clinical observations
and patient history.
Nucleic Acid Amplification test (NAAT)performed on the
[employer] platform.
[2024-11-06] MEDS: LOVENOX 40 MG SC (16:34)
[2024-11-06] MEDS: NORVASC 2.5 MG PO (16:35)
[2024-11-06] MEDS: CRESTOR 5 MG PO (16:36)
[2024-11-06] MEDS: DIOVAN 320 MG PO (16:36)
[2024-11-06] MEDS: SENOKOT 8.6 MG PO (16:36)
[2024-11-06 17:11] LABS: Glucose - Point of Care 222 mg/dl (70-99)
[2024-11-06] MEDS: NOVOLOG FLEXPEN-LOW RESISTANCE 2 UNITS SC (17:41)
[2024-11-06 21:17] LABS: Glucose - Point of Care 135 mg/dl (70-99)
[2024-11-06] MEDS: MELATONIN 3 MG PO (21:41)
[2024-11-06] MEDS: ROBITUSSIN 100 MG PO (21:43)
[2024-11-06] MEDS: MIRALAX 17 GRAMS PO (21:44)
[2024-11-07 02:55] VITALS: BP 141/86
[2024-11-07] MEDS: ROBITUSSIN 100 MG PO ×3 (04:26→21:35)
[2024-11-07] MEDS: ATROVENT NEBULES 0.5 MG INH ×4 (05:05→20:53)
[2024-11-07 06:00] VITALS: BMI 30.6
[2024-11-07] MEDS: SYNTHROID 50 MCG PO (06:06)
[2024-11-07] MEDS: NON-FORMULARY ITEM 40 MG PO ×2 (06:07→17:10)
[2024-11-07] MEDS: XOPENEX 1.25 MG INHALANT SOLUTION INH ×3 (07:15→20:53)
[2024-11-07] MEDS: PULMICORT 0.5 MG INH ×2 (07:15→20:53)
[2024-11-07 07:20] VITALS: BP 140/79
[2024-11-07 07:26] LABS: % Basophils 0.4 % (0-2); % Eosinophils 0.7 % (0-6); % Lymphocytes 13.9 % (20.5-51.1); % Monocytes 8.2 % (1.7-9.3); % Neutrophils 71.8 % (42.2-75.2); Absolute Basophils 0.1 10^3/uL (0-0.2); Absolute Eosinophils 0.2 10^3/uL (0-0.7); Absolute Immature Granulocytes 1.3 10^3/uL (0-0.05); Absolute Lymphocytes 3.6 10^3/uL (1.2-3.4); Absolute Monocytes 2.1 10^3/uL (0.1-0.6); Absolute Neutrophils 18.5 10^3/uL (1.4-6.5); Hematocrit 33.2 % (37.0-47.0); Hemoglobin 10.8 g/dL (12.0-16.0); Mean Corp Hgb Conc. 32.5 g/dL (33.0-37.0); Mean Corpuscular Hgb 27.7 pg (27.0-31.0); Mean Corpuscular Volume 85.1 fL (81.0-99.0); Mean Platelet Volume 8.6 fL (7.4-10.4); Nucleated Red Blood Cells % 0 %; Platelet Count 629 10^3/uL (130-400); Red Cell Dist. Width 14.8 % (11.5-14.5); White Blood Cell Count 25.7 10^3/uL (4.8-10.8)
[2024-11-07 07:53] LABS: Glucose - Point of Care 57 mg/dl (70-99)
--- NOTE | 2024-11-07 08:07 | W.PN.ONC2 ---
Today's Communication / Plan
-
-
Impression
Impression
interstitial pneumonitis on steroids -pulmonary following
leukocytosis likely reactive to steroids
elevated troponin -cardiology planning cardiac MRI
Chronic CHF
chronic anemia
Thrombocytosis likely reactive
Plan
Plan
Leukocytosis noted 10/26 with WBC 12.9 and had trended up to 34.8 on 11/03. Her WBC has trended down to 26.9 today. Her differential reveals ANC 20.3, ALC 5.3, and AMC 2.5.
Thrombocytosis with platelet count trending from <500,00 prior to 10/25/2024 and now trending up to ~780,000. Leukocytosis, primarily neutrophils and thrombocytosis are likely reactive.
Check iron studies to see if RAMSES contributing factor to thrombocytosis.
Out of an abundance of caution we will check BCR/ABL, Jak2 and peripheral flow, however, underlying primary hematologic issue is less likely.
Subjective/Objective
Subjective
no new complaints
WBC continue to trend down
Vital Signs:
Vital Signs
Temp Pulse Resp BP Pulse Ox
98.1 F 86 18 140/79 91
11/07/24 07:20 11/07/24 08:01 11/07/24 08:01 11/07/24 07:20 11/07/24 08:01
Lab Results:
Laboratory Data
WBC 25.7 10^3/uL (4.8-10.8) H 11/07/24 07:06
Hgb 10.8 g/dL (12.0-16.0) L 11/07/24 07:06
Plt Count 629 10^3/uL (130-400) H 11/07/24 07:06
eGFR > 60.00 11/06/24 06:48
Physical Exam
General: Well Developed, Well Nourished and No Apparent Distress
HEENT: NormoCephalic, Moist mucous membranes and Atraumatic
Respiratory: Rales
Cardiac: S1/S2 and Regular Rhythm; No Murmur or Rub
GI: Soft, Non Tender, Non Distended; No Organomegaly
Musculoskeletal: No Edema
Skin: No Rash
Neuro: A&O3, speech clear
Orders
Orders
Orders From Last 24 Hours
11/07/24 07:06
BCR-ABL1 Qual Reflex to Quant [S] IN AM
JAK2 [id number] Mutation, PCR Qual [S] IN AM
Leukemia/Lymphoma Phenotyping [S] IN AM
[2024-11-07 08:14] LABS: ALT (SGPT) 68 U/L (0-35); AST (SGOT) 43 U/L (14-36); Albumin 3.7 g/dl (3.5-5.0); Alkaline Phosphatase 39 U/L (38-126); Blood Urea Nitrogen 19 mg/dl (7-17); Calcium 8.5 mg/dl (8.4-10.2); Carbon Dioxide 23 mmol/L (22-30); Chloride 97 mmol/L (98-107); Estimated Creatinine Clearance 66 ml/min; Glucose 99 mg/dl (70-99); Potassium 3.9 mmol/L (3.5-5.1); Sodium 129 mmol/L (135-145); Total Bilirubin 0.5 mg/dl (0.2-1.3); Total Protein 5.9 g/dl (6.3-8.2); eGFR > 60.00
[2024-11-07] MEDS: NOVOLOG FLEXPEN-LOW RESISTANCE SC ×2 (08:29→11:24)
[2024-11-07] MEDS: FLORASTOR 250 MG PO ×2 (08:29→20:46)
[2024-11-07] MEDS: SODIUM CHLORIDE 1 GRAM PO ×2 (08:30→20:46)
[2024-11-07] MEDS: FIBERCON 1250 MG PO (08:30)
[2024-11-07] MEDS: FARXIGA 10 MG PO (08:30)
[2024-11-07] MEDS: KCL PO ×2 (08:30)
[2024-11-07] MEDS: DECADRON 4 MG PO (08:31)
[2024-11-07] MEDS: VITAMIN D3 (cholecalciferol) 50 MCG PO (08:31)
[2024-11-07] MEDS: CYMBALTA DELAYED RELEASE 60 MG PO (08:31)
[2024-11-07] MEDS: TESSALON PERLES 100 MG PO ×3 (08:31→21:35)
[2024-11-07] MEDS: LASIX 40 MG PO (08:31)
[2024-11-07 08:32] LABS: Iron 71 ug/dl (37-170)
[2024-11-07] MEDS: DECADRON 2 MG PO (08:32)
[2024-11-07 08:38] LABS: Glucose - Point of Care 96 mg/dl (70-99)
[2024-11-07 08:41] LABS: Percent Saturation 24 % (20-50); Total Iron Binding Capacity 294 ug/dl (265-497)
[2024-11-07] MEDS: ATARAX 50 MG PO (08:55)
--- NOTE | 2024-11-07 09:32 | W.PN.HOSP.TC ---
Today's Communication/Plan
-
Continue steroids. Cardiac MRI.
Assessment / Plan
Assessment / Plan
Physical Exam
General: Well Developed, Well Nourished and some Apparent Distress
HEENT: NormoCephalic, Moist mucous membranes and Atraumatic
Respiratory: Bilateral coarse crackles. No wheezes.
Cardiac: S1/S2 and Regular Rhythm; No Murmur or Rub
GI: Soft, Non Tender, Non Distended and Normal Bowel Sounds; No Organomegaly
Rectal: Deferred by Provider
Musculoskeletal: No Clubbing, No Cyanosis and No Edema
Skin: No Rash
Neuro: Nonfocal/grossly intact
A/P:
Acute hypoxic respiratory insufficiency:
Multifactorial etiology but mainly interstitial pneumonitis remains main culprit with worsening symptoms associated with rapid taper of steroids and deconditioning, decreased muscle mass, post-nasal drip and GERD.
Had some possible reaction to steroids (she is know to be sensitive to multiple meds)
Discussed with pulm at length today 11/05
Plan to increase steroids orally and prolong course along with multiple other measures.
CTA chest no PE and pulm parenchymal changes persisting while improving
Repeat inflammatory markers in am along with cpk
No need for antibiotics
Pulm does not believe bronchoscopy necessary at this juncture
Discussed with family at length prior
Discussed with cardiology today on 11/07
Discussed with pulmonary today on 11/07
Leukocytosis:
Likely reactive
Hematology on board and appreciated consult and follow-up
Elevated trop:
Recent cardiac cath reviewed
Cardiology consult appreciated
Cardiac MRI done and no evidence of acute myocarditis or any diffuse infiltrative cardiomyopathy.
Consider asa (non obstructive cad) but but Hx GI bleed+GERD
Cardiac monitoring
Chronic HFpEF:
Euvolemic
Diuresed last hospitalization
On Lasix 40 mg po daily
On K replacement
On SGLT-inh
Elevated BNP but decreased from prior
Chronic hyponatremia:
SIADH related recently
Sodium low but stable
On salt tablets
Continue fluid restrictions
Continue to monitor
Asthma:
Continue bronchodilators
Chronic anemia:
No signs of active bleeding
Continue to monitor
Elevated LFT:
Stable
We will check every so often
Chronic back pain:
Recent spinal and neuroforaminal stenosis at L4-L5 and acute rehabilitation stay recently.
Prior history of L4-L5 laminectomy in the past.
On Tylenol prn
Consider Lidoderm patch + Toradol if needed
Hypertension:
On amlodipine 2.5 mg twice a day, home med with guanfacine 2 mg p.o. twice a day on hold, and valsartan 320 mg nightly consider hold if cough persists).
Monitor blood pressure adjust medications accordingly
Diabetes mellitus type 2:
Continue insulin sliding scale
Continue dapagliflozin
Hold metformin
Monitor blood sugar and adjust medications accordingly
Fibromyalgia:
Continue Cymbalta 60 mg p.o. daily
GERD:
Continue PPI p.o. twice a day
Hypothyroidism:
Continue levothyroxine 50 mcg p.o., Mondays to Sunday
Constipation:
Continue current bowel regimen
Insomnia:
Continue melatonin
DVT prophylaxis:
Heparin SQ change to Lovenox SQ
CODE STATUS:
Full code
Total time spent on today's encounter was 52 minutes which included time spent in counseling the patient/family regarding diagnosis and treatment plan as listed above, goals of care, and symptom management. Case was discussed with nursing staff,
specialists, and care coordinators/case management. All labs and imaging personally reviewed by me. Remainder the time spent in detailed review of previous records, lab data, imaging, and other medical provider documentation.
Anticipated Discharge: > 48 hours
Subjective/Interval History
-
Date of Service: November 07, 2024
Patient had an episode of increased shortness of breath after coming from MRI but felt better afterwards. Afebrile. On supplemental oxygen
Objective Data
-
Labs:
Laboratory Results
11/07/24
07:06
WBC 25.7 H
Hgb 10.8 L
Hct 33.2 L
Plt Count 629 H
Sodium 129 L
Potassium 3.9
Chloride 97 L
Carbon Dioxide 23
BUN 19 H
Creatinine 0.4 L
Glucose 99
Calcium 8.5
Total Bilirubin 0.5
AST 43 H
ALT 68 H
Alkaline Phosphatase 39
Vital Signs:
Vital Signs
Temp Pulse Resp BP Pulse Ox
98.1 F 86 18 140/79 91
11/07/24 07:20 11/07/24 08:01 11/07/24 08:01 11/07/24 07:20 11/07/24 08:01
I&O
11/06/24 11/07/24 11/08/24
06:59 06:59 06:59
Intake Total 840 / 840 480 / 480
Balance 840 / 840 480 / 480
[2024-11-07 11:06] VITALS: BP 150/67
[2024-11-07 11:12] LABS: Glucose - Point of Care 99 mg/dl (70-99)
--- NOTE | 2024-11-07 11:15 | PTCARENOTE ---
11/07- Patient returned from MRI laying supine on stretcher, c/o SOB, coughing and dizziness at rest. +pulsesX4; fingernails cyanotic; tachypneic and shallow with POX=88%, RR=20 on RA and HR=95. Lungs are diminished with coarse bases with crackles
BL. Notified Physician. Patient placed on Non-rebreather mask at 6L O2. HOB elevated to 45degrees. POX=97% on non-rebreather with HR=86, and RR=18. Fingernails now are red with cap refill<2sec; +pulsesX4. Lung sounds unchanged. Will continue
to monitor.
--- NOTE | 2024-11-07 13:09 | W.PN.CD ---
Today's Communication / Plan
-
Cardiac MRI with no evidence of myocarditis
Continue Lasix 40 mg daily and tobacco flows and 10 mg daily for HFpEF
Cardiology will sign off at this time. Please call with any additional questions or concerns. We will have our office schedule her for follow-up in 2-4 weeks from discharge.
Impression / Plan
-
74 y/o female with hypertension, dyslipidemia, fibromyalgia, and diabetes who presents from [facility] for shortness of breath following recent hospitalization for HFpEF and inflammatory pneumonitis, found to have persistently elevated troponins.
Shortness of breath
-She has had extensive cardiac workup including:
- RHC/LHC on 10/27/24 (RA 9 PA 41/28 PCWP 15 CI 2.4 at 67.9 kg; 50% mid LAD, no occlusive CAD)
- echocardiogram (10/22/2024) with normal biventricular function and mild/mod TR, PASP 57 mmHg
- cMRI (11/07/24): no myocarditis or infiltrative cardiomyopathy
-Workup thus far is notable for mild pulmonary hypertension (mPAP 32) likely due to HFpEF versus undiagnosed lung disease. I am not convinced that this is fully responsible for her dyspnea given it is fairly mild.
-Continue treatment for inflammatory pneumonitis with pulmonary
Troponin elevation due to nonischemic myocardial injury
-It is not clear why her troponins are persistently elevated. LHC on 10/27/2024 showed no obstructive coronary artery disease and cardiac MRI with no myocarditis.
-She may have some microvascular coronary dysfunction but I do not think this is related to her symptoms
-Okay to stop trending troponins
Mild pulmonary hypertension
-Mean pulmonary artery pressure of 32 mmHg by RHC on 10/27/2024
-She may need further testing to figure out what is causing this PH if she does not respond to treatment for inflammatory pneumonitis
Leukocytosis
-Likely reactive due to steroid use.
-Hematology following
Chronic HFpEF: Euvolemic, continue Lasix p.o. 40 mg daily and dapagliflozin 10 mg daily
Hypertension: BPs acceptable, continue amlodipine and valsartan
Nonobstructive coronary artery disease: rosuvastatin 5 mg daily
Subjective: Feels somewhat better than yesterday, but overall still feeling very poorly
Physical Exam
Vital Signs/Labs
Vital Signs
Temp Pulse Resp BP Pulse Ox
97.5 F 86 18 150/67 96
11/07/24 11:06 11/07/24 11:38 11/07/24 11:38 11/07/24 11:06 11/07/24 11:38
11/06/24 11/07/24 11/08/24
06:59 06:59 06:59
Actual Weight 66.497 kg 66.451 kg
11/07/24 07:06
11/07/24 07:06
Magnesium 2.1 mg/dl (1.6-2.3) 11/06/24 06:48
11/04/24
10:23
Zeb-[id number] Pept 795
LAB Results
11/04/24 11/04/24 11/05/24
17:53 23:31 07:10
Troponin I 0.333 H* D 0.470 H* D 0.607 H* D
11/06/24
08:21
Troponin I 0.644 H*
Physical Exam
Constitutional: No acute distress and Comfortable
Cardiovascular: Rhythm & rate is regular, Pedal edema is absent, Systolic murmur present and S1S2 is normal
Respiratory: Respiratory effort normal and Crackles Present
Neuro/Psych: AO x 3
Data Reviewed
-
Date of Service: November 07, 2024
Medical Decision Making: Reviewed Test Results, Independent Historian Assessment, Test Interpretation and Review of Case with other Provider
EKG: Tracing Personally Visualized and interpreted
Echo: Report Reviewed by me
X-Ray/CT/US/MRI/NUC/PET: Report Reviewed by me
Labs: Labs Reviewed by me
--- NOTE | 2024-11-07 14:42 | W.PN.PUL3 ---
Today's Communication / Plan
-
Continue cough therapy:
Antitussives as able
Pulmicort twice a day
Xopenex/Atrovent
Nasal saline spray
Antihistamines for postnasal drip
PPI
Will add low-dose azithromycin 250 mg every other day for anti-inflammatory properties 11/07/2024.
Limited due to multiple allergies
Gabapentin would have been ideal but patient cannot tolerate. Patient has also component of anxiety.
-
Continue dexamethasone at the current dose for possible inflammatory ILD.
-
Cardiology has signed off.
-
Continue physical therapy/Occupational Therapy
Hopefully patient can be transferred back to [place] [facility] early next week.
-
Will continue to follow briefly over the weekend.
Assessment
-
74-year-old woman with past medical history noted, readmitted with shortness of breath and hypoxemia. Recently discharged to rehabilitation with a tentative diagnosis of inflammatory pneumonitis. Seem to have responded to steroids. Steroids were
being weaned down. Patient developed coughing and worsening shortness of breath, Transferred back to the acute care for reevaluation, consulted late on 11/04/2024.
Exertional dyspnea/coughing.
CT chest 11/04/2024: Reviewed, no evidence for pulmonary embolism. Improved bilateral lower lobe pneumonia and/atelectasis right greater than left.
Anti-CCP normal/JASPAL not detected/ANCA antibodies 0/rheumatoid factor less than 10
No peripheral eosinophilia
Elevated CRP and sedimentation rate
Urinalysis without proteinuria
Negative COVID
EK11/04/2024-sinus tachycardia. Otherwise normal, no evidence for RV dysfunction.
Leukocytosis likely from steroids/reactive thrombocytosis- new since early Oct
Mild to moderate pulmonary hypertension with normal RV on echocardiogram: Suspect either postcapillary or from hypoxemia/current underlying lung issues.
Doubt pulmonary arterial hypertension
Blood gas 10/27/2024: 7.03/06/1956
Hyponatremia
Increased troponin/proBNP 795.(Previously to 3000)
Unclear etiology-prior cardiac catheterization without significant obstructive coronary artery disease.
mild Increased LFTs
Chronic conditions OUTCOMES SPECIALIST: Hypertension, DM type II, asthma, fibromyalgia, IBS, history of M�ni�re's disease, spinal stenosis s/p L4-5 laminectomy, right hemidiaphragm elevation.

Assessment and plan:
Extensive review of prior workup and records.
Complaining of worsening shortness of breath and coughing-transfer back from [facility]11/04/2023.
-
CT scan of the chest from 11/04/2024: Patient does have persistent lower lobe predominant increased interstitial markings. No evidence for pulmonary embolism. Overall improved from CT chest 10/21/2024.
As previously mentioned: Possible inflammatory pneumonitis either idiopathic or secondary to connective tissue disease. So far immunology workup negative. Moderately elevated inflammation markers in the past. This will need to be readdressed in
the outpatient setting.
Last C-reactive protein 11/03/2024 less than 5 but patient on steroids.
CRP 17 on 11/06/2024
-
This is contributing to shortness of breath and will take some time to clear.
She has been weaned down to room air at rest-2 L of supplemental oxygen with activity.(11/06/2024)
-
Cough should be treated symptomatically.
I see no evidence for acute pulmonary issues at this point.
Given improvement on CAT scan no indication for further pulmonary evaluation such as bronchoscopy biopsies etc/.
-
Suspect her shortness of breath is multifactorial.
Will continue with prednisone equivalent for 40 mg of prednisone or 6 mg of dexamethasone for the next 3-4 weeks or until seen in our office. This is to treat potential inflammatory pneumonitis, she seems to be responding to this.
-
Increased troponins of unclear etiology-recent cardiac catheterization noted without significant obstructive coronary artery disease. Myocarditis is within the differential diagnosis per cardiology
Cardiac MRI: Negative for myocarditis. Mildly reduced systolic function. Right hemidiaphragm elevation. Mild to moderate TR.
Cardiac catheterization during last hospital stay without evidence for decompensated heart failure
Currently appears euvolemic
Does have mild to mild-Wood units 3.1 (borderline) pulmonary hypertension with normal RV, unlikely reason for her symptoms. For now no further evaluation onto pulmonary issues or improved.
Cardiology correspondence reviewed-cardiology has signed off. No acute cardiac issues.
-
Other component for shortness of breath with deconditioning, she also has right hemidiaphragm elevation which is chronic.
Part of the shortness of breath likely due to significant muscle mass loss, has been immobile for a while, significant weight loss over 20 pounds, part of it from diuresis.
Increase activity as able
Incentive spirometry encouraged.
Slightly increased CK-no evident muscle weakness on exam
Check aldolase-pending.
On exam no evidence for significant muscle weakness. No swallowing dysfunction.
-
No evidence for infection at this point, leukocytosis present since early October. Patient had normal leukocytes in mid October.
There is no splenomegaly or hepatomegaly
Persistent leukocytosis possibly from marginalization from steroids. Trending lower at 30,000 --> 26,000-->[id number]'s
Thrombocytosis likely reactive.
Follow-up fevers-currently no signs for infection.
Hold antibiotics, from the pulmonary perspective infiltrates appear improved. No evidence for pulmonary infection.
Recently completed full course of antibiotics.
Hematology consulted: Also suspect reactive leukocytosis/thrombocytosis. Follow CBC daily.
-
Also complaining of coughing : Suspect due to underlying parenchymal lung process which is improved, postnasal drip and acid reflux
continue antitussive-Tessalon Perles
Saline nasal spray
Unable to take intranasal steroids due to bleeding
Continue Pulmicort nebulized twice a day-patient states that she is sensitive to inhaled medications.
Continue Xopenex/Atrovent-she is benefiting from this.
Unfortunately allergic to codeine and many other cough suppressant such as gabapentin as well.
Continue Patricia
Hydroxyzine has been added as needed for itching due to reaction to steroids.
Valsartan induced cough also a possibility. Patient has been taking for years.
Continue PPI-antireflux interventions.
MRI of the heart without myocarditis. Cardiology has signed off no acute cardiac issues.
Start low-dose azithromycin for anti-inflammatory properties, may help with the cough. Unfortunately, we have limited pharmacological options with the patient has extensive allergy history.
-
DVT prophylaxis
-
Will continue to follow briefly, hopefully can go back to [facility].
Family updated in detail at the bedside 11/05/2024, 11/06/2024, 11/07/[address] Meyers.

Data reviewed:
CTA Chest 10/21/2024: No evidence of central pulmonary embolism; Bibasilar opacification suspicious for pneumonia with slight progression, particularly on the left.
Transthoracic Echocardiogram 10/22/2024: Normal left ventricular size with hyperdynamic systolic function and normal regional wall motion. LVEF 70-75%. Normal right ventricular size and function.
Mild to moderate tricuspid regurgitation. Moderately elevated pulmonary artery pressure (PASP 57 mmHg). No prior study available for comparison.
C/RHC 10/27/24- CONCLUSIONS:
1. Right dominant circulation with a 50% lesion in the mid LAD, but no occlusive coronary artery disease.
2. Normal filling pressures (LVEDP = 15 mmHg, PCWP = 15 mmHg at 67.6 kg).
3. Mild, precapillary pulmonary hypertension (mean PA = 27 mmHg, PCWP = 15 mmHg, cardiac output = 3.85 L/min, PVR = 3.12 Fenton units).
4. No cardiac cause for persistent hypoxia.
5. Several radial/brachial artery loops making cardiac catheterization from the right radial artery difficult.
Subjective Data
-
Date of Service:
Date of Service: November 07, 2024
Chief Complaint: Pulmonary Follow Up (Cough/shortness of breath/abnormal CT chest)
Subjective:
No new complaints
Occasionally having cough paroxysms with increased shortness of breath
No significant phlegm production or hemoptysis.
Review of Systems
Cardiopulmonary: Dyspnea, Dyspnea on Exertion, Cough, Sputum Production (n) and Wheezing (n)
GI: Abdominal Pain (n) and Nausea (n)
Neuro: Headache (n)
Objective Data
Data Reviewed
Vital Signs / I&O / Oxygen:
Vital Signs
Temp Pulse Resp BP Pulse Ox
97.5 F 86 18 150/67 96
11/07/24 11:06 11/07/24 11:38 11/07/24 11:38 11/07/24 11:06 11/07/24 11:38
Intake and Output
11/06/24 11/07/24 11/08/24
06:59 06:59 06:59
Intake Total 840 / 840 480 / 480
Balance 840 / 840 480 / 480
SaO2 96
Nasal Cannula flow liters per 3
minute
Physical Exam
General: Comfortable (At rest)
HEENT: Normocephalic
Cardiovascular: S1-S2
Respiratory: Crackles and Non-Labored Respirations
GI: Soft and Non Distended
Neurology: Awake, Alert, AO x 3 and No Motor Deficits
Skin: Good Color
Labs/Micro/Reports
Lab Data
11/07/24 07:06
11/07/24 07:06
Laboratory Results
11/07/24
11:12
pH Cancelled
pCO2 Cancelled
pO2 Cancelled
HCO3 Cancelled
O2 Delivery Level Cancelled
Microbiology
11/04/24 10:23 Nasal Swab Influenza Types A & B (ADELSO) - Final
Negative for Influenza A & B, NAAT
Negative results must be combined with clinical observations
and patient history.
Nucleic Acid Amplification test (NAAT)performed on the
[employer] platform.
[2024-11-07] MEDS: ZITHROMAX 250 MG PO (15:09)
[2024-11-07 15:34] VITALS: BP 111/70
[2024-11-07 16:53] LABS: Glucose - Point of Care 204 mg/dl (70-99)
[2024-11-07] MEDS: NOVOLOG FLEXPEN-LOW RESISTANCE 2 UNITS SC (16:59)
[2024-11-07] MEDS: NORVASC 2.5 MG PO (17:04)
[2024-11-07] MEDS: DIOVAN 320 MG PO (17:04)
[2024-11-07] MEDS: SENOKOT 8.6 MG PO (17:04)
[2024-11-07] MEDS: CRESTOR 5 MG PO (17:05)
[2024-11-07] MEDS: LOVENOX 40 MG SC (17:05)
[2024-11-07 19:15] VITALS: BP 102/74
[2024-11-07] MEDS: MELATONIN 3 MG PO (21:35)
[2024-11-07] MEDS: MIRALAX 17 GRAMS PO (21:36)
[2024-11-07 22:06] LABS: Glucose - Point of Care 133 mg/dl (70-99)
[2024-11-07 23:17] VITALS: BP 129/74
[2024-11-08 03:22] VITALS: BP 125/67
[2024-11-08] MEDS: ROBITUSSIN 100 MG PO ×3 (03:37→21:36)
[2024-11-08 06:00] VITALS: BMI 31.2
[2024-11-08] MEDS: NON-FORMULARY ITEM 40 MG PO ×2 (06:26→16:53)
[2024-11-08] MEDS: SYNTHROID 50 MCG PO (06:29)
[2024-11-08 07:39] VITALS: BP 129/71
[2024-11-08] MEDS: PULMICORT 0.5 MG INH ×2 (07:44→20:08)
[2024-11-08] MEDS: XOPENEX 1.25 MG INHALANT SOLUTION INH ×2 (07:44→15:21)
[2024-11-08] MEDS: ATROVENT NEBULES 0.5 MG INH ×3 (07:44→20:08)
[2024-11-08] MEDS: NOVOLOG FLEXPEN-LOW RESISTANCE SC ×2 (07:55→11:22)
[2024-11-08] MEDS: KCL PO (07:55)
[2024-11-08] MEDS: FIBERCON 1250 MG PO (07:56)
[2024-11-08] MEDS: FARXIGA 10 MG PO (07:56)
[2024-11-08] MEDS: DECADRON 4 MG PO (07:57)
[2024-11-08] MEDS: SODIUM CHLORIDE 1 GRAM PO ×2 (07:57→21:27)
[2024-11-08] MEDS: CYMBALTA DELAYED RELEASE 60 MG PO (07:57)
[2024-11-08] MEDS: DECADRON 2 MG PO (07:57)
[2024-11-08] MEDS: LASIX 40 MG PO (07:57)
[2024-11-08] MEDS: VITAMIN D3 (cholecalciferol) 50 MCG PO (07:59)
[2024-11-08] MEDS: NON-FORMULARY ITEM 1 TABLET PO (08:00)
[2024-11-08] MEDS: TESSALON PERLES 100 MG PO ×3 (08:00→21:27)
[2024-11-08] MEDS: FLORASTOR 250 MG PO ×2 (08:00→21:27)
[2024-11-08 08:21] LABS: Glucose - Point of Care 38 mg/dl (70-99)
[2024-11-08 08:44] LABS: Glucose - Point of Care 16 mg/dl (70-99)
--- NOTE | 2024-11-08 08:48 | W.PN.HOSP.TC ---
Today's Communication/Plan
-
Continue steroids. Reaching out to tertiary care center.
Assessment / Plan
Assessment / Plan
Physical Exam
General: Well Developed, Well Nourished and some Apparent Distress
HEENT: NormoCephalic, Moist mucous membranes and Atraumatic
Respiratory: Bilateral coarse crackles. No wheezes.
Cardiac: S1/S2 and Regular Rhythm; No Murmur or Rub
GI: Soft, Non Tender, Non Distended and Normal Bowel Sounds; No Organomegaly
Rectal: Deferred by Provider
Musculoskeletal: No Clubbing, No Cyanosis and No Edema
Skin: No Rash
Neuro: Nonfocal/grossly intact
A/P:
Acute hypoxic respiratory insufficiency:
Multifactorial etiology but mainly interstitial pneumonitis remains main culprit with worsening symptoms associated with rapid taper of steroids and deconditioning, decreased muscle mass, post-nasal drip and GERD.
Had some possible reaction to steroids (she is know to be sensitive to multiple meds)
Discussed with pulm at length today 11/05
Plan to increase steroids orally and prolong course along with multiple other measures.
CTA chest no PE and pulm parenchymal changes persisting while improving
Repeat inflammatory markers in am along with cpk
No need for antibiotics
Pulm does not believe bronchoscopy necessary at this juncture
Discussed with family at length prior
Discussed with cardiology on 11/07
Discussed with pulmonary on 11/07
Discussed with daughter at bedside today on 11/08
Reached out to [facility] to see if they would offer anything different at this point.
Leukocytosis:
Likely reactive
Hematology on board and appreciated consult and follow-up
Elevated trop:
Recent cardiac cath reviewed
Cardiology consult appreciated
Cardiac MRI done and no evidence of acute myocarditis or any diffuse infiltrative cardiomyopathy.
Consider asa (non obstructive cad) but but Hx GI bleed+GERD
Cardiac monitoring
Chronic HFpEF:
Euvolemic
Diuresed last hospitalization
On Lasix 40 mg po daily
On K replacement
On SGLT-inh
Elevated BNP but decreased from prior
Chronic hyponatremia:
SIADH related recently
Sodium low but stable
On salt tablets
Continue fluid restrictions
Continue to monitor
Asthma:
Continue bronchodilators
Chronic anemia:
No signs of active bleeding
Continue to monitor
Elevated LFT:
Stable
We will check every so often
Chronic back pain:
Recent spinal and neuroforaminal stenosis at L4-L5 and acute rehabilitation stay recently.
Prior history of L4-L5 laminectomy in the past.
On Tylenol prn
Consider Lidoderm patch + Toradol if needed
Hypertension:
On amlodipine 2.5 mg twice a day, home med with guanfacine 2 mg p.o. twice a day on hold, and valsartan 320 mg nightly consider hold if cough persists).
Monitor blood pressure adjust medications accordingly
Diabetes mellitus type 2:
Continue insulin sliding scale
Continue dapagliflozin
Hold metformin
Monitor blood sugar and adjust medications accordingly
Fibromyalgia:
Continue Cymbalta 60 mg p.o. daily
GERD:
Continue PPI p.o. twice a day
Hypothyroidism:
Continue levothyroxine 50 mcg p.o., Mondays to Sunday
Constipation:
Continue current bowel regimen
Insomnia:
Continue melatonin
DVT prophylaxis:
Heparin SQ change to Lovenox SQ
CODE STATUS:
Full code
Total time spent on today's encounter was 52 minutes which included time spent in counseling the patient/family regarding diagnosis and treatment plan as listed above, goals of care, and symptom management. Case was discussed with nursing staff,
specialists, and care coordinators/case management. All labs and imaging personally reviewed by me. Remainder the time spent in detailed review of previous records, lab data, imaging, and other medical provider documentation.
Anticipated Discharge: > 48 hours
Subjective/Interval History
-
Date of Service: November 08, 2024
Patient feels better overall. On supplemental oxygen. Afebrile
Objective Data
-
Vital Signs:
Vital Signs
Temp Pulse Resp BP Pulse Ox
98.2 F 85 18 129/71 98
11/08/24 07:39 11/08/24 07:49 11/08/24 07:49 11/08/24 07:39 11/08/24 07:49
I&O
11/07/24 11/08/24 11/09/24
06:59 06:59 06:59
Intake Total 480 / 480 900 / 900
Balance 480 / 480 900 / 900
[2024-11-08 08:51] LABS: Glucose - Point of Care 53 mg/dl (70-99)
[2024-11-08 09:17] LABS: % Basophils 0.4 % (0-2); % Eosinophils 1.6 % (0-6); % Immature Granulocytes 3.6 % (0-0.5); % Lymphocytes 16.4 % (20.5-51.1); % Monocytes 6.9 % (1.7-9.3); % Neutrophils 71.1 % (42.2-75.2); Absolute Basophils 0.1 10^3/uL (0-0.2); Absolute Eosinophils 0.4 10^3/uL (0-0.7); Absolute Immature Granulocytes 0.9 10^3/uL (0-0.05); Absolute Monocytes 1.7 10^3/uL (0.1-0.6); Absolute Neutrophils 17.4 10^3/uL (1.4-6.5); Hematocrit 34.1 % (37.0-47.0); Mean Corp Hgb Conc. 32.3 g/dL (33.0-37.0); Mean Corpuscular Hgb 27.8 pg (27.0-31.0); Mean Corpuscular Volume 86.1 fL (81.0-99.0); Mean Platelet Volume 8.4 fL (7.4-10.4); Nucleated Red Blood Cells % 0 %; Platelet Count 628 10^3/uL (130-400); Red Blood Cell Count 3.96 10^6/uL (4.20-5.40); Red Cell Dist. Width 14.9 % (11.5-14.5); White Blood Cell Count 24.4 10^3/uL (4.8-10.8)
[2024-11-08 09:17] LABS: Glucose - Point of Care 61 mg/dl (70-99)
[2024-11-08 09:36] LABS: Blood Urea Nitrogen 20 mg/dl (7-17); Carbon Dioxide 21 mmol/L (22-30); Chloride 96 mmol/L (98-107); Estimated Creatinine Clearance 67 ml/min; Glucose 153 mg/dl (70-99); Sodium 130 mmol/L (135-145); eGFR > 60.00
[2024-11-08 11:11] LABS: Glucose - Point of Care 107 mg/dl (70-99)
[2024-11-08 11:53] VITALS: BP 124/67
[2024-11-08 15:47] VITALS: BP 118/67
--- NOTE | 2024-11-08 15:57 | W.PN.PUL3 ---
Addendum entered and electronically signed by Aditya Barahona MD 11/08/24 16:49:
Daughter was updated by phone
Issues with hypoglycemia noted this morning, none since
Patient with history of diabetes
Will defer to primary service with regards to hypoglycemia
However, I would like to reambulate patient in a.m. with a 6-minute walk test 11/09
Physical therapy ambulation 150 feet, 96% noted on 11/08
Reviewed with daughter by phone, all questions answered
Original Note:
Today's Communication / Plan
-
Confirmed with patient that CT imaging suggest improvement
She has on a variety of antitussive therapy at this time
Continue with DuoNebs, Pulmicort, dexamethasone, Zithromax
Crackles on exam noted
Will require follow-up as a outpatient
Continue to reassess ambulatory saturation
Assessment
-
74-year-old woman with past medical history noted, readmitted with shortness of breath and hypoxemia. Recently discharged to rehabilitation with a tentative diagnosis of inflammatory pneumonitis. Seem to have responded to steroids. Steroids were
being weaned down. Patient developed coughing and worsening shortness of breath, Transferred back to the acute care for reevaluation, consulted late on 11/04/2024.
Exertional dyspnea/coughing.
CT chest 11/04/2024: Reviewed, no evidence for pulmonary embolism. Improved bilateral lower lobe pneumonia and/atelectasis right greater than left.
Anti-CCP normal/JASPAL not detected/ANCA antibodies 0/rheumatoid factor less than 10
No peripheral eosinophilia
Elevated CRP and sedimentation rate
Urinalysis without proteinuria
Negative COVID
EK11/04/2024-sinus tachycardia. Otherwise normal, no evidence for RV dysfunction.
Leukocytosis likely from steroids/reactive thrombocytosis- new since early Oct
Mild to moderate pulmonary hypertension with normal RV on echocardiogram: Suspect either postcapillary or from hypoxemia/current underlying lung issues.
Doubt pulmonary arterial hypertension
Blood gas 10/27/2024: 7.03/06/1956
Hyponatremia
Increased troponin/proBNP 795.(Previously to 3000)
Unclear etiology-prior cardiac catheterization without significant obstructive coronary artery disease.
mild Increased LFTs
Chronic conditions [employer]GER: Hypertension, DM type II, asthma, fibromyalgia, IBS, history of M�ni�re's disease, spinal stenosis s/p L4-5 laminectomy, right hemidiaphragm elevation.

Assessment and plan:
Extensive review of prior workup and records.
Complaining of worsening shortness of breath and coughing-transfer back from [place] rehab11/04/2023.
-
CT scan of the chest from 11/04/2024: Patient does have persistent lower lobe predominant increased interstitial markings. No evidence for pulmonary embolism. Overall improved from CT chest 10/21/2024.
As previously mentioned: Possible inflammatory pneumonitis either idiopathic or secondary to connective tissue disease. So far immunology workup negative. Moderately elevated inflammation markers in the past. This will need to be readdressed in
the outpatient setting.
Last C-reactive protein 11/03/2024 less than 5 but patient on steroids.
CRP 17 on 11/06/2024
I reviewed with patient that her imaging shows improvement overall
I also reviewed that it may take a while for her cough to resolve
-
This is contributing to shortness of breath and will take some time to clear.
She has been weaned down to room air at rest-2 L of supplemental oxygen with activity.(11/06/2024)
-
Cough should be treated symptomatically.
I see no evidence for acute pulmonary issues at this point.
Given improvement on CAT scan no indication for further pulmonary evaluation such as bronchoscopy biopsies etc/.
-
Suspect her shortness of breath is multifactorial.
Will continue with prednisone equivalent for 40 mg of prednisone or 6 mg of dexamethasone for the next 3-4 weeks or until seen in our office. This is to treat potential inflammatory pneumonitis, she seems to be responding to this.
-
Increased troponins of unclear etiology-recent cardiac catheterization noted without significant obstructive coronary artery disease. Myocarditis is within the differential diagnosis per cardiology
Cardiac MRI: Negative for myocarditis. Mildly reduced systolic function. Right hemidiaphragm elevation. Mild to moderate TR.
Cardiac catheterization during last hospital stay without evidence for decompensated heart failure
Currently appears euvolemic
Does have mild to mild-Wood units 3.1 (borderline) pulmonary hypertension with normal RV, unlikely reason for her symptoms. For now no further evaluation onto pulmonary issues or improved.
Cardiology correspondence reviewed-cardiology has signed off. No acute cardiac issues.
-
Other component for shortness of breath with deconditioning, she also has right hemidiaphragm elevation which is chronic.
Part of the shortness of breath likely due to significant muscle mass loss, has been immobile for a while, significant weight loss over 20 pounds, part of it from diuresis.
Increase activity as able
Incentive spirometry encouraged.
Slightly increased CK-no evident muscle weakness on exam
Check aldolase-pending.
On exam no evidence for significant muscle weakness. No swallowing dysfunction.
-
No evidence for infection at this point, leukocytosis present since early October. Patient had normal leukocytes in mid October.
There is no splenomegaly or hepatomegaly
Persistent leukocytosis possibly from marginalization from steroids. Trending lower at 30,000 --> 26,000-->69921's
Thrombocytosis likely reactive.
Follow-up fevers-currently no signs for infection.
Hold antibiotics, from the pulmonary perspective infiltrates appear improved. No evidence for pulmonary infection.
Recently completed full course of antibiotics.
Hematology consulted: Also suspect reactive leukocytosis/thrombocytosis. Follow CBC daily.
-
Also complaining of coughing : Suspect due to underlying parenchymal lung process which is improved, postnasal drip and acid reflux
continue antitussive-Tessalon Perles
Saline nasal spray
Unable to take intranasal steroids due to bleeding
Continue Pulmicort nebulized twice a day-patient states that she is sensitive to inhaled medications.
Continue Xopenex/Atrovent-she is benefiting from this.
Unfortunately allergic to codeine and many other cough suppressant such as gabapentin as well.
Continue Patricia
Hydroxyzine has been added as needed for itching due to reaction to steroids.
Valsartan induced cough also a possibility. Patient has been taking for years.
Continue PPI-antireflux interventions.
MRI of the heart without myocarditis. Cardiology has signed off no acute cardiac issues.
Start low-dose azithromycin for anti-inflammatory properties, may help with the cough. Unfortunately, we have limited pharmacological options with the patient has extensive allergy history. She seems to be tolerating at this time
-
DVT prophylaxis
-
Will continue to follow briefly, hopefully can go back to [facility].
Family updated in detail at the bedside 11/05/2024, 11/06/2024, 11/07/[address] Meyers.
I will contact daughter sometime later today to review by phone

Data reviewed:
CTA Chest 10/21/2024: No evidence of central pulmonary embolism; Bibasilar opacification suspicious for pneumonia with slight progression, particularly on the left.
Transthoracic Echocardiogram 10/22/2024: Normal left ventricular size with hyperdynamic systolic function and normal regional wall motion. LVEF 70-75%. Normal right ventricular size and function.
Mild to moderate tricuspid regurgitation. Moderately elevated pulmonary artery pressure (PASP 57 mmHg). No prior study available for comparison.
[facility] 10/27/24- CONCLUSIONS:
1. Right dominant circulation with a 50% lesion in the mid LAD, but no occlusive coronary artery disease.
2. Normal filling pressures (LVEDP = 15 mmHg, PCWP = 15 mmHg at 67.6 kg).
3. Mild, precapillary pulmonary hypertension (mean PA = 27 mmHg, PCWP = 15 mmHg, cardiac output = 3.85 L/min, PVR = 3.12 Fenton units).
4. No cardiac cause for persistent hypoxia.
5. Several radial/brachial artery loops making cardiac catheterization from the right radial artery difficult.
Subjective Data
-
Date of Service:
Date of Service: November 08, 2024
Chief Complaint: Pulmonary Follow Up (Cough/shortness of breath/abnormal CT chest)
Subjective:
Patient seen and examined earlier today, late entry. She does feel improved overall, but still has a dry cough. She does get occasional heartburn. Denies hemoptysis, nausea. She feels her cough has improved overall
Objective Data
Data Reviewed
Vital Signs / I&O / Oxygen:
Vital Signs
Temp Pulse Resp BP Pulse Ox
98.7 F 94 20 118/67 98
11/08/24 15:47 11/08/24 15:47 11/08/24 15:47 11/08/24 15:47 11/08/24 15:47
Intake and Output
11/07/24 11/08/24 11/09/24
06:59 06:59 06:59
Intake Total 480 / 480 900 / 900
Balance 480 / 480 900 / 900
SaO2 98
Nasal Cannula flow liters per 2
minute
Physical Exam
General: Comfortable (At rest)
HEENT: Normocephalic
Cardiovascular: S1-S2
Respiratory: Crackles (Bibasilar) and Non-Labored Respirations
GI: Soft and Non Distended
Neurology: Awake, Alert and No Motor Deficits
Skin: Good Color
Labs/Micro/Reports
Lab Data
11/08/24 09:03
11/08/24 09:03
[2024-11-08 16:53] LABS: Glucose - Point of Care 197 mg/dl (70-99)
[2024-11-08] MEDS: NOVOLOG FLEXPEN-LOW RESISTANCE 1 UNITS SC (16:59)
[2024-11-08] MEDS: DIOVAN 320 MG PO (17:05)
[2024-11-08] MEDS: NORVASC 2.5 MG PO (17:05)
[2024-11-08] MEDS: CRESTOR 5 MG PO (17:05)
[2024-11-08] MEDS: LOVENOX 40 MG SC (17:06)
[2024-11-08] MEDS: SENOKOT 8.6 MG PO (17:08)
[2024-11-08] MEDS: MIRALAX 17 GRAMS PO (21:26)
[2024-11-08] MEDS: MELATONIN 3 MG PO (21:27)
[2024-11-08 21:30] LABS: Glucose - Point of Care 116 mg/dl (70-99)
[2024-11-08 23:20] VITALS: BP 124/73
[2024-11-09] MEDS: ROBITUSSIN 100 MG PO ×3 (04:52→20:58)
[2024-11-09] MEDS: NON-FORMULARY ITEM 40 MG PO ×2 (06:30→16:28)
[2024-11-09] MEDS: ATROVENT NEBULES 0.5 MG INH ×3 (07:29→21:37)
[2024-11-09] MEDS: PULMICORT 0.5 MG INH (07:29)
[2024-11-09 07:33] VITALS: BP 142/79
[2024-11-09] MEDS: FARXIGA 10 MG PO (07:47)
[2024-11-09] MEDS: DECADRON 2 MG PO (07:48)
[2024-11-09] MEDS: TESSALON PERLES 100 MG PO ×3 (07:48→20:51)
[2024-11-09] MEDS: DECADRON 4 MG PO (07:48)
[2024-11-09] MEDS: LASIX 40 MG PO (07:48)
[2024-11-09] MEDS: VITAMIN D3 (cholecalciferol) 50 MCG PO (07:48)
[2024-11-09] MEDS: SODIUM CHLORIDE 1 GRAM PO ×2 (07:49→20:48)
[2024-11-09] MEDS: CYMBALTA DELAYED RELEASE 60 MG PO (07:49)
[2024-11-09] MEDS: FIBERCON 1250 MG PO (07:49)
[2024-11-09] MEDS: FLORASTOR 250 MG PO ×2 (07:49→20:48)
[2024-11-09] MEDS: KCL PO (07:50)
[2024-11-09] MEDS: NON-FORMULARY ITEM 1 TABLET PO (07:50)
[2024-11-09] MEDS: NOVOLOG FLEXPEN-LOW RESISTANCE SC ×3 (08:16→16:36)
[2024-11-09 08:17] LABS: Glucose - Point of Care 88 mg/dl (70-99)
[2024-11-09 08:17] LABS: Glucose - Point of Care 33 mg/dl (70-99)
[2024-11-09 08:41] LABS: Troponin I 0.552 ng/ml
[2024-11-09 08:43] LABS: Blood Urea Nitrogen 20 mg/dl (7-17); Calcium 9.3 mg/dl (8.4-10.2); Carbon Dioxide 24 mmol/L (22-30); Chloride 97 mmol/L (98-107); Estimated Creatinine Clearance 67 ml/min; Glucose 82 mg/dl (70-99); Potassium 4.2 mmol/L (3.5-5.1); Sodium 131 mmol/L (135-145); eGFR > 60.00
--- NOTE | 2024-11-09 09:31 | CM ---
Chart reviewed. Care ongoing at this time
Physical therapy are still recommending acute rehab, plan is for patient to return to [facility] when stable
Plan: Return to [facility]
[2024-11-09 10:14] LABS: % Basophils 0.5 % (0-2); % Eosinophils 1.9 % (0-6); % Immature Granulocytes 2.6 % (0-0.5); Absolute Basophils 0.1 10^3/uL (0-0.2); Absolute Eosinophils 0.5 10^3/uL (0-0.7); Absolute Immature Granulocytes 0.7 10^3/uL (0-0.05); Absolute Lymphocytes 3.8 10^3/uL (1.2-3.4); Absolute Monocytes 1.8 10^3/uL (0.1-0.6); Absolute Neutrophils 18.3 10^3/uL (1.4-6.5); Hematocrit 34.4 % (37.0-47.0); Mean Corpuscular Hgb 27.7 pg (27.0-31.0); Mean Corpuscular Volume 86.6 fL (81.0-99.0); Mean Platelet Volume 8.5 fL (7.4-10.4); Nucleated Red Blood Cells % 0 %; Platelet Count 598 10^3/uL (130-400); Red Blood Cell Count 3.97 10^6/uL (4.20-5.40); Red Cell Dist. Width 14.9 % (11.5-14.5)
[2024-11-09 11:52] LABS: Glucose - Point of Care 116 mg/dl (70-99)
[2024-11-09 13:45] LABS: Number Of Markers 26 markers; Source Blood
[2024-11-09] MEDS: ZITHROMAX 250 MG PO (14:06)
[2024-11-09 14:07] LABS: Aldolase 12.3 U/L (1.2-7.6)
[2024-11-09] MEDS: PULMICORT INH (15:13)
[2024-11-09 15:32] VITALS: O2SAT 100; O2SAT 96
--- NOTE | 2024-11-09 15:35 | PTCARENOTE ---
2/2- Patient ambulated with RT and Family. Attempted Patient ambulating on RA with continuous POX. POX showed 100% on RA at rest and maintained sats at 98% on RA during ambulation. Ambulated ~100ft using walker and assistance. Skin=warm/pink/dry
with cap refill<2sec; +[id number]. Harsh nonproductive cough still present. Continue to monitor. Maintain on RA.
[2024-11-09 15:43] VITALS: BP 126/75
--- NOTE | 2024-11-09 16:27 | W.PN.PUL3 ---
Today's Communication / Plan
-
6 minute walk test normal
Continue to encourage ambulation, PT/OT. She would benefit from rehabilitation
Check V/Q scan in the a.m. to complete workup for mild pulmonary hypertension
Will require eventual rheumatology evaluation, this can be done as an outpatient
This may involve tissue biopsy (muscle, SLB)
Eventual primary follow-up as outpatient with full PFT
Assessment
-
74-year-old woman with past medical history noted, readmitted with shortness of breath and hypoxemia. Recently discharged to rehabilitation with a tentative diagnosis of inflammatory pneumonitis. Seem to have responded to steroids. Steroids were
being weaned down. Patient developed coughing and worsening shortness of breath, Transferred back to the acute care for reevaluation, consulted late on 11/04/2024.
Exertional dyspnea/coughing.
CT chest 11/04/2024: Reviewed, no evidence for pulmonary embolism. Improved bilateral lower lobe pneumonia and/atelectasis right greater than left.
Anti-CCP normal/JASPAL not detected/ANCA antibodies 0/rheumatoid factor less than 10, Aldolase positive
No peripheral eosinophilia
Elevated CRP and sedimentation rate
Urinalysis without proteinuria
Negative COVID
EK11/04/2024-sinus tachycardia. Otherwise normal, no evidence for RV dysfunction.
Leukocytosis likely from steroids/reactive thrombocytosis- new since early Oct
Mild to moderate pulmonary hypertension with normal RV on echocardiogram: Suspect either postcapillary or from hypoxemia/current underlying lung issues.
mPAP 27 per [facility], PCWP 16
Blood gas 10/27/2024: 7.03/06/1956
Hyponatremia
Persistently elevated troponin
proBNP 795.(Previously to 3000)
normal LHC, normal cardiac MRI
mild Increased LFTs
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

Plan/recommendations:
At this time, an extensive discussion with both daughters, and patient regarding workup to date
Salient features include steroid responsive process, interstitial lung disease basilar predominantly seems to be slowly improving, positive aldolase, mild hypertension with mean pulmonary artery pressure 27 per right heart cath, mild muscle
weakness on exam
Review differential at length
Suspect autoimmune process with interstitial disease. Patient with history of fibromyalgia, had seen rheumatology many years ago (Rey Roldan). Workup incomplete per family
Walk test today normal saturation after 6 minutes, 100%, dyspnea scale 4/10
Spot pulse oximetry while in bed seems to intermittently be low at 80%, suspect Raynauds phenomena
Moving forward
I relayed to the patient and family that she possibly may have autoimmune disease. She is presently on steroids, taper delineated over the next 2-4 weeks.
Ideally she would be off steroids and have rheumatological exam. This can be done as an outpatient. Family is concerned as patient is not able to maintain rehabilitation status and has had multiple hospital stays
Reassured patient and family that oxygen saturation is adequate. Suspect that symptoms may be primarily from inflammatory process, deconditioning, inflammatory myositis. There is no rash
She will eventually require rheumatological evaluation
I strongly recommended she contact rheumatology office and set up an appointment and/or contact and rheumatology. Obviously this may not be possible in the short-term but the process needs to be started
She will eventually require full PFTs and would recommend outpatient primary follow-up. Patient has identified Dr. Meyers to follow-up with
It appears that her cough and breathing has improved overall. Primary complaint is exhaustion/fatigue
She is now requiring oxygen therapy with her walk test
Continue with current treatment regimen for cough
I see no evidence for acute pulmonary issues at this point.
Given improvement on CAT scan no indication for further pulmonary evaluation such as bronchoscopy biopsies etc
These may be required in the future depending on clinical course. I would favor a surgical lung biopsy if needed
Family has requested transfer to [place]
We will defer to primary service
I reiterated that ideally she would be evaluated in the outpatient setting. It may be more feasible to set up follow-up with [place] rheumatology/pulmonary and set up a surgical lung biopsy. This would need to be done off steroids
Given overall improvement, this may not be necessary
We will check a VQ scan in a.m. to complete workup given mild pulmonary hypertension per right heart cath and mildly elevated troponins
Cardiac workup has been negative including cardiac MRI
There is weakness on exam
This seems to be improved overall with steroids
Unclear whether she may benefit from a muscle biopsy in the future but again this should be done off steroid therapy. This would be dictated by rheumatology
No evidence of infection at this time
Hematology consulted: Also suspect reactive leukocytosis/thrombocytosis.
Deferred any workup to hematology
Continue Pulmicort nebulized twice a day-patient states that she is sensitive to inhaled medications.
Continue Xopenex/Atrovent-she is benefiting from this.
Unfortunately allergic to codeine and many other cough suppressant such as gabapentin as well.
Continue Patricia
Hydroxyzine has been added as needed for itching due to reaction to steroids.
Valsartan induced cough also a possibility. Patient has been taking for years.
Continue PPI-antireflux interventions.
She remains on low-dose azithromycin for anti-inflammatory properties, may help with the cough. Unfortunately, we have limited pharmacological options with the patient has extensive allergy history. She seems to be tolerating at this time. I do
not think this is an ideal long-term option given the likelihood of an autoimmune process, steroid responsive process
-
DVT prophylaxis
-
Will continue to follow briefly, hopefully can go back to [facility].
Family updated in detail at the bedside 11/05/2024, 11/06/2024, 11/07/[address] Meyers.
Reviewed at length with both daughters,
All questions answered

Data reviewed:
CTA Chest 10/21/2024: No evidence of central pulmonary embolism; Bibasilar opacification suspicious for pneumonia with slight progression, particularly on the left.
Transthoracic Echocardiogram 10/22/2024: Normal left ventricular size with hyperdynamic systolic function and normal regional wall motion. LVEF 70-75%. Normal right ventricular size and function.
Mild to moderate tricuspid regurgitation. Moderately elevated pulmonary artery pressure (PASP 57 mmHg). No prior study available for comparison.
[facility] 10/27/24- CONCLUSIONS:
1. Right dominant circulation with a 50% lesion in the mid LAD, but no occlusive coronary artery disease.
2. Normal filling pressures (LVEDP = 15 mmHg, PCWP = 15 mmHg at 67.6 kg).
3. Mild, precapillary pulmonary hypertension (mean PA = 27 mmHg, PCWP = 15 mmHg, cardiac output = 3.85 L/min, PVR = 3.12 Fenton units).
4. No cardiac cause for persistent hypoxia.
5. Several radial/brachial artery loops making cardiac catheterization from the right radial artery difficult.
Subjective Data
-
Date of Service:
Date of Service: November 09, 2024
Chief Complaint: Pulmonary Follow Up (Cough/shortness of breath/abnormal CT chest)
Subjective:
Patient ambulated 6 minute walk test earlier this afternoon, 100% saturation after walking 6 minutes. She actually felt improved at the end, dyspnea scale 4/10, heart rate stable. She denies any chest pain, nausea. Primary complaint is
exhaustion. Both daughters and are at the bedside
Objective Data
Data Reviewed
Vital Signs / I&O / Oxygen:
Vital Signs
Temp Pulse Resp BP Pulse Ox
97.9 F 88 18 126/75 97
11/09/24 07:33 11/09/24 15:43 11/09/24 15:43 11/09/24 15:43 11/09/24 08:00
Intake and Output
11/08/24 11/09/24 11/10/24
06:59 06:59 06:59
Intake Total 900 / 900 660 / 660 480 / 480
Balance 900 / 900 660 / 660 480 / 480
SaO2 97
Nasal Cannula flow liters per 2
minute
Physical Exam
General: Comfortable (At rest)
HEENT: Normocephalic and Anicteric
Cardiovascular: S1-S2, Regular Rhythm, Murmur (n) and Rub (n)
Respiratory: Crackles (Bibasilar), Rhonchi (n), Non-Labored Respirations and Stridor (n)
GI: Soft, Non Distended and Non Tender
Neurology: Awake, Alert and No Motor Deficits ( however she is generally weak with flexor and extensor upper extremity and lower extremity, right lower extremity hip flexor weakness 4/5)
Skin: Good Color (n), Cyanosis (n), Rash (n), Bruising and Other ( there may be some mild DIP, PIP swelling involving her hands left greater than right)
Labs/Micro/Reports
Lab Data
11/09/24 10:00
11/09/24 07:59
[2024-11-09 16:28] LABS: Glucose - Point of Care 119 mg/dl (70-99)
--- NOTE | 2024-11-09 16:48 | W.PN.HOSP.TC ---
Today's Communication/Plan
-
Continue steroids.
Assessment / Plan
Assessment / Plan
Physical Exam
General: Well Developed, Well Nourished and some Apparent Distress
HEENT: NormoCephalic, Moist mucous membranes and Atraumatic
Respiratory: Bilateral fine crackles. No wheezes.
Cardiac: S1/S2 and Regular Rhythm; No Murmur or Rub
GI: Soft, Non Tender, Non Distended and Normal Bowel Sounds; No Organomegaly
Rectal: Deferred by Provider
Musculoskeletal: No Clubbing and No Edema. Intermittent peripheral cyanosis.
Skin: No Rash
Neuro: Nonfocal/grossly intact
A/P:
Acute hypoxic respiratory insufficiency:
Multifactorial etiology but mainly interstitial pneumonitis remains main culprit with worsening symptoms associated with rapid taper of steroids and deconditioning, decreased muscle mass, post-nasal drip and GERD.
Had some possible reaction to steroids (she is know to be sensitive to multiple meds)
Plan to cont increased doses of steroids orally and prolong course along with multiple other non critical measures.
CTA chest no PE and pulm parenchymal changes persisting while improving.
Repeat inflammatory markers in am along with cpk
No need for antibiotics
PT OT eval
Pulm does not believe bronchoscopy necessary at this juncture
Discussed with family at length prior and daily
Discussed with cardiology on 11/07. They signed off.
Discussed with pulmonary on 11/06, 11/07, 11/08, and today on 11/09
Discussed with daughter at bedside on 11/08 and over the phone today on 11/09. While patient overall is getting better there is concerns that we have not gotten to the bottom of her underlying problems. Transfer to tertiary care center initiated but
also warned patient and family that we need to talk to them again tomorrow and also depending on the situation might not get a bed.
Reached out to [facility]--> they called me back and initially they would accept her as elective inpatient transfer but then they said they would like us to call them back on Sunday to reevaluate the situation and they also mention that
the bed situation is very tight. Formally not accepted yet until will call back but they are willing to consider. I relayed this to the family.
Leukocytosis and thrombocytosis:
Likely reactive
Hematology on board and appreciated consult
Hematology agrees that this is reactive but also tested for BCR/ABL, JAK2 mutation, and peripheral flow cytometry.
Raynaud's phenomena:
Her peripheral cyanosis is likely related to this phenomena.
There might be also some difficulties capturing pulse ox due to the same.
Hypoglycemia in a nondiabetic:
If recurrent I discussed the possibility of testing for C-peptide, plasma insulin, proinsulin, sulfonylureas, BHB, etc, but this would only be possible in the setting of actual hypoglycemia when it happens in real-time, providing this is not
artifactual and also symptomatic.
Elevated trop:
Recent cardiac cath reviewed
Cardiology consult appreciated
Cardiac MRI done and no evidence of acute myocarditis or any diffuse infiltrative cardiomyopathy.
Consider asa (non obstructive cad) but but Hx GI bleed+GERD
Rechecked another troponin today on 11/09 and it is trending down.
Cardiac monitoring
Chronic HFpEF:
Euvolemic
Diuresed last hospitalization
On Lasix 40 mg po daily
On K replacement
On SGLT-inh
Elevated BNP but decreased from prior
Chronic hyponatremia:
SIADH related recently
Sodium low but stable
On salt tablets
Continue fluid restrictions
Continue to monitor
Asthma:
Continue bronchodilators
Chronic anemia:
No signs of active bleeding
Continue to monitor
Elevated LFT:
Stable
We will check every so often
Chronic back pain:
Recent spinal and neuroforaminal stenosis at L4-L5 and acute rehabilitation stay recently.
Prior history of L4-L5 laminectomy in the past.
On Tylenol prn
Consider Lidoderm patch + Toradol if needed
Hypertension:
On amlodipine 2.5 mg twice a day, home med with guanfacine 2 mg p.o. twice a day on hold, and valsartan 320 mg nightly consider hold if cough persists).
Monitor blood pressure adjust medications accordingly
Diabetes mellitus type 2:
Continue insulin sliding scale
Continue dapagliflozin
Hold metformin
Monitor blood sugar and adjust medications accordingly
Fibromyalgia:
Continue Cymbalta 60 mg p.o. daily
GERD:
Continue PPI p.o. twice a day
Hypothyroidism:
Continue levothyroxine 50 mcg p.o., Mondays to Sunday
Constipation:
Continue current bowel regimen
Insomnia:
Continue melatonin
DVT prophylaxis:
Heparin SQ change to Lovenox SQ
CODE STATUS:
Full code
Total time spent on today's encounter was 72 minutes which included time spent in counseling the patient/family regarding diagnosis and treatment plan as listed above, goals of care, and symptom management. Case was discussed with nursing staff,
specialists, and care coordinators/case management. All labs and imaging personally reviewed by me. Remainder the time spent in detailed review of previous records, lab data, imaging, and other medical provider documentation.
Anticipated Discharge: 24 - 48 hours
Subjective/Interval History
-
Date of Service: November 09, 2024
Patient feels better overall. Still on oxygen. Still coughing.
Objective Data
-
Labs:
Laboratory Results
11/09/24 11/09/24
07:59 10:00
WBC 25.0 H
Hgb 11.0 L
Hct 34.4 L
Plt Count 598 H
Sodium 131 L
Potassium 4.2
Chloride 97 L
Carbon Dioxide 24
BUN 20 H
Creatinine 0.4 L
Glucose 82
Calcium 9.3
Vital Signs:
Vital Signs
Temp Pulse Resp BP Pulse Ox
97.9 F 88 18 126/75 98
11/09/24 07:33 11/09/24 15:43 11/09/24 15:43 11/09/24 15:43 11/09/24 15:32
I&O
11/08/24 11/09/24 11/10/24
06:59 06:59 06:59
Intake Total 900 / 900 660 / 660 480 / 480
Balance 900 / 900 660 / 660 480 / 480
[2024-11-09] MEDS: DIOVAN 320 MG PO (17:03)
[2024-11-09] MEDS: SENOKOT 8.6 MG PO (17:03)
[2024-11-09] MEDS: NORVASC 2.5 MG PO (17:04)
[2024-11-09] MEDS: CRESTOR 5 MG PO (17:04)
[2024-11-09] MEDS: LOVENOX 40 MG SC (17:04)
[2024-11-09] MEDS: MIRALAX 17 GRAMS PO (20:51)
[2024-11-09] MEDS: MELATONIN 3 MG PO (20:51)
[2024-11-09 21:34] LABS: Glucose - Point of Care 111 mg/dl (70-99)
[2024-11-09 23:37] VITALS: BP 152/82
[2024-11-10] MEDS: ROBITUSSIN 100 MG PO ×3 (02:40→19:52)
[2024-11-10] MEDS: SYNTHROID 50 MCG PO (05:32)
[2024-11-10] MEDS: NON-FORMULARY ITEM 40 MG PO ×2 (05:33→16:01)
[2024-11-10 06:00] VITALS: BMI 31.3
[2024-11-10] MEDS: ATROVENT NEBULES 0.5 MG INH ×2 (07:28→21:21)
[2024-11-10 07:55] VITALS: BP 120/79
[2024-11-10 08:00] LABS: Glucose - Point of Care 63 mg/dl (70-99)
[2024-11-10] MEDS: NOVOLOG FLEXPEN-LOW RESISTANCE SC ×3 (08:09→17:40)
--- NOTE | 2024-11-10 08:13 | PTCARENOTE ---
Patient's Blood sugar 63, patient sitting in chair and drinking orange juice, patient is able to eat meal and will recheck blood sugar, MD Brooke notified and ok order to hold morning dose of farxiga. will continue to monitor.
[2024-11-10 08:16] LABS: % Basophils 0.5 % (0-2); % Eosinophils 1.8 % (0-6); % Immature Granulocytes 3.4 % (0-0.5); % Lymphocytes 20.5 % (20.5-51.1); % Monocytes 6.5 % (1.7-9.3); % Neutrophils 67.3 % (42.2-75.2); Absolute Basophils 0.1 10^3/uL (0-0.2); Absolute Eosinophils 0.4 10^3/uL (0-0.7); Absolute Immature Granulocytes 0.8 10^3/uL (0-0.05); Absolute Lymphocytes 4.5 10^3/uL (1.2-3.4); Absolute Monocytes 1.4 10^3/uL (0.1-0.6); Absolute Neutrophils 14.9 10^3/uL (1.4-6.5); Hematocrit 34.8 % (37.0-47.0); Hemoglobin 11.5 g/dL (12.0-16.0); Mean Corpuscular Hgb 27.9 pg (27.0-31.0); Mean Corpuscular Volume 84.5 fL (81.0-99.0); Nucleated Red Blood Cells % 0 %; Platelet Count 545 10^3/uL (130-400); Red Blood Cell Count 4.12 10^6/uL (4.20-5.40); White Blood Cell Count 22.1 10^3/uL (4.8-10.8)
[2024-11-10] MEDS: FARXIGA PO (08:19)
[2024-11-10] MEDS: FIBERCON 1250 MG PO (08:20)
[2024-11-10] MEDS: DECADRON 4 MG PO (08:20)
[2024-11-10] MEDS: TESSALON PERLES 100 MG PO ×3 (08:20→22:40)
[2024-11-10] MEDS: SODIUM CHLORIDE 1 GRAM PO ×2 (08:20→19:48)
[2024-11-10] MEDS: DECADRON 2 MG PO (08:20)
[2024-11-10] MEDS: FLORASTOR 250 MG PO ×2 (08:21→19:48)
[2024-11-10] MEDS: LASIX 40 MG PO (08:21)
[2024-11-10] MEDS: KCL 40 MEQ PO (08:21)
[2024-11-10] MEDS: VITAMIN D3 (cholecalciferol) 50 MCG PO (08:21)
[2024-11-10] MEDS: CYMBALTA DELAYED RELEASE 60 MG PO (08:21)
[2024-11-10 08:28] LABS: Glucose - Point of Care 102 mg/dl (70-99)
[2024-11-10] MEDS: NON-FORMULARY ITEM 1 TABLET PO (08:28)
[2024-11-10 08:47] LABS: C-Reactive Protein < 5.00 mg/L (0.0-10.00)
--- NOTE | 2024-11-10 08:48 | W.PN.PUL3 ---
Today's Communication / Plan
-
6 minute walk test normal
Continue to encourage ambulation, PT/OT. She would benefit from rehabilitation
VQ scan with low probability of PE
Will require eventual rheumatology evaluation, this can be done as an outpatient
This may involve tissue biopsy (muscle Bx)
Pulmonary follow-up as outpatient with full PFT - already scheduled for 11/18/[address] Renee
Assessment
-
74-year-old woman with past medical history noted, readmitted with shortness of breath and hypoxemia. Recently discharged to rehabilitation with a tentative diagnosis of inflammatory pneumonitis. Seem to have responded to steroids. Steroids were
being weaned down. Patient developed coughing and worsening shortness of breath, Transferred back to the acute care for reevaluation, consulted late on 11/04/2024.
Exertional dyspnea/coughing.
CT chest 11/04/2024: Reviewed, no evidence for pulmonary embolism. Improved bilateral lower lobe pneumonia and/atelectasis right greater than left.
Anti-CCP normal/JASPAL not detected/ANCA antibodies 0/rheumatoid factor less than 10, Aldolase positive
No peripheral eosinophilia
Elevated CRP and sedimentation rate
Urinalysis without proteinuria
Negative COVID
EK11/04/2024-sinus tachycardia. Otherwise normal, no evidence for RV dysfunction.
Leukocytosis likely from steroids/reactive thrombocytosis
Mild to moderate pulmonary hypertension with normal RV on echocardiogram: Suspect either postcapillary or from hypoxemia/current underlying lung issues.
mPAP 27 per [facility], PCWP 16
Blood gas 10/27/2024: 7.5/30/56/90%
Hyponatremia
Persistently elevated troponin
proBNP 795.(Previously to 3000)
normal LHC, normal cardiac MRI
mild Increased LFTs
Chronic conditions [facility] HOSPITAL[facility]: Hypertension, DM type II, asthma, fibromyalgia, IBS, history of M�ni�re's disease, spinal stenosis s/p L4-5 laminectomy, right hemidiaphragm elevation.

Plan/recommendations:
At this time, an extensive discussion with both daughters, and patient regarding workup to date
Salient features include steroid responsive process, interstitial lung disease basilar predominantly seems to be slowly improving, positive aldolase, mild PH with mean pulmonary artery pressure 27 per right heart cath, mild muscle weakness on exam
Review differential at length
Suspect autoimmune process with interstitial disease. Patient with history of fibromyalgia, had seen rheumatology many years ago (Rey Roldan). Workup incomplete per family
Walk test on 11/09/2024 showed jerry SpO2 96% after walking 100 feet, dyspnea scale 4/10
Spot pulse oximetry while in bed seems to intermittently be low at 80%, suspect due to Raynaud's phenomena
Moving forward
Dr. Barahona relayed to the patient and family that she possibly may have autoimmune disease. She is presently on steroids, taper delineated over the next 2-4 weeks.
Ideally she would be off steroids and have rheumatological exam. This can be done as an outpatient. Family is concerned as patient is not able to maintain rehabilitation status and has had multiple hospital stays
Reassured patient and family that oxygen saturation is adequate. Suspect that symptoms may be primarily from inflammatory process, deconditioning, inflammatory myositis. There is no rash
She will eventually require rheumatological evaluation
I strongly recommended she contact rheumatology office and set up an appointment. Obviously this may not be possible in the short-term but the process needs to be started
She will eventually require full PFTs and would recommend outpatient primary follow-up. Patient has outpatient follow up arranged for 11/18/[address] Renee
It appears that her cough and breathing has improved overall. Primary complaint is exhaustion/fatigue
Continue with current treatment regimen for cough
I see no evidence for acute pulmonary issues at this point.
Given improvement on CAT scan with improvement in groundglass opacification in the superior right lower lobe, no indication for further pulmonary evaluation such as bronchoscopy biopsies etc
Bronch may be required in the future depending on clinical course. I would favor a surgical lung biopsy if needed
Family has requested transfer to [place]
We will defer to primary service
I reiterated that ideally she would be evaluated in the outpatient setting. It may be more feasible to set up follow-up with [place] rheumatology/pulmonary and set up a surgical lung biopsy neftaly if muscle Bx not feasible or non-diagnostic. This would
need to be done off steroids
Given overall improvement, this may not be necessary
VQ scan checked today shows low probability for PE
Cardiac workup has been negative including cardiac MRI
There is weakness on exam
This seems to be improved overall with steroids
Unclear whether she may benefit from a muscle biopsy in the future but again this should be done off steroid therapy. This would be dictated by rheumatology
No evidence of infection at this time
Hematology consulted: Also suspect reactive leukocytosis/thrombocytosis.
Deferred any workup to hematology (JAK2 + BCR/ABL mutation workup is pending
Continue Pulmicort nebulized twice a day-patient states that she is sensitive to inhaled medications.
Continue Xopenex/Atrovent-she is benefiting from this.
Unfortunately allergic to codeine and many other cough suppressant such as gabapentin as well.
Continue Patricia
Hydroxyzine has been added as needed for itching due to reaction to steroids.
Valsartan induced cough also a possibility. Patient has been taking for years.
Continue PPI-antireflux interventions.
She remains on low-dose azithromycin for anti-inflammatory properties, may help with the cough. Unfortunately, we have limited pharmacological options with the patient has extensive allergy history. She seems to be tolerating at this time. I do
not think this is an ideal long-term option given the likelihood of an autoimmune process, steroid responsive process
-
DVT prophylaxis
-
Will continue to follow briefly, hopefully can go back to [facility].
Family updated in detail at the bedside on 11/10/[address] Renee
Reviewed at length with both daughters,
All questions answered

Data reviewed:
CTA Chest 10/21/2024: No evidence of central pulmonary embolism; Bibasilar opacification suspicious for pneumonia with slight progression, particularly on the left.
Transthoracic Echocardiogram 10/22/2024: Normal left ventricular size with hyperdynamic systolic function and normal regional wall motion. LVEF 70-75%. Normal right ventricular size and function.
Mild to moderate tricuspid regurgitation. Moderately elevated pulmonary artery pressure (PASP 57 mmHg). No prior study available for comparison.
[facility] 10/27/24- CONCLUSIONS:
1. Right dominant circulation with a 50% lesion in the mid LAD, but no occlusive coronary artery disease.
2. Normal filling pressures (LVEDP = 15 mmHg, PCWP = 15 mmHg at 67.6 kg).
3. Mild, precapillary pulmonary hypertension (mean PA = 27 mmHg, PCWP = 15 mmHg, cardiac output = 3.85 L/min, PVR = 3.12 Fenton units).
4. No cardiac cause for persistent hypoxia.
5. Several radial/brachial artery loops making cardiac catheterization from the right radial artery difficult.
Total time spent today was 37 minutes for this encounter. Time includes reviewing laboratory test/imaging results, reviewing pertinent medical records, obtaining and reviewing medical history, performing an appropriate exam, ordering medications,
tests and procedures. Time also includes documentation of this encounter, coordinating patient care and communicating with other healthcare professionals. Total time does not include separately billed tests performed on this date of service.
Subjective Data
-
Date of Service:
Date of Service: November 10, 2024
Chief Complaint: Pulmonary Follow Up (Cough/shortness of breath/abnormal CT chest)
Subjective:
Patient seen and evaluated today at bedside. Daughter at bedside and all questions were answered. Patient sitting in chair in no acute distress on room air breathing comfortably. She denies chest pain, AVENDAÑO, nausea, fevers or chills.
Review of Systems
General: Other (Negative unless mentioned above)
Objective Data
Data Reviewed
Vital Signs / I&O / Oxygen:
Vital Signs
Temp Pulse Resp BP Pulse Ox
98.3 F 95 16 120/79 96
11/10/24 07:55 11/10/24 07:55 11/10/24 07:55 11/10/24 08:21 11/10/24 07:29
Intake and Output
11/09/24 11/10/24 11/11/24
06:59 06:59 06:59
Intake Total 660 / 660 1680 / 1680
Balance 660 / 660 1680 / 1680
SaO2 96
Nasal Cannula flow liters per 2
minute
Physical Exam
General: Respiratory Distress (n), Comfortable (At rest), Chills (n) and Sweats (n)
HEENT: Normocephalic and Anicteric
Cardiovascular: S1-S2, Murmur (n), Rub (n) and Peripheral Edema (n)
Respiratory: Wheeze (n), Crackles (Bibasilar), Rhonchi (n), Non-Labored Respirations and Stridor (n)
GI: Soft, Non Distended and Non Tender
Neurology: AO x 3 and Tremors (n)
Skin: Warm, Dry, Good Color (n), Cyanosis (n), Rash (n) and Other (Mild DIP, PIP swelling involving her hands left greater than right)
Labs/Micro/Reports
Lab Data
11/10/24 07:47
11/10/24 08:50
[2024-11-10 09:51] LABS: Blood Urea Nitrogen 17 mg/dl (7-17); Calcium 8.9 mg/dl (8.4-10.2); Carbon Dioxide 23 mmol/L (22-30); Chloride 96 mmol/L (98-107); Creatine Phosphokinase 754 U/L (30-135); Estimated Creatinine Clearance 67 ml/min; Glucose 102 mg/dl (70-99); Potassium 3.8 mmol/L (3.5-5.1); Sodium 130 mmol/L (135-145); eGFR > 60.00
--- NOTE | 2024-11-10 10:20 | W.PN.HOSP.TC ---
Addendum entered and electronically signed by Saman Brooke DO 11/10/24 10:50:
I spoke with [facility] and they do not have any beds available, they are at critical capacity.
In addition this patient is too stable for transfer according to [facility]. Therefore she is not excepted in transfer. Plan recommends outpatient follow-up with pulmonary.
I recommend transfer to [facility] to complete her therapy and follow-up with pulmonary after discharge.
Slow steroid taper to hopefully prevent readmission to the hospital.
Above discussed with daughter Vidhya on the phone.
Original Note:
Today's Communication/Plan
-
Await callback from [facility]
V/Q scan per pulmonary
Assessment / Plan
Assessment / Plan
Physical Exam
General: Well Developed, Well Nourished and some Apparent Distress
HEENT: NormoCephalic, Moist mucous membranes and Atraumatic
Respiratory: Clear bilaterally
Cardiac: S1/S2 and Regular Rhythm; No Murmur or Rub
GI: Soft, Non Tender, Non Distended and Normal Bowel Sounds; No Organomegaly
Rectal: Deferred by Provider
Musculoskeletal: No Clubbing and No Edema. Intermittent peripheral cyanosis.
Skin: No Rash
Neuro: Nonfocal/grossly intact
Acute hypoxic respiratory insufficiency: Currently stable at rest on room air. Has oxygen at the bedside to use as needed. Ambulatory pulse ox on room air done 11/09 was 96%.
Multifactorial etiology but mainly interstitial pneumonitis remains main culprit with worsening symptoms associated with rapid taper of steroids and deconditioning, decreased muscle mass, post-nasal drip and GERD.
Had some possible reaction to steroids (she is know to be sensitive to multiple meds)
Plan to cont increased doses of steroids orally and prolong course along with multiple other non critical measures.
CTA chest no PE and pulm parenchymal changes persisting while improving.
Repeat inflammatory markers in am along with cpk
No need for antibiotics
PT OT eval
Pulm does not believe bronchoscopy necessary at this juncture
Discussed with family at length prior and daily
Discussed with cardiology on 11/07. They signed off.
Discussed with pulmonary on 11/06, 11/07, 11/08, and today on 11/09
Discussed with daughter at bedside on 11/08 and over the phone today on 11/09. While patient overall is getting better there is concerns that we have not gotten to the bottom of her underlying problems. Transfer to tertiary care center initiated but
also warned patient and family that we need to talk to them again tomorrow and also depending on the situation might not get a bed.
Reached out to [facility]--> they called me back and initially they would accept her as elective inpatient transfer but then they said they would like us to call them back on Sunday to reevaluate the situation and they also mention that
the bed situation is very tight. Formally not accepted yet until will call back but they are willing to consider. I relayed this to the family.
I called [facility] today 11/10 and waiting for callback regarding possible transfer. She has not formally been accepted yet.
Leukocytosis and thrombocytosis:
Likely reactive
Hematology on board and appreciated consult
Hematology agrees that this is reactive but also tested for BCR/ABL, JAK2 mutation, and peripheral flow cytometry.
Raynaud's phenomena:
Her peripheral cyanosis is likely related to this phenomena.
There might be also some difficulties capturing pulse ox due to the same.
Pseudohypoglycemia - suspect laboratory error in using Accu-Chek machine, which will not be accurate in setting of Raynaud's phenomena. Serum glucose checks have all been within normal limits without hypoglycemia.
Acute nonischemic myocardial injury -
Recent cardiac cath reviewed
Cardiology consult appreciated
Cardiac MRI done and no evidence of acute myocarditis or any diffuse infiltrative cardiomyopathy.
Consider asa (non obstructive cad) but but Hx GI bleed+GERD
Chronic HFpEF:
Euvolemic
Diuresed last hospitalization
On Lasix 40 mg po daily
On K replacement
On SGLT-inh
Elevated BNP but decreased from prior
Chronic hyponatremia:
SIADH related recently
Sodium low but stable
On salt tablets
Continue fluid restrictions
Continue to monitor
Asthma:
Continue bronchodilators
Chronic anemia:
No signs of active bleeding
Continue to monitor
Elevated LFT:
Stable
We will check every so often
Chronic back pain:
Recent spinal and neuroforaminal stenosis at L4-L5 and acute rehabilitation stay recently.
Prior history of L4-L5 laminectomy in the past.
On Tylenol prn
Consider Lidoderm patch + Toradol if needed
Essential hypertension:
On amlodipine 2.5 mg twice a day, home med with guanfacine 2 mg p.o. twice a day on hold, and valsartan 320 mg nightly consider hold if cough persists).
Monitor blood pressure adjust medications accordingly
Diabetes mellitus type 2:
Continue insulin sliding scale
Continue dapagliflozin
Hold metformin
Monitor blood sugar and adjust medications accordingly
Fibromyalgia:
Continue Cymbalta 60 mg p.o. daily
GERD:
Continue PPI p.o. twice a day
Hypothyroidism:
Continue levothyroxine 50 mcg p.o., Mondays to Sunday
Constipation:
Continue current bowel regimen
Insomnia:
Continue melatonin
DVT prophylaxis:
Heparin SQ change to Lovenox SQ
CODE STATUS:
Full code
Updated daughter Vidhya on the phone.
Anticipated Discharge: > 48 hours
Subjective/Interval History
-
Date of Service: November 10, 2024
Patient seen and examined. Mild dyspnea on exertion when walking from bed to bathroom.
Objective Data
-
Labs:
Laboratory Results
11/10/24 11/10/24
07:47 08:50
WBC 22.1 H
Hgb 11.5 L
Hct 34.8 L
Plt Count 545 H
Sodium Cancelled 130 L
Potassium Cancelled 3.8
Chloride Cancelled 96 L
Carbon Dioxide Cancelled 23
BUN Cancelled 17
Creatinine Cancelled 0.4 L
Glucose Cancelled 102 H
Calcium Cancelled 8.9
Vital Signs:
Vital Signs
Temp Pulse Resp BP Pulse Ox
98.3 F 95 16 120/79 96
11/10/24 07:55 11/10/24 07:55 11/10/24 07:55 11/10/24 08:21 11/10/24 07:29
I&O
11/09/24 11/10/24 11/11/24
06:59 06:59 06:59
Intake Total 660 / 660 1680 / 1680
Balance 660 / 660 1680 / 1680
Review of Systems
-
History Source: Patient
All other systems: Reviewed and negative
[2024-11-10 11:17] VITALS: O2SAT 90
[2024-11-10] MEDS: ATROVENT NEBULES INH (11:25)
[2024-11-10] MEDS: XOPENEX 1.25 MG INHALANT SOLUTION INH ×2 (11:26→21:21)
--- NOTE | 2024-11-10 11:53 | CM ---
CM reviewed chart, reviewed with Hospitalist, no beds available at [facility]. CM reviewed with [facility] at [facility], will need to discuss with Dr. Rmoeo for return to [facility]. CM will continue to follow for all discharge planning needs.
Plan; hopeful return to [facility]
[2024-11-10 11:59] LABS: Erythrocyte Sed Rate 16 mm/hour (0-20)
[2024-11-10 13:00] LABS: Glucose - Point of Care 132 mg/dl (70-99)
[2024-11-10 16:30] VITALS: BP 118/64
[2024-11-10] MEDS: DIOVAN 320 MG PO (17:35)
[2024-11-10] MEDS: SENOKOT PO (17:35)
[2024-11-10] MEDS: LOVENOX 40 MG SC (17:35)
[2024-11-10] MEDS: CRESTOR 5 MG PO (17:36)
[2024-11-10] MEDS: NORVASC 2.5 MG PO (17:36)
[2024-11-10 17:40] LABS: Glucose - Point of Care 130 mg/dl (70-99)
[2024-11-10] MEDS: TYLENOL 650 MG PO (19:52)
[2024-11-10] MEDS: MIRALAX PO (19:56)
[2024-11-10 21:38] LABS: Glucose - Point of Care 127 mg/dl (70-99)
[2024-11-10] MEDS: MELATONIN 3 MG PO (22:40)
[2024-11-10 23:58] VITALS: BP 110/79
[2024-11-11] MEDS: ROBITUSSIN 100 MG PO ×3 (05:15→18:31)
[2024-11-11] MEDS: SYNTHROID 50 MCG PO (05:16)
[2024-11-11] MEDS: NON-FORMULARY ITEM 40 MG PO ×2 (05:16→17:12)
[2024-11-11 06:00] VITALS: BMI 31.2
[2024-11-11] MEDS: XOPENEX 1.25 MG INHALANT SOLUTION INH ×2 (07:28→20:28)
[2024-11-11] MEDS: ATROVENT NEBULES 0.5 MG INH ×2 (07:28→20:28)
[2024-11-11 07:33] VITALS: BP 98/77
[2024-11-11 07:58] LABS: Glucose - Point of Care 36 mg/dl (70-99)
--- NOTE | 2024-11-11 08:02 | W.PN.PUL3 ---
Today's Communication / Plan
-
6 minute walk test normal
Continue to encourage ambulation, PT/OT. She is awaiting a bed at [facility]
VQ scan with low probability of PE
Will require eventual rheumatology evaluation, this can be done as an outpatient - she already has an appointment with rheumatology as an outpatient
This may involve tissue biopsy (muscle Bx)
Pulmonary follow-up as outpatient with full PFT - already scheduled for 11/18/[address] Renee
Assessment
-
74-year-old woman with past medical history noted, readmitted with shortness of breath and hypoxemia. Recently discharged to rehabilitation with a tentative diagnosis of inflammatory pneumonitis. Seem to have responded to steroids. Steroids were
being weaned down. Patient developed coughing and worsening shortness of breath, Transferred back to the acute care for reevaluation, consulted late on 11/04/2024.
Exertional dyspnea/coughing.
CT chest 11/04/2024: Reviewed, no evidence for pulmonary embolism. Improved bilateral lower lobe pneumonia and/atelectasis right greater than left.
Anti-CCP normal/JASPAL not detected/ANCA antibodies 0/rheumatoid factor less than 10, Aldolase positive
No peripheral eosinophilia
Elevated CRP and sedimentation rate
Urinalysis without proteinuria
Negative COVID
EK11/04/2024-sinus tachycardia. Otherwise normal, no evidence for RV dysfunction.
Leukocytosis likely from steroids/reactive thrombocytosis
Mild to moderate pulmonary hypertension with normal RV on echocardiogram: Suspect either postcapillary or from hypoxemia/current underlying lung issues.
mPAP 27 per RHC, PCWP 16
Blood gas 10/27/2024: 7.5/30/56/90%
Hyponatremia
Persistently elevated troponin
proBNP 795.(Previously to 3000)
normal LHC, normal cardiac MRI
mild Increased LFTs
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

Plan/recommendations:
At this time, an extensive discussion with both daughters, and patient regarding workup to date
Salient features include steroid responsive process, interstitial lung disease basilar predominantly seems to be slowly improving, positive aldolase, mild PH with mean pulmonary artery pressure 27 per right heart cath, mild muscle weakness on exam
Review differential at length
Suspect autoimmune process with interstitial disease. Patient with history of fibromyalgia, had seen rheumatology many years ago (Re[facility] Roldan). Workup incomplete per family
Walk test on 11/09/2024 showed jerry SpO2 96% after walking 100 feet, dyspnea scale 4/10
Spot pulse oximetry while in bed seems to intermittently be low at 80%, suspect due to Raynaud's phenomena
Moving forward
Dr. Barahona relayed to the patient and family that she possibly may have autoimmune disease. She is presently on steroids, taper delineated over the next 2-4 weeks.
Ideally she would be off steroids and have rheumatological exam. This can be done as an outpatient. Family is concerned as patient is not able to maintain rehabilitation status and has had multiple hospital stays
Reassured patient and family that oxygen saturation is adequate. Suspect that symptoms may be primarily from inflammatory process, deconditioning, inflammatory myositis. There is no rash
Patient will be seeing rheumatology as an outpatient - already has an appointment
She will eventually require full PFTs and would recommend outpatient primary follow-up. Patient has outpatient follow up arranged for 11/18/[address] Renee
It appears that her cough and breathing has improved overall. Primary complaint is exhaustion/fatigue
Continue with current treatment regimen for cough
I see no evidence for acute pulmonary issues at this point.
Given improvement on CAT scan with improvement in groundglass opacification in the superior right lower lobe, no indication for further pulmonary evaluation such as bronchoscopy, biopsy, etc
Bronch may be required in the future depending on clinical course. I would favor a surgical lung biopsy if needed
Family has requested transfer to [facility] - this will now be put on hold given her stability
VQ scan checked on 11/10/2024 shows low probability for PE
Cardiac workup has been negative including cardiac MRI
There is weakness on exam
This seems to be improved overall with steroids
Unclear whether she may benefit from a muscle biopsy in the future but again this should be done off steroid therapy. This would be dictated by rheumatology
No evidence of infection at this time
Hematology consulted: Also suspect reactive leukocytosis/thrombocytosis.
Deferred any workup to hematology (JAK2 + BCR/ABL mutation workup is pending
Continue Pulmicort nebulized twice a day-patient states that she is sensitive to inhaled medications.
Continue Xopenex/Atrovent-she is benefiting from this.
Unfortunately allergic to codeine and many other cough suppressant such as gabapentin as well.
Continue Patricia
Hydroxyzine has been added as needed for itching due to reaction to steroids.
Valsartan induced cough also a possibility. Patient has been taking for years.
Continue PPI-antireflux interventions.
She remains on low-dose azithromycin for anti-inflammatory properties, may help with the cough. Unfortunately, we have limited pharmacological options with the patient has extensive allergy history. She seems to be tolerating at this time. I do
not think this is an ideal long-term option given the likelihood of an autoimmune process, steroid responsive process
-
DVT prophylaxis
-
Will continue to follow briefly, she is awaiting to go to [facility].
Family updated in detail at the bedside on 11/10/[address] Renee
Reviewed at length with both daughters,
All questions answered

Data reviewed:
CTA Chest 10/21/2024: No evidence of central pulmonary embolism; Bibasilar opacification suspicious for pneumonia with slight progression, particularly on the left.
Transthoracic Echocardiogram 10/22/2024: Normal left ventricular size with hyperdynamic systolic function and normal regional wall motion. LVEF 70-75%. Normal right ventricular size and function.
Mild to moderate tricuspid regurgitation. Moderately elevated pulmonary artery pressure (PASP 57 mmHg). No prior study available for comparison.
LHC/RHC 10/27/24- CONCLUSIONS:
1. Right dominant circulation with a 50% lesion in the mid LAD, but no occlusive coronary artery disease.
2. Normal filling pressures (LVEDP = 15 mmHg, PCWP = 15 mmHg at 67.6 kg).
3. Mild, precapillary pulmonary hypertension (mean PA = 27 mmHg, PCWP = 15 mmHg, cardiac output = 3.85 L/min, PVR = 3.12 Fenton units).
4. No cardiac cause for persistent hypoxia.
5. Several radial/brachial artery loops making cardiac catheterization from the right radial artery difficult.
Total time spent today was 39 minutes for this encounter. Time includes reviewing laboratory test/imaging results, reviewing pertinent medical records, obtaining and reviewing medical history, performing an appropriate exam, ordering medications,
tests and procedures. Time also includes documentation of this encounter, coordinating patient care and communicating with other healthcare professionals. Total time does not include separately billed tests performed on this date of service.
Subjective Data
-
Date of Service:
Date of Service: November 11, 2024
Chief Complaint: Pulmonary Follow Up (Cough/shortness of breath/abnormal CT chest)
Subjective:
Patient seen and evaluated today at bedside. Afebrile overnight. Remains on room air. No acute issues reported from overnight. Denies chest pain, AVENDAÑO, fevers or chills. Still short of breath during activity.
Review of Systems
General: Other (Negative unless mentioned above)
Objective Data
Data Reviewed
Vital Signs / I&O / Oxygen:
Vital Signs
Temp Pulse Resp BP Pulse Ox
97.3 F 84 16 98/77 95
11/11/24 07:33 11/11/24 07:33 11/11/24 07:33 11/11/24 07:33 11/11/24 07:30
Intake and Output
11/10/24 11/11/24 11/12/24
06:59 06:59 06:59
Intake Total 1680 / 1680 1080 / 1080
Balance 1680 / 1680 1080 / 1080
SaO2 95
Nasal Cannula flow liters per 2
minute
Physical Exam
General: Respiratory Distress (n), Comfortable (At rest), Chills (n) and Sweats (n)
HEENT: Normocephalic and Anicteric
Cardiovascular: S1-S2, Murmur (n), Rub (n) and Peripheral Edema (n)
Respiratory: Wheeze (n), Crackles (Bibasilar), Rhonchi (n), Non-Labored Respirations and Stridor (n)
GI: Soft, Non Distended and Non Tender
Neurology: AO x 3 and Tremors (n)
Skin: Warm, Dry, Good Color (n), Cyanosis (n), Rash (n) and Other (Mild DIP, PIP swelling involving her hands left greater than right)
Labs/Micro/Reports
Lab Data
11/10/24 07:47
11/10/24 08:50
[2024-11-11] MEDS: NOVOLOG FLEXPEN-LOW RESISTANCE SC ×3 (08:08→17:13)
[2024-11-11 08:13] LABS: Glucose - Point of Care 45 mg/dl (70-99)
[2024-11-11] MEDS: DEXTROSE 50% SYRINGE 12.5 GRAMS IV (08:22)
[2024-11-11] MEDS: FLORASTOR 250 MG PO ×2 (08:27→19:49)
[2024-11-11] MEDS: VITAMIN D3 (cholecalciferol) 50 MCG PO (08:27)
[2024-11-11] MEDS: KCL 40 MEQ PO (08:27)
[2024-11-11] MEDS: DECADRON 4 MG PO (08:27)
[2024-11-11] MEDS: TESSALON PERLES 100 MG PO ×3 (08:27→21:27)
[2024-11-11] MEDS: FARXIGA PO (08:29)
[2024-11-11] MEDS: FIBERCON 1250 MG PO (08:32)
[2024-11-11] MEDS: SODIUM CHLORIDE 1 GRAM PO ×2 (08:32→19:49)
[2024-11-11] MEDS: CYMBALTA DELAYED RELEASE 60 MG PO (08:32)
[2024-11-11] MEDS: DECADRON 2 MG PO (08:32)
[2024-11-11] MEDS: NON-FORMULARY ITEM 1 TABLET PO (08:33)
[2024-11-11] MEDS: LASIX PO (08:33)
--- NOTE | 2024-11-11 08:41 | PTCARENOTE ---
Patient's morning accu check resulted 38, patient feeling shaky and symptomatic. [place] juice given per protocol. Accu check rechecked, Blood sugar 45 and patient preparing to eat morning meal. PRN Dextrose 50% given. MD Brooke notified of new
symptoms and changes. blood sugar increased to 123. Per MD Brooke, readings via Accu check for this patient are not accurate. orders to be changed and will continue to monitor.
[2024-11-11 08:48] LABS: Glucose - Point of Care 123 mg/dl (70-99)
[2024-11-11] MEDS: FARXIGA 10 MG PO (08:50)
[2024-11-11 08:55] VITALS: BP 121/61
[2024-11-11] MEDS: LASIX 40 MG PO (08:56)
--- NOTE | 2024-11-11 10:44 | W.PN.HOSP.TC ---
Addendum entered and electronically signed by Saman Brooke DO 11/11/24 16:16:
Acute interstitial pneumonitis
Original Note:
Today's Communication/Plan
-
Discharge
Assessment / Plan
Assessment / Plan
Physical Exam
General: Well Developed, Well Nourished and some Apparent Distress
HEENT: NormoCephalic, Moist mucous membranes and Atraumatic
Respiratory: Clear bilaterally
Cardiac: S1/S2 and Regular Rhythm; No Murmur or Rub
GI: Soft, Non Tender, Non Distended and Normal Bowel Sounds; No Organomegaly
Rectal: Deferred by Provider
Musculoskeletal: No Clubbing and No Edema. Intermittent peripheral cyanosis.
Skin: No Rash
Neuro: Nonfocal/grossly intact
Acute hypoxic respiratory insufficiency: Currently stable at rest on room air. Has oxygen at the bedside to use as needed. Ambulatory pulse ox on room air done November 09 was 96%.
Multifactorial etiology but mainly interstitial pneumonitis remains main culprit with worsening symptoms associated with rapid taper of steroids and deconditioning, decreased muscle mass, post-nasal drip and GERD.
Had some possible reaction to steroids (she is know to be sensitive to multiple meds)
Plan to cont increased doses of steroids orally and prolong course along with multiple other non critical measures.
CTA chest no PE and pulm parenchymal changes persisting while improving.
Repeat inflammatory markers in am along with cpk
No need for antibiotics
PT OT eval
Pulm does not believe bronchoscopy necessary at this juncture
Discussed with family at length prior and daily
Discussed with cardiology on 11/07. They signed off.
Discussed with pulmonary on 11/06, 11/07, 11/08, and today on 11/09
Discussed with daughter at bedside on 11/08 and over the phone today on 11/09. While patient overall is getting better there is concerns that we have not gotten to the bottom of her underlying problems. Transfer to tertiary care center initiated but
also warned patient and family that we need to talk to them again tomorrow and also depending on the situation might not get a bed.
Reached out to [facility]--> they called me back and initially they would accept her as elective inpatient transfer but then they said they would like us to call them back on Sunday to reevaluate the situation and they also mention that
the bed situation is very tight. Formally not accepted yet until will call back but they are willing to consider. I relayed this to the family.
[facility] declined and will not accept her given her stability and lack of beds. They are at critical capacity.
I texted her cuffer on-call to try to get her into the office as soon as possible for diagnostic workup. This was done at the request of patient's daughter.
Leukocytosis and thrombocytosis:
Likely reactive
Hematology on board and appreciated consult
Hematology agrees that this is reactive but also tested for BCR/ABL, JAK2 mutation, and peripheral flow cytometry.
Raynaud's phenomena:
Her peripheral cyanosis is likely related to this phenomena.
There might be also some difficulties capturing pulse ox due to the same.
Pseudohypoglycemia - suspect laboratory error in using Accu-Chek machine, which will not be accurate in setting of Raynaud's phenomena. Serum glucose checks have all been within normal limits without hypoglycemia. Can stop checking bedside
glucoses unless patient has symptoms. Discussed with nursing.
Acute nonischemic myocardial injury -
Recent cardiac cath reviewed
Cardiology consult appreciated
Cardiac MRI done and no evidence of acute myocarditis or any diffuse infiltrative cardiomyopathy.
Consider asa (non obstructive cad) but but Hx GI bleed+GERD
Chronic HFpEF:
Euvolemic
Diuresed last hospitalization
On Lasix 40 mg po daily
On K replacement
On SGLT-inh
Elevated BNP but decreased from prior
Chronic hyponatremia:
SIADH related recently
Sodium low but stable
On salt tablets
Continue fluid restrictions
Continue to monitor
Asthma:
Continue bronchodilators
Chronic anemia:
No signs of active bleeding
Continue to monitor
Elevated LFT:
Stable
We will check every so often
Chronic back pain:
Recent spinal and neuroforaminal stenosis at L4-L5 and acute rehabilitation stay recently.
Prior history of L4-L5 laminectomy in the past.
On Tylenol prn
Consider Lidoderm patch + Toradol if needed
Essential hypertension:
On amlodipine 2.5 mg twice a day, home med with guanfacine 2 mg p.o. twice a day on hold, and valsartan 320 mg nightly consider hold if cough persists).
Monitor blood pressure adjust medications accordingly
Diabetes mellitus type 2:
Continue insulin sliding scale
Continue dapagliflozin
Hold metformin
Monitor blood sugar and adjust medications accordingly
Fibromyalgia:
Continue Cymbalta 60 mg p.o. daily
GERD:
Continue PPI p.o. twice a day
Hypothyroidism:
Continue levothyroxine 50 mcg p.o., Mondays to Sunday
Constipation:
Continue current bowel regimen
Insomnia:
Continue melatonin
DVT prophylaxis:
Heparin SQ change to Lovenox SQ
CODE STATUS:
Full code
Dispo -stable for discharge to [facility].
Updated daughter Vidhya at the bedside.
Anticipated Discharge: Today
Subjective/Interval History
-
Date of Service: November 11, 2024
Patient seen and examined. Complaining of back pain with coughing.
Objective Data
-
Vital Signs:
Vital Signs
Temp Pulse Resp BP Pulse Ox
97.3 F 99 16 121/61 95
11/11/24 07:33 11/11/24 08:55 11/11/24 07:33 11/11/24 08:56 11/11/24 07:30
I&O
11/10/24 11/11/24 11/12/24
06:59 06:59 06:59
Intake Total 1680 / 1680 1080 / 1080
Balance 1680 / 1680 1080 / 1080
Review of Systems
-
History Source: Patient
All other systems: Reviewed and negative
--- NOTE | 2024-11-11 10:44 | PN.CDI ---
CDI
- -
CDI:
Physician Documentation Request
Admit Date: 11/04/24 15:29
Dear Doctor Mendy,
Patient presented in increased SOB
Progress note states 'Multifactorial etiology but mainly interstitial pneumonitis remains main culprit'
Please clarify which of the following accurately represents the acuity of interstitial pneumonitis:
____ Acute
Chronic
____ Other
Use of terms such as suspected, likely, concern for, or probable (associated with a specific diagnosis that is being evaluated, monitored, or treated as if it exists) are acceptable and can be coded in the inpatient setting, when documented at the
time of discharge.
Thank you,
Soheila Montiel RN, BSN
CDI Specialist
tiger text
Please use your independent medical judgment in providing your response.
[2024-11-11] MEDS: TYLENOL 650 MG PO ×2 (12:31→19:54)
--- NOTE | 2024-11-11 14:44 | CM ---
CM reviewed chart, spoke with [facility] admissions, no available beds at [facility] at this time. Myles at [facility] spoke with patients family, discussed [facility] may have an available bed, will review and update CM. CM will continue
to follow for all discharge planning needs.
Plan; [facility], hopefully tomorrow.
[2024-11-11] MEDS: ZITHROMAX 250 MG PO (15:02)
--- NOTE | 2024-11-11 15:31 | W.PN.ONC ---
Today's Communication / Plan
-
d/c planning
will f/u over the phone once pending heme results are finalized (w/ daughter, Vidhya)
Impression
Impression
interstitial pneumonitis on steroids -pulmonary following
leukocytosis likely reactive to steroids
elevated troponin -cardiology planning cardiac MRI
Chronic CHF
chronic anemia
Thrombocytosis likely reactive
Plan
Plan
Suspect leukocytosis and thrombocytosis are reactive to underling inflammatory process
No iron def
Flow cytometry without immunophenotypic aberrancy
Jak2 and BCR/ABL pending, likely to take 7-10 days
Will contact patient's daughter Vidhya w/ results once finalized
Okay for d/c from hematology standpoint
Subjective/Objective
Subjective/Objective
asked to speak w/ patient and family re: hematology results
Transfer to [facility] was declined, despite being previously accepted
d/c planning underway
Vital Signs:
Vital Signs
Temp Pulse Resp BP Pulse Ox
97.3 F 99 16 121/61 95
11/11/24 07:33 11/11/24 08:55 11/11/24 07:33 11/11/24 08:56 11/11/24 07:30
Lab Results:
Laboratory Data
WBC 22.1 10^3/uL (4.8-10.8) H 11/10/24 07:47
Hgb 11.5 g/dL (12.0-16.0) L 11/10/24 07:47
Plt Count 545 10^3/uL (130-400) H 11/10/24 07:47
eGFR > 60.00 11/10/24 08:50
[2024-11-11 16:30] VITALS: BP 131/66
[2024-11-11] MEDS: CRESTOR 5 MG PO (17:18)
[2024-11-11] MEDS: NORVASC 2.5 MG PO (17:18)
[2024-11-11] MEDS: LOVENOX 40 MG SC (17:19)
[2024-11-11] MEDS: DIOVAN 320 MG PO (17:19)
[2024-11-11] MEDS: SENOKOT PO (17:40)
[2024-11-11] MEDS: MELATONIN 3 MG PO (21:27)
[2024-11-11] MEDS: MIRALAX PO (21:27)
[2024-11-11 23:23] VITALS: BP 147/76
[2024-11-12] MEDS: ROBITUSSIN 100 MG PO ×2 (00:05→11:56)
[2024-11-12] MEDS: SYNTHROID 50 MCG PO (04:36)
[2024-11-12] MEDS: NON-FORMULARY ITEM 40 MG PO (04:36)
[2024-11-12 06:00] VITALS: BMI 31.6
[2024-11-12 07:30] VITALS: BP 131/76
[2024-11-12] MEDS: ATROVENT NEBULES 0.5 MG INH (07:39)
[2024-11-12] MEDS: XOPENEX 1.25 MG INHALANT SOLUTION INH (07:39)
--- NOTE | 2024-11-12 08:02 | W.PN.HOSP.TC ---
Today's Communication/Plan
-
see bold
Assessment / Plan
Assessment / Plan
Patient seen and examined with nurse Merary Hampton present at bedside for the entirety of the interview and physical exam:
Gen: NAD, AAOx3.
Eyes: EOMI, PERRLA, no scleral icterus.
Neck: supple.
CV: RRR, +S1/S2, no m/r/g.
Resp: CTAB, no rales, wheezes, or rhonchi.
Abd: +BS, soft, NT, ND
Skin: No rashes.
Neuro: CN 2-12 intact, non-focal.
Psych: slightly anxious
Acute hypoxic respiratory insufficiency: Currently stable at rest on room air. Has oxygen at the bedside to use as needed. Ambulatory pulse ox on room air done November 09 was 96%.
Multifactorial etiology but mainly interstitial pneumonitis remains main culprit with worsening symptoms associated with rapid taper of steroids and deconditioning, decreased muscle mass, post-nasal drip and GERD.
Had some possible reaction to steroids (she is known to be sensitive to multiple meds)
Plan to cont increased doses of steroids orally and prolong course along with multiple other non critical measures.
CTA chest no PE and pulm parenchymal changes persisting while improving.
Repeat inflammatory markers in am along with cpk
No need for antibiotics
PT OT eval
Pulm does not believe bronchoscopy necessary at this juncture
Discussed with family at length prior and daily
Discussed with cardiology on 11/07. They signed off.
Discussed with pulmonary on 11/06, 11/07, 11/08, and today on 11/09
Discussed with daughter at bedside on 11/08 and over the phone today on 11/09. While patient overall is getting better there is concerns that we have not gotten to the bottom of her underlying problems. Transfer to tertiary care center initiated but
also warned patient and family that we need to talk to them again tomorrow and also depending on the situation might not get a bed.
Reached out to [facility]--> they called me back and initially they would accept her as elective inpatient transfer but then they said they would like us to call them back on Sunday to reevaluate the situation and they also mention that
the bed situation is very tight. Formally not accepted yet until will call back but they are willing to consider. I relayed this to the family.
[facility] declined and will not accept her given her stability and lack of beds. They are at critical capacity.
Dr. Brooke texted her electric detector operator on-call to try to get her into the office as soon as possible for diagnostic workup. This was done at the request of patient's daughter.
Leukocytosis and thrombocytosis:
Likely reactive
Hematology on board and appreciated consult
Hematology agrees that this is reactive but also tested for BCR/ABL, JAK2 mutation, and peripheral flow cytometry. Peripheral flow cytometry showed relative increase of slightly left shifted granulocytes (81% of viable leukocytes) without
immunophenotypic aberrancy and no abnormal B-cell, T-cell, or natural killer cell population identified.
Raynaud's phenomena:
Her peripheral cyanosis is likely related to this phenomena.
There might be also some difficulties capturing pulse ox due to the same.
Pseudohypoglycemia - suspect laboratory error in using Accu-Chek machine, which will not be accurate in setting of Raynaud's phenomena. Serum glucose checks have all been within normal limits without hypoglycemia. No need for bedside glucoses
unless patient has symptoms. Discussed with nursing.
Acute nonischemic myocardial injury -
Recent cardiac cath reviewed
Cardiology consult appreciated
Cardiac MRI done and no evidence of acute myocarditis or any diffuse infiltrative cardiomyopathy.
No ASA use for nonobstructive CAD with Hx GI bleed and GERD
Chronic HFpEF:
Euvolemic
Diuresed last hospitalization
On Lasix 40 mg po daily
On K replacement
On SGLT2i
Elevated BNP but decreased from prior
Chronic hyponatremia:
SIADH related recently
Sodium low but stable at 130
On salt tablets
Continue fluid restrictions
Continue to monitor
Asthma:
Continue bronchodilators
Chronic anemia:
No signs of active bleeding
Continue to monitor
Elevated LFT:
Stable
We will check every so often
Chronic back pain:
Recent spinal and neuroforaminal stenosis at L4-L5 and acute rehabilitation stay recently.
Prior history of L4-L5 laminectomy in the past.
On Tylenol prn
Consider Lidoderm patch + Toradol if needed
Essential hypertension:
On amlodipine 2.5 mg twice a day, home med with guanfacine 2 mg p.o. twice a day on hold, and valsartan 320 mg nightly consider hold if cough persists).
Monitor blood pressure adjust medications accordingly
Diabetes mellitus type 2:
Continue insulin sliding scale
Continue dapagliflozin
Hold metformin
Monitor blood sugar and adjust medications accordingly
Fibromyalgia:
Continue Cymbalta 60 mg p.o. daily
GERD:
Continue PPI p.o. twice a day
Hypothyroidism:
Continue levothyroxine 50 mcg p.o., Mondays to Sunday
Constipation:
Continue current bowel regimen
Insomnia:
Continue melatonin
DVT prophylaxis:
Heparin SQ change to Lovenox SQ
CODE STATUS:
Full code
Dispo -stable for discharge to [facility].
Medically cleared for discharge. There is no indication for an inpatient transfer to a tertiary care center at this time. The patient is saturating well on room air, not tachypneic, hemodynamically stable, etc. Case management aware.
Anticipated Discharge: Today
Subjective/Interval History
-
Date of Service: November 12, 2024
No new complaints.
Objective Data
-
Vital Signs:
Vital Signs
Temp Pulse Resp BP Pulse Ox
98.3 F 77 17 147/76 95
11/11/24 23:23 11/12/24 07:44 11/12/24 07:44 11/11/24 23:23 11/12/24 07:44
I&O
11/11/24 11/12/24 11/13/24
06:59 06:59 06:59
Intake Total 1080 / 1080 240 / 240
Balance 1080 / 1080 240 / 240
[2024-11-12] MEDS: NOVOLOG FLEXPEN-LOW RESISTANCE SC ×2 (08:16→10:43)
[2024-11-12] MEDS: SODIUM CHLORIDE 1 GRAM PO (08:35)
[2024-11-12] MEDS: CYMBALTA DELAYED RELEASE 60 MG PO (08:35)
[2024-11-12] MEDS: FIBERCON 1250 MG PO (08:35)
[2024-11-12] MEDS: DECADRON 2 MG PO (08:36)
[2024-11-12] MEDS: KCL 40 MEQ PO (08:38)
[2024-11-12] MEDS: DECADRON 4 MG PO (08:38)
[2024-11-12] MEDS: LASIX 40 MG PO (08:38)
[2024-11-12] MEDS: TESSALON PERLES 100 MG PO (08:38)
[2024-11-12] MEDS: VITAMIN D3 (cholecalciferol) 50 MCG PO (08:38)
[2024-11-12] MEDS: FLORASTOR 250 MG PO (08:39)
[2024-11-12] MEDS: FARXIGA 10 MG PO (08:39)
[2024-11-12] MEDS: NON-FORMULARY ITEM 160 TABLET PO (08:39)
[2024-11-12 08:57] LABS: Glucose - Point of Care 29 mg/dl (70-99)
--- NOTE | 2024-11-12 09:28 | W.PN.PUL3 ---
Today's Communication / Plan
-
Relayed to patient and daughter that cough will not resolve for at least another few weeks to months
Lack of hypoxia encouraging
Will check PA and lateral chest x-ray today prior to planned discharge
Would not taper steroids further from Decadron 4 mg a day until seen as outpatient
She has an appointment in the next week with rheumatology and pulmonary
Sleep with head of bed elevated
Not sure she should continue with chronic macrolide therapy at this time.
This will be addressed with her pulmonary follow-up
Disposition efforts
Assessment
-
74-year-old woman with past medical history noted, readmitted with shortness of breath and hypoxemia. Recently discharged to rehabilitation with a tentative diagnosis of inflammatory pneumonitis. Seem to have responded to steroids. Steroids were
being weaned down. Patient developed coughing and worsening shortness of breath, Transferred back to the acute care for reevaluation, consulted late on 11/04/2024.
Exertional dyspnea/coughing.
CT chest 11/04/2024: Reviewed, no evidence for pulmonary embolism. Improved bilateral lower lobe pneumonia and/atelectasis right greater than left.
Anti-CCP normal/JASPAL not detected/ANCA antibodies 0/rheumatoid factor less than 10, Aldolase positive
No peripheral eosinophilia
Elevated CRP and sedimentation rate
Urinalysis without proteinuria
Negative COVID
EK11/04/2024-sinus tachycardia. Otherwise normal, no evidence for RV dysfunction.
Leukocytosis likely from steroids/reactive thrombocytosis
Mild to moderate pulmonary hypertension with normal RV on echocardiogram: Suspect either postcapillary or from hypoxemia/current underlying lung issues.
mPAP 27 per RHC, PCWP 16
Blood gas 10/27/2024: 7.5/30/56/90%
Hyponatremia
Persistently elevated troponin
proBNP 795.(Previously to 3000)
normal LHC, normal cardiac MRI
mild Increased LFTs
Chronic conditions LAYER OFF: Hypertension, DM type II, asthma, fibromyalgia, IBS, history of M�ni�re's disease, spinal stenosis s/p L4-5 laminectomy, right hemidiaphragm elevation.

Plan/recommendations:
At this time, patient appears to be comfortable. Primary complaint is cough which she thinks is slightly worse since yesterday, predominantly at night
Salient features include steroid responsive process, interstitial lung disease basilar predominantly seems to be slowly improving, positive aldolase, mild PH with mean pulmonary artery pressure 27 per right heart cath, mild muscle weakness on exam
Review differential at length
Suspect autoimmune process with interstitial disease. Patient with history of fibromyalgia, had seen rheumatology many years ago (Rey Roldan). Workup incomplete per family
Walk test on 11/09/2024 showed jerry SpO2 96% after walking 100 feet, dyspnea scale 4/10
Spot pulse oximetry while in bed seems to intermittently be low at 80%, suspect due to Raynaud's phenomena
Moving forward
Dr. Barahona relayed to the patient and family that she possibly may have autoimmune disease. She is presently on steroids, taper delineated over the next 2-4 weeks.
Given her waxing waning cough, I would not change her steroid dose until seen by rheumatology and pulmonary as outpatient. Would discharge on 4 mg of Decadron, no taper. Allergy to prednisone in the past unknown. Continue with Dexamethasone
Ideally she would be off steroids and have rheumatological exam. This can be done as an outpatient. Family is concerned as patient is not able to maintain rehabilitation status and has had multiple hospital stays
Reassured patient and family that oxygen saturation is adequate. Suspect that symptoms may be primarily from inflammatory process, deconditioning, inflammatory myositis. There is no rash
Patient will be seeing rheumatology as an outpatient - already has an appointment in the next 1 to 2 weeks
She will eventually require full PFTs and would recommend outpatient primary follow-up. Patient has outpatient follow up arranged for 11/18/[address] Renee
Discussed risk for infection given prolonged hospital stay
Which strongly advise discharge as cough should and can be managed as an outpatient
Also discussed with patient and daughter by phone on 2/5 that cough will likely be persistent, and will wax and wane at least for the next few weeks to months given her pulmonary findings
We will obtain a chest x-ray today to confirm no changes, prior to discharge
Continue with current treatment regimen for cough
Given improvement on CAT scan with improvement in groundglass opacification in the superior right lower lobe, no indication for further pulmonary evaluation such as bronchoscopy, biopsy, etc
Bronch may be required in the future depending on clinical course. I would favor a surgical lung biopsy if needed
VQ scan checked on 11/10/2024 shows low probability for PE
Cardiac workup has been negative including cardiac MRI
There is weakness on exam
This seems to be improved overall with steroids
Unclear whether she may benefit from a muscle biopsy in the future but again this should be done off steroid therapy. This would be dictated by rheumatology
No evidence of infection at this time
Hematology consulted: Also suspect reactive leukocytosis/thrombocytosis.
Deferred any workup to hematology (JAK2 + BCR/ABL mutation workup is pending
Continue Pulmicort nebulized twice a day-patient states that she is sensitive to inhaled medications.
Continue Xopenex/Atrovent-she is benefiting from this.
Unfortunately allergic to codeine and many other cough suppressant such as gabapentin as well.
Continue Patricia
Hydroxyzine has been added as needed for itching due to reaction to steroids.
Valsartan induced cough also a possibility. Patient has been taking for years.
Continue PPI-antireflux interventions.
She remains on low-dose azithromycin for anti-inflammatory properties, may help with the cough. Unfortunately, we have limited pharmacological options with the patient has extensive allergy history. She seems to be tolerating at this time. I do
not think this is an ideal long-term option given the likelihood of an autoimmune process, steroid responsive process
This should be addressed in the next 1 to 2 weeks with pulmonary follow-up
-
DVT prophylaxis
-
Will continue to follow briefly, [facility]
Family updated in detail at the bedside on 11/10/[address] Renee
Updated daughter by phone 11/12/2024 (Vidhya)
Reviewed with primary service
All questions answered

Data reviewed:
CTA Chest 10/21/2024: No evidence of central pulmonary embolism; Bibasilar opacification suspicious for pneumonia with slight progression, particularly on the left.
Transthoracic Echocardiogram 10/22/2024: Normal left ventricular size with hyperdynamic systolic function and normal regional wall motion. LVEF 70-75%. Normal right ventricular size and function.
Mild to moderate tricuspid regurgitation. Moderately elevated pulmonary artery pressure (PASP 57 mmHg). No prior study available for comparison.
LHC/RHC 10/27/24- CONCLUSIONS:
1. Right dominant circulation with a 50% lesion in the mid LAD, but no occlusive coronary artery disease.
2. Normal filling pressures (LVEDP = 15 mmHg, PCWP = 15 mmHg at 67.6 kg).
3. Mild, precapillary pulmonary hypertension (mean PA = 27 mmHg, PCWP = 15 mmHg, cardiac output = 3.85 L/min, PVR = 3.12 Fenton units).
4. No cardiac cause for persistent hypoxia.
5. Several radial/brachial artery loops making cardiac catheterization from the right radial artery difficult.
Total time spent today was 39 minutes for this encounter. Time includes reviewing laboratory test/imaging results, reviewing pertinent medical records, obtaining and reviewing medical history, performing an appropriate exam, ordering medications,
tests and procedures. Time also includes documentation of this encounter, coordinating patient care and communicating with other healthcare professionals. Total time does not include separately billed tests performed on this date of service.
Subjective Data
-
Date of Service:
Date of Service: November 12, 2024
Chief Complaint: Pulmonary Follow Up (Cough/shortness of breath/abnormal CT chest)
Subjective:
Patient is sitting in chair, eating breakfast, appears comfortable. Says she had a 'terrible night'. Was coughing. She sleeps with head of bed mildly elevated. Denies productive cough, chest pain. She feels her breathing is actually improved.
She denies nausea.
Objective Data
Data Reviewed
Vital Signs / I&O / Oxygen:
Vital Signs
Temp Pulse Resp BP Pulse Ox
98.2 F 77 17 131/76 95
11/12/24 07:30 11/12/24 07:44 11/12/24 07:44 11/12/24 08:38 11/12/24 07:44
Intake and Output
11/11/24 11/12/24 11/13/24
06:59 06:59 06:59
Intake Total 1080 / 1080 240 / 240
Balance 1080 / 1080 240 / 240
SaO2 95
Nasal Cannula flow liters per 2
minute
Physical Exam
General: Comfortable (At rest)
HEENT: Normocephalic and Anicteric
Cardiovascular: S1-S2, Murmur (n), Rub (n) and Peripheral Edema (n)
Respiratory: Wheeze (n), Crackles (Bibasilar), Rhonchi (n), Non-Labored Respirations and Stridor (n)
GI: Soft, Non Distended and Non Tender
Neurology: Awake, Alert and No Motor Deficits (Generally weak)
Skin: Warm, Dry, Cyanosis (Mild Raynaud's noted on fingertips), Rash (n) and Other (Mild DIP, PIP swelling involving her hands left greater than right)
Labs/Micro/Reports
Lab Data
11/10/24 07:47
[2024-11-12 09:52] LABS: Glucose 101 mg/dl (70-99)
[2024-11-12] MEDS: TYLENOL 650 MG PO (11:55)
--- NOTE | 2024-11-12 13:16 | CM ---
Per [facility] admissions, pt can admit to [facility] location today. Requesting updated therapy notes
PT/OT notified of updated therapy notes, request acknowledged
Updated pt and spouse at bedside, pt was happy to hear she can go to [facility] today and agreeable to [place] location.
Pt' spouse originally stated he will transport but pt states she feels more comfortable transporting via WC van. Pt aware WC van is private pay and agreeable to $175 cost.
IMM reviewed, pt given copy, copy placed in chart
[facility] [place]
Report: [phone]

Plan: [facility]
--- NOTE | 2024-11-12 14:05 | PTCARENOTE ---
Patient preparing for d/. report given to Nurse Whitmore at [facility]
[2024-11-12 15:00] VITALS: BP 125/76
== END 2024-11-12 17:09 | DRG 197 ==
LOC: 4 WEST ACU 15:29
PROVIDERS: Hospitalist; Internal Medicine; Physician Assistant; ADMITTING PHYSICIAN Hospitalist; ATTENDING PHYSICIAN Internal Medicine; CONSULT PHYSICIAN Internal Medicine Critical Care Medicine; EMERGENCY PHYSICIAN Emergency Medicine; FAMILY PHYSICIAN Family Medicine; OTHER PHYSICIAN Internal Medicine Hematology & Oncology; OTHER PHYSICIAN Student in an Organized Health Care Education/Training Program
DX: J84.114 Acute interstitial pneumonitis (principal); E22.2 Syndrome of inappropriate secretion of antidiuretic hormone; I50.32 Chronic diastolic (congestive) heart failure; I5A Non-ischemic myocardial injury (non-traumatic); J98.11 Atelectasis; E87.20 Acidosis, unspecified; K21.9 Gastro-esophageal reflux disease without esophagitis; D72.829 Elevated white blood cell count, unspecified; D75.839 Thrombocytosis, unspecified; I73.00 Raynaud's syndrome without gangrene; I11.0 Hypertensive heart disease with heart failure; J45.909 Unspecified asthma, uncomplicated; D53.9 Nutritional anemia, unspecified; G89.29 Other chronic pain; M48.061 Spinal stenosis, lumbar region without neurogenic claudication; E11.9 Type 2 diabetes mellitus without complications; M79.7 Fibromyalgia; E03.9 Hypothyroidism, unspecified; Z79.890 Hormone replacement therapy; K58.9 Irritable bowel syndrome, unspecified; G47.00 Insomnia, unspecified; E78.00 Pure hypercholesterolemia, unspecified; F41.9 Anxiety disorder, unspecified; M81.0 Age-related osteoporosis without current pathological fracture; E55.9 Vitamin D deficiency, unspecified; H91.90 Unspecified hearing loss, unspecified ear; E66.9 Obesity, unspecified; Z68.31 Body mass index [BMI] 31.0-31.9, adult; Z90.711 Acquired absence of uterus with remaining cervical stump; Z88.1 Allergy status to other antibiotic agents; Z88.5 Allergy status to narcotic agent; Z88.8 Allergy status to other drugs, medicaments and biological substances; Z88.0 Allergy status to penicillin; Z91.041 Radiographic dye allergy status; Z88.2 Allergy status to sulfonamides; Z88.3 Allergy status to other anti-infective agents; Z11.52 Encounter for screening for COVID-19; Z79.84 Long term (current) use of oral hypoglycemic drugs; Z79.899 Other long term (current) drug therapy
CPT/HCPCS: 71045; 71046; 71275; 75561; 78582; 80048; 80053; 81206; 81207; 81208; 81270; 82085; 82248; 82550; 82728; 82947; 82962; 83540; 83550; 83735; 83880; 84100; 84484; 85025; 85652; 86140; 87502; 87811; 93005; 94640; 96374; 96375; 97116; 97163; 97166; 97530; 97535; 99285; A9540; A9567; A9585; Q9967